=== PATIENT | female | born 1955 ===

== ENCOUNTER 2021-08-26 18:34 | Inpatient (IN) | payer MEDICARE, MEDICAID, SELFPAY ==
[2021-08-26] VITALS (8 sets, daily range): BP systolic 101–150; BP diastolic 3–92; PULSE 88–147; RESP 5–24; TEMP 36.6–39.5; O2SAT 93–98; BMI 42.5
--- NOTE | ~2021-08-26 | CT_ITS ---
EXAMINATION: CT HEAD WITHOUT CONTRAST CT CERVICAL SPINE WITHOUT CONTRAST CLINICAL INFORMATION: Left-sided weakness and neck pain. COMPARISON: None. TECHNIQUE: Contiguous axial imaging was performed from the skull base to vertex without intravenous administration of contrast. Contiguous axial imaging was performed from the upper chest through the skull base without intravenous administration of contrast. Coronal and sagittal reformats were obtained at the acquisition workstation. This CT examination was performed using dose optimization techniques as appropriate, variously including the following: *Automated exposure control *Adjustment of mA and/or kV according to patient size (this includes techniques or standardized protocols for targeted exams where dose is matched to indication/reason for exam; i.e. extremities or head) *Use of iterative reconstruction technique DLP: 858 and 801 mGy-cm FINDINGS: Head: Very limited examination due to motion. No evidence of large acute intracranial hemorrhage or edematous territorial infarction. Age indeterminate small hypodensity in the right frontal lobe adjacent to the anterior limb of internal capsule (8:20). Prominent extra-axial spaces, more notable in the frontal convexities. No midline shift. No hydrocephalus. No discrete acute osseous abnormalities. Opacified mastoids and middle ear cavities. No air-fluid levels in the paranasal sinuses. Cervical Spine: Very limited examination due to motion. No discrete acute compression deformities or malalignment. The atlantooccipital and atlantoaxial articulations are maintained. Moderate multilevel cervical spondylosis leading to variously degrees of neural foraminal encroachment and central spinal canal narrowing. No significant soft tissue abnormality. There are multifocal airspace opacities in the image upper lobes, more extensive on the right side. CT/CT cervical spine wo con IMPRESSION: Very limited examination. A repeat study is recommended if clinically pertinent. 1. No large intracranial hemorrhage or edematous territorial infarction. 2. Age indeterminate hypodensity in the right frontal lobe. 3. Nonspecific prominence of the extra-axial spaces, limitedly assessed due to motion. This could be related with volume loss, chronic subdural hematomas or hygromas. 4. No definite cervical fractures or malalignment. 5. Multifocal airspace opacities in the visualized portions of the lungs. Correlate clinically for signs of infection. 6. Opacified mastoids and middle ear cavities. Correlate clinically for otitis and mastoiditis.
--- NOTE | ~2021-08-26 | CT_ITS ---
EXAMINATION: CT ABDOMEN AND PELVIS WITHOUT CONTRAST CLINICAL INFORMATION: Left lower quadrant pain COMPARISON: None TECHNIQUE: Multidetector volumetric imaging was performed from the superior aspect of the liver through the pubic symphysis. Sagittal and coronal reformatted images were obtained on the technologist's workstation. This CT examination was performed using dose optimization techniques as appropriate, variously including the following: *Automated exposure control *Adjustment of mA and/or kV according to patient size (this includes techniques or standardized protocols for targeted exams where dose is matched to indication/reason for exam; i.e. extremities or head) *Use of iterative reconstruction technique DLP: 1524 mGy-cm FINDINGS: LUNG BASES: Groundglass attenuation and subpleural reticulation the lung bases likely some combination of mild fibrosis and air trapping/atelectasis. LIVER, GALLBLADDER, AND BILIARY TREE: Mildly enlarged measuring 17.7 cm in length. Normal attenuation. No liver lesion. No biliary ductal dilation. The gallbladder is unremarkable with no evidence of radiopaque gallstones, gallbladder wall thickening, or obvious pericholecystic inflammatory changes. PANCREAS: Unremarkable. SPLEEN: Unremarkable. ADRENAL GLANDS: Unremarkable. KIDNEYS AND URETERS: The kidneys are normal in size, shape, and attenuation. No hydronephrosis, hydroureter, or calculi seen. No perinephric stranding. BLADDER: Mildly diffusely thick-walled appearance is favored due to incomplete distention. GASTROINTESTINAL TRACT: Moderate amount of formed stool throughout the nondilated colon. No dilated bowel loops. No bowel wall thickening. Normal appendix. Percutaneous G-tube in place. No ascites or free air. ABDOMINAL WALL: No significant abdominal wall hernia. Small bubbles of subcutaneous gas in small subcutaneous nodules in the ventral abdominal wall likely injection sites. LYMPH NODES: No lymphadenopathy. VASCULAR: Mild vascular calcifications. Normal caliber abdominal aorta. PELVIC VISCERA: Status post hysterectomy. Fluid-filled distention of the vagina. OSSEOUS STRUCTURES: No acute fracture or suspicious osseous lesion. Advanced multilevel degenerative disc disease throughout the thoracolumbar spine. Mild grade 1 anterolisthesis at L5-S1 and multilevel facet arthrosis. Mild subcutaneous fat stranding in the anterior right lower chest wall. Correlate with recent injury or bruising on exam. CT/CT abdomen pelvis wo con IMPRESSION: 1. No acute intra-abdominal process identified. 2. Moderate amount of formed stool throughout the colon. Correlate clinically with signs or symptoms of constipation. 3. Fluid-filled distention of the vagina. 4. Multiple additional findings, as described.
--- NOTE | ~2021-08-26 | CT_ITS ---
EXAMINATION: CT CHEST WITHOUT CONTRAST CLINICAL INFORMATION: Shortness of breath. Tachycardia. COMPARISON: None TECHNIQUE: Multidetector volumetric CT imaging of the chest was done. Axial MIP volume rendering provided. Sagittal and coronal reformatted images were obtained. This CT examination was performed using dose optimization techniques as appropriate, variously including the following: *Automated exposure control *Adjustment of mA and/or kV according to patient size (this includes techniques or standardized protocols for targeted exams where dose is matched to indication/reason for exam; i.e. extremities or head) *Use of iterative reconstruction technique DLP: 483 mGy-cm FINDINGS: PEST CONTROL PILOT: Cardiac leads overlie the chest. LUNGS: The central airways are patent. Bandlike opacities are seen throughout the lungs with groundglass opacification. No pneumothorax. MEDIASTINUM: Normal heart size. No pericardial effusion. Mildly prominent mediastinal lymph nodes. For instance there is a right paratracheal node measuring 0.9 cm short axis. PLEURA: There is no pleural effusion. No pleural mass or thickening. AXILLA: No lymphadenopathy. UPPER ABDOMEN: Unremarkable. OSSEOUS STRUCTURES: No acute or suspicious osseous abnormality. Mild degenerative changes throughout the spine. CT/CT chest wo con IMPRESSION: Heterogeneous appearance of the lungs with groundglass opacification and bandlike opacities. The appearance is suspicious for chronic lung disease, although cannot exclude superimposed acute infectious or inflammatory process. Prominent mediastinal lymph nodes are likely reactive. Fleischner guidelines were followed.
--- NOTE | ~2021-08-26 | MR_ITS ---
MRI OF THE BRAIN WITHOUT IV CONTRAST INDICATION: Question weakness. Abnormal head CT. COMPARISON: CTA head 08/26/2021. TECHNIQUE: Multiplanar multisequence MR imaging of the brain was obtained without IV contrast. FINDINGS: There is no hydrocephalus, extra-axial surface collection, or herniation. There is global cerebral volume loss and there is mild chronic microangiopathy. Prominence of the extra-axial CSF spaces seen on the previous MRI due to volume loss without any true subdural collections identified. The major flow voids at the skull base are preserved. There is no acute infarct on diffusion-weighted imaging. There is no intracranial hemorrhage on the gradient recalled echo acquisition. There is a partially empty sella. The cerebellar tonsils are normally positioned. The cerebellum and brainstem are normal. The craniocervical junction is normal. Osseous marrow signal intensity is homogenous. The visualized soft tissues are unremarkable. Large bilateral mastoid and middle ear cavity effusions. MR/MR head/brain wo con IMPRESSION: - No acute intracranial findings. No acute infarcts. - There is global cerebral volume loss and there is mild chronic microangiopathy. - Prominence of the extra-axial CSF spaces seen on the previous MRI is due to volume loss without any true subdural collections identified. - Large bilateral mastoid and middle ear cavity effusions.
--- NOTE | 2021-08-26 18:41 | ECG_ITS ---
Test Reason : SEPSIS Blood Pressure : / mmHG Vent. Rate : 119 BPM Atrial Rate : 119 BPM P-R Int : 168 ms QRS Dur : 070 ms QT Int : 310 ms P-R-T Axes : 052 003 017 degrees QTc Int : 436 ms Artifact in tracing Sinus tachycardia Cannot rule out Inferior infarct , age undetermined Cannot rule out Anterior infarct , age undetermined Abnormal ECG No previous ECGs available Referred By: Wild Giordano Electronically Signed By:GRETA WAITE
[2021-08-26 19:07] LABS: MANUAL DIFF FLAG NO
[2021-08-26 19:09] LABS: Basophils Percent Auto 0.3 % (0-2); Eosinophils Absolute Auto 0.1 X10*3/uL (0.0-0.4); Eosinophils Percent Auto 0.7 % (0-4); Hematocrit 34.8 % (37.0-47.0); Hemoglobin 11.1 g/dl (12.0-16.0); Imm Gran Abs Auto 0.04 X10*3/uL (0.00-0.03); Imm Gran Pct Auto 0.6 % (0.0-0.4); Lymphocytes Absolute Auto 1.4 X10*3/uL (1.2-4.9); Lymphocytes Percent Auto 20.2 % (20-40); Mean Corpuscular HGB Conc 31.9 g/dl (31.0-35.0); Mean Corpuscular Hemoglobin 26.9 pg (27.0-33.0); Mean Corpuscular Volume 84.5 fL (80.0-98.0); Mean Platelet Volume 10.9 fL (9.4-12.3); Monocytes Absolute Auto 0.7 X10*3/uL (0.1-1.2); Monocytes Percent Auto 9.9 % (2-11); Neutrophils Absolute Auto 4.9 x10*3/uL (2.0-8.3); Neutrophils Percent Auto 68.3 % (45-73); Platelet Count 193 X10*3/uL (160-400); Red Blood Count 4.12 X10*6/uL (4.20-5.50); Red Cell Distribution Width 14.8 % (11.0-16.0); White Blood Count 7.1 X10*3/uL (4.8-10.8)
--- NOTE | 2021-08-26 19:18 | ED.GENADULT ---
HPI - General Adult General Chief complaint: General Medical Stated complaint: fever Time Seen by Provider: 08/26/21 18:41 Source: patient and EMS Mode of arrival: EMS Limitations: other (Poor historian) History of Present Illness HPI narrative: This is a 65-year-old female past medical history significant for atrial fibrillation, heart failure, obesity, hyperlipidemia, diastolic congestive heart failure, COPD, ataxia, tremors, weakness, dysphagia oropharyngeal phase presenting to the emergency department from custodial [facility] where they noted that patient appeared to be altered, tremulous, sweating. When I asked the patient what is wrong she tells me she just does not feel right. She is unable to elaborate on her complaint. I will call the [facility] to obtain more information. Patient unable to answer review of systems at this time. Onset (ago): day(s) (1) Related Data Home Medications Medication Instructions Recorded Confirmed Lactobacillus acidophilus 1,000 mmu cells PO BID 08/26/21 08/26/21 (Acidophilus) acetaminophen 325 mg tablet 650 mg PO Q6H PRN temp/pain 08/26/21 08/26/21 albuterol sulfate 0.63 mg/3 mL 0.63 mg inhalation Q6H PRN 08/26/21 08/26/21 solution for nebulization Shortness Of Breath aripiprazole 10 mg tablet 10 mg PO DAILY 08/26/21 08/26/21 atorvastatin 20 mg tablet 20 mg PO BEDTIME 08/26/21 08/26/21 bisacodyl 10 mg rectal suppository 10 mg HI DAILY PRN Constipation 08/26/21 08/26/21 budesonide-formoterol HFA 160 1 inh inhalation DAILY 08/26/21 08/26/21 mcg-4.5 mcg/actuation aerosol inhaler (Symbicort) bupropion HCl 75 mg tablet 75 mg PO BID 08/26/21 08/26/21 docusate sodium 100 mg capsule 100 mg PO BID 08/26/21 08/26/21 enoxaparin 40 mg/0.4 mL 40 mg subcut DAILY 08/26/21 08/26/21 subcutaneous syringe (Lovenox) famotidine 20 mg tablet 20 mg PO BID 08/26/21 08/26/21 furosemide 40 mg tablet 40 mg PO DAILY 08/26/21 08/26/21 gabapentin 300 mg capsule 300 mg PO TID 08/26/21 08/26/21 insulin glargine 100 unit/mL (3 20 unit subcut DAILY 08/26/21 08/26/21 mL) subcutaneous pen insulin lispro 100 unit/mL 1 sliding scale dose subcut 08/26/21 08/26/21 subcutaneous solution (Humalog USEASDIRECTD U-100 Insulin) lidocaine 4 % topical patch 3 patch topical DAILY 08/26/21 08/26/21 magnesium hydroxide 400 mg/5 mL 30 ml PO DAILY PRN Constipation 08/26/21 08/26/21 oral suspension (Milk of Magnesia) multivitamin with iron 1 tab PO DAILY 08/26/21 08/26/21 nystatin 100,000 unit/gram topical 1 appl topical BID 08/26/21 08/26/21 powder oxycodone 10 mg tablet 10 mg PO Q6H PRN Pain (Scale Score 08/26/21 08/26/21 4-6) polyethylene glycol 3350 17 gram 17 g PO DAILY 08/26/21 08/26/21 oral powder packet potassium chloride 20 mEq 20 meq PO DAILY 08/26/21 08/26/21 tablet,extended release propranolol 60 mg tablet 30 mg PO TID 08/26/21 08/26/21 sennosides 8.6 mg tablet (senna) 17.2 mg PO BEDTIME 08/26/21 08/26/21 Allergies Allergy/AdvReac Type Severity Reaction Status Date / Time Unable to Assess Allergy Unverified 08/26/21 18:41 Review of Systems Review of Systems: Yes Unobtainable due to mental status PMFSH Past Medical History Attestation statement: The following information was validated with the patient. Source: old records reviewed and nursing notes reviewed Social History Social History Advance Directives: Yes Advance Directives on File: Yes Advance Directives Date on File: 08/27/21 Physical Exam ED Vital Signs: Vital Signs - 24 hr 08/26/21 18:48 08/26/21 19:19 08/26/21 19:48 Temperature 103.1 F H 102.9 F H 98.6 F Pulse Rate 147 H 117 H 118 H Respiratory Rate 18 24 H 22 H Blood Pressure 116/81 148/3 H Pulse Oximetry 94 95 94 Oxygen Delivery Method Nasal Cannula Nasal Cannula Room Air Oxygen Flow Rate 2 2 08/26/21 20:02 08/26/21 20:25 08/26/21 21:35 Temperature 102.2 F H 99.9 F 100.5 F H Pulse Rate 116 H 113 H Respiratory Rate 22 H 20 Blood Pressure 141/92 H 124/75 Pulse Oximetry 93 94 Oxygen Delivery Method Nasal Cannula Nasal Cannula Oxygen Flow Rate 1 2 08/26/21 23:31 08/27/21 00:40 08/26/21 23:55 Temperature 97.9 F 99.3 F Pulse Rate 88 83 88 Respiratory Rate 15 14 5 L Blood Pressure 101/59 L 107/63 116/63 Pulse Oximetry 98 97 Oxygen Delivery Method Nasal Cannula Nasal Cannula Nasal Cannula Oxygen Flow Rate 1 96 2 08/27/21 01:22 Temperature Pulse Rate 79 Respiratory Rate 14 Blood Pressure 112/44 L Pulse Oximetry 96 Oxygen Delivery Method Nasal Cannula Oxygen Flow Rate 2 BMI result Body Mass Index 42.5 Patient is noted to be febrile, tachycardic. Appearance: Alert.? Oriented X3.? No acute distress.? Head: Normocephalic, atraumatic, no step-offs or deformities Eyes: Pupils equal, round and reactive to light.? ENT: Pharynx normal.? Neck: Normal inspection.? Neck supple.? CVS: Normal heart rate and rhythm.? Pulses normal.? Respiratory: No respiratory distress.? Breath sounds diminished b.l.? Abdomen: Soft and nontender.? Skin: Skin warm and diaphoretic.? Normal skin color.? Normal skin turgor.? Extremities: No lower extremity edema.? No calf ttp. Global weakness, with left upper extremity contracted Neuro: Oriented X 3.? No motor deficit.? No sensory deficit. CN 2-12 intact Course Reevaluation(s) Reevaluation #1: Spoke to staff from [facility] and they tell me that this patient is usually diffusely weak, and has a left arm contracted, she appears to be weaker on her left side at baseline. They tell me that today when they went in to go see her she was noted to be diaphoretic and she told them that she did not feel good there for they called an ambulance. She was noted to be febrile at the facility 103.6 however nobody gave anything at the facility for fever. Time: 21:30 Reevaluation #2: CBC appears to have a slight normocytic anemia, normal white blood cell count. No acute electrolyte abnormalities requiring intervention. Troponin negative EKG nonischemic. Initial lactic acid 2.1, improved after fluids 1.2. UA positive for infection. COVID negative. Time: 22:08 Reevaluation #3: At this time patient will be admitted to hospitalist team. Time: 01:57 Medical Decision Making [facility] Narrative Medical decision making narrative: 1919 65-year-old female from custodial facility presents with generalized malaise, unable to answer my questions she tells me she just does not feel good. Upon physical examination patient is noted to have a rapid regular rhythm on exam, lung sounds diminished b/l, patient's skin is warm, diaphoretic, patient is globally weak and she has a contracted left arm. Vital signs significant for fever and tachycardia. She is on 2 L via nasal cannula. Plan at this time is to obtain basic labs, blood cultures, lactic, antibiotics and fluids. At this time infection suspected Medical Records Medical records reviewed: Yes I reviewed the patient's medical records. Lab Data Lab results reviewed: Yes I reviewed the patient's lab results. Result diagrams: 08/26/21 19:02 08/26/21 19:02 Labs: Lab Results 08/26/21 08/26/21 08/26/21 Range/Units 19:02 19:02 19:02 WBC 7.1 (4.8-10.8) X10*3/uL RBC 4.12 L (4.20-5.50) X10*6/uL Hgb 11.1 L (12.0-16.0) g/dl Hct 34.8 L (37.0-47.0) % MCV 84.5 (80.0-98.0) fL MCH 26.9 L (27.0-33.0) pg MCHC 31.9 (31.0-35.0) g/dl RDW 14.8 (11.0-16.0) % Plt Count 193 (160-400) X10*3/uL MPV 10.9 (9.4-12.3) fL Immature Gran % (Auto) 0.6 H (0.0-0.4) % Neut % (Auto) 68.3 (45-73) % Lymph % (Auto) 20.2 (20-40) % Cook % (Auto) 9.9 (2-11) % Eos % (Auto) 0.7 (0-4) % Baso % (Auto) 0.3 (0-2) % Lymph # (Auto) 1.4 (1.2-4.9) X10*3/uL Cook # (Auto) 0.7 (0.1-1.2) X10*3/uL Eos # (Auto) 0.1 (0.0-0.4) X10*3/uL Baso # (Auto) 0.0 (0.0-0.2) X10*3/uL Abs Immat Gran (auto) 0.04 H (0.00-0.03) X10*3/uL Absolute Neuts (auto) 4.9 (2.0-8.3) x10*3/uL Absolute Nucleated RBC 0.000 (0.0-0.012) X10*3/uL Nucleated RBC % (auto) 0.0 (0.0-0.2) /100WBC Sodium 134 L (135-145) mmol/L Potassium 4.6 (3.3-5.1) mmol/L Chloride 96 (96-108) mmol/L Carbon Dioxide 29 (22-29) mmol/L Anion Gap 14 (12-20) BUN 9 (9-16) mg/dL Creatinine 0.90 (0.5-1.4) mg/dL Estim Creat Clear Calc 90.0 Estimated GFR > 60 Random Glucose 203 H (60-115) mg/dL Lactic Acid (0.5-2.0) mmol/L Lactic Acid F/U @ 2Hr (0.5-2.0) mmol/L Calcium 9.0 (8.4-10.2) mg/dL Magnesium 1.7 (1.6-2.6) mg/dL Total Bilirubin 0.9 (0.0-1.0) mg/dL AST 14 (5-31) U/L ALT 12 (0-31) U/L Alkaline Phosphatase 73 (39-117) U/L Troponin I High Sens (<3.5-17.0) ng/L Total Protein 7.8 (6.5-8.0) g/dL Albumin 4.0 (3.5-5.0) g/dL Lipase 12 (8-78) U/L Urine Color Urine Appearance Urine pH (5.0-8.0) Ur Specific [place] (1.005-1.025) Urine Protein (NEG-TRACE) MG/DL Urine Glucose (UA) (NEG) MG/DL Urine Ketones (NEG) MG/DL Urine Blood (NEG) Urine Nitrite (NEG) Ur Leukocyte Esterase (NEG) Urine RBC (0) /HPF Urine WBC (0-4) /HPF Ur Squamous Epith Cells /LPF Amorphous Sediment /LPF Urine Bacteria /LPF COVID-19 (ABBY) Negative (Negative) COVID-19 Clin Com See Note Influenza Type A (PCR) (Negative) Influenza Type B (PCR) (Negative) RSV RNA Qual (PCR) (Negative) SARS-CoV-2 RNA (RT-PCR) (Negative) 08/26/21 08/26/21 08/26/21 Range/Units 19:02 19:02 21:30 WBC (4.8-10.8) X10*3/uL RBC (4.20-5.50) X10*6/uL Hgb (12.0-16.0) g/dl Hct (37.0-47.0) % MCV (80.0-98.0) fL MCH (27.0-33.0) pg MCHC (31.0-35.0) g/dl RDW (11.0-16.0) % Plt Count (160-400) X10*3/uL MPV (9.4-12.3) fL Immature Gran % (Auto) (0.0-0.4) % Neut % (Auto) (45-73) % Lymph % (Auto) (20-40) % Cook % (Auto) (2-11) % Eos % (Auto) (0-4) % Baso % (Auto) (0-2) % Lymph # (Auto) (1.2-4.9) X10*3/uL Cook # (Auto) (0.1-1.2) X10*3/uL Eos # (Auto) (0.0-0.4) X10*3/uL Baso # (Auto) (0.0-0.2) X10*3/uL Abs Immat Gran (auto) (0.00-0.03) X10*3/uL Absolute Neuts (auto) (2.0-8.3) x10*3/uL Absolute Nucleated RBC (0.0-0.012) X10*3/uL Nucleated RBC % (auto) (0.0-0.2) /100WBC Sodium (135-145) mmol/L Potassium (3.3-5.1) mmol/L Chloride (96-108) mmol/L Carbon Dioxide (22-29) mmol/L Anion Gap (12-20) BUN (9-16) mg/dL Creatinine (0.5-1.4) mg/dL Estim Creat Clear Calc Estimated GFR Random Glucose (60-115) mg/dL Lactic Acid 2.1 H* (0.5-2.0) mmol/L Lactic Acid F/U @ 2Hr (0.5-2.0) mmol/L Calcium (8.4-10.2) mg/dL Magnesium (1.6-2.6) mg/dL Total Bilirubin (0.0-1.0) mg/dL AST (5-31) U/L ALT (0-31) U/L Alkaline Phosphatase (39-117) U/L Troponin I High Sens < 3.5 (<3.5-17.0) ng/L Total Protein (6.5-8.0) g/dL Albumin (3.5-5.0) g/dL Lipase (8-78) U/L Urine Color YELLOW Urine Appearance HAZY Urine pH 7.0 (5.0-8.0) Ur Specific [place] 1.010 (1.005-1.025) Urine Protein TRACE (NEG-TRACE) MG/DL Urine Glucose (UA) NEG (NEG) MG/DL Urine Ketones NEG (NEG) MG/DL Urine Blood 1+ H (NEG) Urine Nitrite POS H (NEG) Ur Leukocyte Esterase 3+ H (NEG) Urine RBC 1-4 (0) /HPF Urine WBC TNTC H (0-4) /HPF Ur Squamous Epith Cells 1+ /LPF Amorphous Sediment 1+ /LPF Urine Bacteria 1+ /LPF COVID-19 (ABBY) (Negative) COVID-19 Clin Com Influenza Type A (PCR) (Negative) Influenza Type B (PCR) (Negative) RSV RNA Qual (PCR) (Negative) SARS-CoV-2 RNA (RT-PCR) (Negative) 08/26/21 08/26/21 Range/Units 21:34 23:40 WBC (4.8-10.8) X10*3/uL RBC (4.20-5.50) X10*6/uL Hgb (12.0-16.0) g/dl Hct (37.0-47.0) % MCV (80.0-98.0) fL MCH (27.0-33.0) pg MCHC (31.0-35.0) g/dl RDW (11.0-16.0) % Plt Count (160-400) X10*3/uL MPV (9.4-12.3) fL Immature Gran % (Auto) (0.0-0.4) % Neut % (Auto) (45-73) % Lymph % (Auto) (20-40) % Cook % (Auto) (2-11) % Eos % (Auto) (0-4) % Baso % (Auto) (0-2) % Lymph # (Auto) (1.2-4.9) X10*3/uL [place] # (Auto) (0.1-1.2) X10*3/uL Eos # (Auto) (0.0-0.4) X10*3/uL Baso # (Auto) (0.0-0.2) X10*3/uL Abs Immat Gran (auto) (0.00-0.03) X10*3/uL Absolute Neuts (auto) (2.0-8.3) x10*3/uL Absolute Nucleated RBC (0.0-0.012) X10*3/uL Nucleated RBC % (auto) (0.0-0.2) /100WBC Sodium (135-145) mmol/L Potassium (3.3-5.1) mmol/L Chloride (96-108) mmol/L Carbon Dioxide (22-29) mmol/L Anion Gap (12-20) BUN (9-16) mg/dL Creatinine (0.5-1.4) mg/dL Estim Creat Clear Calc Estimated GFR Random Glucose (60-115) mg/dL Lactic Acid (0.5-2.0) mmol/L Lactic Acid F/U @ 2Hr 1.2 (0.5-2.0) mmol/L Calcium (8.4-10.2) mg/dL Magnesium (1.6-2.6) mg/dL Total Bilirubin (0.0-1.0) mg/dL AST (5-31) U/L ALT (0-31) U/L Alkaline Phosphatase (39-117) U/L Troponin I High Sens (<3.5-17.0) ng/L Total Protein (6.5-8.0) g/dL Albumin (3.5-5.0) g/dL Lipase (8-78) U/L Urine Color Urine Appearance Urine pH (5.0-8.0) Ur Specific [place] (1.005-1.025) Urine Protein (NEG-TRACE) MG/DL Urine Glucose (UA) (NEG) MG/DL Urine Ketones (NEG) MG/DL Urine Blood (NEG) Urine Nitrite (NEG) Ur Leukocyte Esterase (NEG) Urine RBC (0) /HPF Urine WBC (0-4) /HPF Ur Squamous Epith Cells /LPF Amorphous Sediment /LPF Urine Bacteria /LPF COVID-19 (ABBY) (Negative) COVID-19 Clin Com Influenza Type A (PCR) NEGATIVE (Negative) Influenza Type B (PCR) NEGATIVE (Negative) RSV RNA Qual (PCR) NEGATIVE (Negative) SARS-CoV-2 RNA (RT-PCR) NEGATIVE (Negative) ECG Data Attestation: I personally reviewed and interpreted this ECG as follows: Prior ECG tracings: not available for review Interpretation: Ventricular rate 119 HI normal, QRS normal, QT/QTC normal. EKG shows sinus tachycardia no ST elevations or inversions concerning for ischemia. No previous EKGs to compare with. Critical Care Time Critical Care Time Critical Care Time: No Discharge Plan Discharge Clinical Impression: Pneumonia, UTI (urinary tract infection), Fever Patient Disposition: Admitted As Inpatient
[2021-08-26 19:25] LABS: Alanine Aminotransferase 12 U/L (0-31); Alkaline Phosphatase 73 U/L (39-117); Anion Gap 14 (12-20); Aspartate Amino Transferase 14 U/L (5-31); Bilirubin Total 0.9 mg/dL (0.0-1.0); Blood Urea Nitrogen 9 mg/dL (9-16); COVID-19 Test Negative (Negative); Carbon Dioxide 29 mmol/L (22-29); Chloride 96 mmol/L (96-108); Estimated Glomerular Filt Rate > 60; Glucose Random 203 mg/dL (60-115); Lipase 12 U/L (8-78); Magnesium 1.7 mg/dL (1.6-2.6); Potassium 4.6 mmol/L (3.3-5.1); Sodium 134 mmol/L (135-145); Total Protein 7.8 g/dL (6.5-8.0)
[2021-08-26] MEDS: Acetaminophen 325 MG TABLET 650 MG PO (19:25)
[2021-08-26] MEDS: cefTRIAXone sodium 1 GM in 0.9 % Sodium Chloride 50 ML IV (19:25)
[2021-08-26] MEDS: 0.9 % Sodium Chloride 1,000 ML 999 ML IV ×2 (19:27→22:00)
[2021-08-26 19:32] LABS: Troponin-I High Sensitivity < 3.5 ng/L (<3.5-17.0)
[2021-08-26 19:34] LABS: Lactic Acid 2.1 mmol/L (0.5-2.0)
--- NOTE | 2021-08-26 20:31 | PHA.MEDREC ---
Pharmacy Consult ? Medication Reconciliation Pharmacy has completed the medication reconciliation. Pt from [facility]
[2021-08-26 21:05] LABS: Reflex Lactate? Lactic Acid Added
[2021-08-26 21:42] LABS: Appearance Urine HAZY; Color Urine YELLOW; Glucose Urine UA NEG (NEG); Leukocyte Esterase Urine 3+ (NEG); Nitrite Urine POS (NEG); UACC Culture Trigger YES; Urine Blood 1+ (NEG); Urine Ketones NEG (NEG); Urine Protein TRACE MG/DL (NEG-TRACE)
[2021-08-26 21:51] LABS: ~Lactic Acid-LAB USE ONLY 1.2 mmol/L (0.5-2.0)
[2021-08-26 21:53] LABS: Bacteria Urine 1+ /LPF; Squamous Epithelial Cell Urine 1+ /LPF
[2021-08-26 21:55] LABS: Amorphous Sediment Urine 1+ /LPF; WBC Urine TNTC /HPF (0-4)
[2021-08-26] MEDS: Ibuprofen 600 MG TABLET PO (22:21)
--- NOTE | 2021-08-26 23:46 | PM.IMHP ---
History of Present Illness Date of Service: 08/26/21 Chief Complaint: diaphoresis This 65-year-old female who [facility] and has past medical history of AFib, diastolic heart failure, COPD, obesity, HLD, diabetes, ataxia, tremors, as well as dysphagia sent to the hospital [facility] for altered mental status and diaphoresis. Patient currently awake and oriented to self. She reports that she has not been feeling well for past few days but otherwise denies any cough, no shortness of breath no chest pain, no abdominal pain, no nausea or vomiting, no diarrhea constipation, on reports no urinary symptoms. I am not sure how accurate this review of system really is. On arrival she was noted to be febrile with a fever of 103.1, heart rate of 140s sinus, satting 94% on 2 L of oxygen. It appears the patient does desat on room air and therefore currently on 2 L of oxygen satting 96% Labs are significant for WBC count of 7.1, hemoglobin of 11.1, hematocrit 34.8, sodium of 134, lactic acid of 2.1, improved after IV fluids UA positive for nitrites, leukocyte Estrace, WBC, chest CT shows heterogeneous appearance of the lung with ground-glass opacification and bandlike opacities. Although this is suspicious for chronic lung disease superimposed acute infection cannot be ruled out patient started on IV antibiotics and will be admitted Review of Systems Review of Systems: Yes all other systems are reviewed and are negative and Unobtainable due to mental condition [facility] Medical History (Updated 08/27/21 @ 06:35 by Wanda Carlin MD) Atrial fibrillation CHF (congestive heart failure) COPD (chronic obstructive pulmonary disease) Dysphagia Essential tremor Hyperlipidemia Pertinent family history: Pt does not know Surgical History (Updated 08/27/21 @ 06:28 by Wanda Carlin MD) No pertinent past surgical history Social History Advance Directives: Yes Advance Directives on File: Yes Advance Directives Date on File: 08/27/21 Meds Allergies Allergy/AdvReac Type Severity Reaction Status Date / Time Unable to Assess Allergy Unverified 08/26/21 18:41 Active Medications: Current Medications Pharmacy Consult (Consult Rx Perform Med Rec) 1 each MISCELLANE ONCE PRN PRN Reason: Consult order Home Medications Medication Instructions Recorded Confirmed Last Taken Type Lactobacillus acidophilus 1,000 mmu cells PO BID 08/26/21 08/26/21 Unknown History (Acidophilus) acetaminophen 325 mg tablet 650 mg PO Q6H PRN temp/pain 08/26/21 08/26/21 Unknown History albuterol sulfate 0.63 mg/3 mL 0.63 mg inhalation Q6H PRN 08/26/21 08/26/21 Unknown History solution for nebulization Shortness Of Breath aripiprazole 10 mg tablet 10 mg PO DAILY 08/26/21 08/26/21 Unknown History atorvastatin 20 mg tablet 20 mg PO BEDTIME 08/26/21 08/26/21 Unknown History bisacodyl 10 mg rectal suppository 10 mg SC DAILY PRN Constipation 08/26/21 08/26/21 Unknown History budesonide-formoterol HFA 160 1 inh inhalation DAILY 08/26/21 08/26/21 Unknown History mcg-4.5 mcg/actuation aerosol inhaler (Symbicort) bupropion HCl 75 mg tablet 75 mg PO BID 08/26/21 08/26/21 Unknown History docusate sodium 100 mg capsule 100 mg PO BID 08/26/21 08/26/21 Unknown History enoxaparin 40 mg/0.4 mL 40 mg subcut DAILY 08/26/21 08/26/21 Unknown History subcutaneous syringe (Lovenox) famotidine 20 mg tablet 20 mg PO BID 08/26/21 08/26/21 Unknown History furosemide 40 mg tablet 40 mg PO DAILY 08/26/21 08/26/21 Unknown History gabapentin 300 mg capsule 300 mg PO TID 08/26/21 08/26/21 Unknown History insulin glargine 100 unit/mL (3 20 unit subcut DAILY 08/26/21 08/26/21 Unknown History mL) subcutaneous pen insulin lispro 100 unit/mL 1 sliding scale dose subcut 08/26/21 08/26/21 Unknown History subcutaneous solution (Humalog USEASDIRECTD U-100 Insulin) lidocaine 4 % topical patch 3 patch topical DAILY 08/26/21 08/26/21 Unknown History magnesium hydroxide 400 mg/5 mL 30 ml PO DAILY PRN Constipation 08/26/21 08/26/21 Unknown History oral suspension (Milk of Magnesia) multivitamin with iron 1 tab PO DAILY 08/26/21 08/26/21 Unknown History nystatin 100,000 unit/gram topical 1 appl topical BID 08/26/21 08/26/21 Unknown History powder oxycodone 10 mg tablet 10 mg PO Q6H PRN Pain (Scale Score 08/26/21 08/26/21 Unknown History 4-6) polyethylene glycol 3350 17 gram 17 g PO DAILY 08/26/21 08/26/21 Unknown History oral powder packet potassium chloride 20 mEq 20 meq PO DAILY 08/26/21 08/26/21 Unknown History tablet,extended release propranolol 60 mg tablet 30 mg PO TID 08/26/21 08/26/21 Unknown History sennosides 8.6 mg tablet (senna) 17.2 mg PO BEDTIME 08/26/21 08/26/21 Unknown History Physical Exam Vital Signs and Narrative: Vital Signs: Last Vital Signs Temp 97.9 F 08/26/21 23:31 Pulse 88 08/26/21 23:31 Resp 15 08/26/21 23:31 BP 101/59 L 08/26/21 23:31 Pulse Ox 98 08/26/21 23:31 O2 Del Method 08/26/21 23:31 O2 Flow Rate 1 08/26/21 23:31 Oxygen Flow Rate 2 08/26/21 18:48 BMI result Body Mass Index 42.5 Const: Other: alert, awake, oriented to self and being in a hospital General: cooperative and no acute distress Eyes: General: appearance normal, both eyes and all related structures Pupils: Equal, round and reactive pupils present Resp: Effort & Inspection: normal respiratory effort Auscultation: clear to auscultation bilaterally Cardio: Rate: regular rate Rhythm: regular rhythm GI: Palpation (GI): Soft to palpation Auscultation: normal bowel sounds Skin: General skin exam: no rashes or lesions noted Neuro: Cranial nerves: Yes Equal, round and reactive pupils present Extrem: General: Yes normal to inspection and Yes no pedal edema Results Labs CBC and Chem 7: 08/26/21 19:02 08/26/21 19:02 Labs: Laboratory Results - last 24 hr 08/26/21 08/26/21 08/26/21 19:02 19:02 19:02 MCV 84.5 MCH 26.9 L MCHC 31.9 RDW 14.8 Plt Count 193 MPV 10.9 Immature Gran % (Auto) 0.6 H Neut % (Auto) 68.3 Lymph % (Auto) 20.2 [place] % (Auto) 9.9 Eos % (Auto) 0.7 Baso % (Auto) 0.3 Lymph # (Auto) 1.4 [place] # (Auto) 0.7 Eos # (Auto) 0.1 Baso # (Auto) 0.0 Abs Immat Gran (auto) 0.04 H Absolute Neuts (auto) 4.9 Absolute Nucleated RBC 0.000 Nucleated RBC % (auto) 0.0 Anion Gap 14 Estim Creat Clear Calc 90.0 Estimated GFR > 60 Random Glucose 203 H Lactic Acid Lactic Acid F/U @ 2Hr Calcium 9.0 Magnesium 1.7 Total Bilirubin 0.9 AST 14 ALT 12 Alkaline Phosphatase 73 Troponin I High Sens Total Protein 7.8 Albumin 4.0 Lipase 12 Urine Color Urine Appearance Urine pH Ur Specific [place] Urine Protein Urine Glucose (UA) Urine Ketones Urine Blood Urine Nitrite Ur Leukocyte Esterase Urine RBC Urine WBC Ur Squamous Epith Cells Amorphous Sediment Urine Bacteria COVID-19 (ABBY) Negative COVID-19 Clin Com See Note 08/26/21 08/26/21 08/26/21 19:02 19:02 21:30 MCV MCH MCHC RDW Plt Count MPV Immature Gran % (Auto) Neut % (Auto) Lymph % (Auto) [place] % (Auto) Eos % (Auto) Baso % (Auto) Lymph # (Auto) [place] # (Auto) Eos # (Auto) Baso # (Auto) Abs Immat Gran (auto) Absolute Neuts (auto) Absolute Nucleated RBC Nucleated RBC % (auto) Anion Gap Estim Creat Clear Calc Estimated GFR Random Glucose Lactic Acid 2.1 H* Lactic Acid F/U @ 2Hr Calcium Magnesium Total Bilirubin AST ALT Alkaline Phosphatase Troponin I High Sens < 3.5 Total Protein Albumin Lipase Urine Color YELLOW Urine Appearance HAZY Urine pH 7.0 Ur Specific [place] 1.010 Urine Protein TRACE Urine Glucose (UA) NEG Urine Ketones NEG Urine Blood 1+ H Urine Nitrite POS H Ur Leukocyte Esterase 3+ H Urine RBC 1-4 Urine WBC TNTC H Ur Squamous Epith Cells 1+ Amorphous Sediment 1+ Urine Bacteria 1+ COVID-19 (ABBY) COVID-19 Clin Com 08/26/21 21:34 MCV MCH MCHC RDW Plt Count MPV Immature Gran % (Auto) Neut % (Auto) Lymph % (Auto) [place] % (Auto) Eos % (Auto) Baso % (Auto) Lymph # (Auto) [place] # (Auto) Eos # (Auto) Baso # (Auto) Abs Immat Gran (auto) Absolute Neuts (auto) Absolute Nucleated RBC Nucleated RBC % (auto) Anion Gap Estim Creat Clear Calc Estimated GFR Random Glucose Lactic Acid Lactic Acid F/U @ 2Hr 1.2 Calcium Magnesium Total Bilirubin AST ALT Alkaline Phosphatase Troponin I High Sens Total Protein Albumin Lipase Urine Color Urine Appearance Urine pH Ur Specific [place] Urine Protein Urine Glucose (UA) Urine Ketones Urine Blood Urine Nitrite Ur Leukocyte Esterase Urine RBC Urine WBC Ur Squamous Epith Cells Amorphous Sediment Urine Bacteria COVID-19 (ABBY) COVID-19 Clin Com Imaging Radiologist's Impressions: Impressions Abdomen/Pelvis CT 08/26/21 19:41 IMPRESSION: 1. No acute intra-abdominal process identified. 2. Moderate amount of formed stool throughout the colon. Correlate clinically with signs or symptoms of constipation. 3. Fluid-filled distention of the vagina. 4. Multiple additional findings, as described. Cervical Spine CT 08/26/21 19:41 IMPRESSION: Very limited examination. A repeat study is recommended if clinically pertinent. 1. No large intracranial hemorrhage or edematous territorial infarction. 2. Age indeterminate hypodensity in the right frontal lobe. 3. Nonspecific prominence of the extra-axial spaces, limitedly assessed due to motion. This could be related with volume loss, chronic subdural hematomas or hygromas. 4. No definite cervical fractures or malalignment. 5. Multifocal airspace opacities in the visualized portions of the lungs. Correlate clinically for signs of infection. 6. Opacified mastoids and middle ear cavities. Correlate clinically for otitis and mastoiditis. Head CT 08/26/21 19:41 IMPRESSION: Very limited examination. A repeat study is recommended if clinically pertinent. 1. No large intracranial hemorrhage or edematous territorial infarction. 2. Age indeterminate hypodensity in the right frontal lobe. 3. Nonspecific prominence of the extra-axial spaces, limitedly assessed due to motion. This could be related with volume loss, chronic subdural hematomas or hygromas. 4. No definite cervical fractures or malalignment. 5. Multifocal airspace opacities in the visualized portions of the lungs. Correlate clinically for signs of infection. 6. Opacified mastoids and middle ear cavities. Correlate clinically for otitis and mastoiditis. Assessment and Plan (1) Sepsis: Status: Acute (2) UTI (urinary tract infection): Status: Acute (3) Abnormal head CT: Status: Acute (4) Constipation: Status: Acute Plan 65-year-old year old female [facility] with past medical history of AFib, frail,, pelvis who presents to hospital with altered mentation and diaphoresis found to have UTI and sepsis # sepsis - likely secondary to UTI - has positive UA - febrile, tachycardic, - chest x-ray finding appears to be chronic - will treat with IV antibiotics - follow cultures # acute UTI - positive UA, with evidence of sepsis - treat with IV antibiotics - follow culture # pneumonia? - chest CT revealed heterogeneous appearance of the lung with ground-glass opacification that appears chronic although acute infection possible - patient denies any cough or shortness of breath - patient will be treated with IV antibiotics - Blood cultures - monitor respiratory status # abnormal head CT - patient has significant abnormal findings on head CT -will consult neurology # constipation - as seen on abd CT - daily regimen # hyperlipidemia - continue statin # diabetes - continue home insulin - low-dose sliding scale insulin - diabetic diet Of note patient has history of dysphagia, tried to call the nursing facility that the patient comes from, but they are closed, will keep NPO until diet is confirmed DVT prophylaxis: Lovenox Given the sepsis and requirement for IV antibiotics patient will require minimum 2 night hospital stay for further management on monitor in Quality Stroke Does the patient have a stroke diagnosis?: No VTE Prior VTE?: No VTE Risk Level:: Medical - moderate - high VTE Device Contraindication: Treatment Not Indicated VTE Drug Contraindication: N/A - Med Ordered
[2021-08-27] VITALS (8 sets, daily range): BP systolic 104–140; BP diastolic 44–63; PULSE 72–91; RESP 14–20; TEMP 36.5–37.4; O2SAT 95–99
[2021-08-27 00:23] LABS: Influenza A PCR NEGATIVE (Negative); Influenza B PCR NEGATIVE (Negative); Resp Syncy Virus RNA Qual PCR NEGATIVE (Negative); SARS COV2 PCR INHOUSE NEGATIVE (Negative)
[2021-08-27] MEDS: Azithromycin 500 MG in 0.9 % Sodium Chloride 250 ML 125 MG IV (00:40)
[2021-08-27] MEDS: Heparin Sodium,Porcine 5,000 UNIT/ML VIAL 5000 UNIT SUBCUT ×2 (00:40→12:25)
[2021-08-27 03:35] LABS: CT PCR NOT DETECTED (Not Detect.); NG PCR NOT DETECTED (Not Detect.)
[2021-08-27 06:58] LABS: MANUAL DIFF FLAG NO
[2021-08-27 06:59] LABS: Basophils Percent Auto 0.2 % (0-2); Eosinophils Percent Auto 0.4 % (0-4); Hematocrit 30.2 % (37.0-47.0); Hemoglobin 9.5 g/dl (12.0-16.0); Imm Gran Abs Auto 0.04 X10*3/uL (0.00-0.03); Imm Gran Pct Auto 0.8 % (0.0-0.4); Lymphocytes Absolute Auto 1.7 X10*3/uL (1.2-4.9); Lymphocytes Percent Auto 32.7 % (20-40); Mean Corpuscular HGB Conc 31.5 g/dl (31.0-35.0); Mean Corpuscular Hemoglobin 26.9 pg (27.0-33.0); Mean Corpuscular Volume 85.6 fL (80.0-98.0); Mean Platelet Volume 10.9 fL (9.4-12.3); Monocytes Absolute Auto 0.7 X10*3/uL (0.1-1.2); Monocytes Percent Auto 13.4 % (2-11); Neutrophils Absolute Auto 2.7 x10*3/uL (2.0-8.3); Neutrophils Percent Auto 52.5 % (45-73); Platelet Count 129 X10*3/uL (160-400); Red Blood Count 3.53 X10*6/uL (4.20-5.50); White Blood Count 5.1 X10*3/uL (4.8-10.8)
[2021-08-27 07:13] LABS: Anion Gap 10 (12-20); Blood Urea Nitrogen 9 mg/dL (9-16); Calcium 8.8 mg/dL (8.4-10.2); Carbon Dioxide 28 mmol/L (22-29); Chloride 106 mmol/L (96-108); Creatinine Clr Calc Pharmacy 109.5; Estimated Glomerular Filt Rate > 60; Glucose Random 194 mg/dL (60-115); Potassium 4.2 mmol/L (3.3-5.1); Sodium 140 mmol/L (135-145)
--- NOTE | 2021-08-27 07:25 | PC.NURSE ---
pt found covered in urine, cleaned linen and pt. rectal temp taken 99.3. pt continues to report chills throughout adls. pt poc 164 per pct and pt sitting up eating at this time. plan of care for admission and pt denies having any questions at this time.
[2021-08-27 08:15] LABS: Glucose, Whole Blood 164 mg/dL (60-115)
[2021-08-27] MEDS: Insulin Lispro 100 UNIT/ML 3 ML VIAL SUBCUT ×4 (08:19→20:47)
[2021-08-27] MEDS: Acetaminophen 325 MG TABLET 650 MG PO ×2 (08:39→22:56)
[2021-08-27] MEDS: buPROPion HCL 75 MG TABLET PO ×2 (08:39→20:47)
[2021-08-27] MEDS: ARIPiprazole 10 MG TABLET PO (08:40)
[2021-08-27] MEDS: oxyCODONE HCl Immed Release 5 MG TABLET 10 MG PO ×3 (08:41→22:57)
[2021-08-27] MEDS: Furosemide 40 MG TABLET PO (08:42)
[2021-08-27] MEDS: Potassium Chloride ER 20 MEQ TAB.ER.PRT PO (08:42)
[2021-08-27] MEDS: Multivitamin TABLET 1 TAB PO (08:42)
[2021-08-27] MEDS: Propranolol HCL 10 MG TABLET 30 MG PO ×3 (08:43→20:47)
[2021-08-27] MEDS: Lidocaine 4 % Patch ADH..PATCH 3 PATCH TRANSDERMA (08:43)
[2021-08-27] MEDS: Insulin Glargine,Hum.rec.anlog 100 UNIT/ML 10 ML VIAL 20 UNIT SUBCUT (08:43)
[2021-08-27] MEDS: Gabapentin 300 MG CAPSULE PO ×3 (08:43→20:47)
[2021-08-27] MEDS: 0.9 % Sodium Chloride Flush 3 ML SYRINGE IVFLUSH ×2 (08:46→16:27)
[2021-08-27] MEDS: Famotidine 20 MG TABLET PO ×2 (08:48→20:47)
[2021-08-27] MEDS: Fluticasone/Vilanterol 200/25 BLST.W.DEV 1 PUFF INHALE (09:34)
--- NOTE | 2021-08-27 10:40 | HO.PM.IMPN ---
Subjective Subjective Date of Service: 08/27/21 Interval History: Seen and examined this morning Admitted overnight for fever secondary to probable UTI Patient is tremulous-reports tremors for over 1 year Has pain and decreased range of motion in left upper extremity which she reports is chronic Reports dysuria and weakness. Denies cough or shortness of breath Review of Systems Review of Systems: Yes all other systems are reviewed and are negative Constitutional Constitutional: Denies chills and Denies fever(s) Cardiovascular Cardiovascular: Denies chest pain, Denies palpitations and Denies dyspnea Respiratory Respiratory: Denies cough and Denies dyspnea Gastrointestinal Gastrointestinal: Denies abdominal pain, Denies nausea and Denies vomiting Genitourinary Genitourinary: Reports dysuria Endocrine Endocrine: Denies palpitations Physical Exam Vital Signs: Vital Signs: Last Vital Signs Temp 99.3 F 08/27/21 07:17 Pulse 91 08/27/21 09:35 Resp 18 08/27/21 09:35 BP 125/49 L 08/27/21 07:17 Pulse Ox 98 08/27/21 07:17 O2 Del Method 08/27/21 07:17 O2 Flow Rate 2 08/27/21 07:17 Oxygen Flow Rate 2 08/26/21 18:48 BMI result Body Mass Index 42.5 Const: General: cooperative, comfortable, alert and awake Nutritional Appearance: obese Orientation/consciousness: oriented to person and oriented to place Resp: Effort & Inspection: normal respiratory effort and able to speak in complete sentences Auscultation: clear to auscultation bilaterally Cardio: Rate: regular rate Heart sounds: S1 normal heart sound present and S2 normal heart sound present GI: Inspection: No distended and Yes obesity Palpation (GI): Soft to palpation and nontender Neuro: Other: grossly non-focal; b/l upper extremity tremors General: oriented to person and oriented to place Extrem: Other: Able to move all 4 extremities spontaneously. Left upper extremity range of motion limited by pain trace edema b/l legs Objective Data Active Medications Acetaminophen (Acetaminophen 325 Mg Tablet) 650 mg PO Q6H PRN PRN Reason: Pain, Mild (Pain Scale 1-3) Last Admin: 08/27/21 08:39 Dose: 650 mg Documented By: SHAI Albuterol Sulfate (Albuterol Sulfate (0.042%) 1.25 Mg/3 Ml Vial.Neb) 0.625 mg INHALE Q6H PRN PRN Reason: Shortness Of Breath Aripiprazole (Aripiprazole 10 Mg Tablet) 10 mg PO DAILY [facility] Last Admin: 08/27/21 08:40 Dose: 10 mg Documented By: SHAI Atorvastatin Calcium (Atorvastatin Calcium 20 Mg Tablet) 20 mg PO BEDTIME [facility] Bisacodyl (Bisacodyl 10 Mg Supp.Rect) 10 mg PA DAILY PRN PRN Reason: Constipation Bupropion HCl (Bupropion Hcl 75 Mg Tablet) 75 mg PO BID [facility] Last Admin: 08/27/21 08:39 Dose: 75 mg Documented By: SHAI Dextrose (Dextrose 50 % 25 Gm/50 Ml Syringe) 25 gm IVPUSH Q15M PRN; Protocol PRN Reason: per Hypoglycemia Standing Ord. Famotidine (Famotidine 20 Mg Tablet) 20 mg PO BID [facility] Last Admin: 08/27/21 08:48 Dose: 20 mg Documented By: SHAI Fluticasone/Vilanterol (Fluticasone/Vilanterol 200/25 Blst.W.Dev) 1 puff INHALE RDAILY [facility] Last Admin: 08/27/21 09:34 Dose: 1 puff Documented By: RUTH Furosemide (Furosemide 40 Mg Tablet) 40 mg PO DAILY [facility]; Protocol Last Admin: 08/27/21 08:42 Dose: 40 mg Documented By: SHAI Gabapentin (Gabapentin 300 Mg Capsule) 300 mg PO TID [facility] Last Admin: 08/27/21 08:43 Dose: 300 mg Documented By: SHAI Glucose (Glucose Gel 15 Gm Gel..Gram.) 15 gm PO Q15M PRN; Protocol PRN Reason: per Hypoglycemia Standing Ord. Heparin Sodium (Porcine) (Heparin Sodium,Porcine 5,000 Unit/Ml Vial) 5,000 unit SUBCUT Q12H [facility] Last Admin: 08/27/21 00:40 Dose: 5,000 unit Documented By: FRANCESCA Azithromycin 500 mg/ Sodium (Chloride) 250 mls @ 125 mls/hr IV Q24H [facility] Last Infusion: 08/27/21 06:21 Dose: 125 mls/hr Documented By: FRANCESCA Ceftriaxone Sodium 1 gm/ (Sodium Chloride) 50 mls @ 100 mls/hr IV Q24H [facility] Insulin Glargine (Insulin Glargine,Hum.Rec.Anlog 100 Unit/Ml 10 Ml Vial) 20 unit SUBCUT DAILY [facility] Last Admin: 08/27/21 08:43 Dose: 20 unit Documented By: SHAI Insulin Human Lispro (Insulin Lispro 100 Unit/Ml 3 Ml Vial) 0.1 - 10 unit SUBCUT QIDACHS [facility]; Protocol Last Admin: 08/27/21 08:19 Dose: 2 unit Documented By: SHAI Insulin Human Lispro (Insulin Lispro 100 Unit/Ml 3 Ml Vial) 0.1 - 10 unit SUBCUT CONT. PER PROTOCOL [facility]; Protocol Lidocaine (Lidocaine 4 % Patch Adh..Patch) 3 patch TRANSDERMA DAILY [facility]; Protocol Last Admin: 08/27/21 08:43 Dose: 3 patch Documented By: SHAI Magnesium Hydroxide (Milk Of Magnesia 30 Ml Oral.Susp) 30 ml PO DAILY PRN PRN Reason: Constipation Multivitamins/Vitamin C (Multivitamin Tablet) 1 tab PO DAILY [facility] Last Admin: 08/27/21 08:42 Dose: 1 tab Documented By: SHAI Nystatin (Nystatin Powder 15 Gm Bottle) 1 appl TOPICAL BID [facility]; Protocol Last Admin: 08/27/21 08:47 Dose: Not Given Documented By: KATHI Non-Admin Reason: Med Not Available Ondansetron HCl (Ondansetron Hcl 4 Mg/2 Ml Vial) 4 mg IVPUSH Q8H PRN PRN Reason: Nausea and Vomiting Oxycodone HCl (Oxycodone Hcl Immed Release 5 Mg Tablet) 10 mg PO Q6H PRN PRN Reason: Pain (Scale Score 4-6) Last Admin: 08/27/21 08:41 Dose: 10 mg Documented By: SHAI Pharmacy Consult (Consult Rx Perform Med Rec) 1 each MISCELLANE ONCE PRN PRN Reason: Consult order Polyethylene Glycol (Polyethylene Glycol 3350 17 Gm Powd.Pack) 17 gm PO DAILY [facility] Last Admin: 08/27/21 08:47 Dose: Not Given Documented By: KATHI Non-Admin Reason: Patient Refused Polyethylene Glycol (Polyethylene Glycol 3350 17 Gm Powd.Pack) 17 gm PO DAILY [facility] Last Admin: 08/27/21 08:33 Dose: Not Given Documented By: KATHI Non-Admin Reason: Patient Refused Potassium Chloride (Potassium Chloride Er 20 Meq Tab.Er.Prt) 20 meq PO DAILY [facility] Last Admin: 08/27/21 08:42 Dose: 20 meq Documented By: SHAI Propranolol HCl (Propranolol Hcl 10 Mg Tablet) 30 mg PO TID [facility]; Protocol Last Admin: 08/27/21 08:43 Dose: 30 mg Documented By: SHAI Senna (Sennosides 8.6 Mg Tablet) 17.2 mg PO BEDTIME [facility] Sodium Chloride (0.9 % Sodium Chloride Flush 3 Ml Syringe) 3 ml IVFLUSH QSHIFT [facility] Last Admin: 08/27/21 08:46 Dose: 3 ml Documented By: SHAI Labs CBC & Chem 7: 08/27/21 06:48 08/27/21 06:48 Labs: Laboratory Results - last 24 hr 08/26/21 08/26/21 08/26/21 19:02 19:02 19:02 MCV 84.5 MCH 26.9 L MCHC 31.9 RDW 14.8 Plt Count 193 MPV 10.9 Immature Gran % (Auto) 0.6 H Neut % (Auto) 68.3 Lymph % (Auto) 20.2 [place] % (Auto) 9.9 Eos % (Auto) 0.7 Baso % (Auto) 0.3 Lymph # (Auto) 1.4 [place] # (Auto) 0.7 Eos # (Auto) 0.1 Baso # (Auto) 0.0 Abs Immat Gran (auto) 0.04 H Absolute Neuts (auto) 4.9 Absolute Nucleated RBC 0.000 Nucleated RBC % (auto) 0.0 Anion Gap 14 Estim Creat Clear Calc 90.0 Estimated GFR > 60 POC Glucose Random Glucose 203 H Lactic Acid Lactic Acid F/U @ 2Hr Calcium 9.0 Magnesium 1.7 Total Bilirubin 0.9 AST 14 ALT 12 Alkaline Phosphatase 73 Troponin I High Sens Total Protein 7.8 Albumin 4.0 Lipase 12 Urine Color Urine Appearance Urine pH Ur Specific [place] Urine Protein Urine Glucose (UA) Urine Ketones Urine Blood Urine Nitrite Ur Leukocyte Esterase Urine RBC Urine WBC Ur Squamous Epith Cells Amorphous Sediment Urine Bacteria Chlam trachomat DNA PCR COVID-19 ([facility]) Negative COVID-19 Clin Com See Note Influenza Type A (PCR) Influenza Type B (PCR) N.gonorrhoeae DNA (PCR) RSV RNA Qual (PCR) SARS-CoV-2 RNA (RT-PCR) 08/26/21 08/26/21 08/26/21 19:02 19:02 21:30 MCV MCH MCHC RDW Plt Count MPV Immature Gran % (Auto) Neut % (Auto) Lymph % (Auto) [place] % (Auto) Eos % (Auto) Baso % (Auto) Lymph # (Auto) [place] # (Auto) Eos # (Auto) Baso # (Auto) Abs Immat Gran (auto) Absolute Neuts (auto) Absolute Nucleated RBC Nucleated RBC % (auto) Anion Gap Estim Creat Clear Calc Estimated GFR POC Glucose Random Glucose Lactic Acid 2.1 H* Lactic Acid F/U @ 2Hr Calcium Magnesium Total Bilirubin AST ALT Alkaline Phosphatase Troponin I High Sens < 3.5 Total Protein Albumin Lipase Urine Color YELLOW Urine Appearance HAZY Urine pH 7.0 Ur Specific [place] 1.010 Urine Protein TRACE Urine Glucose (UA) NEG Urine Ketones NEG Urine Blood 1+ H Urine Nitrite POS H Ur Leukocyte Esterase 3+ H Urine RBC 1-4 Urine WBC TNTC H Ur Squamous Epith Cells 1+ Amorphous Sediment 1+ Urine Bacteria 1+ Chlam trachomat DNA PCR COVID-19 ([facility]) COVID-19 Clin Com Influenza Type A (PCR) Influenza Type B (PCR) N.gonorrhoeae DNA (PCR) RSV RNA Qual (PCR) SARS-CoV-2 RNA (RT-PCR) 08/26/21 08/26/21 08/27/21 21:34 23:40 02:01 MCV MCH MCHC RDW Plt Count MPV Immature Gran % (Auto) Neut % (Auto) Lymph % (Auto) [place] % (Auto) Eos % (Auto) Baso % (Auto) Lymph # (Auto) [place] # (Auto) Eos # (Auto) Baso # (Auto) Abs Immat Gran (auto) Absolute Neuts (auto) Absolute Nucleated RBC Nucleated RBC % (auto) Anion Gap Estim Creat Clear Calc Estimated GFR POC Glucose Random Glucose Lactic Acid Lactic Acid F/U @ 2Hr 1.2 Calcium Magnesium Total Bilirubin AST ALT Alkaline Phosphatase Troponin I High Sens Total Protein Albumin Lipase Urine Color Urine Appearance Urine pH Ur Specific [place] Urine Protein Urine Glucose (UA) Urine Ketones Urine Blood Urine Nitrite Ur Leukocyte Esterase Urine RBC Urine WBC Ur Squamous Epith Cells Amorphous Sediment Urine Bacteria Chlam trachomat DNA PCR NOT DETECTED COVID-19 ([facility]) COVID-19 Clin Com Influenza Type A (PCR) NEGATIVE Influenza Type B (PCR) NEGATIVE N.gonorrhoeae DNA (PCR) NOT DETECTED RSV RNA Qual (PCR) NEGATIVE SARS-CoV-2 RNA (RT-PCR) NEGATIVE 08/27/21 08/27/21 08/27/21 06:48 06:48 07:15 MCV 85.6 MCH 26.9 L MCHC 31.5 RDW 15.0 Plt Count 129 L D MPV 10.9 Immature Gran % (Auto) 0.8 H Neut % (Auto) 52.5 Lymph % (Auto) 32.7 [place] % (Auto) 13.4 H Eos % (Auto) 0.4 Baso % (Auto) 0.2 Lymph # (Auto) 1.7 [place] # (Auto) 0.7 Eos # (Auto) 0.0 Baso # (Auto) 0.0 Abs Immat Gran (auto) 0.04 H Absolute Neuts (auto) 2.7 Absolute Nucleated RBC 0.000 Nucleated RBC % (auto) 0.0 Anion Gap 10 L Estim Creat Clear Calc 109.5 Estimated GFR > 60 POC Glucose 164 H Random Glucose 194 H Lactic Acid Lactic Acid F/U @ 2Hr Calcium 8.8 Magnesium Total Bilirubin AST ALT Alkaline Phosphatase Troponin I High Sens Total Protein Albumin Lipase Urine Color Urine Appearance Urine pH Ur Specific [place] Urine Protein Urine Glucose (UA) Urine Ketones Urine Blood Urine Nitrite Ur Leukocyte Esterase Urine RBC Urine WBC Ur Squamous Epith Cells Amorphous Sediment Urine Bacteria Chlam trachomat DNA PCR COVID-19 ([facility]) COVID-19 Clin Com Influenza Type A (PCR) Influenza Type B (PCR) N.gonorrhoeae DNA (PCR) RSV RNA Qual (PCR) SARS-CoV-2 RNA (RT-PCR) Microbiology Microbiology Results: Microbiology 08/26/21 21:30 Urine Culture - Preliminary Urine Catheterized - Burdick Catheter Culture too young to evaluate. 08/27/21 02:01 Trichomonas Preparation - Final Vaginal Assessment and Plan (1) Sepsis: Status: Acute (2) UTI (urinary tract infection): Status: Acute Plan 65-year-old year old female resident of [facility] with past medical history of AFib, frail,, pelvis who presents to hospital with altered mentation and diaphoresis found to have UTI and sepsis sepsis Met sepsis criteria with tachycardia, fever likely secondary to UTI -continue IV ceftriaxone day #2 - follow cultures UTI - positive UA, with evidence of sepsis - treat with IV antibiotics - follow culture pneumonia? - chest CT revealed heterogeneous appearance of the lung with ground-glass opacification that appears chronic although acute infection possible - patient denies any cough or shortness of breath - will continue IV ceftriaxone, azithromycin for now - check respiratory pathogen panel, procalcitonin - follow Blood cultures Chronic respiratory failure Patient uses 2 L at baseline Unclear etiology Continue baseline inhalers abnormal head CT - patient has significant abnormal findings on head CT -will consult neurology constipation - as seen on abd CT - daily regimen left arm pain Patient reports chronic Continue home dose of oxycodone, lidocaine patch hyperlipidemia - continue statin diabetes - continue home insulin - low-dose sliding scale insulin - diabetic diet after speech eval Dysphagia speech eval Tremor chronic Continue propanolol Mood Continue Abilify, Wellbutrin HLD Continue statin Morbid obesity BMI 42.6 DVT prophylaxis: Lovenox Attending-Dr. Joyce Patient will require ongoing inpatient hospitalization due to sepsis secondary to UTI, need for IV antibiotics, evaluation for abnormal chest CT and brain CT Likely return [facility] when medically ready for discharge Quality Stroke Does the patient have a stroke diagnosis?: No VTE Prior VTE?: No VTE Risk Level:: Medical - moderate - high VTE Device Contraindication: Treatment Not Indicated VTE Drug Contraindication: N/A - Med Ordered
--- NOTE | 2021-08-27 11:53 | MHC.SL.SWA ---
Speech Pathologist Impression: Oropharyngeal dysphagia Dysphasia Diet Status: Upgrade from NPO to chopped/thin Liquid Consistency and Strategies for Safe Swallow: Liquid Intake Recommendation: Thin Solid Food Consistency: Dietary Recommendations: Chopped/Advanced (NDD3) Additional Modifications to Solid Foods: Per staff at [facility], patient eats regular texture solids with chopped meat, thin liquids, pills are taken whole with a lot of applesauce. Patient seen for bedside swallow evaluation while in the ED this morning. No clinical signs of aspiration. Recommend continue with baseline. Recommendation entered as CHOPPED/ADVANCED (NDD3) to ensure meats are chopped, THIN liquids, pills WHOLE in PUREE. Total supervision during meals given history of dysphagia. Aspiration precautions apply. Sent [place] Message to MD, RN, RD w/ recommendations. Oral Medication Intake: Whole with Puree Please contact the pharmacy regarding appropriate crushable or liquid drug formulations that are available whenever modified delivery is recommended. Compensatory Strategies and Precautions to be Taken for Safe Swallow: Sitting Upright (90 deg) Small Bites and Sips Alternate Liquids/Solids Rate of Ingestion Change Avoid Specific Foods Supervision While Eating and Drinking for Safe Swallow: Total Supervision (1:1) Foods to Avoid: Tough, difficult to chew solids Swallowing Recommended Treatments: Recommendation for Speech: NA:Typical Evaluation Comment: Further ST intervention no longer indicated at this level of care. Please re-refer if any concerns arise or if there are any changes. Quoter Clinican/Clinical Fellow: No Supervisory Statement: I have reviewed and agree with the student/clinical fellow's documentation: N/A Speech Language Pathologist: Laureen Craven M.A., CCC-CLARK DRIVER
--- NOTE | 2021-08-27 12:17 | P.CNNE_ITS ---
History of Present Illness Data of Consult Service Date: 08/27/21 Primary Care Provider: Carlitos Greer MD [facility] Reason for consult: Abnormal head CT 65 years old woman who I was asked to see because of abnormal head CT finding. I saw her in emergency room where she had left-sided weakness or left hemiparesis. When I asked her why she was here, she was not sure. When I asked her if she had a stroke, she said no but reported that in February she was admitted [facility] and was comatose with COVID and developed this weakness after that. Apparently she was brought to hospital with change in m ental status. A CT scan of brain was done but technically it was a poor study. Review of Systems Review of Systems: As reported in HPI [facility] Past Medical History Medical History (Updated 08/27/21 @ 12:19 by All Summers MD) Atrial fibrillation CHF (congestive heart failure) COPD (chronic obstructive pulmonary disease) Dysphagia Essential tremor Hyperlipidemia Surgical History Surgical History (Updated 08/27/21 @ 06:28 by Wanda Carlin MD) No pertinent past surgical history Social History Social History Advance Directives: Yes Advance Directives on File: Yes Advance Directives Date on File: 08/27/21 Meds Allergies Allergy/AdvReac Type Severity Reaction Status Date / Time Unable to Assess Allergy Unverified 08/26/21 18:41 Active Medications: Current Medications Acetaminophen (Acetaminophen 325 Mg Tablet) 650 mg PO Q6H PRN PRN Reason: Pain, Mild (Pain Scale 1-3) Last Admin: 08/27/21 08:39 Dose: 650 mg Albuterol Sulfate (Albuterol Sulfate (0.042%) 1.25 Mg/3 Ml Vial.Neb) 0.625 mg INHALE Q6H PRN PRN Reason: Shortness Of Breath Aripiprazole (Aripiprazole 10 Mg Tablet) 10 mg PO DAILY [facility] Last Admin: 08/27/21 08:40 Dose: 10 mg Atorvastatin Calcium (Atorvastatin Calcium 20 Mg Tablet) 20 mg PO BEDTIME ZENAIDA Bisacodyl (Bisacodyl 10 Mg Supp.Rect) 10 mg [place] DAILY PRN PRN Reason: Constipation Bupropion HCl (Bupropion Hcl 75 Mg Tablet) 75 mg PO BID [facility] Last Admin: 08/27/21 08:39 Dose: 75 mg Dextrose (Dextrose 50 % 25 Gm/50 Ml Syringe) 25 gm IVPUSH Q15M PRN; Protocol PRN Reason: per Hypoglycemia Standing Ord. Famotidine (Famotidine 20 Mg Tablet) 20 mg PO BID [facility] Last Admin: 08/27/21 08:48 Dose: 20 mg Fluticasone/Vilanterol (Fluticasone/Vilanterol 200/25 Blst.W.Dev) 1 puff INHALE RDAILY [facility] Last Admin: 08/27/21 09:34 Dose: 1 puff Furosemide (Furosemide 40 Mg Tablet) 40 mg PO DAILY [facility]; Protocol Last Admin: 08/27/21 08:42 Dose: 40 mg Gabapentin (Gabapentin 300 Mg Capsule) 300 mg PO TID [facility] Last Admin: 08/27/21 08:43 Dose: 300 mg Glucose (Glucose Gel 15 Gm Gel..Gram.) 15 gm PO Q15M PRN; Protocol PRN Reason: per Hypoglycemia Standing Ord. Heparin Sodium (Porcine) (Heparin Sodium,Porcine 5,000 Unit/Ml Vial) 5,000 unit SUBCUT Q12H [facility] Last Admin: 08/27/21 00:40 Dose: 5,000 unit Azithromycin 500 mg/ Sodium (Chloride) 250 mls @ 125 mls/hr IV Q24H [facility] Last Infusion: 08/27/21 06:21 Dose: Infused Ceftriaxone Sodium 1 gm/ (Sodium Chloride) 50 mls @ 100 mls/hr IV Q24H [facility] Insulin Glargine (Insulin Glargine,Hum.Rec.Anlog 100 Unit/Ml 10 Ml Vial) 20 unit SUBCUT DAILY [facility] Last Admin: 08/27/21 08:43 Dose: 20 unit Insulin Human Lispro (Insulin Lispro 100 Unit/Ml 3 Ml Vial) 0 unit SUBCUT QIDACHS [facility]; Protocol Lidocaine (Lidocaine 4 % Patch Adh..Patch) 3 patch TRANSDERMA DAILY [facility]; Protocol Last Admin: 08/27/21 08:43 Dose: 3 patch Magnesium Hydroxide (Milk Of Magnesia 30 Ml Oral.Susp) 30 ml PO DAILY PRN PRN Reason: Constipation Multivitamins/Vitamin C (Multivitamin Tablet) 1 tab PO DAILY [facility] Last Admin: 08/27/21 08:42 Dose: 1 tab Nystatin (Nystatin Powder 15 Gm Bottle) 1 appl TOPICAL BID [facility]; Protocol Last Admin: 08/27/21 08:47 Dose: Not Given Ondansetron HCl (Ondansetron Hcl 4 Mg/2 Ml Vial) 4 mg IVPUSH Q8H PRN PRN Reason: Nausea and Vomiting Oxycodone HCl (Oxycodone Hcl Immed Release 5 Mg Tablet) 10 mg PO Q6H PRN PRN Reason: Pain (Scale Score 4-6) Last Admin: 08/27/21 08:41 Dose: 10 mg Pharmacy Consult (Consult Rx Perform Med Rec) 1 each MISCELLANE ONCE PRN PRN Reason: Consult order Polyethylene Glycol (Polyethylene Glycol 3350 17 Gm Powd.Pack) 17 gm PO DAILY [facility] Last Admin: 08/27/21 08:47 Dose: Not Given Potassium Chloride (Potassium Chloride Er 20 Meq Tab.Er.Prt) 20 meq PO DAILY S Last Admin: 08/27/21 08:42 Dose: 20 meq Propranolol HCl (Propranolol Hcl 10 Mg Tablet) 30 mg PO TID [facility]; Protocol Last Admin: 08/27/21 08:43 Dose: 30 mg Senna (Sennosides 8.6 Mg Tablet) 17.2 mg PO BEDTIME [facility] Sodium Chloride (0.9 % Sodium Chloride Flush 3 Ml Syringe) 3 ml IVFLUSH QSHIFT [facility] Last Admin: 08/27/21 08:46 Dose: 3 ml Home Medications Medication Instructions Recorded Confirmed Last Taken Type Lactobacillus acidophilus 1,000 mmu cells PO BID 08/26/21 08/26/21 Unknown History (Acidophilus) acetaminophen 325 mg tablet 650 mg PO Q6H PRN temp/pain 08/26/21 08/26/21 Unknown History albuterol sulfate 0.63 mg/3 mL 0.63 mg inhalation Q6H PRN 08/26/21 08/26/21 Unknown History solution for nebulization Shortness Of Breath aripiprazole 10 mg tablet 10 mg PO DAILY 08/26/21 08/26/21 Unknown History atorvastatin 20 mg tablet 20 mg PO BEDTIME 08/26/21 08/26/21 Unknown History bisacodyl 10 mg rectal suppository 10 mg [place] DAILY PRN Constipation 08/26/21 08/26/21 Unknown History budesonide-formoterol HFA 160 1 inh inhalation DAILY 08/26/21 08/26/21 Unknown History mcg-4.5 mcg/actuation aerosol inhaler (Symbicort) bupropion HCl 75 mg tablet 75 mg PO BID 08/26/21 08/26/21 Unknown History docusate sodium 100 mg capsule 100 mg PO BID 08/26/21 08/26/21 Unknown History enoxaparin 40 mg/0.4 mL 40 mg subcut DAILY 08/26/21 08/26/21 Unknown History subcutaneous syringe (Lovenox) famotidine 20 mg tablet 20 mg PO BID 08/26/21 08/26/21 Unknown History furosemide 40 mg tablet 40 mg PO DAILY 08/26/21 08/26/21 Unknown History gabapentin 300 mg capsule 300 mg PO TID 08/26/21 08/26/21 Unknown History insulin glargine 100 unit/mL (3 20 unit subcut DAILY 08/26/21 08/26/21 Unknown History mL) subcutaneous pen insulin lispro 100 unit/mL 1 sliding scale dose subcut 08/26/21 08/26/21 Unknown History subcutaneous solution (Humalog USEASDIRECTD U-100 Insulin) lidocaine 4 % topical patch 3 patch topical DAILY 08/26/21 08/26/21 Unknown History magnesium hydroxide 400 mg/5 mL 30 ml PO DAILY PRN Constipation 08/26/21 2 Unknown History oral suspension (Milk of Magnesia) multivitamin with iron 1 tab PO DAILY 08/26/21 08/26/21 Unknown History nystatin 100,000 unit/gram topical 1 appl topical BID 08/26/21 08/26/21 Unknown History powder oxycodone 10 mg tablet 10 mg PO Q6H PRN Pain (Scale Score 08/26/21 08/26/21 Unknown History 4-6) polyethylene glycol 3350 17 gram 17 g PO DAILY 08/26/21 08/26/21 Unknown History oral powder packet potassium chloride 20 mEq 20 meq PO DAILY 08/26/21 08/26/21 Unknown History tablet,extended release propranolol 60 mg tablet 30 mg PO TID 08/26/21 08/26/21 Unknown History sennosides 8.6 mg tablet (senna) 17.2 mg PO BEDTIME 08/26/21 08/26/21 Unknown History Physical Exam Vital Signs: Vital Signs: Last Vital Signs Temp 99.1 F 08/27/21 11:47 Pulse 88 08/27/21 11:47 Resp 17 08/27/21 11:47 BP 117/53 L 08/27/21 11:47 Pulse Ox 96 08/27/21 11:47 O2 Del Method 08/27/21 11:47 O2 Flow Rate 2 08/27/21 11:47 Oxygen Flow Rate 2 08/26/21 18:48 BMI result Body Mass Index 42.5 Neuro: Other: She is alert and awake with normal spontaneity of speech fluency comprehension and affect. Face is symmetrical. Visual arroyo are full. She is unable to move her left hand and there is significant weakness of left arm. He is able to wiggle her toes. He is significantly obese limiting examination. Results Labs CBC & Chem 7: 08/27/21 06:48 08/27/21 06:48 Labs: Short CBC 08/26/21 08/27/21 Range/Units 19:02 06:48 WBC 7.1 5.1 (4.8-10.8) X10*3/uL Hgb 11.1 L 9.5 L (12.0-16.0) g/dl Hct 34.8 L 30.2 L (37.0-47.0) % Plt Count 193 129 L D (160-400) X10*3/uL BMP 08/26/21 08/27/21 19:02 06:48 Sodium 134 L 140 Potassium 4.6 4.2 Chloride 96 106 Carbon Dioxide 29 28 BUN 9 9 Creatinine 0.90 0.74 Calcium 9.0 8.8 Liver Function 08/26/21 Range/Units 19:02 Total Bilirubin 0.9 (0.0-1.0) mg/dL AST 14 (5-31) U/L ALT 12 (0-31) U/L Alkaline Phosphatase 73 (39-117) U/L Albumin 4.0 (3.5-5.0) g/dL Urine 08/26/21 Range/Units 21:30 Urine Color YELLOW Urine Appearance HAZY Urine pH 7.0 (5.0-8.0) Ur Specific [place] 1.010 (1.005-1.025) Urine Protein TRACE (NEG-TRACE) MG/DL Urine Glucose (UA) NEG (NEG) MG/DL CT scan of brain revealed diffuse cerebral and cerebellar atrophy and otherwise significant motion artifact to make any definitive impression. Radiologist also reported her possible right frontal chronic infarction. Microbiology Microbiology Results: Microbiology 08/26/21 21:30 Urine Catheterized - Burdick Catheter Urine Culture - Preliminary Culture too young to evaluate. 08/27/21 02:01 Vaginal Trichomonas Preparation - Final Assessment and Plan (1) Encephalopathy: Status: Acute 65 years old woman who I was asked to see for an abnormal head CT, which was technically of poor quality limiting any judgment. It did reveal significant cerebral and cerebellar atrophy. Patient reported that she had severe COVID in February and she was admitted [facility] and was comatose for a while and almost . She said that left-sided weakness was from that illness. If that was all true, she might have an ischemic lesion noted by radiologist on CT scan causing left hemiparesis. Overall reason for admission this time or visit to emergency room was likely due to infection resulting in encephalopathy. I recommend obtaining a noncontrast head CT or noncontrast MRI of brain once infection was treated and she was stable enough to maintain her head station re for the test. Procedures Date of Service Date of Service: 08/27/21
[2021-08-27 12:40] LABS: Glucose, Whole Blood 180 mg/dL (60-115)
[2021-08-27 13:37] LABS: BV Int Neg Control Negative (Negative); BV Int Pos Control Positive (Positive)
[2021-08-27 14:06] LABS: Adenovirus PCR Not Detected (Not Detect.); Bordetella parapertussis PCR Not Detected (Not Detect.); Bordetella pertussis PCR Not Detected (Not Detect.); Chlamydia pneumoniae PCR Not Detected (Not Detect.); Coronavirus 229E PCR Not Detected (Not Detect.); Coronavirus HKU1 PCR Not Detected (Not Detect.); Coronavirus NL63 PCR Not Detected (Not Detect.); Coronavirus OC43 PCR Not Detected (Not Detect.); Human metapneumovirus PCR Not Detected (Not Detect.); Influenza A PCR Not Detected (Not Detect.); Influenza B PCR Not Detected (Not Detect.); Mycoplasma pneumoniae PCR Not Detected (Not Detect.); Parainfluenza 1 PCR Not Detected (Not Detect.); Parainfluenza 2 PCR Not Detected (Not Detect.); Parainfluenza 3 PCR Not Detected (Not Detect.); Parainfluenza 4 PCR Not Detected (Not Detect.); RSV PCR Not Detected (Not Detect.); Rhino/Enterovirus PCR Not Detected (Not Detect.); SARS-CoV-2 PCR Not Detected (Not Detect.)
[2021-08-27] MEDS: cefTRIAXone sodium 1 GM in 0.9 % Sodium Chloride 50 ML IV (17:40)
[2021-08-27] MEDS: Atorvastatin Calcium 20 MG TABLET PO (20:47)
[2021-08-27] MEDS: Sennosides 8.6 MG TABLET 17.2 MG PO (20:47)
[2021-08-27 21:03] LABS: Glucose, Whole Blood 211 mg/dL (60-115)
[2021-08-28] MEDS: Azithromycin 500 MG in 0.9 % Sodium Chloride 250 ML 125 MG IV ×2 (00:12→23:27)
[2021-08-28] MEDS: Heparin Sodium,Porcine 5,000 UNIT/ML VIAL 5000 UNIT SUBCUT ×3 (00:12→23:27)
[2021-08-28 03:49] VITALS: BP 96/51; PULSE 69; RESP 16; TEMP 36.8; O2SAT 96
--- NOTE | 2021-08-28 06:20 | PM.EVENT ---
Event Note Date of Service: 08/28/21 Event Note: Patient with cultures reveal Gram-positive cocci in clusters, patient on ceftriaxone azithromycin, will repeat blood cultures, add vancomycin
[2021-08-28 06:48] LABS: Hemoglobin 8.9 g/dl (12.0-16.0); Mean Corpuscular HGB Conc 30.7 g/dl (31.0-35.0); Mean Corpuscular Hemoglobin 26.1 pg (27.0-33.0); Mean Platelet Volume 11.1 fL (9.4-12.3); Platelet Count 157 X10*3/uL (160-400); Red Blood Count 3.41 X10*6/uL (4.20-5.50); Red Cell Distribution Width 15.2 % (11.0-16.0); White Blood Count 4.6 X10*3/uL (4.8-10.8)
[2021-08-28 07:36] LABS: Anion Gap 8 (12-20); Blood Urea Nitrogen 10 mg/dL (9-16); Calcium 8.9 mg/dL (8.4-10.2); Carbon Dioxide 28 mmol/L (22-29); Chloride 102 mmol/L (96-108); Creatinine Clr Calc Pharmacy 109.5; Estimated Glomerular Filt Rate > 60; Glucose Random 160 mg/dL (60-115); Potassium 4.1 mmol/L (3.3-5.1); Sodium 134 mmol/L (135-145)
[2021-08-28 07:47] VITALS: BP 109/56; PULSE 70; RESP 20; TEMP 37.2; O2SAT 97
[2021-08-28 07:56] LABS: Glucose, Whole Blood 159 mg/dL (60-115)
[2021-08-28] MEDS: Furosemide 40 MG TABLET PO (08:36)
[2021-08-28] MEDS: Nystatin Powder 15 GM BOTTLE 1 APPL TOPICAL ×2 (08:36→21:54)
[2021-08-28] MEDS: Gabapentin 300 MG CAPSULE PO ×3 (08:37→21:48)
[2021-08-28] MEDS: Propranolol HCL 10 MG TABLET 30 MG PO ×3 (08:37→21:47)
[2021-08-28] MEDS: Potassium Chloride ER 20 MEQ TAB.ER.PRT PO (08:37)
[2021-08-28] MEDS: Famotidine 20 MG TABLET PO ×2 (08:37→21:48)
[2021-08-28] MEDS: ARIPiprazole 10 MG TABLET PO (08:37)
[2021-08-28] MEDS: buPROPion HCL 75 MG TABLET PO ×2 (08:37→21:47)
[2021-08-28] MEDS: Multivitamin TABLET 1 TAB PO (08:37)
[2021-08-28] MEDS: Lidocaine 4 % Patch ADH..PATCH 3 PATCH TRANSDERMA (08:38)
[2021-08-28] MEDS: Insulin Glargine,Hum.rec.anlog 100 UNIT/ML 10 ML VIAL 20 UNIT SUBCUT (08:39)
[2021-08-28] MEDS: Insulin Lispro 100 UNIT/ML 3 ML VIAL SUBCUT ×4 (08:39→21:48)
[2021-08-28] MEDS: 0.9 % Sodium Chloride Flush 3 ML SYRINGE IVFLUSH ×3 (08:39→23:27)
[2021-08-28] MEDS: Acetaminophen 325 MG TABLET 650 MG PO ×3 (08:43→21:47)
[2021-08-28] MEDS: oxyCODONE HCl Immed Release 5 MG TABLET 10 MG PO ×3 (08:45→21:47)
[2021-08-28 11:37] VITALS: BP 105/50; PULSE 62; RESP 18; TEMP 36.8; O2SAT 96
[2021-08-28 11:44] LABS: Glucose, Whole Blood 170 mg/dL (60-115)
--- NOTE | 2021-08-28 13:27 | P.PNIM_ITS ---
Subjective Subjective Date of Service: 08/28/21 Interval History: seen and examined this morning follow up for PNA 02/28 Blood cultures returned + for GPC; was started on vanco this am Patient denies any shortness of breath, cough Review of Systems Review of Systems: Yes all other systems are reviewed and are negative Constitutional Constitutional: Denies chills and Denies fever(s) Cardiovascular Cardiovascular: Denies chest pain, Denies palpitations and Denies dyspnea Respiratory Respiratory: Denies cough and Denies dyspnea Gastrointestinal Gastrointestinal: Denies abdominal pain Endocrine Endocrine: Denies palpitations Physical Exam Vital Signs: Vital Signs: Last Vital Signs Temp 98.2 F 08/28/21 11:37 Pulse 62 08/28/21 11:37 Resp 18 08/28/21 11:37 BP 105/50 L 08/28/21 11:37 Pulse Ox 96 08/28/21 11:37 O2 Del Method 08/28/21 11:37 O2 Flow Rate 2 08/28/21 11:37 Oxygen Flow Rate 2 08/26/21 18:48 BMI result Body Mass Index 42.5 Const: General: cooperative, comfortable, alert and awake Nutritional Appearance: obese Orientation/consciousness: oriented to person and oriented to place Resp: Effort & Inspection: normal respiratory effort and able to speak in complete sentences Auscultation: clear to auscultation bilaterally Cardio: Rate: regular rate Heart sounds: S1 normal heart sound present and S2 normal heart sound present GI: Inspection: No distended and Yes obesity Palpation (GI): Soft to palpation and nontender Neuro: Other: grossly non-focal; b/l upper extremity tremors General: oriented to person and oriented to place Extrem: Other: Able to move all 4 extremities spontaneously. Left upper extremity range of motion limited by pain trace edema b/l legs Objective Data Active Medications Acetaminophen (Acetaminophen 325 Mg Tablet) 650 mg PO Q6H PRN PRN Reason: Pain, Mild (Pain Scale 1-3) Last Admin: 08/28/21 08:43 Dose: 650 mg Documented By: HOANG Albuterol Sulfate (Albuterol Sulfate (0.042%) 1.25 Mg/3 Ml Vial.Neb) 0.625 mg INHALE Q6H PRN PRN Reason: Shortness Of Breath Aripiprazole (Aripiprazole 10 Mg Tablet) 10 mg PO DAILY [facility] Last Admin: 08/28/21 08:37 Dose: 10 mg Documented By: HOANG Atorvastatin Calcium (Atorvastatin Calcium 20 Mg Tablet) 20 mg PO BEDTIME [facility] Last Admin: 08/27/21 20:47 Dose: 20 mg Documented By: JONES Bisacodyl (Bisacodyl 10 Mg Supp.Rect) 10 mg [place] DAILY PRN PRN Reason: Constipation Bupropion HCl (Bupropion Hcl 75 Mg Tablet) 75 mg PO BID [facility] Last Admin: 08/28/21 08:37 Dose: 75 mg Documented By: HOANG Dextrose (Dextrose 50 % 25 Gm/50 Ml Syringe) 25 gm IVPUSH Q15M PRN; Protocol PRN Reason: per Hypoglycemia Standing Ord. Famotidine (Famotidine 20 Mg Tablet) 20 mg PO BID [facility] Last Admin: 08/28/21 08:37 Dose: 20 mg Documented By: HOANG Fluticasone/Vilanterol (Fluticasone/Vilanterol 200/25 Blst.W.Dev) 1 puff INHALE RDAILY [facility] Last Admin: 08/28/21 10:15 Dose: Not Given Documented By: HOANG Non-Admin Reason: Med Not Available Furosemide (Furosemide 40 Mg Tablet) 40 mg PO DAILY [facility]; Protocol Last Admin: 08/28/21 08:36 Dose: 40 mg Documented By: HOANG Gabapentin (Gabapentin 300 Mg Capsule) 300 mg PO TID [facility] Last Admin: 08/28/21 08:37 Dose: 300 mg Documented By: HOANG Glucose (Glucose Gel 15 Gm Gel..Gram.) 15 gm PO Q15M PRN; Protocol PRN Reason: per Hypoglycemia Standing Ord. Heparin Sodium (Porcine) (Heparin Sodium,Porcine 5,000 Unit/Ml Vial) 5,000 unit SUBCUT Q12H [facility] Last Admin: 08/28/21 12:04 Dose: 5,000 unit Documented By: HOANG Azithromycin 500 mg/ Sodium (Chloride) 250 mls @ 125 mls/hr IV Q24H [facility] Last Infusion: 08/28/21 03:21 Dose: 0 mls/hr Documented By: CHANDRIKA Ceftriaxone Sodium 1 gm/ (Sodium Chloride) 50 mls @ 100 mls/hr IV Q24H [facility] Last Infusion: 08/27/21 18:24 Dose: 0 mls/hr Documented By: JANES Vancomycin HCl 1,000 mg/ (Sodium Chloride) 270 mls @ 166.667 mls/hr IV Q12H [facility] Insulin Glargine (Insulin Glargine,Hum.Rec.Anlog 100 Unit/Ml 10 Ml Vial) 20 unit SUBCUT DAILY [facility] Last Admin: 08/28/21 08:39 Dose: 20 unit Documented By: HOANG Insulin Human Lispro (Insulin Lispro 100 Unit/Ml 3 Ml Vial) 0 unit SUBCUT QI [facility]; Protocol Last Admin: 08/28/21 12:04 Dose: 2 unit Documented By: HOANG Lidocaine (Lidocaine 4 % Patch Adh..Patch) 3 patch TRANSDERMA DAILY [facility]; Protocol Last Admin: 08/28/21 08:38 Dose: 3 patch Documented By: HOANG Magnesium Hydroxide (Milk Of Magnesia 30 Ml Oral.Susp) 30 ml PO DAILY PRN PRN Reason: Constipation Multivitamins/Vitamin C (Multivitamin Tablet) 1 tab PO DAILY [facility] Last Admin: 08/28/21 08:37 Dose: 1 tab Documented By: HOANG Nystatin (Nystatin Powder 15 Gm Bottle) 1 appl TOPICAL BID [facility]; Protocol Last Admin: 08/28/21 08:36 Dose: 1 appl Documented By: HOANG Ondansetron HCl (Ondansetron Hcl 4 Mg/2 Ml Vial) 4 mg IVPUSH Q8H PRN PRN Reason: Nausea and Vomiting Oxycodone HCl (Oxycodone Hcl Immed Release 5 Mg Tablet) 10 mg PO Q6H PRN PRN Reason: Pain (Scale Score 4-6) Last Admin: 08/28/21 08:45 Dose: 10 mg Documented By: HOANG Pharmacy Consult (Consult Rx Perform Med Rec) 1 each MISCELLANE ONCE PRN PRN Reason: Consult order Pharmacy Consult (Consult Rx Vancomycin Dosing) 1 each MISCELLANE DAILY PRN PRN Reason: Consult order Polyethylene Glycol (Polyethylene Glycol 3350 17 Gm Powd.Pack) 17 gm PO DAILY [facility] Last Admin: 08/28/21 08:50 Dose: Not Given Documented By: HOANG Non-Admin Reason: Patient Refused Potassium Chloride (Potassium Chloride Er 20 Meq Tab.Er.Prt) 20 meq PO DAILY [facility] Last Admin: 08/28/21 08:37 Dose: 20 meq Documented By: HOANG Propranolol HCl (Propranolol Hcl 10 Mg Tablet) 30 mg PO TID [facility]; Protocol Last Admin: 08/28/21 08:37 Dose: 30 mg Documented By: HOANG Senna (Sennosides 8.6 Mg Tablet) 17.2 mg PO BEDTIME [facility] Last Admin: 08/27/21 20:47 Dose: 17.2 mg Documented By: JONES Sodium Chloride (0.9 % Sodium Chloride Flush 3 Ml Syringe) 3 ml IVFLUSH QSHIFT [facility] Last Admin: 08/28/21 08:39 Dose: 3 ml Documented By: HOANG Labs CBC & Chem 7: 08/28/21 06:19 08/28/21 06:19 Labs: Laboratory Results - last 24 hr 08/27/21 08/27/21 08/27/21 02:01 12:30 19:45 MCV MCH MCHC RDW Plt Count MPV Absolute Nucleated RBC Nucleated RBC % (auto) Anion Gap Estim Creat Clear Calc Estimated GFR POC Glucose 211 H Random Glucose Calcium Respiratory Panel Garcia SEE NOTE Adenovirus (Rapid PCR) Not Detected B.pert (TEM-PCR) Not Detected B.parapertussis DNA PCR Not Detected Leena species DNA Negative C. pneumoniae DNA (PCR) Not Detected Coronavirus OC43 (PCR) Not Detected Coronavirus HKU1 (PCR) Not Detected Coronavirus 229E (PCR) Not Detected Coronavirus NL63 (PCR) Not Detected Gardnerella DNA Probe Negative Human Metapneumovir PCR Not Detected Influenza A (RT-PCR) Not Detected Influenza B (RT-PCR) Not Detected M. pneumoniae (PCR) Not Detected Parainfluenza 1 (PCR) Not Detected Parainfluenza 2 (PCR) Not Detected Parainfluenza 3 (PCR) Not Detected Parainfluenza 4 (PCR) Not Detected RSV (PCR) Not Detected Entero/Rhino (PCR) Not Detected SARS-CoV-2 RNA (RT-PCR) Not Detected Trichomonas DNA Probe Negative 08/28/21 08/28/21 08/28/21 06:19 06:19 07:51 MCV 85.0 MCH 26.1 L MCHC 30.7 L RDW 15.2 Plt Count 157 L MPV 11.1 Absolute Nucleated RBC 0.000 Nucleated RBC % (auto) 0.0 Anion Gap 8 L Estim Creat Clear Calc 109.5 Estimated GFR > 60 POC Glucose 159 H Random Glucose 160 H Calcium 8.9 Respiratory Panel Garcia Adenovirus (Rapid PCR) B.pert (TEM-PCR) B.parapertussis DNA PCR Leena species DNA C. pneumoniae DNA (PCR) Coronavirus OC43 (PCR) Coronavirus HKU1 (PCR) Coronavirus 229E (PCR) Coronavirus NL63 (PCR) Gardnerella DNA Probe Human Metapneumovir PCR Influenza A (RT-PCR) Influenza B (RT-PCR) M. pneumoniae (PCR) Parainfluenza 1 (PCR) Parainfluenza 2 (PCR) Parainfluenza 3 (PCR) Parainfluenza 4 (PCR) RSV (PCR) Entero/Rhino (PCR) SARS-CoV-2 RNA (RT-PCR) Trichomonas DNA Probe 08/28/21 11:39 MCV MCH MCHC RDW Plt Count MPV Absolute Nucleated RBC Nucleated RBC % (auto) Anion Gap Estim Creat Clear Calc Estimated GFR POC Glucose 170 H Random Glucose Calcium Respiratory Panel Garcia Adenovirus (Rapid PCR) B.pert (TEM-PCR) B.parapertussis DNA PCR Leena species DNA C. pneumoniae DNA (PCR) Coronavirus OC43 (PCR) Coronavirus HKU1 (PCR) Coronavirus 229E (PCR) Coronavirus NL63 (PCR) Gardnerella DNA Probe Human Metapneumovir PCR Influenza A (RT-PCR) Influenza B (RT-PCR) M. pneumoniae (PCR) Parainfluenza 1 (PCR) Parainfluenza 2 (PCR) Parainfluenza 3 (PCR) Parainfluenza 4 (PCR) RSV (PCR) Entero/Rhino (PCR) SARS-CoV-2 RNA (RT-PCR) Trichomonas DNA Probe Microbiology Microbiology Results: Microbiology 08/26/21 21:30 Urine Culture - Final Urine Catheterized - Burdick Catheter 08/26/21 19:12 Blood Culture - Preliminary Blood - Venous Prelim: GPC Gram Stain only 08/26/21 19:02 Blood Culture - Preliminary Blood - Venous No growth after 24 hours. Assessment and Plan (1) Pneumonia: Status: Acute Plan 65-year-old year old female resident of [facility] with past medical history of AFib, frail,, pelvis who presents to hospital with altered mentation and diaphoresis found to have UTI and sepsis sepsis Met sepsis criteria with tachycardia, fever initially thought to be related to UTI, UCx growing >100 CFU mixed bacterial dionicio characteristic of urogenital contamination ?r/t pneumonia MRI showing b/l mastoid and middle ear cavity fusions ? source of infection - pt denies ear pain 1/2 Blood cultures growing GPC Bacteremia 1/2 blood cultures growing GPC, likely contamination Vanco added at to final culture results return Repeat blood cultures obtained Bacteriuria Urine culture contamination as above pneumonia? - chest CT revealed heterogeneous appearance of the lung with ground-glass opacification that appears chronic although acute infection possible - patient denies any cough or shortness of breath - will continue IV ceftriaxone, azithromycin for now - RPP negative - follow Blood cultures Chronic respiratory failure Patient uses 2 L at baseline ? 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 seems chronic. no focal deficits appreciated. Patient reports limited mobility left upper extremity is chronic seen by neuro- poor quality of brain CT MRI showing global cerebral volume loss and mild chronic microangiopathy- no acute changes constipation - as seen on abd CT - daily regimen left arm pain Patient reports chronic since admission at [facility] Continue home dose of oxycodone, lidocaine patch hyperlipidemia - continue statin diabetes - continue home insulin - low-dose sliding scale insulin - diabetic diet Dysphagia speech rec chopped diet Tremor chronic Continue propanolol Mood Continue Abilify, Wellbutrin HLD Continue statin Morbid obesity BMI 42.6 DVT prophylaxis: Lovenox Attending-Dr. Snider Patient will require ongoing inpatient hospitalization due to sepsis secondary to UTI, need for IV antibiotics, evaluation for abnormal chest CT and brain CT Likely return [facility] when medically ready for discharge Attempted to call Spouse Osorio at number listed in system-not in service Quality Stroke Does the patient have a stroke diagnosis?: No VTE Prior VTE?: No VTE Risk Level:: Medical - moderate - high VTE Device Contraindication: Treatment Not Indicated VTE Drug Contraindication: N/A - Med Ordered
[2021-08-28 15:19] VITALS: BP 136/91; PULSE 70; RESP 18; TEMP 36.1; O2SAT 98
[2021-08-28 16:26] LABS: Glucose, Whole Blood 195 mg/dL (60-115)
[2021-08-28] MEDS: cefTRIAXone sodium 1 GM in 0.9 % Sodium Chloride 50 ML IV (17:27)
[2021-08-28 18:42] VITALS: BP 93/60; PULSE 71; RESP 18; TEMP 36.4; O2SAT 99
[2021-08-28 20:01] LABS: Glucose, Whole Blood 166 mg/dL (60-115)
[2021-08-28] MEDS: vancomycin HCL 1,000 MG in 0.9 % Sodium Chloride 250 ML 166.67 MG IV (21:44)
[2021-08-28] MEDS: Sennosides 8.6 MG TABLET 17.2 MG PO (21:48)
[2021-08-28] MEDS: Atorvastatin Calcium 20 MG TABLET PO (21:48)
[2021-08-28 23:50] VITALS: BP 100/50; PULSE 71; RESP 17; TEMP 36.2; O2SAT 96
[2021-08-29 03:48] VITALS: BP 135/77; PULSE 71; RESP 17; TEMP 36.1; O2SAT 99
[2021-08-29 06:40] LABS: MANUAL DIFF FLAG NO
[2021-08-29 06:43] LABS: Basophils Percent Auto 0.3 % (0-2); Eosinophils Absolute Auto 0.2 X10*3/uL (0.0-0.4); Eosinophils Percent Auto 3.9 % (0-4); Hematocrit 29.1 % (37.0-47.0); Imm Gran Abs Auto 0.02 X10*3/uL (0.00-0.03); Imm Gran Pct Auto 0.5 % (0.0-0.4); Lymphocytes Absolute Auto 1.5 X10*3/uL (1.2-4.9); Lymphocytes Percent Auto 37.9 % (20-40); Mean Corpuscular HGB Conc 30.9 g/dl (31.0-35.0); Mean Corpuscular Hemoglobin 26.3 pg (27.0-33.0); Mean Corpuscular Volume 85.1 fL (80.0-98.0); Mean Platelet Volume 11.6 fL (9.4-12.3); Monocytes Absolute Auto 0.5 X10*3/uL (0.1-1.2); Monocytes Percent Auto 12.7 % (2-11); Neutrophils Absolute Auto 1.7 x10*3/uL (2.0-8.3); Neutrophils Percent Auto 44.7 % (45-73); Platelet Count 158 X10*3/uL (160-400); Red Blood Count 3.42 X10*6/uL (4.20-5.50); Red Cell Distribution Width 15.1 % (11.0-16.0); White Blood Count 3.9 X10*3/uL (4.8-10.8)
[2021-08-29 06:59] LABS: Anion Gap 9 (12-20); Blood Urea Nitrogen 10 mg/dL (9-16); Calcium 8.9 mg/dL (8.4-10.2); Carbon Dioxide 29 mmol/L (22-29); Chloride 103 mmol/L (96-108); Creatinine Clr Calc Pharmacy 114.1; Estimated Glomerular Filt Rate > 60; Glucose Random 167 mg/dL (60-115); Iron 45 mcg/dL (30-160); Percent Iron Saturation 18 % (15-50); Potassium 4.3 mmol/L (3.3-5.1); Sodium 137 mmol/L (135-145); Total Iron Binding Capacity 257 mcg/dL (228-428); Unsaturated Iron Binding 212 ug/dL
--- NOTE | 2021-08-29 07:20 | HE.PHANOTE ---
KRISTEN DIXON CONTINUE CURRENT DOSE, NEXT TROUGH @1800
[2021-08-29 07:26] VITALS: BP 115/57; PULSE 77; RESP 16; TEMP 36.6; O2SAT 98
[2021-08-29 07:40] LABS: Glucose, Whole Blood 148 mg/dL (60-115)
[2021-08-29] MEDS: Fluticasone/Vilanterol 200/25 BLST.W.DEV 1 PUFF INHALE (08:37)
[2021-08-29 08:38] VITALS: PULSE 78; RESP 16; O2SAT 98
[2021-08-29] MEDS: Insulin Glargine,Hum.rec.anlog 100 UNIT/ML 10 ML VIAL 20 UNIT SUBCUT (08:42)
[2021-08-29] MEDS: vancomycin HCL 1,000 MG in 0.9 % Sodium Chloride 250 ML 166.67 MG IV (08:42)
[2021-08-29] MEDS: Lidocaine 4 % Patch ADH..PATCH 3 PATCH TRANSDERMA (08:42)
[2021-08-29] MEDS: 0.9 % Sodium Chloride Flush 3 ML SYRINGE IVFLUSH ×2 (08:42→15:51)
[2021-08-29] MEDS: Propranolol HCL 10 MG TABLET 30 MG PO ×3 (08:43→20:56)
[2021-08-29] MEDS: Gabapentin 300 MG CAPSULE PO ×3 (08:43→20:56)
[2021-08-29] MEDS: Potassium Chloride ER 20 MEQ TAB.ER.PRT PO (08:43)
[2021-08-29] MEDS: Multivitamin TABLET 1 TAB PO (08:43)
[2021-08-29] MEDS: buPROPion HCL 75 MG TABLET PO ×2 (08:43→20:56)
[2021-08-29] MEDS: Furosemide 40 MG TABLET PO (08:43)
[2021-08-29] MEDS: ARIPiprazole 10 MG TABLET PO (08:43)
[2021-08-29] MEDS: oxyCODONE HCl Immed Release 5 MG TABLET 10 MG PO ×2 (08:44→15:51)
[2021-08-29] MEDS: Famotidine 20 MG TABLET PO ×2 (08:44→20:56)
[2021-08-29] MEDS: Acetaminophen 325 MG TABLET 650 MG PO ×2 (08:44→15:50)
[2021-08-29] MEDS: Nystatin Powder 15 GM BOTTLE 1 APPL TOPICAL (08:44)
[2021-08-29 11:27] VITALS: PULSE 67; RESP 17; TEMP 37.3; O2SAT 96
--- NOTE | 2021-08-29 11:31 | MHC.CM.PN ---
Addendum entered by Latanya Morel RN 08/29/21 14:33: [facility] TO TRANSPORT AT 5PM Original Note: ANTIC PT TO D/C BACK TO [facility] TODAY PENDING RAPID COVID AND ABILITY TO [facility]
[2021-08-29 11:42] LABS: Glucose, Whole Blood 179 mg/dL (60-115)
--- NOTE | 2021-08-29 11:52 | P.DS_ITS ---
DS: Providers Provider Date of Service: 08/29/21 Date of admission: 08/26/21 23:44 Date of discharge: 08/29/21 Primary care physician: Carlitos Greer MD Consults: 08/26/21 23:43 Consult to Neurology Routine Consulting Provider: [facility] Reason for consultation: age indeterminate cva Has provider been notified: No Attending physician on discharge: Michelle Roland Discharging clinician: Sidra Bazan DS: Diagnosis Discharge Diagnosis (1) Pneumonia: Status: Acute DS: Summary Hospital Course Hospital Course: From H&P on day of admission This 65-year-old female who comes from skilled nursing and has past medical history of AFib, diastolic heart failure, COPD, obesity, HLD, diabetes, ataxia, tremors, as well as dysphagia sent to the hospital from skilled nursing for altered mental status and diaphoresis.? Patient currently awake and oriented to self.? She reports that she has not been feeling well for past few days but otherwise denies any cough, no shortness of breath no chest pain, no abdominal pain, no nausea or vomiting, no diarrhea constipation, on reports no urinary symptoms.? I am not sure how accurate this review of system really is. On arrival she was noted to be febrile with a fever of 103.1, heart rate of 140s sinus, satting 94% on 2 L of oxygen.? It appears the patient does desat on room air and therefore currently on 2 L of oxygen satting 96% Labs are significant for WBC count of 7.1, hemoglobin of 11.1, hematocrit 34.8, sodium of 134, lactic acid of 2.1, improved after IV fluids UA positive for nitrites, leukocyte Estrace, WBC, ?chest CT shows heterogeneous appearance of the lung with ground-glass opacification and bandlike opacities.? Although this is suspicious for chronic lung disease? superimposed acute infection cannot be ruled out ?patient started on IV antibiotics and will be admitted Discharge diagnoses Toxic metabolic encephalopathy-resolved Chronic respiratory failure Sepsis secondary to probable versus bacterial superimposed serous otitis media Pyuria Hospital course Sepsis. Patient initially met sepsis criteria with tachycardia and fever. Initially thought to be secondary to UTI. Urine culture grew greater than 100,000 colony-forming units but was mixed bacterial dionicio characteristic of urogenital contamination. Patient denied any specific urinary symptoms. Chest CT also showed possible superimposed acute infection on chronic changes. She was treated with IV ceftriaxone and azithromycin for possible superimposed bacterial pneumonia. Chronic lung changes likely related to previous severe COVID-19. Brain CT was obtained due to concern over encephalopathy and was read as abnormal likely due to motion abnormality. She was seen in consultation by Neurology who recommended a brain MRI. Brain MRI without contrast was obtained and showed no acute brain abnormalities, no acute infarcts. It did show large bilateral mastoid and middle ear cavity effusions. (also showed global cerebral volume loss and mild chronic microangiopathy) This may be related to recent COVID-19 infection. Can not rule out superimposed bacterial component. Respiratory pathogen panel was obtained and was negative. 1/ blood cultures returned growing gram positive cocci. She received a dose of empiric Zosyn, final culture results grew coag negative Staph, likely contamination. Repeat blood cultures have remained negative to date. Patient has been afebrile since day of admission. She has remained on chronic 2 L of supplemental oxygen. She is now stable for discharge back to [facility]. Would recommend use of nasal saline spray can complete course of antibiotics. Patient does report some fullness in her ears bilaterally as well as some hearing loss which has been persistent for several months. Would recommend follow-up if no improvement after full course of antibiotics. Time Spent with Patient Time attestation: Total time spent providing and/or coordinating discharge services: Discharge coordination time: Greater than 30 minutes Quality: Safe Use of Opioids Does Pt have an Active Cancer Diagnosis on the Problem List?: No Quality: Stroke Does the patient have a stroke diagnosis?: No Physical Exam Vital Signs: Vital Signs: Last Vital Signs Temp 99.1 F 08/29/21 11:27 Pulse 67 08/29/21 11:27 Resp 17 08/29/21 11:27 BP 115/57 L 08/29/21 07:26 Pulse Ox 96 08/29/21 11:27 O2 Del Method 08/29/21 11:27 O2 Flow Rate 2 08/29/21 11:27 Oxygen Flow Rate 2 08/26/21 18:48 BMI result Body Mass Index 42.5 Const: General: cooperative, comfortable, alert and awake Nutritional Appearance: obese Orientation/consciousness: oriented to person and oriented to place Resp: Effort & Inspection: normal respiratory effort and able to speak in complete sentences Auscultation: clear to auscultation bilaterally Cardio: Rate: regular rate Heart sounds: S1 normal heart sound present and S2 normal heart sound present GI: Inspection: No distended and Yes obesity Palpation (GI): Soft to palpation and nontender Neuro: Other: grossly non-focal; b/l upper extremity tremors General: oriented to person and oriented to place Extrem: Other: Able to move all 4 extremities spontaneously. Left upper extremity range of motion limited by pain trace edema b/l legs DS: Data Data Completed and Pending Labs on day of discharge: Laboratory Results - last 24 hr 08/28/21 08/28/21 08/29/21 16:11 19:48 06:15 WBC 3.9 L RBC 3.42 L Hgb 9.0 L Hct 29.1 L MCV 85.1 MCH 26.3 L MCHC 30.9 L RDW 15.1 Plt Count 158 L MPV 11.6 Immature Gran % (Auto) 0.5 H Neut % (Auto) 44.7 L Lymph % (Auto) 37.9 [place] % (Auto) 12.7 H Eos % (Auto) 3.9 Baso % (Auto) 0.3 Lymph # (Auto) 1.5 [place] # (Auto) 0.5 Eos # (Auto) 0.2 Baso # (Auto) 0.0 Abs Immat Gran (auto) 0.02 Absolute Neuts (auto) 1.7 L Absolute Nucleated RBC 0.000 Nucleated RBC % (auto) 0.0 Sodium Potassium Chloride Carbon Dioxide Anion Gap BUN Creatinine Estim Creat Clear Calc Estimated GFR POC Glucose 195 H 166 H Random Glucose Calcium Iron TIBC % Saturation Unsat Iron Binding 08/29/21 08/29/21 08/29/21 06:15 07:23 11:35 WBC RBC Hgb Hct MCV MCH MCHC RDW Plt Count MPV Immature Gran % (Auto) Neut % (Auto) Lymph % (Auto) [place] % (Auto) Eos % (Auto) Baso % (Auto) Lymph # (Auto) [place] # (Auto) Eos # (Auto) Baso # (Auto) Abs Immat Gran (auto) Absolute Neuts (auto) Absolute Nucleated RBC Nucleated RBC % (auto) Sodium 137 Potassium 4.3 Chloride 103 Carbon Dioxide 29 Anion Gap 9 L BUN 10 Creatinine 0.71 Estim Creat Clear Calc 114.1 Estimated GFR > 60 POC Glucose 148 H 179 H Random Glucose 167 H Calcium 8.9 Iron 45 TIBC 257 % Saturation 18 Unsat Iron Binding 212 Preliminary micro results at discharge 08/28/21 07:38 Blood Culture - Preliminary Blood - Venous No growth after 24 hours. 08/28/21 07:38 Blood Culture - Preliminary Blood - Venous No growth after 24 hours. 08/26/21 19:02 Blood Culture - Preliminary Blood - Venous No growth after 48 hours. Discharge Plan Discharge Patient Disposition: Xfer [facility] Discharge Diagnosis: Sepsis possible pneumonia serous otitis media Referrals: [facility] [Outside] - 1 Day (RESUMPTION OF CARE) Carlitos Greer MD [Primary Care Provider] - 1 Week Discharge Medications: New amoxicillin-pot clavulanate 875-125 mg tablet 1 tab PO BID 4 Days Qty: 8 0RF [place] Nasal 0.65 % aerosol,spray 1 spray intranasal BID Qty: 44 0RF Continued furosemide 40 mg Tablet 40 mg PO DAILY albuterol sulfate 0.63 mg/3 mL Solution For Nebulization 0.63 mg INHALATION Q6H PRN (Reason: Shortness Of Breath) sennosides [senna] 8.6 mg Tablet 17.2 mg PO BEDTIME acetaminophen 325 mg Tablet 650 mg PO Q6H PRN (Reason: temp/pain) atorvastatin 20 mg Tablet 20 mg PO BEDTIME lidocaine 4 % Adhesive Patch,Medicated 3 patch TOPICAL DAILY Rx Instructions: apply 1 to left forearm and 2 to mid back polyethylene glycol 3350 17 gram Powder In Packet 17 g PO DAILY propranolol 60 mg Tablet 30 mg PO TID famotidine 20 mg Tablet 20 mg PO BID magnesium hydroxide [Milk of Magnesia] 400 mg/5 mL Suspension 30 ml PO DAILY PRN (Reason: Constipation) bisacodyl 10 mg Suppository 10 mg AR DAILY PRN (Reason: Constipation) bupropion HCl 75 mg Tablet 75 mg PO BID Rx Instructions: administer 6 hours apart docusate sodium 100 mg Capsule 100 mg PO BID gabapentin 300 mg Capsule 300 mg PO TID nystatin 100,000 unit/gram Powder 1 appl TOPICAL BID insulin lispro [Humalog U-100 Insulin] 100 unit/mL Solution 1 sliding scale dose SUBCUT USEASDIRECTD Protocol: Insulin Correction Scale Less than or equal to 110 ---- Give (units): 0 111 to 150 Give (units): 0 151 to 200 Give (units): 2 201 to 250 Give (units): 4 251 to 300 Give (units): 6 301 to 350 Give (units): 8 Greater than 350 Give (units): 10 Call MD if Blood Glucose > : 350 Acidophilus Capsule 1,000 mmu cells PO BID enoxaparin [Lovenox] 40 mg/0.4 mL Syringe 40 mg SUBCUT DAILY multivitamin with iron Tablet 1 tab PO DAILY aripiprazole 10 mg Tablet 10 mg PO DAILY budesonide-formoterol [Symbicort] 160-4.5 mcg/actuation Hfa Aerosol Inhaler 1 inh INHALATION DAILY insulin glargine 100 unit/mL (3 mL) Insulin Pen 20 unit SUBCUT DAILY oxycodone 10 mg Tablet 10 mg PO Q6H PRN (Reason: Pain (Scale Score 4-6)) potassium chloride 20 mEq Tablet Extended Release 20 meq PO DAILY Discharge Orders: Discharge Order (Routine); Ordered 08/29/21 Ordered By: Sidra Bazan Activity on Discharge: As tolerated Stand Alone Forms: Patient Portal Discharge page Care Plan Goals: see below Health Concerns: Sepsis possible pneumonia serous otits media Plan of Treatment: Complete course of antibiotics as prescribed can use nasal saline spray Called to for follow-up with PCP May need further management for serous otitis media given asociated hearing loss if no improvement with antibiotics and nasal saline Assessment: see discharge summary Discharge Date/Time: 08/29/21 21:05
[2021-08-29] MEDS: Heparin Sodium,Porcine 5,000 UNIT/ML VIAL 5000 UNIT SUBCUT (11:57)
[2021-08-29] MEDS: Insulin Lispro 100 UNIT/ML 3 ML VIAL SUBCUT ×3 (11:57→20:55)
[2021-08-29 12:08] LABS: COVID-19 Test Negative (Negative); IDNOW Serial# 16C4AD1C
--- NOTE | 2021-08-29 14:45 | MHC.CM.PN ---
IMM 08/29/2021, EMR REVIEWED, PT ADMITTED W/UTI/PNA/SEPSIS, CM MET W/PT WHO REPORTS SHE HAS BEEN AT [facility] FOR TWO MONTHS SINCE SHE WAS D/C'D FROM [facility], PT REPORTS SHE LIVES W/, HAS HOME O2, PT REPORTS PLAN TO RETURN TO [facility] TO CONTINUE REHAB, PT REPORTS COVID VACCINE X3, THEODORE CLINE IS PCP, ALO ON FILE, PT REPORTS HER NAMRATA FRENCH [phone] IS HER HCP AND COPY REQUESTED. D/C PLAN: RETURN TO [facility] VIA [facility] TRANSPORT
[2021-08-29 15:13] VITALS: BP 129/60; PULSE 68; RESP 18; TEMP 36.6; O2SAT 96
[2021-08-29 16:21] LABS: Glucose, Whole Blood 180 mg/dL (60-115)
[2021-08-29 20:13] LABS: Glucose, Whole Blood 216 mg/dL (60-115)
[2021-08-29] MEDS: Sennosides 8.6 MG TABLET 17.2 MG PO (20:55)
[2021-08-29] MEDS: Atorvastatin Calcium 20 MG TABLET PO (20:56)
[2021-08-31 06:33] LABS: Glucose, Whole Blood 195 mg/dL (60-115)
[2021-08-31 07:20] LABS: Folate 12.5 ng/mL (> or = 4.0); Vitamin B12 < 146 pg/mL (200-900)
== END 2021-08-29 21:05 | disposition skilled nursing facility (03) | DRG 871 ==
LOC: HO.ED 08-27 01:35 → HO.EDOVER 08-27 02:23 → HO.S3 08-27 15:46
PROVIDERS: Physician Assistant; Admitting Provider Internal Medicine; Emergency Provider Emergency Medicine; PCP Internal Medicine; Visit Provider Physician Assistant Medical
DX: A41.9 Sepsis, unspecified organism (principal); G92.8 Other toxic encephalopathy; J18.9 Pneumonia, unspecified organism; J96.20 Acute and chronic respiratory failure, unspecified whether with hypoxia or hypercapnia; Z68.41 Body mass index [BMI] 40.0-44.9, adult; I50.32 Chronic diastolic (congestive) heart failure; J44.0 Chronic obstructive pulmonary disease with (acute) lower respiratory infection; G81.94 Hemiplegia, unspecified affecting left nondominant side; E11.9 Type 2 diabetes mellitus without complications; K59.00 Constipation, unspecified; Z99.81 Dependence on supplemental oxygen; R13.10 Dysphagia, unspecified; H65.93 Unspecified nonsuppurative otitis media, bilateral; E78.5 Hyperlipidemia, unspecified; Z86.16 Personal history of COVID-19; I48.91 Unspecified atrial fibrillation; E66.01 Morbid (severe) obesity due to excess calories; G25.0 Essential tremor; Z20.822 Contact with and (suspected) exposure to COVID-19; Z79.4 Long term (current) use of insulin; Z79.899 Other long term (current) drug therapy
CPT/HCPCS: 0241U; 36415; 70450; 70551; 71250; 72125; 74176; 80048; 80053; 81001; 82607; 82746; 82947; 83540; 83605; 83690; 83735; 84145; 84484; 85025; 85027; 87040; 87086; 87147; 87205; 87480; 87491; 87510; 87591; 87633; 87635; 87660; 92610; 93005; 94640; 96361; 96374; 99285; J0456; J0696; J3370

== ENCOUNTER 2021-10-26 19:04 | Emergency (ER) | payer MEDICARE, MEDICAID, SELFPAY ==
--- NOTE | ~2021-10-26 | CT_ITS ---
EXAMINATION: CT HEAD WITHOUT CONTRAST (STROKE PROTOCOL) CLINICAL INFORMATION: Stroke protocol. Left-sided weakness for one hour. COMPARISON: None TECHNIQUE: Contiguous axial imaging was performed from the skull base to vertex without intravenous administration of contrast. This CT examination was performed using dose optimization techniques as appropriate, variously including the following: *Automated exposure control *Adjustment of mA and/or kV according to patient size (this includes techniques or standardized protocols for targeted exams where dose is matched to indication/reason for exam; i.e. extremities or head) *Use of iterative reconstruction technique DLP: 742 mGy-cm FINDINGS: Stable chronic prominence of the extra-axial space, unchanged since prior CAT scan. Stable generalized global cerebral volume loss and chronic microangiopathy. There is no evidence of acute intracranial hemorrhage or acute territorial infarction. No abnormal mass-effect or midline shift is seen. Lui to white matter differentiation is well preserved. There is no osseous abnormality. The mastoid air cells and visualized portions of the paranasal sinuses are well-aerated. CT/CT head for stroke IMPRESSION: No acute intracranial pathology. This critical result was discussed with Dr. Luque at 1935 hours on 10/26/2021. It was ascertained that the content and urgency of the report was understood at the time of direct communication.
--- NOTE | ~2021-10-26 | XR_ITS ---
EXAMINATION: XR CHEST CLINICAL INFORMATION: CVA COMPARISON: CT chest 08/27/2021 TECHNIQUE: Frontal view of the chest was obtained. FINDINGS: Again seen are diffuse chronic changes throughout the lungs are better demonstrated on recent CT scan which demonstrated groundglass opacities, linear bands and some peripheral fibrotic changes. Allowing for differences in technique, there has probably been no significant interval change. No new consolidations or lung masses are seen. No pleural effusions. Heart size normal. No CHF. XR/XR chest 1V IMPRESSION: No acute intrathoracic disease. Stable chronic changes.
--- NOTE | ~2021-10-26 | CT_ITS ---
EXAMINATION: CT ANGIOGRAM HEAD CT ANGIOGRAM NECK CLINICAL INFORMATION: Cerebrovascular accident. COMPARISON: CT head from 10/26/2021. Brain MRI from 08/28/2021. TECHNIQUE: Initial noncontrast [employer] scout imaging of the head and neck was performed. Comparison is made with noncontrast head CT from earlier today. Test bolus sequences followed by intravenous administration 85 mL of Omnipaque 350. Helical imaging was performed in the axial plane from the aortic arch to the skull vertex. Delayed postcontrast imaging of the head was also performed. The data was processed at the charge histotechnologist's workstation for generation of MIP sequences. Angled MIPs and volume rendered reformatted images were also generated at an offline 3D workstation. Stenoses are assessed in accordance with NASCET criteria unless otherwise indicated. This CT examination was performed using dose optimization techniques as appropriate, variously including the following: *Automated exposure control. *Adjustment of mA and/or kV according to patient size (this includes techniques or standardized protocols for targeted exams where dose is matched to indication/reason for exam; i.e. extremities or head). *Use of iterative reconstruction technique. DLP: 1550 mGy-cm FINDINGS: CT Head: There is no evidence of acute intracranial hemorrhage or edematous territorial infarction. A few foci of hypoattenuation in the periventricular and deep white matter are consistent with mild microangiopathy. Lui-white matter differentiation is preserved. Proportional prominence of the ventricles and sulcal spaces. Stable prominence of the left greater than right subarachnoid spaces. No evidence for obstructive hydrocephalus. No abnormal mass effect or midline shift. No extra-axial fluid collections. No pathologic intra-axial enhancement or regional oligemia. No acute soft tissue or osseous abnormalities. Mild mucosal thickening of the paranasal sinuses. Moderate bilateral mastoid and middle ear effusions. Prominent enamel erosion of the mandibular right lateral incisor. CT Neck: The thyroid gland and remaining cervical soft tissues are within normal limits. Straightening of the normal cervical lordosis. Advanced degenerative disc disease from C3-T4. Facet and uncovertebral joint arthropathy leads to osseous encroachment on the neural foramina from C3-C7. CT Upper Chest: Patchy airspace disease throughout the visualized upper lungs with Mosaic attenuation, irregular reticulation, and peribronchial wall thickening. The visualized upper mediastinum is within normal limits. Neck CTA: Aortic Arch: Normal contour and caliber. Classic 3 vessel branching pattern of the aortic arch. Great Vessel Origins: No significant stenosis of the branch origins. Right Common Carotid Artery: No focal stenosis or occlusion. Cervical Right Internal Carotid Artery: Normal opacification without focal stenosis or occlusion. Left Common Carotid Artery: No focal stenosis or occlusion. Cervical Left Internal Carotid Artery: Normal opacification without focal stenosis or occlusion. Cervical Right Vertebral Artery: No focal stenosis or occlusion. Cervical Left Vertebral Artery: Mildly dominant. No focal stenosis or occlusion. Brain CTA: Intracranial Internal Carotid Arteries: Mild calcific atherosclerotic disease of the intracranial internal carotid arteries without occlusion or flow-limiting stenosis. Right Anterior Cerebral Artery: Normal A1 segment. Normal opacification of the distal [place] segments. Left Anterior Cerebral Artery: Normal A1 segment. Normal opacification of the distal [place] segments. Anterior Communicating Artery: Normal. Right Middle Cerebral Artery: Normal M1 segment of the MCA without focal stenosis or occlusion. Normal arborization of the distal segments. Left Middle Cerebral Artery: Normal M1 segment of the MCA without focal stenosis or occlusion. Normal arborization of the distal segments. Right Vertebral Artery: Normal V4 segment. The posterior inferior cerebellar artery is not well opacified; however, there is no CT evidence of acute occlusion. Left Vertebral Artery: Normal V4 segment. Normal opacification of the proximal segments of the posterior inferior cerebellar artery. Basilar Artery: Normal without focal stenosis or occlusion. Normal appearance of the proximal superior cerebellar arteries. Right Posterior Cerebral Artery: Normal P1 segment. Normal opacification of the distal BUSINESS OPERATIONS CONSULTANT segments. Left Posterior Cerebral Artery: Normal P1 segment. Normal opacification of the distal BUSINESS OPERATIONS CONSULTANT segments. Normal opacification of the superior sagittal, straight, transverse, and sigmoid sinuses. CT/CT angio head neck stroke IMPRESSION: 1. No evidence of acute intracranial hemorrhage or edematous territorial infarction. Mild underlying microangiopathy and generalized cerebral volume loss. 2. CTA of the head and neck without proximal occlusion or flow-limiting stenosis. 3. Moderate patchy airspace disease throughout the visualized upper lungs. This critical result was discussed with Dr. Luque at 20:42 on 10/26/2021 and it was ascertained that the content and urgency of the report was understood at the time of direct communication.
--- NOTE | 2021-10-26 19:08 | ECG_ITS ---
Test Reason : ?STROKE Blood Pressure : / mmHG Vent. Rate : 072 BPM Atrial Rate : 072 BPM P-R Int : 204 ms QRS Dur : 084 ms QT Int : 438 ms P-R-T Axes : 045 008 018 degrees QTc Int : 479 ms Normal sinus rhythm Normal ECG When compared with ECG of 26-AUG-2021 18:58, Vent. rate has decreased BY 47 BPM Minimal criteria for Inferior infarct are no longer Present Referred By: Branden Castellon Electronically Signed By:THEODORE FOWLER
--- NOTE | 2021-10-26 19:11 | ED.NEUROSD ---
HPI - Neuro Symptoms/Deficit General Chief Complaint: Stroke Stated Complaint: Stroke? Time Seen by Provider: 10/26/21 19:08 Source: EMS Mode of arrival: EMS History of Present Illness HPI Narrative: Patient with history of diastolic heart failure, COPD, obesity, hyperlipidemia, diabetes essential tremors [facility] for some left-sided weakness also at 18:00 had similar episode in 09/17 when MRI was negative had UTI with sepsis. Patient not on any anticoagulants at this time apparently patient was talking to the daughter earlier at 18:00 nurse went to see her found her more lethargic and confused with increased weakness which is generalized. Also had difficulty in speaking, Per EMS patient has more weakness on the left side with facial droop with slurred speech patient has contracted left upper extremity no vomiting no fever Related Data Home Medications Medication Instructions Recorded Confirmed Lactobacillus acidophilus 1,000 mmu cells PO BID 08/26/21 08/26/21 (Acidophilus capsule) acetaminophen 325 mg tablet 650 mg PO Q6H PRN temp/pain 08/26/21 08/26/21 albuterol sulfate 0.63 mg/3 mL 0.63 mg inhalation Q6H PRN 08/26/21 08/26/21 solution for nebulization Shortness Of Breath aripiprazole 10 mg tablet 10 mg PO DAILY 08/26/21 08/26/21 atorvastatin 20 mg tablet 20 mg PO BEDTIME 08/26/21 08/26/21 bisacodyl 10 mg rectal suppository 10 mg MT DAILY PRN Constipation 08/26/21 08/26/21 budesonide-formoterol HFA 160 1 inh inhalation DAILY 08/26/21 08/26/21 mcg-4.5 mcg/actuation aerosol inhaler (Symbicort) bupropion HCl 75 mg tablet 75 mg PO BID 08/26/21 08/26/21 docusate sodium 100 mg capsule 100 mg PO BID 08/26/21 08/26/21 enoxaparin 40 mg/0.4 mL 40 mg subcut DAILY 08/26/21 08/26/21 subcutaneous syringe (Lovenox) famotidine 20 mg tablet 20 mg PO BID 08/26/21 08/26/21 furosemide 40 mg tablet 40 mg PO DAILY 08/26/21 08/26/21 gabapentin 300 mg capsule 300 mg PO TID 08/26/21 08/26/21 insulin glargine 100 unit/mL (3 20 unit subcut DAILY 08/26/21 08/26/21 mL) subcutaneous pen insulin lispro 100 unit/mL 1 sliding scale dose subcut 08/26/21 08/26/21 subcutaneous solution (Humalog USEASDIRECTD U-100 Insulin) lidocaine 4 % topical patch 3 patch topical DAILY 08/26/21 08/26/21 magnesium hydroxide 400 mg/5 mL 30 ml PO DAILY PRN Constipation 08/26/21 08/26/21 oral suspension (Milk of Magnesia) multivitamin with iron 1 tab PO DAILY 08/26/21 08/26/21 nystatin 100,000 unit/gram topical 1 appl topical BID 08/26/21 08/26/21 powder oxycodone 10 mg tablet 10 mg PO Q6H PRN Pain (Scale Score 08/26/21 08/26/21 4-6) polyethylene glycol 3350 17 gram 17 g PO DAILY 08/26/21 08/26/21 oral powder packet potassium chloride 20 mEq 20 meq PO DAILY 08/26/21 08/26/21 tablet,extended release propranolol 60 mg tablet 30 mg PO TID 08/26/21 08/26/21 sennosides 8.6 mg tablet (senna) 17.2 mg PO BEDTIME 08/26/21 08/26/21 Previous Rx's Medication Instructions Recorded amoxicillin 875 mg-potassium 1 tab PO BID 4 days #8 tabs 08/29/21 clavulanate 125 mg tablet sodium chloride 0.65 % nasal spray 1 spray intranasal BID #44 mL 08/29/21 aerosol ([place] Nasal) Allergies Allergy/AdvReac Type Severity Reaction Status Date / Time No Known Allergies Allergy Verified 08/28/21 11:33 Review of Systems Review of Systems: Yes all other systems are reviewed and are negative PMFSH Past Medical History Medical History Atrial fibrillation CHF (congestive heart failure) COPD (chronic obstructive pulmonary disease) Dysphagia Essential tremor Hyperlipidemia Surgical History No pertinent past surgical history Social History Social History Household Members: None [facility] Do you presently have visiting nurse or other home services: No (frp, smf) Alcohol intake: never Patient Tobacco Use Status: Never used Tobacco Advance Directives: Yes Advance Directives on File: Yes Advance Directives Date on File: 08/27/21 service: No Current occupational status: unemployed Physical Exam Vital Signs: Vital Signs: Last Vital Signs Temp 98.2 F 10/26/21 19:47 Pulse 73 10/26/21 19:47 Resp 18 10/26/21 19:47 BP 119/46 L 10/26/21 19:47 Pulse Ox 97 10/26/21 19:47 O2 Del Method 10/26/21 19:47 BMI result Body Mass Index 47.0 Appearance: Alert. Oriented X3. No acute distress. Eyes: PERRLA, No Nystagmus ENT: Pharynx normal. Oral Mucosa moist Neck: Normal inspection. Neck supple. CVS: Normal heart rate and rhythm. Pulses normal. Respiratory: No respiratory distress. Equal air entry bilateral, no wheezing/rales/rhonchi Abdomen: Soft and nontender. Bowel sounds are present, no mass palpable, no CVA tenderness Skin: Skin warm and dry. Normal skin color. Normal skin turgor. Extremities: No lower extremity edema. No calf tenderness Neuro: Oriented X 3. Lethargic left upper extremity contracted but good proximal strength left facial droop lower extremity 5/5 bilateral MDM - Neuro Symptoms/Deficit MDM Narrative Medical decision making narrative: 2299 Patient with acute weakness lethargic with slurred speech mother came patient arrived no focal deficit noticed and speech was back to normal CT head CT head and neck was negative lab workup also stable had initial lactic acid level of 2.3 without source of infection patient was given IV fluids in the ER blood cultures were drawn EKG with sinus rhythm patient denies any history of AFib etiology of slurred speech weakness not clear likely from the weakness. It is at the time [facility] to [facility] patient back to normal talking full sentences without any dysarthria orifice no focal deficit except residual left upper extremity weakness Medical Records Attestation: I reviewed the patient's medical records. Lab Data Attestation: I reviewed the patient's lab results. Result diagrams: 10/26/21 19:05 10/26/21 19:05 Labs: Lab Results 10/26/21 10/26/21 10/26/21 Range/Units 19:05 19:05 19:05 WBC 6.9 (4.8-10.8) X10*3/uL RBC 3.86 L (4.20-5.50) X10*6/uL Hgb 10.3 L (12.0-16.0) g/dl Hct 32.9 L (37.0-47.0) % MCV 85.2 (80.0-98.0) fL MCH 26.7 L (27.0-33.0) pg MCHC 31.3 (31.0-35.0) g/dl RDW 14.8 (11.0-16.0) % Plt Count 198 D (160-400) X10*3/uL MPV 11.4 (9.4-12.3) fL Immature Gran % (Auto) 0.6 H (0.0-0.4) % Neut % (Auto) 53.7 (45-73) % Lymph % (Auto) 35.7 (20-40) % [place] % (Auto) 6.7 (2-11) % Eos % (Auto) 2.9 (0-4) % Baso % (Auto) 0.4 (0-2) % Lymph # (Auto) 2.5 (1.2-4.9) X10*3/uL [place] # (Auto) 0.5 (0.1-1.2) X10*3/uL Eos # (Auto) 0.2 (0.0-0.4) X10*3/uL Baso # (Auto) 0.0 (0.0-0.2) X10*3/uL Abs Immat Gran (auto) 0.04 H (0.00-0.03) X10*3/uL Absolute Neuts (auto) 3.7 (2.0-8.3) x10*3/uL Absolute Nucleated RBC 0.000 (0.0-0.012) X10*3/uL Nucleated RBC % (auto) 0.0 (0.0-0.2) /100WBC PT 11.8 (10.0-13.1) SEC Whole Blood PT (11.1-13.5) sec INR 1.0 (0.9-1.1) Whole Blood INR (0.9-1.1) VBG pH (7.32-7.43) VBG pCO2 mmHg VBG pO2 mmHg VBG HCO3 (22-26) mmol/L VBG O2 Saturation % VBG Base Excess mmol/L Sodium 137 (135-145) mmol/L Potassium 4.3 (3.3-5.1) mmol/L Chloride 100 (96-108) mmol/L Carbon Dioxide 27 (22-29) mmol/L Anion Gap 14 (12-20) BUN 14 (9-16) mg/dL Creatinine 0.93 (0.5-1.4) mg/dL Estim Creat Clear Calc TNP Estimated GFR > 60 POC Glucose (60-115) mg/dL Random Glucose 268 H (60-115) mg/dL Lactic Acid (0.5-2.0) mmol/L Calcium 9.3 (8.4-10.2) mg/dL Troponin I High Sens (<3.5-17.0) ng/L Hold Red Top Urine Color Urine Appearance Urine pH (5.0-9.0) Ur Specific [place] (1.005-1.025) Urine Protein (Neg-Trace) mg/dL Urine Glucose (UA) (Negative) mg/dL Urine Ketones (Negative) mg/dL Urine Blood (Negative) Urine Nitrite (Negative) Ur Leukocyte Esterase (Negative) COVID-19 (ABBY) (Negative) COVID-19 Clin Com 10/26/21 10/26/21 10/26/21 Range/Units 19:05 19:05 19:08 WBC (4.8-10.8) X10*3/uL RBC (4.20-5.50) X10*6/uL Hgb (12.0-16.0) g/dl Hct (37.0-47.0) % MCV (80.0-98.0) fL MCH (27.0-33.0) pg MCHC (31.0-35.0) g/dl RDW (11.0-16.0) % Plt Count (160-400) X10*3/uL MPV (9.4-12.3) fL Immature Gran % (Auto) (0.0-0.4) % Neut % (Auto) (45-73) % Lymph % (Auto) (20-40) % [place] % (Auto) (2-11) % Eos % (Auto) (0-4) % Baso % (Auto) (0-2) % Lymph # (Auto) (1.2-4.9) X10*3/uL [place] # (Auto) (0.1-1.2) X10*3/uL Eos # (Auto) (0.0-0.4) X10*3/uL Baso # (Auto) (0.0-0.2) X10*3/uL Abs Immat Gran (auto) (0.00-0.03) X10*3/uL Absolute Neuts (auto) (2.0-8.3) x10*3/uL Absolute Nucleated RBC (0.0-0.012) X10*3/uL Nucleated RBC % (auto) (0.0-0.2) /100WBC PT (10.0-13.1) SEC Whole Blood PT (11.1-13.5) sec INR (0.9-1.1) Whole Blood INR (0.9-1.1) VBG pH (7.32-7.43) VBG pCO2 mmHg VBG pO2 mmHg VBG HCO3 (22-26) mmol/L VBG O2 Saturation % VBG Base Excess mmol/L Sodium (135-145) mmol/L Potassium (3.3-5.1) mmol/L Chloride (96-108) mmol/L Carbon Dioxide (22-29) mmol/L Anion Gap (12-20) BUN (9-16) mg/dL Creatinine (0.5-1.4) mg/dL Estim Creat Clear Calc Estimated GFR POC Glucose 251 H (60-115) mg/dL Random Glucose (60-115) mg/dL Lactic Acid 2.3 H* (0.5-2.0) mmol/L Calcium (8.4-10.2) mg/dL Troponin I High Sens < 3.5 (<3.5-17.0) ng/L Hold Red Top Urine Color Urine Appearance Urine pH (5.0-9.0) Ur Specific [place] (1.005-1.025) Urine Protein (Neg-Trace) mg/dL Urine Glucose (UA) (Negative) mg/dL Urine Ketones (Negative) mg/dL Urine Blood (Negative) Urine Nitrite (Negative) Ur Leukocyte Esterase (Negative) COVID-19 (ABBY) (Negative) COVID-19 Clin Com 10/26/21 10/26/21 10/26/21 Range/Units 19:10 20:24 20:38 WBC (4.8-10.8) X10*3/uL RBC (4.20-5.50) X10*6/uL Hgb (12.0-16.0) g/dl Hct (37.0-47.0) % MCV (80.0-98.0) fL MCH (27.0-33.0) pg MCHC (31.0-35.0) g/dl RDW (11.0-16.0) % Plt Count (160-400) X10*3/uL MPV (9.4-12.3) fL Immature Gran % (Auto) (0.0-0.4) % Neut % (Auto) (45-73) % Lymph % (Auto) (20-40) % [place] % (Auto) (2-11) % Eos % (Auto) (0-4) % Baso % (Auto) (0-2) % Lymph # (Auto) (1.2-4.9) X10*3/uL [place] # (Auto) (0.1-1.2) X10*3/uL Eos # (Auto) (0.0-0.4) X10*3/uL Baso # (Auto) (0.0-0.2) X10*3/uL Abs Immat Gran (auto) (0.00-0.03) X10*3/uL Absolute Neuts (auto) (2.0-8.3) x10*3/uL Absolute Nucleated RBC (0.0-0.012) X10*3/uL Nucleated RBC % (auto) (0.0-0.2) /100WBC PT (10.0-13.1) SEC Whole Blood PT 10.9 L (11.1-13.5) sec INR (0.9-1.1) Whole Blood INR 0.9 (0.9-1.1) VBG pH (7.32-7.43) VBG pCO2 mmHg VBG pO2 mmHg VBG HCO3 (22-26) mmol/L VBG O2 Saturation % VBG Base Excess mmol/L Sodium (135-145) mmol/L Potassium (3.3-5.1) mmol/L Chloride (96-108) mmol/L Carbon Dioxide (22-29) mmol/L Anion Gap (12-20) BUN (9-16) mg/dL Creatinine (0.5-1.4) mg/dL Estim Creat Clear Calc Estimated GFR POC Glucose (60-115) mg/dL Random Glucose (60-115) mg/dL Lactic Acid (0.5-2.0) mmol/L Calcium (8.4-10.2) mg/dL Troponin I High Sens (<3.5-17.0) ng/L Hold Red Top See Note Urine Color Yellow Urine Appearance Turbid Urine pH 5.5 (5.0-9.0) Ur Specific [place] 1.015 (1.005-1.025) Urine Protein Negative (Neg-Trace) mg/dL Urine Glucose (UA) Negative (Negative) mg/dL Urine Ketones Negative (Negative) mg/dL Urine Blood Negative (Negative) Urine Nitrite Negative (Negative) Ur Leukocyte Esterase Negative (Negative) COVID-19 (ABBY) (Negative) COVID-19 Clin Com 10/26/21 10/26/21 Range/Units 20:44 20:51 WBC (4.8-10.8) X10*3/uL RBC (4.20-5.50) X10*6/uL Hgb (12.0-16.0) g/dl Hct (37.0-47.0) % MCV (80.0-98.0) fL MCH (27.0-33.0) pg MCHC (31.0-35.0) g/dl RDW (11.0-16.0) % Plt Count (160-400) X10*3/uL MPV (9.4-12.3) fL Immature Gran % (Auto) (0.0-0.4) % Neut % (Auto) (45-73) % Lymph % (Auto) (20-40) % [place] % (Auto) (2-11) % Eos % (Auto) (0-4) % Baso % (Auto) (0-2) % Lymph # (Auto) (1.2-4.9) X10*3/uL [place] # (Auto) (0.1-1.2) X10*3/uL Eos # (Auto) (0.0-0.4) X10*3/uL Baso # (Auto) (0.0-0.2) X10*3/uL Abs Immat Gran (auto) (0.00-0.03) X10*3/uL Absolute Neuts (auto) (2.0-8.3) x10*3/uL Absolute Nucleated RBC (0.0-0.012) X10*3/uL Nucleated RBC % (auto) (0.0-0.2) /100WBC PT (10.0-13.1) SEC Whole Blood PT (11.1-13.5) sec INR (0.9-1.1) Whole Blood INR (0.9-1.1) VBG pH 7.42 (7.32-7.43) VBG pCO2 44 mmHg VBG pO2 84 mmHg VBG HCO3 29 H (22-26) mmol/L VBG O2 Saturation 97.0 % VBG Base Excess 4.2 mmol/L Sodium (135-145) mmol/L Potassium (3.3-5.1) mmol/L Chloride (96-108) mmol/L Carbon Dioxide (22-29) mmol/L Anion Gap (12-20) BUN (9-16) mg/dL Creatinine (0.5-1.4) mg/dL Estim Creat Clear Calc Estimated GFR POC Glucose (60-115) mg/dL Random Glucose (60-115) mg/dL Lactic Acid (0.5-2.0) mmol/L Calcium (8.4-10.2) mg/dL Troponin I High Sens (<3.5-17.0) ng/L Hold Red Top Urine Color Urine Appearance Urine pH (5.0-9.0) Ur Specific [place] (1.005-1.025) Urine Protein (Neg-Trace) mg/dL Urine Glucose (UA) (Negative) mg/dL Urine Ketones (Negative) mg/dL Urine Blood (Negative) Urine Nitrite (Negative) Ur Leukocyte Esterase (Negative) COVID-19 (ABBY) Negative (Negative) COVID-19 Clin Com See Note ECG Data Attestation: I personally reviewed and interpreted this ECG as follows: Interpretation: Normal sinus rhythm heart rate 72 beats per minute normal axis normal intervals no acute ST-T changes no acute ischemia NIH Stroke Scale Internal: Initial- Upon Arrival Level of Consciousness: Alert Level of Consciousness Questions: Answers both questions correctly Level of Consciousness Commands: Performs both tasks correctly Best Gaze: Normal Visual: No visual loss Facial Palsy: Minor paralyis Motor Arm (Right): No drift Motor Arm (Left): No drift Motor Leg (Right): No drift Motor Leg (Left): No drift Limb Ataxia: Absent Sensory: Normal Best Language: No aphasia Dysarthia: Normal Extinction and Inattention: No abnormality Score: 1 Discharge Plan Discharge Clinical Impression: Weakness Patient Disposition: Xfer SNF Instructions: Weakness (ED) Additional Instructions: Drink plenty of fluids No finding of stroke was seen CT head and CTA head and neck was negative and labs were stable COVID negative Follow-up with PCP Prescriptions: No [facility] furosemide 40 mg Tablet 40 mg PO DAILY albuterol sulfate 0.63 mg/3 mL Solution For Nebulization 0.63 mg INHALATION Q6H PRN (Reason: Shortness Of Breath) sennosides [senna] 8.6 mg Tablet 17.2 mg PO BEDTIME acetaminophen 325 mg Tablet 650 mg PO Q6H PRN (Reason: temp/pain) atorvastatin 20 mg Tablet 20 mg PO BEDTIME lidocaine 4 % Adhesive Patch,Medicated 3 patch TOPICAL DAILY Rx Instructions: apply 1 to left forearm and 2 to mid back polyethylene glycol 3350 17 gram Powder In Packet 17 g PO DAILY propranolol 60 mg Tablet 30 mg PO TID famotidine 20 mg Tablet 20 mg PO BID magnesium hydroxide [Milk of Magnesia] 400 mg/5 mL Suspension 30 ml PO DAILY PRN (Reason: Constipation) bisacodyl 10 mg Suppository 10 mg MT DAILY PRN (Reason: Constipation) bupropion HCl 75 mg Tablet 75 mg PO BID Rx Instructions: administer 6 hours apart docusate sodium 100 mg Capsule 100 mg PO BID gabapentin 300 mg Capsule 300 mg PO TID nystatin 100,000 unit/gram Powder 1 appl TOPICAL BID insulin lispro [Humalog U-100 Insulin] 100 unit/mL Solution 1 sliding scale dose SUBCUT USEASDIRECTD Protocol: Insulin Correction Scale Less than or equal to 110 ---- Give (units): 0 111 to 150 Give (units): 0 151 to 200 Give (units): 2 201 to 250 Give (units): 4 251 to 300 Give (units): 6 301 to 350 Give (units): 8 Greater than 350 Give (units): 10 Call MD if Blood Glucose > : 350 Acidophilus Capsule 1,000 mmu cells PO BID enoxaparin [Lovenox] 40 mg/0.4 mL Syringe 40 mg SUBCUT DAILY multivitamin with iron Tablet 1 tab PO DAILY aripiprazole 10 mg Tablet 10 mg PO DAILY budesonide-formoterol [Symbicort] 160-4.5 mcg/actuation Hfa Aerosol Inhaler 1 inh INHALATION DAILY insulin glargine 100 unit/mL (3 mL) Insulin Pen 20 unit SUBCUT DAILY oxycodone 10 mg Tablet 10 mg PO Q6H PRN (Reason: Pain (Scale Score 4-6)) potassium chloride 20 mEq Tablet Extended Release 20 meq PO DAILY amoxicillin-pot clavulanate 875-125 mg tablet 1 tab PO BID 4 Days Qty: 8 0RF [place] Nasal 0.65 % aerosol,spray 1 spray intranasal BID Qty: 44 0RF
[2021-10-26 19:14] VITALS: BP 112/63; PULSE 79; O2SAT 95
[2021-10-26 19:15] LABS: Prothrombin Time Whole Bld POC 10.9 sec (11.1-13.5); ~PT, ~INR - Anti Coag Clinic 0.9 (0.9-1.1)
[2021-10-26 19:17] LABS: Glucose, Whole Blood 251 mg/dL (60-115)
[2021-10-26 19:19] LABS: MANUAL DIFF FLAG NO
[2021-10-26 19:23] LABS: Basophils Percent Auto 0.4 % (0-2); Eosinophils Absolute Auto 0.2 X10*3/uL (0.0-0.4); Eosinophils Percent Auto 2.9 % (0-4); Hematocrit 32.9 % (37.0-47.0); Hemoglobin 10.3 g/dl (12.0-16.0); Imm Gran Abs Auto 0.04 X10*3/uL (0.00-0.03); Imm Gran Pct Auto 0.6 % (0.0-0.4); Lymphocytes Absolute Auto 2.5 X10*3/uL (1.2-4.9); Lymphocytes Percent Auto 35.7 % (20-40); Mean Corpuscular HGB Conc 31.3 g/dl (31.0-35.0); Mean Corpuscular Hemoglobin 26.7 pg (27.0-33.0); Mean Corpuscular Volume 85.2 fL (80.0-98.0); Mean Platelet Volume 11.4 fL (9.4-12.3); Monocytes Absolute Auto 0.5 X10*3/uL (0.1-1.2); Monocytes Percent Auto 6.7 % (2-11); Neutrophils Absolute Auto 3.7 x10*3/uL (2.0-8.3); Neutrophils Percent Auto 53.7 % (45-73); Platelet Count 198 X10*3/uL (160-400); Red Blood Count 3.86 X10*6/uL (4.20-5.50); Red Cell Distribution Width 14.8 % (11.0-16.0); White Blood Count 6.9 X10*3/uL (4.8-10.8)
[2021-10-26 19:27] LABS: Prothrombin Time 11.8 SEC (10.0-13.1)
[2021-10-26 19:28] LABS: Stroke Lab Use COMPLETE
[2021-10-26 19:38] LABS: Anion Gap 14 (12-20); Blood Urea Nitrogen 14 mg/dL (9-16); Calcium 9.3 mg/dL (8.4-10.2); Carbon Dioxide 27 mmol/L (22-29); Chloride 100 mmol/L (96-108); Estimated Glomerular Filt Rate > 60; Glucose Random 268 mg/dL (60-115); Potassium 4.3 mmol/L (3.3-5.1); Sodium 137 mmol/L (135-145)
[2021-10-26 19:45] LABS: Troponin-I High Sensitivity < 3.5 ng/L (<3.5-17.0)
[2021-10-26 19:46] VITALS: BMI 47.0
[2021-10-26 19:47] VITALS: BP 119/46; PULSE 73; RESP 18; TEMP 36.8; O2SAT 97; BMI 47.0
[2021-10-26 19:51] LABS: Lactic Acid 2.3 mmol/L (0.5-2.0)
[2021-10-26] MEDS: iohexoL 350 MG/ML 100 ML INFUS..BTL 85 ML IV (19:54)
[2021-10-26] MEDS: 0.9 % Sodium Chloride 1,000 ML 999 ML IV (20:30)
[2021-10-26 20:31] LABS: Appearance Urine Turbid; Color Urine Yellow; Glucose Urine UA Negative (Negative); Leukocyte Esterase Urine Negative (Negative); Nitrite Urine Negative (Negative); PH 5.5 (5.0-9.0); Specific Gravity - Urine 1.015 (1.005-1.025); Urine Blood Negative (Negative); Urine Ketones Negative (Negative); Urine Protein Negative (Neg-Trace)
[2021-10-26] MEDS: cefTRIAXone sodium 1 GM in 0.9 % Sodium Chloride 50 ML IV (20:54)
[2021-10-26 21:14] LABS: COVID-19 Test Negative (Negative); IDNOW Serial# 16C4AD1C
[2021-10-26 21:23] LABS: Reflex Lactate? Lactic Acid Added
[2021-10-26 21:39] LABS: VBG Base Excess 4.2 mmol/L; VBG HCO3 29 mmol/L (22-26); VBG pCO2 44 mmHg; VBG pH 7.42 (7.32-7.43); VBG pO2 84 mmHg
[2021-10-26 21:43] LABS: Venous Blood Gas Refer to POC result
--- NOTE | 2021-10-26 23:04 | PC.NURSE ---
Per discharge call was placed to action to send the pt back to [facility]. per [facility] they are going to send a unit now. Call was made at [phone]
[2021-10-26 23:24] VITALS: BP 158/86; PULSE 67; RESP 18; O2SAT 99
== END 2021-10-26 23:40 | disposition skilled nursing facility (03) ==
PROVIDERS: Emergency Provider Internal Medicine
DX: R53.1 Weakness (principal); I11.0 Hypertensive heart disease with heart failure; I50.32 Chronic diastolic (congestive) heart failure; E78.5 Hyperlipidemia, unspecified; I48.91 Unspecified atrial fibrillation; Z20.822 Contact with and (suspected) exposure to COVID-19; Z79.02 Long term (current) use of antithrombotics/antiplatelets; Z79.899 Other long term (current) drug therapy; Z79.01 Long term (current) use of anticoagulants
CPT/HCPCS: 36415; 70450; 70496; 70498; 71045; 80048; 81003; 82803; 82947; 83605; 84484; 85025; 85610; 87040; 87635; 93005; 96360; 96361; 99285; J0696; Q9967

== ENCOUNTER 2022-08-09 19:23 | Inpatient (IN) | payer MEDICARE, SELFPAY ==
--- NOTE | ~2022-08-09 | XR_ITS ---
EXAMINATION: XR CHEST CLINICAL INFORMATION: Shortness of breath COMPARISON: Chest radiograph 10/26/[address] chest 08/27/2021 TECHNIQUE: Frontal view of the chest was obtained. FINDINGS: Lungs are hypoinflated. Patchy bilateral infiltrates are present left greater than right. Some of these findings are chronic as can be seen on the prior chest CT. However, In the right upper lobe there is a more confluent area of infiltrate present, which is. There is new bandlike infiltrate in the left upper lobe. Tiny pleural effusions may be present. XR/XR chest 1V IMPRESSION: Bilateral pulmonary infiltrates, left greater than right, with some worsening in the right upper lobe. Superimposed pneumonia on top of chronic changes may be present. CHF with the tip of edema cannot be entirely excluded.
--- NOTE | ~2022-08-09 | CT_ITS ---
EXAMINATION: CT ABDOMEN AND PELVIS WITH CONTRAST CLINICAL INFORMATION: Abdominal pain COMPARISON: Previous CT July 2021. TECHNIQUE: Multidetector volumetric images were obtained from the superior aspect of the liver through the pubic symphysis following administration 85 mL of Omnipaque 350 intravenous contrast. Sagittal and coronal reformatted images were obtained on the technologist's workstation. Oral contrast: Yes This CT examination was performed using dose optimization techniques as appropriate, variously including the following: *Automated exposure control *Adjustment of mA and/or kV according to patient size (this includes techniques or standardized protocols for targeted exams where dose is matched to indication/reason for exam; i.e. extremities or head) *Use of iterative reconstruction technique DLP: 1254 mGy-cm FINDINGS: LUNG BASES: Coarse lung markings at the lung bases with increased groundglass attenuation and interstitial markings. This is not appear appreciably changed from July 2021 exam. There is also mediastinal and bilateral hilar lymphadenopathy. LIVER, GALLBLADDER, AND BILIARY TREE: The liver is normal in size, shape, and attenuation. No focal hepatic lesion or biliary ductal dilatation is present. The gallbladder is unremarkable with no evidence of radiopaque gallstones, gallbladder wall thickening, or obvious pericholecystic inflammatory changes. PANCREAS: Unremarkable. SPLEEN: Unremarkable. ADRENAL GLANDS: Unremarkable. KIDNEYS AND URETERS: The kidneys are normal in size, shape, and attenuation. No hydronephrosis, hydroureter, or calculi seen. No perinephric stranding. BLADDER: Not optimally distended. GASTROINTESTINAL TRACT: There is a small amount of free air seen in the left side of the abdomen. Source of free air is not certain. There are slightly distended fluid-filled thick-walled loops of proximal jejunum. There is extraluminal air seen in between loops of small bowel in this region. There is diverticulosis of the colon. No definite evidence of diverticulitis is seen. There is extraluminal air adjacent to the distal transverse colon as well. The stomach is normal. The appendix is normal. There is a small amount of fluid in the pelvis. ABDOMINAL WALL: Diastasis of the rectus muscles. No hernia. LYMPH NODES: No enlarged lymph nodes. VASCULAR: Unremarkable. PELVIC VISCERA: The uterus is not seen and has presumably been removed. No pelvic mass. Small amount of fluid in the pelvis. OSSEOUS STRUCTURES: Degenerative changes of the spine. CT/CT abdomen pelvis w IV con IMPRESSION: Small amount of free air in the left side of the abdomen. Source of free air is not certain. There are slightly distended fluid-filled thick-walled loops of proximal jejunum. There is extraluminal air in between loops of small bowel. There is also extraluminal air seen adjacent to the distal transverse colon. There is diverticulosis of the colon. No definite evidence of diverticulitis is seen. Small amount of fluid in the pelvis. Fleischner guidelines were followed. Findings were communicated to Queenie Crane by telephone on 08/09/2022 at 2158 hours
--- NOTE | ~2022-08-09 | CT_ITS ---
EXAMINATION: CT ABDOMEN AND PELVIS WITHOUT CONTRAST CLINICAL INFORMATION: Follow-up free air COMPARISON: Previous CT of the abdomen and pelvis from yesterday TECHNIQUE: Multidetector volumetric imaging was performed from the superior aspect of the liver through the pubic symphysis. Sagittal and coronal reformatted images were obtained on the technologist's workstation. This CT examination was performed using dose optimization techniques as appropriate, variously including the following: *Automated exposure control *Adjustment of mA and/or kV according to patient size (this includes techniques or standardized protocols for targeted exams where dose is matched to indication/reason for exam; i.e. extremities or head) *Use of iterative reconstruction technique DLP: 1374 mGy-cm FINDINGS: LUNG BASES: Coarse lung markings with increased groundglass attenuation and increased septal markings and minor previous exams. LIVER, GALLBLADDER, AND BILIARY TREE: The liver is normal in size, shape, and attenuation. No focal hepatic lesion or biliary ductal dilatation is present. Gallbladder is slightly distended. The gallbladder is otherwise unremarkable with no evidence of radiopaque gallstones, gallbladder wall thickening, or obvious pericholecystic inflammatory changes. PANCREAS: Unremarkable. SPLEEN: Unremarkable. ADRENAL GLANDS: Unremarkable. KIDNEYS AND URETERS: The kidneys are normal in size, shape, and attenuation. No hydronephrosis, hydroureter, or calculi seen. No perinephric stranding. There is excreted contrast in the collecting systems from yesterday's CT scan. BLADDER: Excreted contrast in the bladder. The bladder is normal. GASTROINTESTINAL TRACT: Extraluminal and free air seen yesterday is no longer appreciated. There is diverticulosis of the colon. No evidence of diverticulitis is seen. Distended thick walled fluid-filled loops of proximal small bowel/jejunum in the left upper quadrant appear improved. There is a small amount of fluid in the pelvis. This is decreased from yesterday's exam. ABDOMINAL WALL: Small umbilical hernia containing fat. LYMPH NODES: Normal. VASCULAR: Unremarkable. PELVIC VISCERA: Not seen. No pelvic mass. OSSEOUS STRUCTURES: Degenerative changes of the spine. CT/CT abdomen pelvis wo IV con IMPRESSION: Extraluminal and free air seen yesterday no longer seen. Improved appearance of the proximal small bowel/jejunum. Diverticulosis of the colon. No evidence of diverticulitis. Small amount of fluid in the pelvis decreased from yesterday's exam. Fleischner guidelines were followed.
[2022-08-09 19:31] VITALS: BP 140/60; BP 143/81; PULSE 70; PULSE 95; RESP 32; TEMP 38.1; O2SAT 92; BMI 64.3
--- NOTE | 2022-08-09 19:46 | ECG_ITS ---
Test Reason : ABDOMINAL PAIN Blood Pressure : / mmHG Vent. Rate : 104 BPM Atrial Rate : 104 BPM P-R Int : 170 ms QRS Dur : 082 ms QT Int : 362 ms P-R-T Axes : 066 035 055 degrees QTc Int : 476 ms Poor data quality Sinus tachycardia Possible Left atrial enlargement Borderline ECG When compared with ECG of 26-OCT-2021 19:40, Poor data quality in current ECG precludes serial comparison Referred By: Susana Roque Electronically Signed By:LISSY NOEL MD
[2022-08-09 20:02] LABS: Basophils Percent Auto 0.2 % (0-2); Eosinophils Absolute Auto 0.1 X10*3/uL (0.0-0.4); Eosinophils Percent Auto 0.7 % (0-4); Hematocrit 36.3 % (37.0-47.0); Hemoglobin 10.2 g/dl (12.0-16.0); Imm Gran Abs Auto 0.04 X10*3/uL (0.00-0.03); Imm Gran Pct Auto 0.4 % (0.0-0.4); Lymphocytes Absolute Auto 0.7 X10*3/uL (1.2-4.9); Lymphocytes Percent Auto 7.7 % (20-40); MANUAL DIFF FLAG NO; Mean Corpuscular HGB Conc 28.1 g/dl (31.0-35.0); Mean Corpuscular Hemoglobin 25.3 pg (27.0-33.0); Mean Corpuscular Volume 90.1 fL (80.0-98.0); Mean Platelet Volume 11.3 fL (9.4-12.3); Monocytes Absolute Auto 0.4 X10*3/uL (0.1-1.2); Monocytes Percent Auto 4.5 % (2-11); NRBC Pct Auto 0.2 /100WBC (0.0-0.2); Neutrophils Absolute Auto 7.9 x10*3/uL (2.0-8.3); Neutrophils Percent Auto 86.5 % (45-73); Platelet Count 245 X10*3/uL (160-400); Red Blood Count 4.03 X10*6/uL (4.20-5.50); Red Cell Distribution Width 18.6 % (11.0-16.0); White Blood Count 9.1 X10*3/uL (4.8-10.8)
[2022-08-09 20:16] LABS: Lactic Acid 1.2 mmol/L (0.5-2.0)
[2022-08-09 20:21] LABS: Alanine Aminotransferase 9 U/L (0-31); Albumin Level 3.9 g/dL (3.5-5.0); Alkaline Phosphatase 57 U/L (39-117); Anion Gap 13 (12-20); Aspartate Amino Transferase 11 U/L (5-31); Bilirubin Direct 0.2 mg/dL (0.0-0.5); Bilirubin Total 0.7 mg/dL (0.0-1.0); Blood Urea Nitrogen 16 mg/dL (9-16); Calcium 9.4 mg/dL (8.4-10.2); Carbon Dioxide 31 mmol/L (22-29); Chloride 101 mmol/L (96-108); Creatinine Clr Calc Pharmacy 103.9; Estimated Glomerular Filt Rate > 60; Glucose Random 116 mg/dL (60-115); Lipase 13 U/L (8-78); Magnesium 1.9 mg/dL (1.6-2.6); Potassium 4.8 mmol/L (3.3-5.1); Prothrombin Time 11.9 SEC (10.0-13.1); Sodium 140 mmol/L (135-145)
[2022-08-09 20:22] LABS: COVID-19 Test Negative (Negative); IDNOW Serial# BCCEAD1C
[2022-08-09 20:23] LABS: IDNOW Serial# 9DB6401D; Influenza A Negative (Negative); Influenza B2 Negative (Negative)
[2022-08-09 20:31] LABS: B Type Natriuretic Peptide 61 pg/mL (<100)
[2022-08-09] MEDS: Acetaminophen 325 MG TABLET 650 MG PO (20:32)
[2022-08-09 20:35] VITALS: O2SAT 97
[2022-08-09 20:37] LABS: Troponin-I High Sensitivity < 2.7 ng/L (<3.5-17.0)
[2022-08-09 21:00] LABS: Appearance Urine Clear; Color Urine Yellow; Glucose Urine UA Negative (Negative); Leukocyte Esterase Urine Moderate (2+) (Negative); Nitrite Urine Negative (Negative); Specific Gravity - Urine 1.015 (1.005-1.025); UMIC TRIGGER UACC YES; Urine Blood Negative (Negative); Urine Ketones Negative (Negative); Urine Protein Negative (Neg-Trace)
[2022-08-09] MEDS: iohexoL 350 MG/ML 100 ML INFUS..BTL IV (21:03)
[2022-08-09 21:18] LABS: Bacteria Urine 3+ (None Seen); Hyaline Casts Urine 0-2 /LPF (0-2); RBC Urine 0-2 /HPF (0-2); Squamous Epithelial Cell Urine 0-2 /HPF (0-2); UACC Culture Trigger YES; WBC Urine 21-50 /HPF (0-5)
--- NOTE | 2022-08-09 21:56 | ED_ITS ---
HPI - General Adult General Chief complaint: Abdominal Pain Stated complaint: ABD PAIN, DIFFICULTY BREATHING Time Seen by Provider: 08/09/22 20:15 Source: patient Mode of arrival: EMS Limitations: no limitations History of Present Illness HPI narrative: Patient comes to the emergency room from the [facility]. Patient comes in complaining of abdominal pain radiating towards the back and difficulty breathing. Patient denies chest pain, complaining of chills. Denies nausea vomiting or diarrhea, denies any injuries. Related Data Home Medications Medication Instructions Recorded Confirmed Lactobacillus acidophilus 1,000 mmu cells PO BID 08/26/21 08/26/21 (Acidophilus capsule) acetaminophen 325 mg tablet 650 mg PO Q6H PRN temp/pain 08/26/21 08/26/21 albuterol sulfate 0.63 mg/3 mL 0.63 mg inhalation Q6H PRN 08/26/21 08/26/21 solution for nebulization Shortness Of Breath aripiprazole 10 mg tablet 10 mg PO DAILY 08/26/21 08/26/21 atorvastatin 20 mg tablet 20 mg PO BEDTIME 08/26/21 08/26/21 bisacodyl 10 mg rectal suppository 10 mg TX DAILY PRN Constipation 08/26/21 08/26/21 budesonide-formoterol HFA 160 1 inh inhalation DAILY 08/26/21 08/26/21 mcg-4.5 mcg/actuation aerosol inhaler (Symbicort) bupropion HCl 75 mg tablet 75 mg PO BID 08/26/21 08/26/21 docusate sodium 100 mg capsule 100 mg PO BID 08/26/21 08/26/21 enoxaparin 40 mg/0.4 mL 40 mg subcut DAILY 08/26/21 08/26/21 subcutaneous syringe (Lovenox) famotidine 20 mg tablet 20 mg PO BID 08/26/21 08/26/21 furosemide 40 mg tablet 40 mg PO DAILY 08/26/21 08/26/21 gabapentin 300 mg capsule 300 mg PO TID 08/26/21 08/26/21 insulin glargine 100 unit/mL (3 20 unit subcut DAILY 08/26/21 08/26/21 mL) subcutaneous pen insulin lispro 100 unit/mL 1 sliding scale dose subcut 08/26/21 08/26/21 subcutaneous solution (Humalog USEASDIRECTD U-100 Insulin) lidocaine 4 % topical patch 3 patch topical DAILY 08/26/21 08/26/21 magnesium hydroxide 400 mg/5 mL 30 ml PO DAILY PRN Constipation 08/26/21 08/26/21 oral suspension (Milk of Magnesia) multivitamin with iron 1 tab PO DAILY 08/26/21 08/26/21 nystatin 100,000 unit/gram topical 1 appl topical BID 08/26/21 08/26/21 powder oxycodone 10 mg tablet 10 mg PO Q6H PRN Pain (Scale Score 08/26/21 08/26/21 4-6) polyethylene glycol 3350 17 gram 17 g PO DAILY 08/26/21 08/26/21 oral powder packet potassium chloride 20 mEq 20 meq PO DAILY 08/26/21 08/26/21 tablet,extended release propranolol 60 mg tablet 30 mg PO TID 08/26/21 08/26/21 sennosides 8.6 mg tablet (senna) 17.2 mg PO BEDTIME 08/26/21 08/26/21 Previous Rx's Medication Instructions Recorded amoxicillin 875 mg-potassium 1 tab PO BID 4 days #8 tabs 08/29/21 clavulanate 125 mg tablet sodium chloride 0.65 % nasal spray 1 spray intranasal BID #44 mL 08/29/21 aerosol (Mercer Nasal) Allergies Allergy/AdvReac Type Severity Reaction Status Date / Time No Known Allergies Allergy Verified 08/09/22 19:29 Review of Systems Review of Systems: Constitutional : No Weight loss, No Fever, No Chills, No Night Sweats, No Fatigu e, No Malaise ENT/Mouth : No Hearing loss, No Ear Pain, No Nasal Congestion, No Sinus Pain, No Hoarseness, No sore throat, No Rhinorrhea, No Swallowing Difficulty Eyes: No Eye Pain, No Swelling, No Redness, No Foreign Body, No Discharge, No Vision Changes Cardiovascular : No Chest Pain, No SOB, No Dyspnea on Exertion, No Orthopnea, No Edema, No Palpitations Respiratory : Complaining of cough, shortness of breath Gastrointestinal : No Nausea, No Vomiting, No Diarrhea, No Constipation, being of severe diffuse abdominal pain radiating towards the back Genitourinary : no irregular bleeding, No Dysuria, No Urinary Frequency, No Hematuria, No Urinary Incontinence, No Urgency, No Flank Pain, No Urinary Flow Changes, No Hesitancy Musculoskeletal : No joint pain, No Myalgias, No Joint Swelling Skin : No Skin Lesions, No rash Neuro : No Weakness, No Numbness, No Paresthesias, No Loss of Consciousness, No Dizziness, No Headache Psych : No Anxiety/Panic, No Depression, No SI/HI/AH/VH, No Social Issues, Heme/Lymph: No Bruising, No Bleeding,No Lymphadenopathy Endocrine : No Polyuria, No Polydipsia, No Temperature Intolerance [facility] Past Medical History Medical History Atrial fibrillation CHF (congestive heart failure) COPD (chronic obstructive pulmonary disease) Dysphagia Essential tremor Hyperlipidemia Surgical History No pertinent past surgical history Social History Social History Household Members: None Housing: [facility] Do you presently have visiting nurse or other home services: No (frp, smf) Alcohol intake: never Patient Tobacco Use Status: Never used Tobacco Advance Directives: Yes Advance Directives on File: Yes Advance Directives Date on File: 08/27/21 service: No Current occupational status: unemployed Physical Exam ED Vital Signs: Vital Signs - 24 hr 08/09/22 19:31 08/09/22 20:35 Temperature 100.5 F H Pulse Rate 70 Respiratory Rate 32 H Blood Pressure 143/81 H Pulse Oximetry 92 97 Oxygen Delivery Method Oxymask Oxymask Oxygen Flow Rate 4 BMI result Body Mass Index 64.3 Const Other: Appearance: Alert. Oriented X3. No acute distress. Eyes: Pupils equal, round and reactive to light. ENT: Pharynx normal. Neck: Normal inspection. Neck supple. No lymph nodes noted. No crepitus CVS: Normal heart rate and rhythm. Pulses normal. Normal S1 and S2 Respiratory: No respiratory distress. Breath sounds normal. No Wheezing. No rales Abdomen: Soft slightly distended, complaining of diffuse abdominal pain in all quadrants Skin: Skin warm and dry. Normal skin color. Normal skin turgor. Extremities: No lower extremity edema. No Lacerations. No Rash Neuro: Oriented X 3. No motor deficit. No sensory deficit. Moving all extremities. No slurred speech. CN 2 through 12 grossly intact Psych: calm, cooperative, normal affect Medications Administered Discontinued Medications Generic Name Dose Route Start Last Admin Trade Name Rich PRN Reason Stop Dose Admin Acetaminophen 650 mg 08/09/22 20:26 08/09/22 20:32 Acetaminophen 325 Mg Tablet PO 08/09/22 20:27 650 mg ONCE ONE Administration Iohexol 100 ml 08/09/22 21:03 08/09/22 21:03 Iohexol 350 Mg/Ml 100 Ml Infus..Btl IV 08/09/22 21:04 100 ml ONCE ONE Administration Medical Decision Making Medical Decision Making [facility] Narrative: -initially, ceftriaxone was ordered. However, as more results started coming in regarding the labs and the CT scans, I switched antibiotics to Zosyn -patient's blood pressure stable, on the higher side, normal white blood cell count, normal lactic acid. Sepsis not suspected. Patient is receiving fluids and antibiotics, at this time, we will not bolus 30 mL/kilogram, patient also has history of CHF -my interpretation of the x-ray possible pneumonia bilaterally -I discussed the CT scan findings with Dr. Bales from Radiology, reviewed the CT scan with Dr. Luque, there is a small amount of free air in the abdomen. -patient being admitted by Dr. Luque, requesting a medical consult from the medical team, Dr. Carlin has been informed Admission/Observation Consideration of admission/observation: Escalation of care including adm ission/observation considered Consult Healthcare Provider Management of the patient was discussed with: Hospitalist and [employer] Lab Data MDM Lab Attestation statement: I reviewed the patient's lab results. 08/09/22 19:54 08/09/22 19:53 Labs: Lab Results 08/09/22 08/09/22 08/09/22 Range/Units 19:53 19:53 19:53 WBC (4.8-10.8) X10*3/uL RBC (4.20-5.50) X10*6/uL Hgb (12.0-16.0) g/dl Hct (37.0-47.0) % MCV (80.0-98.0) fL MCH (27.0-33.0) pg MCHC (31.0-35.0) g/dl RDW (11.0-16.0) % Plt Count (160-400) X10*3/uL MPV (9.4-12.3) fL Immature Gran % (Auto) (0.0-0.4) % Neut % (Auto) (45-73) % Lymph % (Auto) (20-40) % [place] % (Auto) (2-11) % Eos % (Auto) (0-4) % Baso % (Auto) (0-2) % Lymph # (Auto) (1.2-4.9) X10*3/uL [place] # (Auto) (0.1-1.2) X10*3/uL Eos # (Auto) (0.0-0.4) X10*3/uL Baso # (Auto) (0.0-0.2) X10*3/uL Abs Immat Gran (auto) (0.00-0.03) X10*3/uL Absolute Neuts (auto) (2.0-8.3) x10*3/uL Absolute Nucleated RBC (0.0-0.012) X10*3/uL Nucleated RBC % (auto) (0.0-0.2) /100WBC PT 11.9 (10.0-13.1) SEC INR 1.0 (0.9-1.1) Sodium 140 (135-145) mmol/L Potassium 4.8 (3.3-5.1) mmol/L Chloride 101 (96-108) mmol/L Carbon Dioxide 31 H (22-29) mmol/L Anion Gap 13 (12-20) BUN 16 (9-16) mg/dL Creatinine 0.84 (0.5-1.4) mg/dL Estim Creat Clear Calc 103.9 Estimated GFR > 60 Random Glucose 116 H (60-115) mg/dL Lactic Acid (0.5-2.0) mmol/L Calcium 9.4 (8.4-10.2) mg/dL Magnesium 1.9 (1.6-2.6) mg/dL Total Bilirubin 0.7 (0.0-1.0) mg/dL Direct Bilirubin 0.2 (0.0-0.5) mg/dL AST 11 (5-31) U/L ALT 9 (0-31) U/L Alkaline Phosphatase 57 (39-117) U/L Troponin I High Sens < 2.7 (<3.5-17.0) ng/L B-Natriuretic Peptide (<100) pg/mL Total Protein 8.0 (6.5-8.0) g/dL Albumin 3.9 (3.5-5.0) g/dL Lipase 13 (8-78) U/L Urine Color Urine Appearance Urine pH (5.0-9.0) Ur Specific [place] (1.005-1.025) Urine Protein (Neg-Trace) mg/dL Urine Glucose (UA) (Negative) mg/dL Urine Ketones (Negative) mg/dL Urine Blood (Negative) Urine Nitrite (Negative) Ur Leukocyte Esterase (Negative) Urine RBC (0-2) /HPF Urine WBC (0-5) /HPF Ur Squamous Epith Cells (0-2) /HPF Urine Bacteria (None Seen) Hyaline Casts (0-2) /LPF COVID-19 (ABBY) (Negative) COVID-19 Clin Com Influenza Type A (LEN) (Negative) Influenza Type B (LEN) (Negative) Influenza A & B Note 08/09/22 08/09/22 08/09/22 Range/Units 19:53 19:53 19:53 WBC (4.8-10.8) X10*3/uL RBC (4.20-5.50) X10*6/uL Hgb (12.0-16.0) g/dl Hct (37.0-47.0) % MCV (80.0-98.0) fL MCH (27.0-33.0) pg MCHC (31.0-35.0) g/dl RDW (11.0-16.0) % Plt Count (160-400) X10*3/uL MPV (9.4-12.3) fL Immature Gran % (Auto) (0.0-0.4) % Neut % (Auto) (45-73) % Lymph % (Auto) (20-40) % [place] % (Auto) (2-11) % Eos % (Auto) (0-4) % Baso % (Auto) (0-2) % Lymph # (Auto) (1.2-4.9) X10*3/uL [place] # (Auto) (0.1-1.2) X10*3/uL Eos # (Auto) (0.0-0.4) X10*3/uL Baso # (Auto) (0.0-0.2) X10*3/uL Abs Immat Gran (auto) (0.00-0.03) X10*3/uL Absolute Neuts (auto) (2.0-8.3) x10*3/uL Absolute Nucleated RBC (0.0-0.012) X10*3/uL Nucleated RBC % (auto) (0.0-0.2) /100WBC PT (10.0-13.1) SEC INR (0.9-1.1) Sodium (135-145) mmol/L Potassium (3.3-5.1) mmol/L Chloride (96-108) mmol/L Carbon Dioxide (22-29) mmol/L Anion Gap (12-20) BUN (9-16) mg/dL Creatinine (0.5-1.4) mg/dL Estim Creat Clear Calc Estimated GFR Random Glucose (60-115) mg/dL Lactic Acid 1.2 (0.5-2.0) mmol/L Calcium (8.4-10.2) mg/dL Magnesium (1.6-2.6) mg/dL Total Bilirubin (0.0-1.0) mg/dL Direct Bilirubin (0.0-0.5) mg/dL AST (5-31) U/L ALT (0-31) U/L Alkaline Phosphatase (39-117) U/L Troponin I High Sens (<3.5-17.0) ng/L B-Natriuretic Peptide 61 (<100) pg/mL Total Protein (6.5-8.0) g/dL Albumin (3.5-5.0) g/dL Lipase (8-78) U/L Urine Color Urine Appearance Urine pH (5.0-9.0) Ur Specific [place] (1.005-1.025) Urine Protein (Neg-Trace) mg/dL Urine Glucose (UA) (Negative) mg/dL Urine Ketones (Negative) mg/dL Urine Blood (Negative) Urine Nitrite (Negative) Ur Leukocyte Esterase (Negative) Urine RBC (0-2) /HPF Urine WBC (0-5) /HPF Ur Squamous Epith Cells (0-2) /HPF Urine Bacteria (None Seen) Hyaline Casts (0-2) /LPF COVID-19 (ABBY) (Negative) COVID-19 Clin Com Influenza Type A (LEN) Negative (Negative) Influenza Type B (LEN) Negative (Negative) Influenza A & B Note See Note 08/09/22 08/09/22 08/09/22 Range/Units 19:53 19:54 20:47 WBC 9.1 (4.8-10.8) X10*3/uL RBC 4.03 L (4.20-5.50) X10*6/uL Hgb 10.2 L (12.0-16.0) g/dl Hct 36.3 L (37.0-47.0) % MCV 90.1 (80.0-98.0) fL MCH 25.3 L (27.0-33.0) pg MCHC 28.1 L (31.0-35.0) g/dl RDW 18.6 H (11.0-16.0) % Plt Count 245 (160-400) X10*3/uL MPV 11.3 (9.4-12.3) fL Immature Gran % (Auto) 0.4 (0.0-0.4) % Neut % (Auto) 86.5 H (45-73) % Lymph % (Auto) 7.7 L (20-40) % [place] % (Auto) 4.5 (2-11) % Eos % (Auto) 0.7 (0-4) % Baso % (Auto) 0.2 (0-2) % Lymph # (Auto) 0.7 L (1.2-4.9) X10*3/uL [place] # (Auto) 0.4 (0.1-1.2) X10*3/uL Eos # (Auto) 0.1 (0.0-0.4) X10*3/uL Baso # (Auto) 0.0 (0.0-0.2) X10*3/uL Abs Immat Gran (auto) 0.04 H (0.00-0.03) X10*3/uL Absolute Neuts (auto) 7.9 (2.0-8.3) x10*3/uL Absolute Nucleated RBC 0.020 H (0.0-0.012) X10*3/uL Nucleated RBC % (auto) 0.2 (0.0-0.2) /100WBC PT (10.0-13.1) SEC INR (0.9-1.1) Sodium (135-145) mmol/L Potassium (3.3-5.1) mmol/L Chloride (96-108) mmol/L Carbon Dioxide (22-29) mmol/L Anion Gap (12-20) BUN (9-16) mg/dL Creatinine (0.5-1.4) mg/dL Estim Creat Clear Calc Estimated GFR Random Glucose (60-115) mg/dL Lactic Acid (0.5-2.0) mmol/L Calcium (8.4-10.2) mg/dL Magnesium (1.6-2.6) mg/dL Total Bilirubin (0.0-1.0) mg/dL Direct Bilirubin (0.0-0.5) mg/dL AST (5-31) U/L ALT (0-31) U/L Alkaline Phosphatase (39-117) U/L Troponin I High Sens (<3.5-17.0) ng/L B-Natriuretic Peptide (<100) pg/mL Total Protein (6.5-8.0) g/dL Albumin (3.5-5.0) g/dL Lipase (8-78) U/L Urine Color Yellow Urine Appearance Clear Urine pH 8.0 (5.0-9.0) Ur Specific [place] 1.015 (1.005-1.025) Urine Protein Negative (Neg-Trace) mg/dL Urine Glucose (UA) Negative (Negative) mg/dL Urine Ketones Negative (Negative) mg/dL Urine Blood Negative (Negative) Urine Nitrite Negative (Negative) Ur Leukocyte Esterase Moderate (2+) H (Negative) Urine RBC 0-2 (0-2) /HPF Urine WBC 21-50 H (0-5) /HPF Ur Squamous Epith Cells 0-2 (0-2) /HPF Urine Bacteria 3+ (None Seen) Hyaline Casts 0-2 (0-2) /LPF COVID-19 (ABBY) Negative (Negative) COVID-19 Clin Com See Note Influenza Type A (LEN) (Negative) Influenza Type B (LEN) (Negative) Influenza A & B Note Radiology Impression Discussion of test interpretation with radiology: I have reviewed the radiologist's reading. Radiologist Impression: MPRESSION: Bilateral pulmonary infiltrates, left greater than right, with some worsening in the right upper lobe. Superimposed pneumonia on top of chronic changes may be present. CHF with the tip of edema cannot be entirely excluded. FINDINGS: LUNG BASES: Coarse lung markings at the lung bases with increased groundglass attenuation and interstitial markings. This is not appear appreciably changed from July 2021 exam. There is also mediastinal and bilateral hilar lymphadenopathy. LIVER, GALLBLADDER, AND BILIARY TREE: The liver is normal in size, shape, and attenuation. No focal hepatic lesion or biliary ductal dilatation is present. The gallbladder is unremarkable with no evidence of radiopaque gallstones, gallbladder wall thickening, or obvious pericholecystic inflammatory changes.? PANCREAS: Unremarkable.? SPLEEN: Unremarkable.? ADRENAL GLANDS: Unremarkable.? KIDNEYS AND URETERS: The kidneys are normal in size, shape, and attenuation. No hydronephrosis, hydroureter, or calculi seen. No perinephric stranding. ? BLADDER: Not optimally distended. GASTROINTESTINAL TRACT: There is a small amount of free air seen in the left side of the abdomen. Source of free air is not certain. There are slightly distended fluid-filled thick-walled loops of proximal jejunum. There is extraluminal air seen in between loops of small bowel in this region. There is diverticulosis of the colon. No definite evidence of diverticulitis is seen. There is extraluminal air adjacent to the distal transverse colon as well. The stomach is normal. The appendix is normal. There is a small amount of fluid in the pelvis. ABDOMINAL WALL: Diastasis of the rectus muscles. No hernia.? LYMPH NODES: No enlarged lymph nodes. VASCULAR: Unremarkable. PELVIC VISCERA: The uterus is not seen and has presumably been removed. No pelvic mass. Small amount of fluid in the pelvis. OSSEOUS STRUCTURES: Degenerative changes of the spine. CT/CT abdomen pelvis w IV con IMPRESSION: Small amount of free air in the left side of the abdomen. Source of free air is not certain. There are slightly distended fluid-filled thick-walled loops of proximal jejunum. There is extraluminal air in between loops of small bowel. There is also extraluminal air seen adjacent to the distal transverse colon. There is diverticulosis of the colon. No definite evidence of diverticulitis is seen. Small amount of fluid in the pelvis. ? Fleischner guidelines were followed. Critical Care Time Critical Care Time Critical Care Time: Yes Total Critical Care Time: 60 Attestation: I have personally provided critical care time. Time includes review of lab data, radiology results, discussion with consultants, and monitoring for potential decompensation. Intervention performed as documented. Discharge Plan Discharge Clinical Impression: Intra-abdominal free air of unknown etiology, Pneumonia, UTI (urinary tract infection) Patient Disposition: Admitted As Inpatient Prescriptions: No Action furosemide 40 mg Tablet 40 mg PO DAILY albuterol sulfate 0.63 mg/3 mL Solution For Nebulization 0.63 mg INHALATION Q6H PRN (Reason: Shortness Of Breath) sennosides [senna] 8.6 mg Tablet 17.2 mg PO BEDTIME acetaminophen 325 mg Tablet 650 mg PO Q6H PRN (Reason: temp/pain) atorvastatin 20 mg Tablet 20 mg PO BEDTIME lidocaine 4 % Adhesive Patch,Medicated 3 patch TOPICAL DAILY Rx Instructions: apply 1 to left forearm and 2 to mid back polyethylene glycol 3350 17 gram Powder In Packet 17 g PO DAILY propranolol 60 mg Tablet 30 mg PO TID famotidine 20 mg Tablet 20 mg PO BID magnesium hydroxide [Milk of Magnesia] 400 mg/5 mL Suspension 30 ml PO DAILY PRN (Reason: Constipation) bisacodyl 10 mg Suppository 10 mg TX DAILY PRN (Reason: Constipation) bupropion HCl 75 mg Tablet 75 mg PO BID Rx Instructions: administer 6 hours apart docusate sodium 100 mg Capsule 100 mg PO BID gabapentin 300 mg Capsule 300 mg PO TID nystatin 100,000 unit/gram Powder 1 appl TOPICAL BID insulin lispro [Humalog U-100 Insulin] 100 unit/mL Solution 1 sliding scale dose SUBCUT USEASDIRECTD Protocol: Insulin Correction Scale Less than or equal to 110 ---- Give (units): 0 111 to 150 Give (units): 0 151 to 200 Give (units): 2 201 to 250 Give (units): 4 251 to 300 Give (units): 6 301 to 350 Give (units): 8 Greater than 350 Give (units): 10 Call MD if Blood Glucose > : 350 Acidophilus Capsule 1,000 mmu cells PO BID enoxaparin [Lovenox] 40 mg/0.4 mL Syringe 40 mg SUBCUT DAILY multivitamin with iron Tablet 1 tab PO DAILY aripiprazole 10 mg Tablet 10 mg PO DAILY budesonide-formoterol [Symbicort] 160-4.5 mcg/actuation Hfa Aerosol Inhaler 1 inh INHALATION DAILY insulin glargine 100 unit/mL (3 mL) Insulin Pen 20 unit SUBCUT DAILY oxycodone 10 mg Tablet 10 mg PO Q6H PRN (Reason: Pain (Scale Score 4-6)) potassium chloride 20 mEq Tablet Extended Release 20 meq PO DAILY amoxicillin-pot clavulanate 875-125 mg tablet 1 tab PO BID 4 Days Qty: 8 0RF [place] Nasal 0.65 % aerosol,spray 1 spray intranasal BID Qty: 44 0RF
--- NOTE | 2022-08-09 22:08 | P.HPGS_ITS ---
History of Present Illness History of Present Illness Date of Service: 08/12/22 Chief complaint: Abdominal pain, UTI, pneumonia Narrative: Irlanda Cisneros is a 66 year old female with multiple medical problems, brought to the ED tonight because of shortness of breath and abdominal pain. She says says this started in the morning. She describes her pain as mostly around her umbilicus. She also describes having shortness of breath but does say that this happens frequently. [facility] is from the senior living. She has COPD, CHF and atrial fibrillation. She says she ahd a stroke last year and was comatose for a long period of time. She has coarse tremors. and has left sided weakness. She is nonambulatory and says she is bedbound. She has had UTI's in the past as well. Review of Systems Constitutional: Constitutional: Denies chills and Denies fever(s) Cardiovascular: Cardiovascular: Reports dyspnea, Reports dyspnea on exertion and Reports orthopnea Respiratory: Respiratory: Reports dyspnea and Reports dyspnea on exertion Gastrointestinal: Gastrointestinal: Reports abdominal pain, Reports constipation and Denies vomiting Genitourinary: Genitourinary: Reports dysuria Neurologic: Reports memory loss and Reports tremor(s) Psychiatric: Psychiatric: Reports memory loss [facility], [facility] Past Medical History Medical History (Updated 08/12/22 @ 08:59 by Alan Luque MD) Abdominal pain Atrial fibrillation CHF (congestive heart failure) COPD (chronic obstructive pulmonary disease) Dysphagia Essential tremor Hyperlipidemia Memory deficit Pneumoperitoneum UTI (urinary tract infection) Surgical History Surgical History No pertinent past surgical history Social History Social History Household Members: Other Housing: Assisted Do you presently have visiting nurse or other home services: No (frp, smf) Alcohol intake: never Patient Tobacco Use Status: Never used Tobacco Use of substances other than those prescribed or required for medical reasons: No Currently Displaying Signs/Symptoms of Drug Intoxication Withdrawal: No Have you been hit, kicked, punched, or otherwise hurt by someone within the past year? If so, by whom?: No Do you feel safe in your current relationship?: Yes Is there a partner from a previous relationship who is making you feel unsafe now?: No Are you made to feel afraid or neglected: No Advance Directives: Yes Advance Directives on File: Yes Advance Directives Date on File: 08/27/21 Do you have thoughts of harming others: None Do you have a plan to hurt others: No Plan Recently lost weight without trying: Unsure Eating poorly because of decreased appetite: No Nutrition Risks: No Nutritional Risk Patient : No : No Poor oral hygiene: No service: No Current occupational status: unemployed Meds Allergies Allergy/AdvReac Type Severity Reaction Status Date / Time No Known Allergies Allergy Verified 08/09/22 19:29 Active Medications: Current Medications Ceftriaxone Sodium 1 gm/ (Sodium Chloride) 50 mls @ 100 mls/hr IV ONCE ONE Stop: 08/09/22 22:21 Home Medications Medication Instructions Recorded Confirmed Last Taken Type acetaminophen 325 mg tablet 650 mg PO Q6H PRN temp/pain 08/26/21 08/09/22 Unknown History aripiprazole 10 mg tablet 10 mg PO DAILY 08/26/21 08/09/22 08/09/22 History bisacodyl 10 mg rectal suppository 10 mg MS DAILY PRN Constipation 08/26/21 08/09/22 Unknown History budesonide-formoterol HFA 160 1 inh inhalation DAILY 08/26/21 08/09/22 08/09/22 History mcg-4.5 mcg/actuation aerosol inhaler (Symbicort) docusate sodium 100 mg capsule 100 mg PO BID 08/26/21 08/09/22 08/09/22 History enoxaparin 40 mg/0.4 mL 40 mg subcut DAILY 08/26/21 08/09/22 Unknown History subcutaneous syringe (Lovenox) furosemide 40 mg tablet 40 mg PO DAILY 08/26/21 08/09/22 08/09/22 History insulin lispro 100 unit/mL See Protocol subcut QIDACHS 08/26/21 08/09/22 08/09/22 History subcutaneous solution (Humalog U-100 Insulin) magnesium hydroxide 400 mg/5 mL 30 ml PO DAILY PRN Constipation 08/26/21 08/09/22 Unknown History oral suspension (Milk of Magnesia) polyethylene glycol 3350 17 gram 17 g PO DAILY 08/26/21 08/09/22 08/09/22 History oral powder packet sennosides 8.6 mg tablet (senna) 17.2 mg PO BEDTIME 08/26/21 08/09/22 08/08/22 History gabapentin 100 mg capsule 100 mg PO TID 08/09/22 08/09/22 08/09/22 History glimepiride 4 mg tablet 4 mg PO DAILY 08/09/22 08/09/22 08/09/22 History insulin glargine-yfgn 100 unit/mL 20 unit subcut DAILY 08/09/22 08/09/22 08/09/22 History (3 mL) subcutaneous pen (Semglee (insulin glargine-yfgn) Pen) pioglitazone 45 mg tablet (Actos) 45 mg PO DAILY 08/09/22 08/09/22 08/09/22 History propranolol 20 mg tablet 60 mg PO DAILY 08/09/22 08/09/22 08/09/22 History rosuvastatin 10 mg tablet (Crestor) 10 mg PO BEDTIME 08/09/22 08/09/22 08/08/22 History trazodone 50 mg tablet 25 mg PO BEDTIME 08/09/22 08/09/22 08/08/22 History bupropion HCl 150 mg 24 hr tablet, 150 mg PO BID 08/10/22 08/10/22 08/09/22 History extended release Physical Exam Vital Signs: Vital Signs: Last Vital Signs Temp 100.5 F H 08/09/22 19:31 Pulse 70 08/09/22 19:31 Resp 32 H 08/09/22 19:31 BP 143/81 H 08/09/22 19:31 Pulse Ox 97 08/09/22 20:35 O2 Del Method Oxymask 08/09/22 20:35 O2 Flow Rate 4 08/09/22 20:35 Oxygen Flow Rate 8 08/09/22 19:31 BMI result Body Mass Index 64.3 Const: Other: morbidly obese Resp: Other: some shortness of breath Cardio: Rate: tachycardic GI: Other: very obese, soft, some tenderness on abdomen, mostly lower Results Results Labs: Short CBC 08/09/22 Range/Units 19:54 WBC 9.1 (4.8-10.8) X10*3/uL Hgb 10.2 L (12.0-16.0) g/dl Hct 36.3 L (37.0-47.0) % Plt Count 245 (160-400) X10*3/uL BMP 08/09/22 19:53 Sodium 140 Potassium 4.8 Chloride 101 Carbon Dioxide 31 H BUN 16 Creatinine 0.84 Calcium 9.4 Liver Function 08/09/22 Range/Units 19:53 Total Bilirubin 0.7 (0.0-1.0) mg/dL Direct Bilirubin 0.2 (0.0-0.5) mg/dL AST 11 (5-31) U/L ALT 9 (0-31) U/L Alkaline Phosphatase 57 (39-117) U/L Albumin 3.9 (3.5-5.0) g/dL Urine 08/09/22 Range/Units 20:47 Urine Color Yellow Urine Appearance Clear Urine pH 8.0 (5.0-9.0) Ur Specific [place] 1.015 (1.005-1.025) Urine Protein Negative (Neg-Trace) mg/dL Urine Glucose (UA) Negative (Negative) mg/dL Laboratory Results WBC 9.1 X10*3/uL (4.8-10.8) 08/09/22 19:54 RBC 4.03 X10*6/uL (4.20-5.50) L 08/09/22 19:54 Hgb 10.2 g/dl (12.0-16.0) L 08/09/22 19:54 Hct 36.3 % (37.0-47.0) L 08/09/22 19:54 MCV 90.1 fL (80.0-98.0) 08/09/22 19:54 MCH 25.3 pg (27.0-33.0) L 08/09/22 19:54 MCHC 28.1 g/dl (31.0-35.0) L 08/09/22 19:54 RDW 18.6 % (11.0-16.0) H 08/09/22 19:54 Plt Count 245 X10*3/uL (160-400) 08/09/22 19:54 MPV 11.3 fL (9.4-12.3) 08/09/22 19:54 Immature Gran % (Auto) 0.4 % (0.0-0.4) 08/09/22 19:54 Neut % (Auto) 86.5 % (45-73) H 08/09/22 19:54 Lymph % (Auto) 7.7 % (20-40) L 08/09/22 19:54 [place] % (Auto) 4.5 % (2-11) 08/09/22 19:54 Eos % (Auto) 0.7 % (0-4) 08/09/22 19:54 Baso % (Auto) 0.2 % (0-2) 08/09/22 19:54 Lymph # (Auto) 0.7 X10*3/uL (1.2-4.9) L 08/09/22 19:54 [place] # (Auto) 0.4 X10*3/uL (0.1-1.2) 08/09/22 19:54 Eos # (Auto) 0.1 X10*3/uL (0.0-0.4) 08/09/22 19:54 Baso # (Auto) 0.0 X10*3/uL (0.0-0.2) 08/09/22 19:54 Abs Immat Gran (auto) 0.04 X10*3/uL (0.00-0.03) H 08/09/22 19:54 Absolute Neuts (auto) 7.9 x10*3/uL (2.0-8.3) 08/09/22 19:54 Absolute Nucleated RBC 0.020 X10*3/uL (0.0-0.012) H 08/09/22 19:54 Nucleated RBC % (auto) 0.2 /100WBC (0.0-0.2) 08/09/22 19:54 PT 11.9 SEC (10.0-13.1) 08/09/22 19:53 INR 1.0 (0.9-1.1) 08/09/22 19:53 Sodium 140 mmol/L (135-145) 08/09/22 19:53 Potassium 4.8 mmol/L (3.3-5.1) 08/09/22 19:53 Chloride 101 mmol/L (96-108) 08/09/22 19:53 Carbon Dioxide 31 mmol/L (22-29) H 08/09/22 19:53 Anion Gap 13 (12-20) 08/09/22 19:53 BUN 16 mg/dL (9-16) 08/09/22 19:53 Creatinine 0.84 mg/dL (0.5-1.4) 08/09/22 19:53 Estim Creat Clear Calc 103.9 08/09/22 19:53 Estimated GFR > 60 08/09/22 19:53 Random Glucose 116 mg/dL (60-115) H 08/09/22 19:53 Lactic Acid 1.2 mmol/L (0.5-2.0) 08/09/22 19:53 Calcium 9.4 mg/dL (8.4-10.2) 08/09/22 19:53 Magnesium 1.9 mg/dL (1.6-2.6) 08/09/22 19:53 Total Bilirubin 0.7 mg/dL (0.0-1.0) 08/09/22 19:53 Direct Bilirubin 0.2 mg/dL (0.0-0.5) 08/09/22 19:53 AST 11 U/L (5-31) 08/09/22 19:53 ALT 9 U/L (0-31) 08/09/22 19:53 Alkaline Phosphatase 57 U/L (39-117) 08/09/22 19:53 Troponin I High Sens < 2.7 ng/L (<3.5-17.0) 08/09/22 19:53 B-Natriuretic Peptide 61 pg/mL (<100) 08/09/22 19:53 Total Protein 8.0 g/dL (6.5-8.0) 08/09/22 19:53 Albumin 3.9 g/dL (3.5-5.0) 08/09/22 19:53 Lipase 13 U/L (8-78) 08/09/22 19:53 Urine Color Yellow 08/09/22 20:47 Urine Appearance Clear 08/09/22 20:47 Urine pH 8.0 (5.0-9.0) 08/09/22 20:47 Ur Specific [place] 1.015 (1.005-1.025) 08/09/22 20:47 Urine Protein Negative mg/dL (Neg-Trace) 08/09/22 20:47 Urine Glucose (UA) Negative mg/dL (Negative) 08/09/22 20:47 Urine Ketones Negative mg/dL (Negative) 08/09/22 20:47 Urine Blood Negative (Negative) 06/13/23 20:47 Urine Nitrite Negative (Negative) 08/09/22 20:47 Ur Leukocyte Esterase Moderate (2+) (Negative) H 08/09/22 20:47 Urine RBC 0-2 /HPF (0-2) 08/09/22 20:47 Urine WBC 21-50 /HPF (0-5) H 08/09/22 20:47 Ur Squamous Epith Cells 0-2 /HPF (0-2) 08/09/22 20:47 Urine Bacteria 3+ (None Seen) 08/09/22 20:47 Hyaline Casts 0-2 /LPF (0-2) 08/09/22 20:47 COVID-19 (ABBY) Negative (Negative) 08/09/22 19:53 COVID-19 Clin Com See Note 08/09/22 19:53 Influenza Type A (LEN) Negative (Negative) 08/09/22 19:53 Influenza Type B (LEN) Negative (Negative) 08/09/22 19:53 Influenza A & B Note See Note 08/09/22 19:53 Impressions Chest X-Ray 08/09/22 20:13 IMPRESSION: Bilateral pulmonary infiltrates, left greater than right, with some worsening in the right upper lobe. Superimposed pneumonia on top of chronic changes may be present. CHF with the tip of edema cannot be entirely excluded. Abdomen/Pelvis CT 08/09/22 21:12 IMPRESSION: Small amount of free air in the left side of the abdomen. Source of free air is not certain. There are slightly distended fluid-filled thick-walled loops of proximal jejunum. There is extraluminal air in between loops of small bowel. There is also extraluminal air seen adjacent to the distal transverse colon. There is diverticulosis of the colon. No definite evidence of diverticulitis is seen. Small amount of fluid in the pelvis. Fleischner guidelines were followed. Findings were communicated to Queenie Crane by telephone on 08/09/2022 at 2158 hours Assessment and Plan (1) Abdominal pain: Status: Acute She describes multiple complaints, including abdominal pain, shortness of breath, dysuria. Review of her CT scan shows small locules of air adjacent to the jejunum as well as the trasnverse colon, but there is no other inflammatory process seen. I am uncertain as to the etiology of these locules of air. She is extremely frail with multiple medical problems, and poor baseline level of health and function. I will monitor closely and repeat her CT scan this morning. If there is progression of this free air, she will have to be taken to surgery for laparotomy, and I explained to her that she presents with very high risks for this. I have called her spouse multiple times but he has not picked up. I will start her on Zosyn which should cover for her pneumonia and UTI. Her lactate is normal. I have discussed this case with the Hospitalist. (2) UTI (urinary tract infection): Status: Acute (3) Pneumoperitoneum: Status: Acute has multiple locules of air does not appear to have peritoneal signs plan is to repeat the CT scan in the morning short segment of jejunum appears thickened Time Spent With Patient Time: Total time managing care of this patient today ____ minutes. Quality Stroke Does the patient have a stroke diagnosis?: No VTE Prior VTE?: No VTE Risk Level:: Surgical - high VTE Device Contraindication: N/A - Device Ordered VTE Drug Contraindication: N/A - Med Ordered Procedures Date of Service Date of Service: 08/12/22
[2022-08-09 22:17] VITALS: BP 173/60; PULSE 112; RESP 28; TEMP 38.8; O2SAT 94
--- NOTE | 2022-08-09 22:37 | HO.PM.IMCN ---
History of Present Illness Data of Consult Service Date: 08/09/22 Primary Care Provider: Unknown Physician HPI Reason for consult: pneumonia UTI 66-year-old female with past medical history of COPD, AFib, CHF, dysphagia, essential tremors, HLD, presents the hospital with complaints of abdominal pain. Patient was seen by surgery, found to have small amount of free air in the abdomen. Patient is being admitted for evaluation by surgery but we are consulted as patient was also found to have pneumonia as well as acute UTI. Patient denies any cough, reports chronic shortness of breath that has not worsened, has chronic lower extremity edema. Denies any chest pain, reports urinary frequency, no dysuria. felt feverish, but does not know how high her fever was, has chills, denies any diarrhea constipation. On arrival to the ED patient found to have a temperature of 102 degrees heart rate of 112, respiratory rate of 28, blood pressure 173/60 . patient was also noted to be hypoxic and is currently on 4 L of nasal cannula satting 97% Labs are significant for WBC count 9.1, hemoglobin of 10.2, hematocrit 36.3, UA that is positive for moderate leukocyte Estrace, WBC, and bacteria Chest x-ray shows bilateral pulmonary infiltrate, left greater than right, with some worsening in the right upper lobe patient started on IV antibiotics will be admitted for further management by surgery with consult to medicine for management of pneumonia and UTI Review of Systems Review of Systems: Yes all other systems are reviewed and are negative [facility] Medical History Abdominal pain Atrial fibrillation CHF (congestive heart failure) COPD (chronic obstructive pulmonary disease) Dysphagia Essential tremor Hyperlipidemia Memory deficit UTI (urinary tract infection) Surgical History No pertinent past surgical history Social History Household Members: Other Housing: Detention Do you presently have visiting nurse or other home services: No (memo emanuel) Alcohol intake: never Patient Tobacco Use Status: Never used Tobacco Use of substances other than those prescribed or required for medical reasons: No Currently Displaying Signs/Symptoms of Drug Intoxication Withdrawal: No Have you been hit, kicked, punched, or otherwise hurt by someone within the past year? If so, by whom?: No Do you feel safe in your current relationship?: Yes Is there a partner from a previous relationship who is making you feel unsafe now?: No Are you made to feel afraid or neglected: No Advance Directives: Yes Advance Directives on File: Yes Advance Directives Date on File: 08/27/21 Do you have thoughts of harming others: None Do you have a plan to hurt others: No Plan Recently lost weight without trying: Unsure Eating poorly because of decreased appetite: No Nutrition Risks: No Nutritional Risk Patient : No : No Poor oral hygiene: No service: No Current occupational status: unemployed Meds Allergies Allergy/AdvReac Type Severity Reaction Status Date / Time No Known Allergies Allergy Verified 08/09/22 19:29 Active Medications: Current Medications Heparin Sodium (Porcine) (Heparin Sodium,Porcine 5,000 Unit/Ml Vial) 5,000 unit SUBCUT Q8H ZENAIDA Sodium Chloride (Ns) 1,000 mls @ 999 mls/hr IVCONT .Q1H1M ONE Stop: 08/09/22 23:25 Lactated Ringer's (Lr) 1,000 mls @ 80 mls/hr IVCONT .[id number] [facility] Morphine Sulfate (Morphine Sulfate 4 Mg/Ml Cartridge) 4 mg IVPUSH Q3H PRN; Protocol PRN Reason: Pain, Severe (Pain Scale 7-10) Ondansetron HCl (Ondansetron Hcl 4 Mg/2 Ml Vial) 4 mg IV Q6H PRN PRN Reason: nausea Sodium Chloride (0.9 % Sodium Chloride Flush 3 Ml Syringe) 3 ml IVFLUSH QSHIFT [facility] Home Medications Medication Instructions Recorded Confirmed Last Taken Type acetaminophen 325 mg tablet 650 mg PO Q6H PRN temp/pain 08/26/21 08/09/22 Unknown History aripiprazole 10 mg tablet 10 mg PO DAILY 08/26/21 08/09/22 08/09/22 History bisacodyl 10 mg rectal suppository 10 mg SD DAILY PRN Constipation 08/26/21 08/09/22 Unknown History budesonide-formoterol HFA 160 1 inh inhalation DAILY 08/26/21 08/09/22 08/09/22 History mcg-4.5 mcg/actuation aerosol inhaler (Symbicort) docusate sodium 100 mg capsule 100 mg PO BID 08/26/21 08/09/22 08/09/22 History enoxaparin 40 mg/0.4 mL 40 mg subcut DAILY 08/26/21 08/09/22 Unknown History subcutaneous syringe (Lovenox) furosemide 40 mg tablet 40 mg PO DAILY 08/26/21 08/09/22 08/09/22 History insulin lispro 100 unit/mL See Protocol subcut QIDACHS 08/26/21 08/09/22 08/09/22 History subcutaneous solution (Humalog U-100 Insulin) magnesium hydroxide 400 mg/5 mL 30 ml PO DAILY PRN Constipation 08/26/21 08/09/22 Unknown History oral suspension (Milk of Magnesia) polyethylene glycol 3350 17 gram 17 g PO DAILY 08/26/21 08/09/22 08/09/22 History oral powder packet sennosides 8.6 mg tablet (senna) 17.2 mg PO BEDTIME 08/26/21 08/09/22 08/08/22 History bupropion HCl 150 mg tablet,12 hr 150 mg PO BID 08/09/22 08/09/22 08/09/22 History sustained-release (Wellbutrin SR) gabapentin 100 mg capsule 100 mg PO TID 08/09/22 08/09/22 08/09/22 History glimepiride 4 mg tablet 4 mg PO DAILY 08/09/22 08/09/22 08/09/22 History insulin glargine-yfgn 100 unit/mL 20 unit subcut DAILY 08/09/22 08/09/22 08/09/22 History (3 mL) subcutaneous pen (Semglee (insulin glargine-yfgn) Pen) pioglitazone 45 mg tablet (Actos) 45 mg PO DAILY 08/09/22 08/09/22 08/09/22 History propranolol 20 mg tablet 60 mg PO DAILY 08/09/22 08/09/22 08/09/22 History rosuvastatin 10 mg tablet (Crestor) 10 mg PO BEDTIME 08/09/22 08/09/22 08/08/22 History trazodone 50 mg tablet 25 mg PO BEDTIME 08/09/22 08/09/22 08/08/22 History Physical Exam Vital Signs and Narrative: Vital Signs: Last Vital Signs Temp 102 F H 08/09/22 22:17 Pulse 112 H 08/09/22 22:17 Resp 28 H 08/09/22 22:17 BP 173/60 H 08/09/22 22:17 Pulse Ox 94 08/09/22 22:17 O2 Del Method Nasal Cannula 08/09/22 22:17 O2 Flow Rate 4 08/09/22 22:17 Oxygen Flow Rate 8 08/09/22 19:31 BMI result Body Mass Index 64.3 Const: Other: patient is alert and oriented x3 General: cooperative and no acute distress Orientation/consciousness: patient oriented x3 Eyes: General: appearance normal, both eyes and all related structures Resp: Effort & Inspection: normal respiratory effort Auscultation: clear to auscultation bilaterally Cardio: Rate: regular rate Rhythm: regular rhythm GI: Other: abdomen is tender diffusely Palpation (GI): Soft to palpation Auscultation: normal bowel sounds Skin: General skin exam: no rashes or lesions noted Neuro: General: patient oriented x3 Cognition (Neuro): normal cognition Extrem: Other: 2+ pitting edema General: Yes normal to inspection Results Labs 08/09/22 19:54 08/09/22 19:53 Labs: Laboratory Results - last 24 hr 08/09/22 08/09/22 08/09/22 19:53 19:53 19:53 MCV MCH MCHC RDW Plt Count MPV Immature Gran % (Auto) Neut % (Auto) Lymph % (Auto) [place] % (Auto) Eos % (Auto) Baso % (Auto) Lymph # (Auto) [place] # (Auto) Eos # (Auto) Baso # (Auto) Abs Immat Gran (auto) Absolute Neuts (auto) Absolute Nucleated RBC Nucleated RBC % (auto) PT 11.9 INR 1.0 Anion Gap 13 Estim Creat Clear Calc 103.9 Estimated GFR > 60 Random Glucose 116 H Lactic Acid Calcium 9.4 Magnesium 1.9 Total Bilirubin 0.7 Direct Bilirubin 0.2 AST 11 ALT 9 Alkaline Phosphatase 57 Troponin I High Sens < 2.7 B-Natriuretic Peptide Total Protein 8.0 Albumin 3.9 Lipase 13 Urine Color Urine Appearance Urine pH Ur Specific [place] Urine Protein Urine Glucose (UA) Urine Ketones Urine Blood Urine Nitrite Ur Leukocyte Esterase Urine RBC Urine WBC Ur Squamous Epith Cells Urine Bacteria Hyaline Casts COVID-19 (ABBY) COVID-19 Clin Com Influenza Type A (LEN) Influenza Type B (LEN) Influenza A & B Note 08/09/22 08/09/22 08/09/22 19:53 19:53 19:53 MCV MCH MCHC RDW Plt Count MPV Immature Gran % (Auto) Neut % (Auto) Lymph % (Auto) [place] % (Auto) Eos % (Auto) Baso % (Auto) Lymph # (Auto) [place] # (Auto) Eos # (Auto) Baso # (Auto) Abs Immat Gran (auto) Absolute Neuts (auto) Absolute Nucleated RBC Nucleated RBC % (auto) PT INR Anion Gap Estim Creat Clear Calc Estimated GFR Random Glucose Lactic Acid 1.2 Calcium Magnesium Total Bilirubin Direct Bilirubin AST ALT Alkaline Phosphatase Troponin I High Sens B-Natriuretic Peptide 61 Total Protein Albumin Lipase Urine Color Urine Appearance Urine pH Ur Specific [place] Urine Protein Urine Glucose (UA) Urine Ketones Urine Blood Urine Nitrite Ur Leukocyte Esterase Urine RBC Urine WBC Ur Squamous Epith Cells Urine Bacteria Hyaline Casts COVID-19 (ABBY) COVID-19 Clin Com Influenza Type A (LEN) Negative Influenza Type B (LEN) Negative Influenza A & B Note See Note 08/09/22 08/09/22 08/09/22 19:53 19:54 20:47 MCV 90.1 MCH 25.3 L MCHC 28.1 L RDW 18.6 H Plt Count 245 MPV 11.3 Immature Gran % (Auto) 0.4 Neut % (Auto) 86.5 H Lymph % (Auto) 7.7 L [place] % (Auto) 4.5 Eos % (Auto) 0.7 Baso % (Auto) 0.2 Lymph # (Auto) 0.7 L [place] # (Auto) 0.4 Eos # (Auto) 0.1 Baso # (Auto) 0.0 Abs Immat Gran (auto) 0.04 H Absolute Neuts (auto) 7.9 Absolute Nucleated RBC 0.020 H Nucleated RBC % (auto) 0.2 PT INR Anion Gap Estim Creat Clear Calc Estimated GFR Random Glucose Lactic Acid Calcium Magnesium Total Bilirubin Direct Bilirubin AST ALT Alkaline Phosphatase Troponin I High Sens B-Natriuretic Peptide Total Protein Albumin Lipase Urine Color Yellow Urine Appearance Clear Urine pH 8.0 Ur Specific [place] 1.015 Urine Protein Negative Urine Glucose (UA) Negative Urine Ketones Negative Urine Blood Negative Urine Nitrite Negative Ur Leukocyte Esterase Moderate (2+) H Urine RBC 0-2 Urine WBC 21-50 H Ur Squamous Epith Cells 0-2 Urine Bacteria 3+ Hyaline Casts 0-2 COVID-19 (ABBY) Negative COVID-19 Clin Com See Note Influenza Type A (LEN) Influenza Type B (LEN) Influenza A & B Note Imaging Radiologist's Impressions: Impressions Chest X-Ray 08/09/22 20:13 IMPRESSION: Bilateral pulmonary infiltrates, left greater than right, with some worsening in the right upper lobe. Superimposed pneumonia on top of chronic changes may be present. CHF with the tip of edema cannot be entirely excluded. Abdomen/Pelvis CT 08/09/22 21:12 IMPRESSION: Small amount of free air in the left side of the abdomen. Source of free air is not certain. There are slightly distended fluid-filled thick-walled loops of proximal jejunum. There is extraluminal air in between loops of small bowel. There is also extraluminal air seen adjacent to the distal transverse colon. There is diverticulosis of the colon. No definite evidence of diverticulitis is seen. Small amount of fluid in the pelvis. Fleischner guidelines were followed. Findings were communicated to Queenie Crane by telephone on 08/09/2022 at 2158 hours Assessment and Plan (1) Sepsis: Status: Acute (2) UTI (urinary tract infection): Status: Acute (3) Abdominal pain: Status: Acute (4) Pneumonia: Status: Acute Plan 66-year-old female past medical history of CHF, diabetes, hypertension, comes into the hospital with abdominal pain found to have free air in the abdomenr, but also other acute abnormalities including pneumonia and UTI # free air in abdomen - source at this time unknown - spoke to surgery, patient being admitted for further evaluation, with a repeat CT in a.m. - further management per surgery # acute sepsis - likely multifactorial secondary to UTI as well as pneumonia - patient has fever, tachycardia, tachypnea - will treat with IV antibiotics, follow cultures # acute UTI - dip UA, symptomatic - will treat with IV antibiotics - follow cultures # pneumonia - likely aspiration, as has history of dysphagia - patient being kept NPO given the free air in the abdomen - will need evaluation by speech prior to discharge intake # diabetes - hold oral antihyperglycemics - add low-dose sliding scale insulin - recommend diabetic diet once able to take p.o. DVT prophylaxis: Heparin subQ thank you for allowing us to take care of the patient, will continue to follow along Time Spent With Patient Time: Total time managing care of this patient today ____ minutes.
[2022-08-09] MEDS: 0.9 % Sodium Chloride 1,000 ML 999 ML IVCONT (22:38)
[2022-08-09] MEDS: Piperacillin Sodium/Tazobactam 3.375 GM in 0.9 % Sodium Chloride 50 ML IV (22:38)
[2022-08-09] MEDS: Lactated Ringers 1,000 ML 80 ML IVCONT (23:26)
[2022-08-09] MEDS: Heparin Sodium,Porcine 5,000 UNIT/ML VIAL 5000 UNIT SUBCUT (23:27)
[2022-08-09 23:29] VITALS: BP 133/50; PULSE 116; RESP 24; O2SAT 94
[2022-08-09] MEDS: Ketorolac Tromethamine 15 MG/ML VIAL IVPUSH (23:53)
[2022-08-09 23:54] VITALS: BP 113/78; PULSE 115; RESP 22; O2SAT 94
[2022-08-09] MEDS: Morphine Sulfate 4 MG/ML CARTRIDGE IVPUSH (23:54)
[2022-08-09] MEDS: 0.9 % Sodium Chloride Flush 3 ML SYRINGE IVFLUSH (23:57)
[2022-08-10] VITALS (9 sets, daily range): BP systolic 127–152; BP diastolic 61–84; PULSE 98–116; RESP 17–24; TEMP 36.7–38.2; O2SAT 88–98; BMI 62.7
--- NOTE | 2022-08-10 00:08 | PC.NURSE ---
Linens changed and purewick applied.
[2022-08-10] MEDS: Acetaminophen 325 MG TABLET 650 MG PO (00:09)
--- NOTE | 2022-08-10 01:16 | PC.NURSE ---
Report to Joslyn RN on IMC.
[2022-08-10] MEDS: Piperacillin Sodium/Tazobactam 3.375 GM in 0.9 % Sodium Chloride 50 ML IV ×4 (04:42→21:14)
[2022-08-10] MEDS: Heparin Sodium,Porcine 5,000 UNIT/ML VIAL 5000 UNIT SUBCUT ×3 (05:21→21:13)
[2022-08-10] MEDS: Morphine Sulfate 4 MG/ML CARTRIDGE IVPUSH ×3 (05:24→21:12)
[2022-08-10 06:47] LABS: Hematocrit 30.4 % (37.0-47.0); Hemoglobin 8.6 g/dl (12.0-16.0); Mean Corpuscular HGB Conc 28.3 g/dl (31.0-35.0); Mean Corpuscular Hemoglobin 25.4 pg (27.0-33.0); Mean Corpuscular Volume 89.7 fL (80.0-98.0); Mean Platelet Volume 11.6 fL (9.4-12.3); Platelet Count 203 X10*3/uL (160-400); Red Blood Count 3.39 X10*6/uL (4.20-5.50); Red Cell Distribution Width 18.6 % (11.0-16.0); White Blood Count 15.6 X10*3/uL (4.8-10.8)
--- NOTE | 2022-08-10 07:00 | CA_ITS ---
Transthoracic Echocardiogram Patient (Last, First, Middle): Irlanda Cisneros, Gender: Female Date of : 1955 Age: 66 Procedure Date: 08/10/2022 Procedure Type: Transthoracic Echocardiogram Location: [facility] [place] Height: 160.02 cm Weight: 160.12 kg BSA: 2.46 m2 Heart Rate: bpm BP: 138 / 84 mmHg Watch Train Inspector: JOHN Estrada MD: Wanda Carlin MD Real Estate Office Manager: Nirmal Harris MD Symptoms: SOB Study Quality: Technically Difficult/Contrast ECG Rhythm: Sinus Conclusions: - 1. Technically limited study despite use of contrast agent 2. Normal LV systolic function with LVEF of 55-60% with impaired relaxation filling pattern 3. Poor visualization of cardiac valves with normal cardiac valvular Dopplers Findings Procedure Information Contrast agent, definity, is being given per protocol without apparent complications. Left Ventricle Normal left ventricular size, thickness, and systolic function. The visually estimated ejection fraction is between 55-60%. Spectral Doppler is indicative of an impaired relaxation filling pattern. E/E prime ratio is between 8 and 15 consistent with indeterminate filling pressures. Right Ventricle There is normal right ventricular systolic function. Atria The left atrium is normal in size. Interatrial shunt cannot be excluded. The right atrium was not well visualized. Aortic Valve The aortic valve was not well visualized. There is no aortic valve stenosis. There is no aortic valve regurgitation. Mitral Valve The mitral valve was not well visualized. There is no mitral valve regurgitation. There is no mitral valve stenosis. Pulmonic Valve The pulmonic valve was not well visualized. Tricuspid Valve The tricuspid valve was not well visualized. Tricuspid regurgitation envelope is inadequate for calculation of right ventricular systolic pressure. Mildly elevated right atrial pressure. Great Vessels The aorta was not well visualized. The pulmonary artery was not well visualized. Venous The inferior vena cava is mildly dilated and collapses greater than 50% with inspiration. Pericardium/Pleural The pericardium was not well visualized. Prior Study Comparison No prior study available for comparison. Measurements 2D Linear Measurements IVSd: 0.98 0.6-0.9/0.6-1.0 cm LVIDd: 5.04 3.9-5.3/4.2-5.9 cm LVIDd Index: 2.05 2.4-3.2/2.2-3.1 cm/m2 LVIDs: 4.04 2.0-3.6 cm LVPWd: 0.98 0.7-1.1 cm LV Mass: 224.80 67-162/88-224 g LV Mass Index: 91.38 43-95/49-115 g/m2 LVOT Diam: 2.50 3.0+(-)1.3 cm 2D Systolic Function EF 4C: 65.70 >55% EF 2C: 50.50 >55% EF BiP: 58.10 >55% Mitral Valve MV Pk E: 1.58 MV PK A: 1.58 MV Decel Time: 251.00 E/A: 1.00 E'Lateral: 8.81 E'Medial: 7.18 E/E' Med: 22.00 E/E' Lat: 17.90 PHT: 73.00 MVA PHT: 3.01 Decel [place]: 6.28 Aortic Valve AoV Pk Nathan: 2.40 AoV Mn Nathan: 1.70 AoV VTI: 0.44 AoV Pk Grad: 23.00 Aov Mn Grad: 13.00 PATRICK Cont.VTI: 3.86 LVOT LVOT Pk Nathan: 1.84 LVOT Mn Nathan: 1.20 LVOT VTI: 0.35 LVOT Pk Grad: 14.00 LVOT Mn Grad: 7.00 LVOT Diam: 2.50 LVOT Area: 4.91 Diastolic Function MV Pk E: 1.58 MV Pk A: 1.58 E/A: 1.00 E'Medial: 7.18 E/E' Med: 22.00 E' Laterial: 8.81 E/E' Lat: 17.90 Right Ventricle TAPSE (mm): 24.90 TVS' Nathan: 16.10 Tricuspid Valve RA Press: 8.00 Great Vessels Aorta Sinus of Valsalva: 3.70 2.0-3.5 cm Ao Asc: 3.40 2.1-3.4 cm Pulmonary Valve PV Pk Nathan: 1.38 Peak PV Grad: 8.00 Updated in Other Vendor System with Status of Final Nirmal Harris MD electronically signed on 08/10/2022 2:43:55 PM with status of Final
--- NOTE | 2022-08-10 07:27 | PHA.MEDREC ---
Pharmacy Consult ? Medication Reconciliation Pharmacy has completed the medication reconciliation. List from [facility]
[2022-08-10 07:29] LABS: Anion Gap 9 (12-20); Blood Urea Nitrogen 17 mg/dL (9-16); Calcium 8.8 mg/dL (8.4-10.2); Carbon Dioxide 34 mmol/L (22-29); Chloride 103 mmol/L (96-108); Creatinine Clr Calc Pharmacy 87.6; Estimated Glomerular Filt Rate 57; Glucose Random 107 mg/dL (60-115); Potassium 4.3 mmol/L (3.3-5.1); Sodium 142 mmol/L (135-145)
--- NOTE | 2022-08-10 07:33 | P.PNGS_ITS ---
Subjective Subjective Date of Service: 08/12/22 Interval history: says overall she thinks she feels better had pain meds this morning no N/V no fever was asleep appears comfortable Physical Exam Vital Signs: Vital Signs: Last Vital Signs Temp 98.1 F 08/10/22 07:27 Pulse 98 08/10/22 07:27 Resp 20 08/10/22 07:27 BP 138/84 08/10/22 07:27 Pulse Ox 96 08/10/22 07:27 O2 Del Method Nasal Cannula 08/10/22 07:27 O2 Flow Rate 4 08/10/22 07:27 Oxygen Flow Rate 8 08/09/22 19:31 BMI result Body Mass Index 62.7 Const: Other: has some SOB, she says this is baseline, otherwise appears comfortable Resp: Other: mild SOB Cardio: Rate: regular rate GI: Other: soft, obese, no guarding but difficult to assess well due to obesity Objective Data Active Medications Acetaminophen (Acetaminophen 325 Mg Tablet) 650 mg PO Q6H PRN PRN Reason: Pain, Mild (Pain Scale 1-3), Last Admin: 08/10/22 00:09 Dose: 650 mg Documented By: STEPHANIE Albuterol/Ipratropium (Albuterol/Iprat 2.5/0.5mg 3 Ml Ampul.Neb) 3 ml INHALE RQ4H WHILE AWAKE [facility] Glucose (Glucose Gel 15 Gm Gel..Gram.) 15 gm PO Q15M PRN; Protocol PRN Reason: per Hypoglycemia Standing Ord. Heparin Sodium (Porcine) (Heparin Sodium,Porcine 5,000 Unit/Ml Vial) 5,000 unit SUBCUT Q8H [facility] Last Admin: 08/10/22 05:21 Dose: 5,000 unit Documented By: HINA Lactated Ringer's (Lr) 1,000 mls @ 80 mls/hr IVCONT .[id number] [facility] Last Admin: 08/09/22 23:26 Dose: 80 mls/hr Documented By: STEPHANIE Piperacillin Sod/Tazobactam (Sod 3.375 gm/ Sodium Chloride) 50 mls @ 100 mls/hr IV Q6H [facility] Last Infusion: 08/10/22 05:20 Dose: 0 mls/hr Documented By: HINA Dextrose (D10) 250 mls @ 750 mls/hr IV Q15M PRN; Protocol PRN Reason: per Hypoglycemia Standing Ord. Insulin Human Lispro (Insulin Lispro 100 Unit/Ml 3 Ml Vial) 0 unit SUBCUT QIDACHS [facility]; Protocol Morphine Sulfate (Morphine Sulfate 4 Mg/Ml Cartridge) 4 mg IVPUSH Q3H PRN; Protocol PRN Reason: Pain, Severe (Pain Scale 7-10) Last Admin: 08/10/22 05:24 Dose: 4 mg Documented By: HINA Ondansetron HCl (Ondansetron Hcl 4 Mg/2 Ml Vial) 4 mg IV Q6H PRN PRN Reason: nausea Sodium Chloride (0.9 % Sodium Chloride Flush 3 Ml Syringe) [facility] Last Admin: 08/09/22 23:57 Dose: 3 ml Documented By: STEPHANIE Labs 08/10/22 05:57 08/10/22 05:57 Labs: Laboratory Results - last 24 hr 08/09/22 08/09/22 08/09/22 19:53 19:53 19:53 MCV MCH MCHC RDW Plt Count MPV Immature Gran % (Auto) Neut % (Auto) Lymph % (Auto) Clarke % (Auto) Eos % (Auto) Baso % (Auto) Lymph # (Auto) Clarke # (Auto) Eos # (Auto) Baso # (Auto) Abs Immat Gran (auto) Absolute Neuts (auto) Absolute Nucleated RBC Nucleated RBC % (auto) PT 11.9 INR 1.0 Anion Gap 13 Estim Creat Clear Calc 103.9 Estimated GFR > 60 Random Glucose 116 H Lactic Acid Calcium 9.4 Magnesium 1.9 Total Bilirubin 0.7 Direct Bilirubin 0.2 AST 11 ALT 9 Alkaline Phosphatase 57 Troponin I High Sens < 2.7 B-Natriuretic Peptide Total Protein 8.0 Albumin 3.9 Lipase 13 Urine Color Urine Appearance Urine pH Ur Specific [place] Urine Protein Urine Glucose (UA) Urine Ketones Urine Blood Urine Nitrite Ur Leukocyte Esterase Urine RBC Urine WBC Ur Squamous Epith Cells Urine Bacteria Hyaline Casts COVID-19 (ABBY) COVID-19 Clin Com Influenza Type A (LEN) Influenza Type B (LEN) Influenza A & B Note 08/09/22 08/09/22 08/09/22 19:53 19:53 19:53 MCV MCH MCHC RDW Plt Count MPV Immature Gran % (Auto) Neut % (Auto) Lymph % (Auto) Clarke % (Auto) Eos % (Auto) Baso % (Auto) Lymph # (Auto) Clarke # (Auto) Eos # (Auto) Baso # (Auto) Abs Immat Gran (auto) Absolute Neuts (auto) Absolute Nucleated RBC Nucleated RBC % (auto) PT INR Anion Gap Estim Creat Clear Calc Estimated GFR Random Glucose Lactic Acid 1.2 Calcium Magnesium Total Bilirubin Direct Bilirubin AST ALT Alkaline Phosphatase Troponin I High Sens B-Natriuretic Peptide 61 Total Protein Albumin Lipase Urine Color Urine Appearance Urine pH Ur Specific [place] Urine Protein Urine Glucose (UA) Urine Ketones Urine Blood Urine Nitrite Ur Leukocyte Esterase Urine RBC Urine WBC Ur Squamous Epith Cells Urine Bacteria Hyaline Casts COVID-19 (ABBY) COVID-19 Clin Com Influenza Type A (LEN) Negative Influenza Type B (LEN) Negative Influenza A & B Note See Note 08/09/22 08/09/22 08/09/22 19:53 19:54 20:47 MCV 90.1 MCH 25.3 L MCHC 28.1 L RDW 18.6 H Plt Count 245 MPV 11.3 Immature Gran % (Auto) 0.4 Neut % (Auto) 86.5 H Lymph % (Auto) 7.7 L Clarke % (Auto) 4.5 Eos % (Auto) 0.7 Baso % (Auto) 0.2 Lymph # (Auto) 0.7 L Clarke # (Auto) 0.4 Eos # (Auto) 0.1 Baso # (Auto) 0.0 Abs Immat Gran (auto) 0.04 H Absolute Neuts (auto) 7.9 Absolute Nucleated RBC 0.020 H Nucleated RBC % (auto) 0.2 PT INR Anion Gap Estim Creat Clear Calc Estimated GFR Random Glucose Lactic Acid Calcium Magnesium Total Bilirubin Direct Bilirubin AST ALT Alkaline Phosphatase Troponin I High Sens B-Natriuretic Peptide Total Protein Albumin Lipase Urine Color Yellow Urine Appearance Clear Urine pH 8.0 Ur Specific [place] 1.015 Urine Protein Negative Urine Glucose (UA) Negative Urine Ketones Negative Urine Blood Negative Urine Nitrite Negative Ur Leukocyte Esterase Moderate (2+) H Urine RBC 0-2 Urine WBC 21-50 H Ur Squamous Epith Cells 0-2 Urine Bacteria 3+ Hyaline Casts 0-2 COVID-19 (ABBY) Negative COVID-19 Clin Com See Note Influenza Type A (LEN) Influenza Type B (LEN) Influenza A & B Note 08/10/22 08/10/22 05:57 05:57 MCV 89.7 MCH 25.4 L MCHC 28.3 L RDW 18.6 H Plt Count 203 MPV 11.6 Immature Gran % (Auto) Neut % (Auto) Lymph % (Auto) Clarke % (Auto) Eos % (Auto) Baso % (Auto) Lymph # (Auto) Clarke # (Auto) Eos # (Auto) Baso # (Auto) Abs Immat Gran (auto) Absolute Neuts (auto) Absolute Nucleated RBC 0.000 Nucleated RBC % (auto) 0.0 PT INR Anion Gap 9 L Estim Creat Clear Calc 87.6 Estimated GFR 57 Random Glucose 107 Lactic Acid Calcium 8.8 D Magnesium Total Bilirubin Direct Bilirubin AST ALT Alkaline Phosphatase Troponin I High Sens B-Natriuretic Peptide Total Protein Albumin Lipase Urine Color Urine Appearance Urine pH Ur Specific [place] Urine Protein Urine Glucose (UA) Urine Ketones Urine Blood Urine Nitrite Ur Leukocyte Esterase Urine RBC Urine WBC Ur Squamous Epith Cells Urine Bacteria Hyaline Casts COVID-19 (ABBY) COVID-19 Clin Com Influenza Type A (LEN) Influenza Type B (LEN) Influenza A & B Note Procedures Date of Service Date of Service: 08/12/22 Progress Note: A&P Assessment and plan (1) Abdominal pain: Status: Acute Assessment and Plan: pain seems better no fever, looks comfortable, although WBC up also has UTI, pneumonia ordered for repeat CT has multiple significant medical problems on Zosyn (2) Pneumonia: Status: Acute (3) UTI (urinary tract infection): Status: Acute Time Spent With Patient Time: Total time managing care of this patient today ____ minutes. Quality Stroke Does the patient have a stroke diagnosis?: No VTE Prior VTE?: No VTE Risk Level:: Medical - moderate - high VTE Device Contraindication: N/A - Device Ordered VTE Drug Contraindication: N/A - Med Ordered
--- NOTE | 2022-08-10 08:36 | MHC.CM.PN ---
CM met with Patient at bedside and addressed IMM with her verbally (Patient stated that she was unable to sign); original was given to Patient and a copy has been placed on the chart. 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 CM has initiated and will follow for dc planning. Patient uses a w/c for mobility and does use O2 @ the SNF. Patient is covid vax'd x2.
--- NOTE | 2022-08-10 10:19 | PM.EVENT ---
Event Note Date of Service: 08/10/22 Event Note: Repeat CT scan reviewed with Dr. Bales No free air seen this done Changes in a jejunal segment also appear much improved No surgery planned Continue management for UTI, pneumonia Will continue to monitor patient closely Stable vital signs Time Spent With Patient Time: Total time managing care of this patient today ____ minutes.
[2022-08-10 11:20] LABS: Glucose, Whole Blood 101 mg/dL (60-115)
[2022-08-10] MEDS: Albuterol/Iprat 2.5/0.5MG 3 ML AMPUL.NEB INHALE ×3 (11:34→19:09)
--- NOTE | 2022-08-10 13:49 | P.PNIM_ITS ---
Subjective Subjective Date of Service: 08/10/22 Interval History: pneumonia ,uti,abd pain Review of Systems Last fever episode at midnight. Still has abdominal pain, left lower side abd. Physical Exam Vital Signs: Vital Signs: Last Vital Signs Temp 98.1 F 08/10/22 07:27 Pulse 102 H 08/10/22 11:36 Resp 20 08/10/22 11:36 BP 138/84 08/10/22 07:27 Pulse Ox 96 08/10/22 07:27 O2 Del Method Nasal Cannula 08/10/22 07:27 O2 Flow Rate 4 08/10/22 07:27 Oxygen Flow Rate 8 08/09/22 19:31 BMI result Body Mass Index 62.7 Appearance: Alert.? Oriented X3.? not in distress. cvs: rrr, [id number] , no murmur res: clear to auscultation ,no rhonchii or wheezing abd: no rebound or guarding ,abd pain -left lower side but improving , bs present. ext pulses present , no cyanosis. neuro: axo3 , nonfocal. Objective Data Active Medications Acetaminophen (Acetaminophen 325 Mg Tablet) 650 mg PO Q6H PRN PRN Reason: Pain, Mild (Pain Scale 1-3), Last Admin: 08/10/22 00:09 Dose: 650 mg Documented By: STEPHANIE Albuterol/Ipratropium (Albuterol/Iprat 2.5/0.5mg 3 Ml Ampul.Neb) 3 ml INHALE RQ4H WHILE AWAKE [facility] Last Admin: 08/10/22 11:34 Dose: 3 ml Documented By: RUTH Glucose (Glucose Gel 15 Gm Gel..Gram.) 15 gm PO Q15M PRN; Protocol PRN Reason: per Hypoglycemia Standing Ord. Heparin Sodium (Porcine) (Heparin Sodium,Porcine 5,000 Unit/Ml Vial) 5,000 unit SUBCUT Q8H [facility] Last Admin: 08/10/22 05:21 Dose: 5,000 unit Documented By: HINA Lactated Ringer's (Lr) 1,000 mls @ 80 mls/hr IVCONT .[id number] [facility] Last Admin: 08/10/22 11:35 Dose: Not Given Documented By: ROMANA Non-Admin Reason: IV Running Piperacillin Sod/Tazobactam (Sod 3.375 gm/ Sodium Chloride) 50 mls @ 100 mls/hr IV Q6H [facility] Last Infusion: 08/10/22 10:02 Dose: 0 mls/hr Documented By: ROMANA Dextrose (D10) 250 mls @ 750 mls/hr IV Q15M PRN; Protocol PRN Reason: per Hypoglycemia Standing Ord. Insulin Human Lispro (Insulin Lispro 100 Unit/Ml 3 Ml Vial) 0 unit SUBCUT QIDACHS [facility]; Protocol Last Admin: 08/10/22 11:34 Dose: Not Given Documented By: ROMANA Non-Admin Reason: No Insulin Coverage Morphine Sulfate (Morphine Sulfate 4 Mg/Ml Cartridge) 4 mg IVPUSH Q3H PRN; Protocol PRN Reason: Pain, Severe (Pain Scale 7-10) Last Admin: 08/10/22 05:24 Dose: 4 mg Documented By: HINA Ondansetron HCl (Ondansetron Hcl 4 Mg/2 Ml Vial) 4 mg IV Q6H PRN PRN Reason: nausea Sodium Chloride (0.9 % Sodium Chloride Flush 3 Ml Syringe) 3 ml IVFLUSH [facility] Last Admin: 08/10/22 09:12 Dose: Not Given Documented By: ROMANA Non-Admin Reason: pt off unit at CT Labs 08/10/22 05:57 08/10/22 05:57 Labs: Laboratory Results - last 24 hr 08/09/22 08/09/22 08/09/22 19:53 19:53 19:53 MCV MCH MCHC RDW Plt Count MPV Immature Gran % (Auto) Neut % (Auto) Lymph % (Auto) [place] % (Auto) Eos % (Auto) Baso % (Auto) Lymph # (Auto) [place] # (Auto) Eos # (Auto) Baso # (Auto) Abs Immat Gran (auto) Absolute Neuts (auto) Absolute Nucleated RBC Nucleated RBC % (auto) PT 11.9 INR 1.0 Anion Gap 13 Estim Creat Clear Calc 103.9 Estimated GFR > 60 POC Glucose Random Glucose 116 H Lactic Acid Calcium 9.4 Magnesium 1.9 Total Bilirubin 0.7 Direct Bilirubin 0.2 AST 11 ALT 9 Alkaline Phosphatase 57 Troponin I High Sens < 2.7 B-Natriuretic Peptide Total Protein 8.0 Albumin 3.9 Lipase 13 Urine Color Urine Appearance Urine pH Ur Specific [place] Urine Protein Urine Glucose (UA) Urine Ketones Urine Blood Urine Nitrite Ur Leukocyte Esterase Urine RBC Urine WBC Ur Squamous Epith Cells Urine Bacteria Hyaline Casts COVID-19 (ABBY) COVID-19 Clin Com Influenza Type A (LEN) Influenza Type B (LEN) Influenza A & B Note 08/09/22 08/09/22 08/09/22 19:53 19:53 19:53 MCV MCH MCHC RDW Plt Count MPV Immature Gran % (Auto) Neut % (Auto) Lymph % (Auto) [place] % (Auto) Eos % (Auto) Baso % (Auto) Lymph # (Auto) [place] # (Auto) Eos # (Auto) Baso # (Auto) Abs Immat Gran (auto) Absolute Neuts (auto) Absolute Nucleated RBC Nucleated RBC % (auto) PT INR Anion Gap Estim Creat Clear Calc Estimated GFR POC Glucose Random Glucose Lactic Acid 1.2 Calcium Magnesium Total Bilirubin Direct Bilirubin AST ALT Alkaline Phosphatase Troponin I High Sens B-Natriuretic Peptide 61 Total Protein Albumin Lipase Urine Color Urine Appearance Urine pH Ur Specific [place] Urine Protein Urine Glucose (UA) Urine Ketones Urine Blood Urine Nitrite Ur Leukocyte Esterase Urine RBC Urine WBC Ur Squamous Epith Cells Urine Bacteria Hyaline Casts COVID-19 (ABBY) COVID-19 Clin Com Influenza Type A (LEN) Negative Influenza Type B (LEN) Negative Influenza A & B Note See Note 08/09/22 08/09/22 08/09/22 19:53 19:54 20:47 MCV 90.1 MCH 25.3 L MCHC 28.1 L RDW 18.6 H Plt Count 245 MPV 11.3 Immature Gran % (Auto) 0.4 Neut % (Auto) 86.5 H Lymph % (Auto) 7.7 L [place] % (Auto) 4.5 Eos % (Auto) 0.7 Baso % (Auto) 0.2 Lymph # (Auto) 0.7 L [place] # (Auto) 0.4 Eos # (Auto) 0.1 Baso # (Auto) 0.0 Abs Immat Gran (auto) 0.04 H Absolute Neuts (auto) 7.9 Absolute Nucleated RBC 0.020 H Nucleated RBC % (auto) 0.2 PT INR Anion Gap Estim Creat Clear Calc Estimated GFR POC Glucose Random Glucose Lactic Acid Calcium Magnesium Total Bilirubin Direct Bilirubin AST ALT Alkaline Phosphatase Troponin I High Sens B-Natriuretic Peptide Total Protein Albumin Lipase Urine Color Yellow Urine Appearance Clear Urine pH 8.0 Ur Specific [place] 1.015 Urine Protein Negative Urine Glucose (UA) Negative Urine Ketones Negative Urine Blood Negative Urine Nitrite Negative Ur Leukocyte Esterase Moderate (2+) H Urine RBC 0-2 Urine WBC 21-50 H Ur Squamous Epith Cells 0-2 Urine Bacteria 3+ Hyaline Casts 0-2 COVID-19 (ABBY) Negative COVID-19 Clin Com See Note Influenza Type A (LEN) Influenza Type B (LEN) Influenza A & B Note 08/10/22 08/10/22 08/10/22 05:57 05:57 11:03 MCV 89.7 MCH 25.4 L MCHC 28.3 L RDW 18.6 H Plt Count 203 MPV 11.6 Immature Gran % (Auto) Neut % (Auto) Lymph % (Auto) [place] % (Auto) Eos % (Auto) Baso % (Auto) Lymph # (Auto) [place] # (Auto) Eos # (Auto) Baso # (Auto) Abs Immat Gran (auto) Absolute Neuts (auto) Absolute Nucleated RBC 0.000 Nucleated RBC % (auto) 0.0 PT INR Anion Gap 9 L Estim Creat Clear Calc 87.6 Estimated GFR 57 POC Glucose 101 Random Glucose 107 Lactic Acid Calcium 8.8 D Magnesium Total Bilirubin Direct Bilirubin AST ALT Alkaline Phosphatase Troponin I High Sens B-Natriuretic Peptide Total Protein Albumin Lipase Urine Color Urine Appearance Urine pH Ur Specific [place] Urine Protein Urine Glucose (UA) Urine Ketones Urine Blood Urine Nitrite Ur Leukocyte Esterase Urine RBC Urine WBC Ur Squamous Epith Cells Urine Bacteria Hyaline Casts COVID-19 (ABBY) COVID-19 Clin Com Influenza Type A (LEN) Influenza Type B (LEN) Influenza A & B Note Microbiology Microbiology Results: Microbiology 08/09/22 20:47 Urine Culture - Preliminary Urine Catheterized - Burdick Catheter Gram negative triston Assessment and Plan (1) UTI (urinary tract infection): Status: Acute (2) Abdominal pain: Status: Acute Plan 66-year-old female past medical history of CHF, diabetes, hypertension, comes into the hospital with abdominal pain found to have free air in the abdomenr, but also other acute abnormalities including pneumonia and UTI 1.? free air in abdomen mild left side abd pain No nausea vomiting, for fever episode was at midnight Seen by surgery-repeat CT abdomen Surgical follow-up acute sepsis-?thought to be likely multifactorial secondary to UTI as well as pneumonia -? patient has fever, tachycardia, tachypnea -? will treat with IV antibiotics, follow cultures ? acute UTI -? dip UA, symptomatic -? will treat with IV antibiotics -? follow cultures ? pneumonia-?? likely aspiration, as? has history of dysphagia - ? patient being kept NPO given the free air in the abdomen -? will need evaluation by speech prior to discharge intake ? diabetes-? hold oral antihyperglycemics -? add low-dose sliding scale insulin -? recommend diabetic diet? once able to take p.o. ?DVT prophylaxis:? Heparin subQ inpatient need :sepsis ,uti,pneumonia -need IV antibiotics and blood culture also pending, in addition may need further surgical workup and intervention for free air in the abdomen. Time Spent With Patient Time: Total time managing care of this patient today ____ minutes. Quality Stroke Does the patient have a stroke diagnosis?: No VTE Prior VTE?: No VTE Risk Level:: Medical - moderate - high VTE Device Contraindication: N/A - Device Ordered VTE Drug Contraindication: N/A - Med Ordered
[2022-08-10] MEDS: 0.9 % Sodium Chloride Flush 3 ML SYRINGE IVFLUSH (15:50)
[2022-08-10 16:16] LABS: Glucose, Whole Blood 89 mg/dL (60-115)
--- NOTE | 2022-08-10 16:50 | P.CNID_ITS ---
History of Present Illness Data of Consult Service Date: 08/10/22 Requesting physician: Alan Luque Primary Care Provider: Unknown Physician HPI Reason for consult: abdominal pain She presents with one day 7/10 abdominal pain extending to back. She has no fever or chills now. She has WBC elevation to 15.6 She has concern over jejunal segment swelling but unremarkable now with prior c oncern over abdomen free air. Review of Systems Review of Systems: Yes all other systems are reviewed and are negative PMFSH Past Medical History Medical History Abdominal pain Atrial fibrillation CHF (congestive heart failure) COPD (chronic obstructive pulmonary disease) Dysphagia Essential tremor Hyperlipidemia Memory deficit UTI (urinary tract infection) Family History Family history: reviewed and not pertinent Surgical History Surgical History No pertinent past surgical history Social History Social History Household Members: Other Housing: [place]way Do you presently have visiting nurse or other home services: No (frp, smf) Alcohol intake: never Patient Tobacco Use Status: Never used Tobacco Use of substances other than those prescribed or required for medical reasons: No Currently Displaying Signs/Symptoms of Drug Intoxication Withdrawal: No Have you been hit, kicked, punched, or otherwise hurt by someone within the past year? If so, by whom?: No Do you feel safe in your current relationship?: Yes Is there a partner from a previous relationship who is making you feel unsafe now?: No Are you made to feel afraid or neglected: No Advance Directives: Yes Advance Directives on File: Yes Advance Directives Date on File: 08/27/21 Do you have thoughts of harming others: None Do you have a plan to hurt others: No Plan Recently lost weight without trying: Unsure Eating poorly because of decreased appetite: No Nutrition Risks: No Nutritional Risk Patient : No : No Poor oral hygiene: No service: No Current occupational status: unemployed Meds Allergies Allergy/AdvReac Type Severity Reaction Status Date / Time No Known Allergies Allergy Verified 08/09/22 19:29 Active Medications: Current Medications Acetaminophen (Acetaminophen 325 Mg Tablet) 650 mg PO Q6H PRN PRN Reason: Pain, Mild (Pain Scale 1-3), Last Admin: 08/10/22 00:09 Dose: 650 mg Albuterol/Ipratropium (Albuterol/Iprat 2.5/0.5mg 3 Ml Ampul.Neb) 3 ml INHALE RQ4H WHILE AWAKE [facility] Last Admin: 08/10/22 15:09 Dose: 3 ml Glucose (Glucose Gel 15 Gm Gel..Gram.) 15 gm PO Q15M PRN; Protocol PRN Reason: per Hypoglycemia Standing Ord. Heparin Sodium (Porcine) (Heparin Sodium,Porcine 5,000 Unit/Ml Vial) 5,000 unit SUBCUT Q8H [facility] Last Admin: 08/10/22 15:47 Dose: 5,000 unit Lactated Ringer's (Lr) 1,000 mls @ 80 mls/hr IVCONT .[id number] [facility] Last Admin: 08/10/22 11:35 Dose: Not Given Piperacillin Sod/Tazobactam (Sod 3.375 gm/ Sodium Chloride) 50 mls @ 100 mls/hr IV Q6H [facility] Last Admin: 08/10/22 15:49 Dose: 100 mls/hr Dextrose (D10) 250 mls @ 750 mls/hr IV Q15M PRN; Protocol PRN Reason: per Hypoglycemia Standing Ord. Insulin Human Lispro (Insulin Lispro 100 Unit/Ml 3 Ml Vial) 0 unit SUBCUT QIDACHS [facility]; Protocol Last Admin: 08/10/22 11:34 Dose: Not Given Morphine Sulfate (Morphine Sulfate 4 Mg/Ml Cartridge) 4 mg IVPUSH Q3H PRN; Protocol PRN Reason: Pain, Severe (Pain Scale 7-10) Last Admin: 08/10/22 15:48 Dose: 4 mg Ondansetron HCl (Ondansetron Hcl 4 Mg/2 Ml Vial) 4 mg IV Q6H PRN PRN Reason: nausea Sodium Chloride (0.9 % Sodium Chloride Flush 3 Ml Syringe) 3 ml IVFLUSH QSHIFT [facility] Last Admin: 08/10/22 15:50 Dose: 3 ml Home Medications Medication Instructions Recorded Confirmed Last Taken Type acetaminophen 325 mg tablet 650 mg PO Q6H PRN temp/pain 08/26/21 08/09/22 Unknown History aripiprazole 10 mg tablet 10 mg PO DAILY 08/26/21 08/09/22 08/09/22 History bisacodyl 10 mg rectal suppository 10 mg NC DAILY PRN Constipation 08/26/21 08/09/22 Unknown History budesonide-formoterol HFA 160 1 inh inhalation DAILY 08/26/21 08/09/22 08/09/22 History mcg-4.5 mcg/actuation aerosol inhaler (Symbicort) docusate sodium 100 mg capsule 100 mg PO BID 08/26/21 08/09/22 08/09/22 History enoxaparin 40 mg/0.4 mL 40 mg subcut DAILY 08/26/21 08/09/22 Unknown History subcutaneous syringe (Lovenox) furosemide 40 mg tablet 40 mg PO DAILY 08/26/21 08/09/22 08/09/22 History insulin lispro 100 unit/mL See Protocol subcut QIDACHS 08/26/21 08/09/22 08/09/22 History subcutaneous solution (Humalog U-100 Insulin) magnesium hydroxide 400 mg/5 mL 30 ml PO DAILY PRN Constipation 08/26/21 08/09/22 Unknown History oral suspension (Milk of Magnesia) polyethylene glycol 3350 17 gram 17 g PO DAILY 08/26/21 08/09/22 08/09/22 History oral powder packet sennosides 8.6 mg tablet (senna) 17.2 mg PO BEDTIME 08/26/21 08/09/22 08/08/22 History gabapentin 100 mg capsule 100 mg PO TID 08/09/22 08/09/22 08/09/22 History glimepiride 4 mg tablet 4 mg PO DAILY 08/09/22 08/09/22 08/09/22 History insulin glargine-yfgn 100 unit/mL 20 unit subcut DAILY 08/09/22 08/09/22 08/09/22 History (3 mL) subcutaneous pen (Semglee (insulin glargine-yfgn) Pen) pioglitazone 45 mg tablet (Actos) 45 mg PO DAILY 08/09/22 08/09/22 08/09/22 History propranolol 20 mg tablet 60 mg PO DAILY 08/09/22 08/09/22 08/09/22 History rosuvastatin 10 mg tablet (Crestor) 10 mg PO BEDTIME 08/09/22 08/09/22 08/08/22 History trazodone 50 mg tablet 25 mg PO BEDTIME 08/09/22 08/09/22 08/08/22 History bupropion HCl 150 mg 24 hr tablet, 150 mg PO BID 08/10/22 08/10/22 08/09/22 History extended release Physical Exam Vital Signs: Vital Signs: Last Vital Signs Temp 98.8 F 08/10/22 15:31 Pulse 108 H 08/10/22 15:31 Resp 22 H 08/10/22 15:31 BP 152/76 H 08/10/22 15:31 Pulse Ox 98 08/10/22 15:31 O2 Del Method Nasal Cannula 08/10/22 15:31 O2 Flow Rate 4 08/10/22 15:31 Oxygen Flow Rate 8 08/09/22 19:31 BMI result Body Mass Index 62.7 Const: Other: very high BMI General: cooperative HEENT: Head: Yes normal to inspection Face and sinus: Yes normal facial exam Mouth: Normal oral and palatal mucosa present Teeth and gingiva: dentition normal Eyes: General: appearance normal, both eyes and all related structures Pupils: Equal, round and reactive pupils present Resp: Effort & Inspection: normal respiratory effort Cardio: Rate: regular rate Rhythm: regular rhythm GI: Palpation (GI): Soft to palpation and nontender : General: Yes CVA tenderness Back/Spine/Pelvis: Other: right flank discomfort Back: CVA tenderness Skin: General skin exam: no rashes or lesions noted Neuro: General: moves all extremities Cranial nerves: Yes Equal, round and reactive pupils present Extrem: General: Yes normal to inspection Psych: Appearance: grossly normal Results Labs 08/10/22 05:57 08/10/22 05:57 Labs: Short CBC 08/09/22 08/10/22 Range/Units 19:54 05:57 WBC 9.1 15.6 H (4.8-10.8) X10*3/uL Hgb 10.2 L 8.6 L (12.0-16.0) g/dl Hct 36.3 L 30.4 L (37.0-47.0) % Plt Count 245 203 (160-400) X10*3/uL BMP 08/09/22 08/10/22 19:53 05:57 Sodium 140 142 Potassium 4.8 4.3 Chloride 101 103 Carbon Dioxide 31 H 34 H BUN 16 17 H Creatinine 0.84 0.98 Calcium 9.4 8.8 D Liver Function 08/09/22 Range/Units 19:53 Total Bilirubin 0.7 (0.0-1.0) mg/dL Direct Bilirubin 0.2 (0.0-0.5) mg/dL AST 11 (5-31) U/L ALT 9 (0-31) U/L Alkaline Phosphatase 57 (39-117) U/L Albumin 3.9 (3.5-5.0) g/dL Urine 08/09/22 Range/Units 20:47 Urine Color Yellow Urine Appearance Clear Urine pH 8.0 (5.0-9.0) Ur Specific [place] 1.015 (1.005-1.025) Urine Protein Negative (Neg-Trace) mg/dL Urine Glucose (UA) Negative (Negative) mg/dL Microbiology Microbiology Results: Microbiology 08/09/22 20:47 Urine Catheterized - Burdick Catheter Urine Culture - Preliminary Gram negative triston Assessment and Plan (1) UTI (urinary tract infection): Status: Acute Abdominal CT shows no signs of appencitis or other abdominal pathology. UTI is likely source of infection with E col She is at 2-4 l baseline oxygen and has no remarkable cough or signs of pneumonia. (2) Abdominal pain: Status: Acute (3) COPD (chronic obstructive pulmonary disease): Status: Acute Plan Continue piperacillin/tazobactam until final urine and blood cultures back. No bowel pathology found by Surgery at this time. Then adjust likely po agent for 10 days. Time Spent With Patient Time: Total time managing care of this patient today ____ minutes.
--- NOTE | 2022-08-10 16:57 | PM.EVENT ---
Event Note Date of Service: 08/10/22 Event Note: Still has pain but much improved hungry and wants to eat abdomen remained soft and benign follow-up CT showed resolution of pneumoperitoneum possibly start on clear liquids tomorrow on IV antibiotics - also has UTI and pneumonia hospitalist following Time Spent With Patient Time: Total time managing care of this patient today ____ minutes.
[2022-08-10 19:32] LABS: Glucose, Whole Blood 83 mg/dL (60-115)
[2022-08-10] MEDS: Glucose Gel 15 GM GEL..GRAM. PO (21:13)
[2022-08-10] MEDS: Acetaminophen Supp 650 MG SUPP.RECT PR (21:13)
[2022-08-10] MEDS: Dextrose 5 % and Lactated Ring 1,000 ML 80 ML IVCONT (21:28)
[2022-08-10 21:38] LABS: Glucose, Whole Blood 95 mg/dL (60-115)
--- NOTE | 2022-08-10 22:00 | PC.NURSE ---
Pts c/o pain. BG 83, Pt is NPO, Pt has Temp 99.7. MD Carlin notified and ordered to give prn glucose gel, and morphine. ordered tylenol suppos. med given and Pt is currently afebrile.
[2022-08-11] VITALS: BP 126/65; PULSE 98; RESP 22; TEMP 36.7; O2SAT 95
[2022-08-11] MEDS: Piperacillin Sodium/Tazobactam 3.375 GM in 0.9 % Sodium Chloride 50 ML IV ×4 (02:58→21:21)
[2022-08-11] MEDS: Morphine Sulfate 4 MG/ML CARTRIDGE IVPUSH ×4 (02:59→21:29)
[2022-08-11] MEDS: Heparin Sodium,Porcine 5,000 UNIT/ML VIAL 5000 UNIT SUBCUT ×3 (04:17→21:20)
--- NOTE | 2022-08-11 06:39 | PM.EVENT ---
Event Note Date of Service: 08/11/22 Event Note: patient febrile this morning, will continue antibiotics, will obtain lactic acid and blood cultures Time Spent With Patient Time: Total time managing care of this patient today ____ minutes.
--- NOTE | 2022-08-11 06:41 | PC.NURSE ---
Pt c/o abd pain, increased HR sustaining 120-130s. Temp 100.7 temporal, BP 138/96, 94% 4L. Will give prn morphine now. Pt only has the po tylenol ordered and she is NPO. MD Carlin notified and ordered labs and prn tylenol suppository.
[2022-08-11] MEDS: Acetaminophen Supp 650 MG SUPP.RECT PR (06:48)
[2022-08-11 07:12] VITALS: BP 164/112; PULSE 132; RESP 19; TEMP 38.8; O2SAT 90
[2022-08-11 07:22] LABS: Glucose, Whole Blood 138 mg/dL (60-115)
[2022-08-11 07:32] LABS: Lactic Acid 0.7 mmol/L (0.5-2.0)
--- NOTE | 2022-08-11 08:39 | PM.PNGS ---
Subjective Subjective Date of Service: 08/11/22 Interval history: Says she is okay this morning Abdominal pain much improved Hungry and wants to eat No nausea or vomiting Has been febrile and tachycardic Off beta-blockers since admission Physical Exam Vital Signs: Vital Signs: Last Vital Signs Temp 101.8 F H 08/11/22 07:12 Pulse 132 H 08/11/22 07:12 Resp 19 08/11/22 07:12 BP 164/112 H 08/11/22 07:12 Pulse Ox 90 L 08/11/22 07:12 O2 Del Method Nasal Cannula 08/11/22 07:12 O2 Flow Rate 4 08/11/22 07:12 Oxygen Flow Rate 8 08/09/22 19:31 BMI result Body Mass Index 62.7 Const: Other: Some shortness of breath, which she says is baseline Resp: Other: Shortness of breath, baseline Cardio: Rate: tachycardic GI: Other: Obese and soft, no guarding rebound Objective Data Active Medications Acetaminophen (Acetaminophen 325 Mg Tablet) 650 mg PO Q6H PRN PRN Reason: Pain, Mild (Pain Scale 1-3), Last Admin: 08/10/22 00:09 Dose: 650 mg Documented By: STEPHANIE Acetaminophen (Acetaminophen Supp 650 Mg Supp.Rect) 650 mg [place] Q6H PRN PRN Reason: fever Last Admin: 08/11/22 06:48 Dose: 650 mg Documented By: VERNA Albuterol/Ipratropium (Albuterol/Iprat 2.5/0.5mg 3 Ml Ampul.Neb) 3 ml INHALE RQ4H WHILE AWAKE [facility] Last Admin: 08/11/22 07:51 Dose: Not Given Documented By: EVELIN Non-Admin Reason: Elevated Heart Rate Aripiprazole (Aripiprazole 10 Mg Tablet) 10 mg PO DAILY [facility] Bupropion HCl (Bupropion Hcl Xl 150 Mg Tab.Er.24h) 150 mg PO BID ZENAIDA Docusate Sodium (Docusate Sodium 100 Mg Capsule) 100 mg PO BID [facility] Fluticasone/Vilanterol (Fluticasone/Vilanterol 200/25 Blst.W.Dev) 1 puff INHALE RDAILY [facility] Gabapentin (Gabapentin 100 Mg Capsule) 100 mg PO TID ZENAIDA Glucose (Glucose Gel 15 Gm Gel..Gram.) 15 gm PO Q15M PRN; Protocol PRN Reason: per Hypoglycemia Standing Ord. Last Admin: 08/10/22 21:13 Dose: 15 gm Documented By: VERNA Glucose (Glucose Gel 15 Gm Gel..Gram.) 15 gm PO Q15M PRN; Protocol PRN Reason: per Hypoglycemia Standing Ord. Heparin Sodium (Porcine) (Heparin Sodium,Porcine 5,000 Unit/Ml Vial) 5,000 unit SUBCUT Q8H [facility] Last Admin: 08/11/22 04:17 Dose: 5,000 unit Documented By: VERNA Piperacillin Sod/Tazobactam (Sod 3.375 gm/ Sodium Chloride) 50 mls @ 100 mls/hr IV Q6H [facility] Last Infusion: 08/11/22 04:09 Dose: 0 mls/hr Documented By: VERNA Dextrose (D10) 250 mls @ 750 mls/hr IV Q15M PRN; Protocol PRN Reason: per Hypoglycemia Standing Ord. Dextrose/Lactated Ringer's (D5lr) 1,000 mls @ 80 mls/hr IVCONT .[id number] [facility] Last Admin: 08/10/22 21:28 Dose: 80 mls/hr Documented By: VERNA Dextrose (D10) 250 mls @ 750 mls/hr IV Q15M PRN; Protocol PRN Reason: per Hypoglycemia Standing Ord. Insulin Human Lispro (Insulin Lispro 100 Unit/Ml 3 Ml Vial) 0 unit SUBCUT QIDACHS [facility]; Protocol Last Admin: 08/10/22 21:23 Dose: Not Given Documented By: VERNA Non-Admin Reason: No Insulin Coverage Morphine Sulfate (Morphine Sulfate 4 Mg/Ml Cartridge) 4 mg IVPUSH Q3H PRN; Protocol PRN Reason: Pain, Severe (Pain Scale 7-10) Last Admin: 08/11/22 06:37 Dose: 4 mg Documented By: VERNA Ondansetron HCl (Ondansetron Hcl 4 Mg/2 Ml Vial) 4 mg IV Q6H PRN PRN Reason: nausea Propranolol HCl (Propranolol Hcl 20 Mg Tablet) 60 mg PO DAILY [facility]; Protocol Sodium Chloride (0.9 % Sodium Chloride Flush 3 Ml Syringe) 3 ml IVFLUSH QSHIFT [facility] Last Admin: 08/11/22 01:13 Dose: Not Given Documented By: VERNA Non-Admin Reason: IV Running Trazodone HCl (Trazodone Hcl 25 Mg Halftab) 25 mg PO BEDTIME [facility] Labs 08/10/22 05:57 08/10/22 05:57 Labs: Laboratory Results - last 24 hr 08/10/22 08/10/22 08/10/22 11:03 16:10 19:19 POC Glucose 101 89 83 Lactic Acid 08/10/22 08/11/22 08/11/22 21:34 06:59 07:06 POC Glucose 95 138 H Lactic Acid 0.7 Microbiology Microbiology Results: Microbiology 08/09/22 20:47 Urine Culture - Final Urine Catheterized - Burdick Catheter Escherichia coli 08/09/22 19:53 Blood Culture - Preliminary Blood - Venous No growth after 24 hours. 08/09/22 19:53 Blood Culture - Preliminary Blood - Venous No growth after 24 hours. Procedures Date of Service Date of Service: 08/11/22 Progress Note: A&P Assessment and plan (1) Abdominal pain: Status: Acute Assessment and Plan: Locules of air on initial CT scan resolved on follow-up CT yesterday - review with Dr. Bales May have had some inflammatory changes in a segment of the jejunum which appears much improved as well Abdominal pain much improved Remains tachycardic and febrile Clear liquid diet Restart beta-blockers IV antibiotics Discussed with hospitalist service - Dr. Joyce says that he will take over as primary service I will continue to follow closely Time Spent With Patient Time: Total time managing care of this patient today ____ minutes. Quality Stroke Does the patient have a stroke diagnosis?: No VTE Prior VTE?: No VTE Risk Level:: Medical - moderate - high VTE Device Contraindication: N/A - Device Ordered VTE Drug Contraindication: N/A - Med Ordered
[2022-08-11] MEDS: ARIPiprazole 10 MG TABLET PO (09:14)
[2022-08-11] MEDS: buPROPion HCl XL 150 MG TAB.ER.24H PO (09:14)
[2022-08-11] MEDS: Docusate Sodium 100 MG CAPSULE PO ×2 (09:14→21:20)
[2022-08-11] MEDS: Propranolol HCL 20 MG TABLET 60 MG PO (09:14)
[2022-08-11] MEDS: 0.9 % Sodium Chloride Flush 3 ML SYRINGE IVFLUSH ×2 (09:15→18:23)
[2022-08-11] MEDS: Gabapentin 100 MG CAPSULE PO (09:15)
--- NOTE | 2022-08-11 09:43 | MHC.CM.PN ---
Per MD, Patient is Septic and not yet medically cleared for dc to return to LTC @ [facility]. CM will continue to follow.
[2022-08-11 09:55] LABS: Venous Blood Gas Refer to POC result
[2022-08-11 10:02] LABS: VBG HCO3 38 mmol/L (22-26); VBG pCO2 60 mmHg; VBG pH 7.41 (7.32-7.43); VBG pO2 98 mmHg
[2022-08-11 10:49] LABS: Hematocrit 28.4 % (37.0-47.0); Hemoglobin 8.1 g/dl (12.0-16.0); Mean Corpuscular HGB Conc 28.5 g/dl (31.0-35.0); Mean Corpuscular Hemoglobin 25.6 pg (27.0-33.0); Mean Corpuscular Volume 89.9 fL (80.0-98.0); Mean Platelet Volume 11.7 fL (9.4-12.3); NRBC Pct Auto 0.2 /100WBC (0.0-0.2); Platelet Count 172 X10*3/uL (160-400); Red Blood Count 3.16 X10*6/uL (4.20-5.50); Red Cell Distribution Width 18.4 % (11.0-16.0); White Blood Count 11.4 X10*3/uL (4.8-10.8)
[2022-08-11 11:05] LABS: Anion Gap 9 (12-20); Blood Urea Nitrogen 14 mg/dL (9-16); Calcium 9.2 mg/dL (8.4-10.2); Carbon Dioxide 33 mmol/L (22-29); Chloride 101 mmol/L (96-108); Creatinine Clr Calc Pharmacy 100.9; Estimated Glomerular Filt Rate > 60; Glucose Random 176 mg/dL (60-115); Potassium 4.2 mmol/L (3.3-5.1); Sodium 139 mmol/L (135-145)
[2022-08-11 11:12] LABS: B Type Natriuretic Peptide 122 pg/mL (<100)
[2022-08-11] MEDS: Albuterol/Iprat 2.5/0.5MG 3 ML AMPUL.NEB INHALE ×3 (11:25→20:37)
[2022-08-11 11:34] VITALS: BP 126/61; PULSE 86; RESP 14; RESP 18; TEMP 37.7; O2SAT 97
[2022-08-11 11:44] LABS: Glucose, Whole Blood 186 mg/dL (60-115)
--- NOTE | 2022-08-11 13:13 | HO.PM.IMPN ---
Subjective Subjective Date of Service: 08/11/22 Interval History: sepsis,pneumonia ,uti,abd pain Review of Systems Denies abdominal pain for today Overnight had fever Today morning denies any cough or phlegm, has leg swellings Physical Exam Vital Signs: Vital Signs: Last Vital Signs Temp 99.8 F 08/11/22 11:34 Pulse 86 08/11/22 11:34 Resp 14 08/11/22 11:34 BP 126/61 08/11/22 11:34 Pulse Ox 97 08/11/22 11:34 O2 Del Method Nasal Cannula 08/11/22 11:34 O2 Flow Rate 4 08/11/22 11:34 Oxygen Flow Rate 8 08/09/22 19:31 BMI result Body Mass Index 62.7 Appearance: Alert.? Oriented-seems near aher baseline.? has fevers ? cvs: rrr, [id number] . res: air entery dminshed , has few faint wheezing b/l , few mild craclles at bases on nc oxygen abd: no rebound or guarding ,nt, bs present. ext pulses present , no cyanosis , leg swellin neuro: axo3 , nonfocal. Objective Data Active Medications Acetaminophen (Acetaminophen Supp 650 Mg Supp.Rect) 650 mg [place] Q6H PRN PRN Reason: fever Last Admin: 08/11/22 06:48 Dose: 650 mg Documented By: VERNA Acetazolamide (Acetazolamide 250 Mg Tablet) 500 mg PO BID [facility] Acetazolamide (Acetazolamide Sodium 500 Mg Vial) 500 mg IVPUSH BID [facility] Stop: 08/13/22 21:01 Albuterol/Ipratropium (Albuterol/Iprat 2.5/0.5mg 3 Ml Ampul.Neb) 3 ml INHALE RQ4H WHILE AWAKE [facility] Last Admin: 08/11/22 11:25 Dose: 3 ml Documented By: EVELIN Albuterol/Ipratropium (Albuterol/Iprat 2.5/0.5mg 3 Ml Ampul.Neb) 3 ml INHALE Q3H PRN PRN Reason: sob Aripiprazole (Aripiprazole 10 Mg Tablet) 10 mg PO DAILY [facility] Last Admin: 08/11/22 09:14 Dose: 10 mg Documented By: TIMMY Bupropion HCl (Bupropion Hcl Xl 150 Mg Tab.Er.24h) 150 mg PO BID [facility] Last Admin: 08/11/22 09:14 Dose: 150 mg Documented By: TIMMY Docusate Sodium (Docusate Sodium 100 Mg Capsule) 100 mg PO BID [facility] Last Admin: 08/11/22 09:14 Dose: 100 mg Documented By: TIMMY Fluticasone/Vilanterol (Fluticasone/Vilanterol 200/25 Blst.W.Dev) 1 puff INHALE RDAILY [facility] Gabapentin (Gabapentin 100 Mg Capsule) 100 mg PO TID [facility] Last Admin: 08/11/22 09:15 Dose: 100 mg Documented By: TIMMY Glucose (Glucose Gel 15 Gm Gel..Gram.) 15 gm PO Q15M PRN; Protocol PRN Reason: per Hypoglycemia Standing Ord. Last Admin: 08/10/22 21:13 Dose: 15 gm Documented By: VERNA Glucose (Glucose Gel 15 Gm Gel..Gram.) 15 gm PO Q15M PRN; Protocol PRN Reason: per Hypoglycemia Standing Ord. Heparin Sodium (Porcine) (Heparin Sodium,Porcine 5,000 Unit/Ml Vial) 5,000 unit SUBCUT Q8H [facility] Last Admin: 08/11/22 04:17 Dose: 5,000 unit Documented By: VERNA Piperacillin Sod/Tazobactam (Sod 3.375 gm/ Sodium Chloride) 50 mls @ 100 mls/hr IV Q6H [facility] Last Admin: 08/11/22 09:15 Dose: 100 mls/hr Documented By: TIMMY Dextrose (D10) 250 mls @ 750 mls/hr IV Q15M PRN; Protocol PRN Reason: per Hypoglycemia Standing Ord. Dextrose (D10) 250 mls @ 750 mls/hr IV Q15M PRN; Protocol PRN Reason: per Hypoglycemia Standing Ord. Insulin Human Lispro (Insulin Lispro 100 Unit/Ml 3 Ml Vial) 0 unit SUBCUT QIDACHS [facility]; Protocol Last Admin: 08/11/22 09:13 Dose: Not Given Documented By: TIMMY Non-Admin Reason: No Insulin Coverage Morphine Sulfate (Morphine Sulfate 4 Mg/Ml Cartridge) 4 mg IVPUSH Q3H PRN; Protocol PRN Reason: Pain, Severe (Pain Scale 7-10) Last Admin: 08/11/22 06:37 Dose: 4 mg Documented By: VERNA Omeprazole (Omeprazole 20 Mg Capsule.Dr) 20 mg PO DAILY@0630 [facility] Ondansetron HCl (Ondansetron Hcl 4 Mg/2 Ml Vial) 4 mg IV Q6H PRN PRN Reason: nausea Propranolol HCl (Propranolol Hcl 20 Mg Tablet) 60 mg PO DAILY [facility]; Protocol Last Admin: 08/11/22 09:14 Dose: 60 mg Documented By: TIMMY Sodium Chloride (0.9 % Sodium Chloride Flush 3 Ml Syringe) [address] [facility] Last Admin: 08/11/22 09:15 Dose: 3 ml Documented By: TIMMY Trazodone HCl (Trazodone Hcl 25 Mg Halftab) 25 mg PO BEDTIME [facility] Labs 08/11/22 10:09 08/11/22 10:09 Labs: Laboratory Results - last 24 hr 08/10/22 08/10/22 08/10/22 16:10 19:19 21:34 MCV MCH MCHC RDW Plt Count MPV Absolute Nucleated RBC Nucleated RBC % (auto) VBG pH VBG pCO2 VBG pO2 VBG HCO3 VBG O2 Saturation VBG Base Excess Anion Gap Estim Creat Clear Calc Estimated GFR POC Glucose 89 83 95 Random Glucose Lactic Acid Calcium B-Natriuretic Peptide 08/11/22 08/11/22 08/11/22 06:59 07:06 09:52 MCV MCH MCHC RDW Plt Count MPV Absolute Nucleated RBC Nucleated RBC % (auto) VBG pH 7.41 VBG pCO2 60 VBG pO2 98 VBG HCO3 38 H VBG O2 Saturation 100.0 VBG Base Excess 12.0 Anion Gap Estim Creat Clear Calc Estimated GFR POC Glucose 138 H Random Glucose Lactic Acid 0.7 Calcium B-Natriuretic Peptide 08/11/22 08/11/22 08/11/22 10:09 10:09 10:09 MCV 89.9 MCH 25.6 L MCHC 28.5 L RDW 18.4 H Plt Count 172 MPV 11.7 Absolute Nucleated RBC 0.020 H Nucleated RBC % (auto) 0.2 VBG pH VBG pCO2 VBG pO2 VBG HCO3 VBG O2 Saturation VBG Base Excess Anion Gap 9 L Estim Creat Clear Calc 100.9 Estimated GFR > 60 POC Glucose Random Glucose 176 H Lactic Acid Calcium 9.2 B-Natriuretic Peptide 122 H 08/11/22 11:41 MCV MCH MCHC RDW Plt Count MPV Absolute Nucleated RBC Nucleated RBC % (auto) VBG pH VBG pCO2 VBG pO2 VBG HCO3 VBG O2 Saturation VBG Base Excess Anion Gap Estim Creat Clear Calc Estimated GFR POC Glucose 186 H Random Glucose Lactic Acid Calcium B-Natriuretic Peptide Microbiology Microbiology Results: Microbiology 08/09/22 20:47 Urine Culture - Final Urine Catheterized - Burdick Catheter Escherichia coli 08/09/22 19:53 Blood Culture - Preliminary Blood - Venous No growth after 24 hours. 08/09/22 19:53 Blood Culture - Preliminary Blood - Venous No growth after 24 hours. Assessment and Plan (1) UTI (urinary tract infection): Status: Acute (2) Abdominal pain: Status: Acute (3) COPD (chronic obstructive pulmonary disease): Status: Acute Plan 66-year-old female past medical history of CHF, diabetes, hypertension, comes into the hospital with abdominal pain found to have free air in the abdomenr, but also other acute abnormalities including pneumonia and UTI ?acute sepsis(poa)-?thought to be likely multifactorial secondary to UTI as well as pneumonia patient has fever, tachycardia, tachypnea will treat with IV antibiotics, follow cultures Fevers this morning seems to be improved- lactic acid normal, repeat blood cultures sent this morning pending continue zosyn , Tylenol, supportive care free air in abdomen mild left side abd pain No nausea vomiting, for fever episode was at midnight Seen by surgery-repeat CT abdomeem:showed resolution of pneumoperitoneum patient denies any abd pain today Surgical [id number] clear liquids moniter closely ? acute UTI -? dip UA, symptomatic -? will treat with IV antibiotics -? follow cultures ?acute hypoxemic/hypercarbic repiratory failure -multfactorial pneumonia-?? likely aspiration, as? has history of dysphagia, copd excerebation,?mild chf etiology unclear elevated bnp,leg swelling,wheezin vbg noted added nebs/steriods ,given lasix/dimox , continue antibiotics and oxygen support. Hold psych medication causing some sleepiness History of dysphagia: in 09/17 speech recomended Chopped/Advanced?.evaluation by speech added ? diabetes-? hold oral antihyperglycemics -? add low-dose sliding scale insulin -? recommend diabetic diet? once able to take p.o. ?DVT prophylaxis:? Heparin subQ inpatient need :sepsis ,uti,pneumonia -need IV antibiotics and blood culture also pending, in addition may need further surgical workup and intervention for free air in the abdomen. Time Spent With Patient Time: Total time managing care of this patient today ____ minutes. Quality Stroke Does the patient have a stroke diagnosis?: No VTE Prior VTE?: No VTE Risk Level:: Medical - moderate - high VTE Device Contraindication: N/A - Device Ordered VTE Drug Contraindication: N/A - Med Ordered
[2022-08-11] MEDS: Furosemide 40 MG/4 ML VIAL IVPUSH (13:21)
[2022-08-11] MEDS: predniSONE 20 MG TABLET 40 MG PO (13:21)
[2022-08-11] MEDS: Omeprazole 20 MG CAPSULE.DR PO (13:21)
[2022-08-11] MEDS: Insulin Lispro 100 UNIT/ML 3 ML VIAL SUBCUT ×2 (13:21→18:23)
[2022-08-11 14:41] LABS: Iron 19 mcg/dL (30-160); Percent Iron Saturation 6 % (15-50); Total Iron Binding Capacity 302 mcg/dL (228-428); Unsaturated Iron Binding 283 ug/dL
[2022-08-11 15:01] LABS: Ferritin 66 ng/mL (10-250)
[2022-08-11 15:09] VITALS: PULSE 84; RESP 18; O2SAT 98
[2022-08-11 15:56] LABS: Glucose, Whole Blood 160 mg/dL (60-115)
--- NOTE | 2022-08-11 16:04 | P.CNHOSGPS_ITS ---
History of Present Illness Data of Consult Service Date: 08/11/22 Requesting physician: Vincenzo Joyce Primary Care Provider: Unknown Physician HPI Reason for consult: Management of psychiatric medications The patient is a 66-year-old female with a prior history of CHF, morbid obesity, COPD, tried fibrillation CHF and other medical comorbidities admitted for abdominal pain in the context of sepsis with several infections, UTI pneumonia and free air in the abdomen. The present consult was placed since the patient had been taking Abilify and Wellbutrin for depression. On interview, the patient was very tired, slightly sedated, complaining of abdominal pain and feeling very weak due to the infection. She was pleasant, cooperative but slightly confused at times. She adamantly denies suicidal or homicidal thoughts no evidence of psychosis at this moment. We discussed with the patient treatment options and she agreed to hold her psychiatric medications for the next couple of days and her sepsis improves and her mental status improves. [facility] Medical History Abdominal pain Atrial fibrillation CHF (congestive heart failure) COPD (chronic obstructive pulmonary disease) Dysphagia Essential tremor Hyperlipidemia Memory deficit UTI (urinary tract infection) Surgical History No pertinent past surgical history Social History Household Members: Other Housing: [facility] Do you presently have visiting nurse or other home services: No (frp, smf) Alcohol intake: never Patient Tobacco Use Status: Never used Tobacco Use of substances other than those prescribed or required for medical reasons: No Currently Displaying Signs/Symptoms of Drug Intoxication Withdrawal: No Have you been hit, kicked, punched, or otherwise hurt by someone within the past year? If so, by whom?: No Do you feel safe in your current relationship?: Yes Is there a partner from a previous relationship who is making you feel unsafe now?: No Are you made to feel afraid or neglected: No Advance Directives: Yes Advance Directives on File: Yes Advance Directives Date on File: 08/27/21 Do you have thoughts of harming others: None Do you have a plan to hurt others: No Plan Recently lost weight without trying: Unsure Eating poorly because of decreased appetite: No Nutrition Risks: No Nutritional Risk Patient : No : No Poor oral hygiene: No service: No Current occupational status: unemployed Meds Allergies Allergy/AdvReac Type Severity Reaction Status Date / Time No Known Allergies Allergy Verified 08/09/22 19:29 Active Medications: Current Medications Acetaminophen (Acetaminophen Supp 650 Mg Supp.Rect) 650 mg [place] Q6H PRN PRN Reason: fever Last Admin: 08/11/22 06:48 Dose: 650 mg Acetazolamide (Acetazolamide 250 Mg Tablet) 500 mg PO BID [facility] Acetazolamide (Acetazolamide Sodium 500 Mg Vial) 500 mg IVPUSH BID [facility] Stop: 08/13/22 21:01 Albuterol/Ipratropium (Albuterol/Iprat 2.5/0.5mg 3 Ml Ampul.Neb) 3 ml INHALE RQ4H WHILE AWAKE [facility] Last Admin: 08/11/22 15:08 Dose: 3 ml Albuterol/Ipratropium (Albuterol/Iprat 2.5/0.5mg 3 Ml Ampul.Neb) 3 ml INHALE Q3H PRN PRN Reason: sob Aripiprazole (Aripiprazole 10 Mg Tablet) 10 mg PO DAILY [facility] Last Admin: 08/11/22 09:14 Dose: 10 mg Bupropion HCl (Bupropion Hcl Xl 150 Mg Tab.Er.24h) 150 mg PO BID [facility] Last Admin: 08/11/22 09:14 Dose: 150 mg Docusate Sodium (Docusate Sodium 100 Mg Capsule) 100 mg PO BID [facility] Last Admin: 08/11/22 09:14 Dose: 100 mg Fluticasone/Vilanterol (Fluticasone/Vilanterol 200/25 Blst.W.Dev) 1 puff INHALE RDAILY [facility] Gabapentin (Gabapentin 100 Mg Capsule) 100 mg PO TID [facility] Last Admin: 08/11/22 09:15 Dose: 100 mg Glucose (Glucose Gel 15 Gm Gel..Gram.) 15 gm PO Q15M PRN; Protocol PRN Reason: per Hypoglycemia Standing Ord. Last Admin: 08/10/22 21:13 Dose: 15 gm Glucose (Glucose Gel 15 Gm Gel..Gram.) 15 gm PO Q15M PRN; Protocol PRN Reason: per Hypoglycemia Standing Ord. Heparin Sodium (Porcine) (Heparin Sodium,Porcine 5,000 Unit/Ml Vial) 5,000 unit SUBCUT Q8H [facility] Last Admin: 08/11/22 15:42 Dose: 5,000 unit Piperacillin Sod/Tazobactam (Sod 3.375 gm/ Sodium Chloride) 50 mls @ 100 mls/hr IV Q6H [facility] Last Admin: 08/11/22 15:51 Dose: 100 mls/hr Dextrose (D10) 250 mls @ 750 mls/hr IV Q15M PRN; Protocol PRN Reason: per Hypoglycemia Standing Ord. Dextrose (D10) 250 mls @ 750 mls/hr IV Q15M PRN; Protocol PRN Reason: per Hypoglycemia Standing Ord. Insulin Human Lispro (Insulin Lispro 100 Unit/Ml 3 Ml Vial) 0 unit SUBCUT QIDACHS [facility]; Protocol Last Admin: 08/11/22 13:21 Dose: 2 unit Morphine Sulfate (Morphine Sulfate 4 Mg/Ml Cartridge) 4 mg IVPUSH Q3H PRN; Protocol PRN Reason: Pain, Severe (Pain Scale 7-10) Last Admin: 08/11/22 15:51 Dose: 4 mg Omeprazole (Omeprazole 20 Mg Capsule.Dr) 20 mg PO DAILY@0630 [facility] Last Admin: 08/11/22 13:21 Dose: 20 mg Ondansetron HCl (Ondansetron Hcl 4 Mg/2 Ml Vial) 4 mg IV Q6H PRN PRN Reason: nausea Propranolol HCl (Propranolol Hcl 20 Mg Tablet) 60 mg PO DAILY [facility]; Protocol Last Admin: 08/11/22 09:14 Dose: 60 mg Sodium Chloride (0.9 % Sodium Chloride Flush 3 Ml Syringe) [facility] Last Admin: 08/11/22 09:15 Dose: 3 ml Trazodone HCl (Trazodone Hcl 25 Mg Halftab) 25 mg PO BEDTIME [facility] Home Medications Medication Instructions Recorded Confirmed Last Taken Type acetaminophen 325 mg tablet 650 mg PO Q6H PRN temp/pain 08/26/21 08/09/22 Unknown History aripiprazole 10 mg tablet 10 mg PO DAILY 08/26/21 08/09/22 08/09/22 History bisacodyl 10 mg rectal suppository 10 mg PA DAILY PRN Constipation 08/26/21 08/09/22 Unknown History budesonide-formoterol HFA 160 1 inh inhalation DAILY 08/26/21 08/09/2208/09/23 History mcg-4.5 mcg/actuation aerosol inhaler (Symbicort) docusate sodium 100 mg capsule 100 mg PO BID 08/26/21 08/09/22 08/09/22 History enoxaparin 40 mg/0.4 mL 40 mg subcut DAILY 08/26/21 08/09/22 Unknown History subcutaneous syringe (Lovenox) furosemide 40 mg tablet 40 mg PO DAILY 08/26/21 08/09/22 08/09/22 History insulin lispro 100 unit/mL See Protocol subcut QIDACHS 08/26/21 08/09/22 08/09/22 History subcutaneous solution (Humalog U-100 Insulin) magnesium hydroxide 400 mg/5 mL 30 ml PO DAILY PRN Constipation 08/26/21 08/09/22 Unknown History oral suspension (Milk of Magnesia) polyethylene glycol 3350 17 gram 17 g PO DAILY 08/26/21 08/09/22 08/09/22 History oral powder packet sennosides 8.6 mg tablet (senna) 17.2 mg PO BEDTIME 08/26/21 08/09/22 08/08/22 History gabapentin 100 mg capsule 100 mg PO TID 08/09/22 08/09/22 08/09/22 History glimepiride 4 mg tablet 4 mg PO DAILY 08/09/22 08/09/22 08/09/22 History insulin glargine-yfgn 100 unit/mL 20 unit subcut DAILY 08/09/22 08/09/22 08/09/22 History (3 mL) subcutaneous pen (Semglee (insulin glargine-yfgn) Pen) pioglitazone 45 mg tablet (Actos) 45 mg PO DAILY 08/09/22 08/09/22 08/09/22 History propranolol 20 mg tablet 60 mg PO DAILY 08/09/22 08/09/22 08/09/22 History rosuvastatin 10 mg tablet (Crestor) 10 mg PO BEDTIME 08/09/22 08/09/22 08/08/22 History trazodone 50 mg tablet 25 mg PO BEDTIME 08/09/22 08/09/22 08/08/22 History bupropion HCl 150 mg 24 hr tablet, 150 mg PO BID 08/10/22 08/10/22 08/09/22 History extended release Results Labs 08/11/22 10:09 08/11/22 10:09 Labs: Laboratory Results - last 24 hr 08/10/22 08/10/22 08/10/22 16:10 19:19 21:34 MCV MCH MCHC RDW Plt Count MPV Absolute Nucleated RBC Nucleated RBC % (auto) VBG pH VBG pCO2 VBG pO2 VBG HCO3 VBG O2 Saturation VBG Base Excess Anion Gap Estim Creat Clear Calc Estimated GFR POC Glucose 89 83 95 Random Glucose Lactic Acid Calcium Iron TIBC % Saturation Unsat Iron Binding Ferritin B-Natriuretic Peptide 08/11/22 08/11/22 08/11/22 06:59 07:06 09:52 MCV MCH MCHC RDW Plt Count MPV Absolute Nucleated RBC Nucleated RBC % (auto) VBG pH 7.41 VBG pCO2 60 VBG pO2 98 VBG HCO3 38 H VBG O2 Saturation 100.0 VBG Base Excess 12.0 Anion Gap Estim Creat Clear Calc Estimated GFR POC Glucose 138 H Random Glucose Lactic Acid 0.7 Calcium Iron TIBC % Saturation Unsat Iron Binding Ferritin B-Natriuretic Peptide 08/11/22 08/11/22 08/11/22 10:09 10:09 10:09 MCV 89.9 MCH 25.6 L MCHC 28.5 L RDW 18.4 H Plt Count 172 MPV 11.7 Absolute Nucleated RBC 0.020 H Nucleated RBC % (auto) 0.2 VBG pH VBG pCO2 VBG pO2 VBG HCO3 VBG O2 Saturation VBG Base Excess Anion Gap 9 L Estim Creat Clear Calc 100.9 Estimated GFR > 60 POC Glucose Random Glucose 176 H Lactic Acid Calcium 9.2 Iron 19 L TIBC 302 % Saturation 6 L Unsat Iron Binding 283 Ferritin 66 B-Natriuretic Peptide 122 H 08/11/22 08/11/22 11:41 15:52 MCV MCH MCHC RDW Plt Count MPV Absolute Nucleated RBC Nucleated RBC % (auto) VBG pH VBG pCO2 VBG pO2 VBG HCO3 VBG O2 Saturation VBG Base Excess Anion Gap Estim Creat Clear Calc Estimated GFR POC Glucose 186 H 160 H Random Glucose Lactic Acid Calcium Iron TIBC % Saturation Unsat Iron Binding Ferritin B-Natriuretic Peptide Assessment and Plan (1) Depressive disorder: Status: Acute Plan The patient is a middle-aged female with several medical comorbidities such as COPD, AFib, CHF, morbid obesity, depressive symptoms admitted for a recent onset of abdominal pain later diagnosed with sepsis with several infections such as UTI, pneumonia and free air in the abdomen. Currently treated with antibiotics. The present consult was placed sings the patient is taking Abilify and Wellbutrin. Plan 1. At this moment, since the patient is septic and her mental status could be impaired with Abilify it will be treated can be hold for the next 2 or 3 days. 2. Abilify has a very long half life it can be hold for the next 2 or 3 days and restarted on his regular dose 10 mg p.o. daily. Abilify is used not as antipsychotics, but as adjunctive therapy for depression. 3. Hold Wellbutrin for the next 2 or 3 days while the patient is septic, Wellbutrin is an antidepressant dopaminergic that can worsen confusion and psychosis and since the patient has altered mental status due to sepsis it can worsen her condition. It can be restarted his regular dose without tapering or titration. 4. Reassessment as demand thank you very much for the consult Time Spent With Patient Time: Total time managing care of this patient today __30__ minutes. Physical Exam Vital Signs: Last Vital Signs Temp 99.8 F 08/11/22 11:34 Pulse 84 08/11/22 15:09 Resp 18 08/11/22 15:09 BP 126/61 08/11/22 11:34 Pulse Ox 97 08/11/22 11:34 O2 Del Method Nasal Cannula 08/11/22 11:34 O2 Flow Rate 4 08/11/22 11:34 Oxygen Flow Rate 8 08/09/22 19:31 BMI result Body Mass Index 62.7 Neuro Cranial nerves: Yes CN's II-XII intact bilaterally Psych Appearance: disheveled (On hospital gowns, cooperative and pleasant) Speech and movement: Slowed speech present (Psych) and Slowed movement present (Neuro) Affect: Depressed mood present Attitude: cooperative Thought process: Circumstantial thought process present Thought content: Normal thought content present Insight: Fair insight present (Psych) Judgement: Fair judgement present (Psych)
[2022-08-11] MEDS: acetaZOLAMIDE sodium 500 MG VIAL IVPUSH ×2 (18:32→21:20)
--- NOTE | 2022-08-11 18:33 | MHC.SL.SWA ---
Speech Pathologist Impression: Risk of Aspiration Due to: Medically Fragile History of Pneumonia Dysphasia Diet Status: Liquid Consistency and Strategies for Safe Swallow: Liquid Intake Recommendation: Thin Liquid Intake Strategies: Small Sips Solid Food Consistency: Dietary Recommendations: Grnd/Mech Altered (NDD2) Additional Modifications to Solid Foods: Patient evidenced very labored breathing/SOB during assessment, and some difficulty feeding self. Recommend full supervision during meals with assistance as needed, encourage slower rate of consumption with rest/breaks. Oral Medication Intake: Whole with Puree Please contact the pharmacy regarding appropriate crushable or liquid drug formulations that are available whenever modified delivery is recommended. Compensatory Strategies and Precautions to be Taken for Safe Swallow: Sitting Upright (90 deg) Liquids from Cup Small Bites and Sips Alternate Liquids/Solids Rate of Ingestion Change Supervision While Eating and Drinking for Safe Swallow: Total Supervision (1:1) Foods to Avoid: Tough, difficult to chew solids. Swallowing Recommended Treatments: Compens. Strategy Educat. Recommendation for Speech: Inpatient Speech Therapy Comment: Patient presents with oral motor WFL, and mild oral phase dysphagia due to limited dentition. Patient will likely be able to tolerate more advanced solids with dental appliance in place, and should be re-assessed for advancement of diet when/if located in hospital. Patient also with labored breathing throughout the assessment which puts patient at risk during meals. Patient is currently on clear liquid diet ordered by MD. When patient is medically ready for diet advancement recommend Ground/Mechanical (NDD2) with THIN liquids, pills whole in puree. Patient at this time will require full supervision during meal with some assistance as needed. Encourage patient to eat slowly, take breaks during meal, and monitor closely for clinical signs of aspiration. Discontinue do not attempt if patient is lethargic or hypoxic or evidencing coughing or increased airway noise when eating. MD, RD, RN notified of recommendation by secure text as well as concern re: respiratory status at time of assessment. POST ANESTHESIA NURSE will continue to follow for toleration, possible diet upgrade if warranted. Frequency/Duration: Date Range for Service Req: Timeline to reassess: Cork Tipper Clinican/Clinical Fellow: No Supervisory Statement: I have reviewed and agree with the student/clinical fellow's documentation: N/A Speech Language Pathologist: Latanya Solorzano M.A., CCC-POST ANESTHESIA NURSE
[2022-08-11 20:38] VITALS: PULSE 72; RESP 18; O2SAT 90
[2022-08-11] MEDS: traZODone HCL 25 MG HALFTAB PO (21:20)
[2022-08-11 21:23] LABS: Glucose, Whole Blood 193 mg/dL (60-115)
[2022-08-11 23:42] VITALS: BP 126/58; PULSE 64; RESP 17; TEMP 36.4; O2SAT 94
[2022-08-12] VITALS (11 sets, daily range): BP systolic 114–152; BP diastolic 58–87; PULSE 56–94; RESP 18–22; TEMP 36.1–36.9; O2SAT 93–96
[2022-08-12] MEDS: Piperacillin Sodium/Tazobactam 3.375 GM in 0.9 % Sodium Chloride 50 ML IV ×3 (06:16→21:47)
[2022-08-12] MEDS: Heparin Sodium,Porcine 5,000 UNIT/ML VIAL 5000 UNIT SUBCUT (06:20)
[2022-08-12] MEDS: Morphine Sulfate 4 MG/ML CARTRIDGE IVPUSH ×2 (06:21→21:42)
[2022-08-12] MEDS: Omeprazole 20 MG CAPSULE.DR PO (06:22)
[2022-08-12 07:20] LABS: Glucose, Whole Blood 137 mg/dL (60-115)
[2022-08-12] MEDS: Fluticasone/Vilanterol 200/25 BLST.W.DEV 1 PUFF INHALE (07:54)
[2022-08-12] MEDS: Albuterol/Iprat 2.5/0.5MG 3 ML AMPUL.NEB INHALE ×3 (07:54→15:02)
[2022-08-12] MEDS: acetaZOLAMIDE 250 MG TABLET 500 MG PO (08:58)
[2022-08-12] MEDS: Docusate Sodium 100 MG CAPSULE PO ×2 (08:58→21:42)
--- NOTE | 2022-08-12 08:58 | P.PNGS_ITS ---
Subjective Subjective Date of Service: 08/12/22 Interval history: no new events periodically gets tachycardic per the nurse labs some pain right side including the right chest wall Physical Exam Vital Signs: Vital Signs: Last Vital Signs Temp 97.0 F 08/12/22 07:33 Pulse 56 08/12/22 07:55 Resp 18 08/12/22 07:55 BP 114/63 08/12/22 07:33 Pulse Ox 94 08/12/22 07:33 O2 Del Method Nasal Cannula 08/12/22 07:33 O2 Flow Rate 2.5 08/12/22 07:33 Oxygen Flow Rate 8 08/09/22 19:31 BMI result Body Mass Index 62.7 Const: Other: short of breath, as per baseline Resp: Other: short of breath as per baseline Cardio: Rhythm: abnormal rhythm GI: Other: obese, soft, no guarding or rebound, mild diffuse tenderness Objective Data Active Medications Acetaminophen (Acetaminophen Supp 650 Mg Supp.Rect) 650 mg [place] Q6H PRN PRN Reason: fever Last Admin: 08/11/22 06:48 Dose: 650 mg Documented By: VERNA Acetazolamide (Acetazolamide 250 Mg Tablet) 500 mg PO BID [facility] Last Admin: 08/11/22 22:11 Dose: Not Given Documented By: NAVEED Non-Admin Reason: Duplicate Order Acetazolamide (Acetazolamide Sodium 500 Mg Vial) 500 mg IVPUSH BID [facility] Stop: 08/13/22 21:01 Last Admin: 08/11/22 21:20 Dose: 500 mg Documented By: NAVEED Albuterol/Ipratropium (Albuterol/Iprat 2.5/0.5mg 3 Ml Ampul.Neb) 3 ml INHALE RQ4H WHILE AWAKE [facility] Last Admin: 08/12/22 07:54 Dose: 3 ml Documented By: EVELIN Albuterol/Ipratropium (Albuterol/Iprat 2.5/0.5mg 3 Ml Ampul.Neb) 3 ml INHALE Q3H PRN PRN Reason: sob Aripiprazole (Aripiprazole 10 Mg Tablet) 10 mg PO DAILY [facility] Last Admin: 08/11/22 09:14 Dose: 10 mg Documented By: TIMMY Bupropion HCl (Bupropion Hcl Xl 150 Mg Tab.Er.24h) 150 mg PO BID [facility] Last Admin: 08/11/22 09:14 Dose: 150 mg Documented By: TIMMY Docusate Sodium (Docusate Sodium 100 Mg Capsule) 100 mg PO BID [facility] Last Admin: 08/11/22 21:20 Dose: 100 mg Documented By: NAVEED Fluticasone/Vilanterol (Fluticasone/Vilanterol 200/25 Blst.W.Dev) 1 puff INHALE RDAILY [facility] Last Admin: 08/12/22 07:54 Dose: 1 puff Documented By: EVELIN Gabapentin (Gabapentin 100 Mg Capsule) 100 mg PO TID [facility] Last Admin: 08/11/22 09:15 Dose: 100 mg Documented By: TIMMY Glucose (Glucose Gel 15 Gm Gel..Gram.) 15 gm PO Q15M PRN; Protocol PRN Reason: per Hypoglycemia Standing Ord. Last Admin: 08/10/22 21:13 Dose: 15 gm Documented By: VERNA Glucose (Glucose Gel 15 Gm Gel..Gram.) 15 gm PO Q15M PRN; Protocol PRN Reason: per Hypoglycemia Standing Ord. Heparin Sodium (Porcine) (Heparin Sodium,Porcine 5,000 Unit/Ml Vial) 5,000 unit SUBCUT Q8H [facility] Last Admin: 08/12/22 06:20 Dose: 5,000 unit Documented By: ALISIA Piperacillin Sod/Tazobactam (Sod 3.375 gm/ Sodium Chloride) 50 mls @ 100 mls/hr IV Q6H [facility] Last Admin: 08/12/22 06:16 Dose: 100 mls/hr Documented By: ALISIA Dextrose (D10) 250 mls @ 750 mls/hr IV Q15M PRN; Protocol PRN Reason: per Hypoglycemia Standing Ord. Dextrose (D10) 250 mls @ 750 mls/hr IV Q15M PRN; Protocol PRN Reason: per Hypoglycemia Standing Ord. Insulin Human Lispro (Insulin Lispro 100 Unit/Ml 3 Ml Vial) 0 unit SUBCUT QIDACHS [facility]; Protocol Last Admin: 08/12/22 07:24 Dose: Not Given Documented By: ERNESTO Non-Admin Reason: No Insulin Coverage Morphine Sulfate (Morphine Sulfate 4 Mg/Ml Cartridge) 4 mg IVPUSH Q3H PRN; Protocol PRN Reason: Pain, Severe (Pain Scale 7-10) Last Admin: 08/12/22 06:21 Dose: 4 mg Documented By: ALISIA Omeprazole (Omeprazole 20 Mg Capsule.Dr) 20 mg PO DAILY@0630 [facility] Last Admin: 08/12/22 06:22 Dose: 20 mg Documented By: ALISIA Ondansetron HCl (Ondansetron Hcl 4 Mg/2 Ml Vial) 4 mg IV Q6H PRN PRN Reason: nausea Propranolol HCl (Propranolol Hcl 20 Mg Tablet) 60 mg PO DAILY [facility]; Protocol Last Admin: 08/11/22 09:14 Dose: 60 mg Documented By: TIMMY Sodium Chloride (0.9 % Sodium Chloride Flush 3 Ml Syringe) 3 ml IVFLUSH QSHIFT [facility] Last Admin: 08/12/22 06:22 Dose: Not Given Documented By: ALISIA Non-Admin Reason: Previously Administered Trazodone HCl (Trazodone Hcl 25 Mg Halftab) 25 mg PO BEDTIME [facility] Last Admin: 08/11/22 21:20 Dose: 25 mg Documented By: NAVEED Labs 08/11/22 10:09 08/11/22 10:09 Labs: Laboratory Results - last 24 hr 08/11/22 08/11/22 08/11/22 09:52 10:09 10:09 MCV 89.9 MCH 25.6 L MCHC 28.5 L RDW 18.4 H Plt Count 172 MPV 11.7 Absolute Nucleated RBC 0.020 H Nucleated RBC % (auto) 0.2 VBG pH 7.41 VBG pCO2 60 VBG pO2 98 VBG HCO3 38 H VBG O2 Saturation 100.0 VBG Base Excess 12.0 Anion Gap 9 L Estim Creat Clear Calc 100.9 Estimated GFR > 60 POC Glucose Random Glucose 176 H Calcium 9.2 Iron 19 L TIBC 302 % Saturation 6 L Unsat Iron Binding 283 Ferritin 66 B-Natriuretic Peptide 08/11/22 08/11/22 08/11/22 10:09 11:41 15:52 MCV MCH MCHC RDW Plt Count MPV Absolute Nucleated RBC Nucleated RBC % (auto) VBG pH VBG pCO2 VBG pO2 VBG HCO3 VBG O2 Saturation VBG Base Excess Anion Gap Estim Creat Clear Calc Estimated GFR POC Glucose 186 H 160 H Random Glucose Calcium Iron TIBC % Saturation Unsat Iron Binding Ferritin B-Natriuretic Peptide 122 H 08/11/22 08/12/22 21:16 07:14 MCV MCH MCHC RDW Plt Count MPV Absolute Nucleated RBC Nucleated RBC % (auto) VBG pH VBG pCO2 VBG pO2 VBG HCO3 VBG O2 Saturation VBG Base Excess Anion Gap Estim Creat Clear Calc Estimated GFR POC Glucose 193 H 137 H Random Glucose Calcium Iron TIBC % Saturation Unsat Iron Binding Ferritin B-Natriuretic Peptide Microbiology Microbiology Results: Microbiology 08/09/22 19:53 Blood Culture - Preliminary Blood - Venous No growth after 48 hours. 08/09/22 19:53 Blood Culture - Preliminary Blood - Venous No growth after 48 hours. 08/09/22 20:47 Urine Culture - Final Urine Catheterized - Burdick Catheter Escherichia coli Procedures Date of Service Date of Service: 08/12/22 Progress Note: A&P Assessment and plan (1) Abdominal pain: Status: Acute Assessment and Plan: still has abdominal pain although much improved pneumo peritoneum has resolved on follow-up CT keep on clear liquids for now has multiple medical problems including CHF, severe COPD hospitalist involved - Dr. Joyce has taken her under his service currently with UTI and pneumonia WBC down, follow hemoglobin Time Spent With Patient Time: Total time managing care of this patient today ____ minutes. Quality Stroke Does the patient have a stroke diagnosis?: No VTE Prior VTE?: No VTE Risk Level:: Medical - moderate - high VTE Device Contraindication: N/A - Device Ordered VTE Drug Contraindication: N/A - Med Ordered
[2022-08-12] MEDS: 0.9 % Sodium Chloride Flush 3 ML SYRINGE IVFLUSH ×2 (08:59→16:10)
[2022-08-12] MEDS: acetaZOLAMIDE sodium 500 MG VIAL IVPUSH ×2 (09:01→21:42)
[2022-08-12 10:12] LABS: Hematocrit 26.6 % (37.0-47.0); Hemoglobin 7.4 g/dl (12.0-16.0)
[2022-08-12 10:36] LABS: Anion Gap 9 (12-20); Blood Urea Nitrogen 20 mg/dL (9-16); Calcium 9.9 mg/dL (8.4-10.2); Carbon Dioxide 32 mmol/L (22-29); Chloride 101 mmol/L (96-108); Creatinine Clr Calc Pharmacy 88.4; Estimated Glomerular Filt Rate 58; Glucose Random 119 mg/dL (60-115); Potassium 3.7 mmol/L (3.3-5.1); Sodium 138 mmol/L (135-145)
[2022-08-12 11:30] LABS: Glucose, Whole Blood 141 mg/dL (60-115)
--- NOTE | 2022-08-12 11:55 | MHC.SL.SWA ---
Speech Pathologist Impression:Oral phase dysphagia Risk of Aspiration Due to: Medically Fragile History of Pneumonia Dysphasia Diet Status: No changes at this time (Pt still on Clear Liquid Diet) Liquid Consistency and Strategies for Safe Swallow: Liquid Intake Recommendation: Thin Liquid Intake Strategies: Small Sips Solid Food Consistency: Dietary Recommendations: Grnd/Mech Altered (NDD2) Additional Modifications to Solid Foods: Pt continues on Clear Liquid Diet at this time- tolerating thin liquid via straw with no overt s/s of aspiration. Pt was evaluated by [employer] 08/11/22- Recommended GROUND/MECH ALTERED (NDD2) diet with THIN liquids once cleared by MD from Clear Liquid Diet. Oral Medication Intake: Whole with Puree Please contact the pharmacy regarding appropriate crushable or liquid drug formulations that are available whenever modified delivery is recommended. Compensatory Strategies and Precautions to be Taken for Safe Swallow: Sitting Upright (90 deg) Small Bites and Sips Rate of Ingestion Change Avoid Specific Foods Supervision While Eating and Drinking for Safe Swallow: Total Supervision (1:1) Foods to Avoid: Tough, difficult to chew solids. Swallowing Recommended Treatments: Compens. Strategy Educat. Recommendation for Speech: Inpatient Speech Therapy Comment: Patient presents with oral motor WFL, and mild oral phase dysphagia due to limited dentition. Patient will likely be able to tolerate more advanced solids with dental appliance in place, and should be re-assessed for advancement of diet when/if located in hospital. Patient is currently on clear liquid diet ordered by MD. When patient is medically ready for diet advancement recommend Ground/Mechanical (NDD2) with THIN liquids, pills whole in puree. Patient at this time will require full supervision during meal with some assistance as needed. Encourage patient to eat slowly, take breaks during meal, and monitor closely for clinical signs of aspiration. Discontinue do not attempt if patient is lethargic or hypoxic or evidencing coughing or increased airway noise when eating. [employer] will continue to follow for toleration, possible diet upgrade if warranted. Chest Pain Coordinator Clinican/Clinical Fellow: No Supervisory Statement: I have reviewed and agree with the student/clinical fellow's documentation: N/A Speech Language Pathologist: Laureen Craven M.A., [facility]-[employer]
--- NOTE | 2022-08-12 12:45 | HO.PM.IMPN ---
Subjective Subjective Date of Service: 08/12/22 Interval History: sepsis,pneumonia ,uti,abd pain Review of Systems mild side abd pain no fever Today morning denies any cough or phlegm, has leg swellings Physical Exam Vital Signs: Vital Signs: Last Vital Signs Temp 97.7 F 08/12/22 12:35 Pulse 68 08/12/22 12:35 Resp 22 H 08/12/22 12:35 BP 140/58 H 08/12/22 12:35 Pulse Ox 93 08/12/22 12:35 O2 Del Method Nasal Cannula 08/12/22 12:35 O2 Flow Rate 1 08/12/22 12:35 Oxygen Flow Rate 8 08/09/22 19:31 BMI result Body Mass Index 62.7 Appearance: Alert.? Oriented-seems near aher baseline.? has fevers ? cvs: rrr, [id number] . res: air enter y improving,few rhonchii on nc oxygen abd: no rebound or guarding ,nt, bs present. ext pulses present , no cyanosis , leg swellin improving neuro: axo3 , nonfocal. Objective Data Active Medications Acetaminophen (Acetaminophen Supp 650 Mg Supp.Rect) 650 mg [place] Q6H PRN PRN Reason: fever Last Admin: 08/11/22 06:48 Dose: 650 mg Documented By: VERNA Acetazolamide (Acetazolamide 250 Mg Tablet) 500 mg PO BID [facility]S [facility]CLUDE 234 BEDS AT THE [facility] Last Admin: 08/12/22 08:58 Dose: 500 mg Documented By: ERNESTO Acetazolamide (Acetazolamide Sodium 500 Mg Vial) 500 mg IVPUSH BID COUNTS INCLUDE 234 BEDS AT THE [facility] Stop: 08/13/22 21:01 Last Admin: 08/12/22 09:01 Dose: 500 mg Documented By: ERNESTO Albuterol/Ipratropium (Albuterol/Iprat 2.5/0.5mg 3 Ml Ampul.Neb) 3 ml INHALE RQ4H WHILE AWAKE COUNTS INCLUDE 234 BEDS AT THE [facility] Last Admin: 08/12/22 10:52 Dose: 3 ml Documented By: EVELIN Albuterol/Ipratropium (Albuterol/Iprat 2.5/0.5mg 3 Ml Ampul.Neb) 3 ml INHALE Q3H PRN PRN Reason: sob Aripiprazole (Aripiprazole 10 Mg Tablet) 10 mg PO DAILY COUNTS INCLUDE 234 BEDS AT THE [facility] Last Admin: 08/11/22 09:14 Dose: 10 mg Documented By: TIMMY Bupropion HCl (Bupropion Hcl Xl 150 Mg Tab.Er.24h) 150 mg PO DAILY [facility]S INCLUDE 234 BEDS AT THE [facility] Docusate Sodium (Docusate Sodium 100 Mg Capsule) 100 mg PO BID COUNTS INCLUDE 234 BEDS AT THE [facility] Last Admin: 08/12/22 08:58 Dose: 100 mg Documented By: ERNESTO Fluticasone/Vilanterol (Fluticasone/Vilanterol 200/25 Blst.W.Dev) 1 puff INHALE RDAILY COUNTS INCLUDE 234 BEDS AT THE [facility] Last Admin: 08/12/22 07:54 Dose: 1 puff Documented By: EVELIN Gabapentin (Gabapentin 100 Mg Capsule) 100 mg PO TID COUNTS INCLUDE 234 BEDS AT THE [facility] Last Admin: 08/11/22 09:15 Dose: 100 mg Documented By: TIMMY Glucose (Glucose Gel 15 Gm Gel..Gram.) 15 gm PO Q15M PRN; Protocol PRN Reason: per Hypoglycemia Standing Ord. Last Admin: 08/10/22 21:13 Dose: 15 gm Documented By: VERNA Glucose (Glucose Gel 15 Gm Gel..Gram.) 15 gm PO Q15M PRN; Protocol PRN Reason: per Hypoglycemia Standing Ord. Heparin Sodium (Porcine) (Heparin Sodium,Porcine 5,000 Unit/Ml Vial) 5,000 unit SUBCUT Q8H COUNTS INCLUDE 234 BEDS AT THE [facility] Last Admin: 08/12/22 06:20 Dose: 5,000 unit Documented By: ALISIA Piperacillin Sod/Tazobactam (Sod 3.375 gm/ Sodium Chloride) 50 mls @ 100 mls/hr IV Q6H COUNTS INCLUDE 234 BEDS AT THE [facility] Last Infusion: 08/12/22 11:52 Dose: 0 mls/hr Documented By: ERNESTO Dextrose (D10) 250 mls @ 750 mls/hr IV Q15M PRN; Protocol PRN Reason: per Hypoglycemia Standing Ord. Dextrose (D10) 250 mls @ 750 mls/hr IV Q15M PRN; Protocol PRN Reason: per Hypoglycemia Standing Ord. Insulin Human Lispro (Insulin Lispro 100 Unit/Ml 3 Ml Vial) 0 unit SUBCUT QIDACHS COUNTS INCLUDE 234 BEDS AT THE [facility]; Protocol Last Admin: 08/12/22 11:38 Dose: Not Given Documented By: ERNESTO Non-Admin Reason: No Insulin Coverage Morphine Sulfate (Morphine Sulfate 4 Mg/Ml Cartridge) 4 mg IVPUSH Q3H PRN; Protocol PRN Reason: Pain, Severe (Pain Scale 7-10) Last Admin: 08/12/22 06:21 Dose: 4 mg Documented By: ALISIA Omeprazole (Omeprazole 20 Mg Capsule.Dr) 20 mg PO DAILY@0630 COUNTS INCLUDE 234 BEDS AT THE [facility] Last Admin: 08/12/22 06:22 Dose: 20 mg Documented By: ALISIA Ondansetron HCl (Ondansetron Hcl 4 Mg/2 Ml Vial) 4 mg IV Q6H PRN PRN Reason: nausea Propranolol HCl (Propranolol Hcl 20 Mg Tablet) 60 mg PO DAILY COUNTS INCLUDE 234 BEDS AT THE [facility]; Protocol Last Admin: 08/12/22 09:09 Dose: Not Given Documented By: ERNESTO Non-Admin Reason: Physician Held Med Sodium Chloride (0.9 % Sodium Chloride Flush 3 Ml Syringe) 3 ml IVFLUSH QSHIFT COUNTS INCLUDE 234 BEDS AT THE [facility] Last Admin: 08/12/22 08:59 Dose: 3 ml Documented By: ERNESTO Trazodone HCl (Trazodone Hcl 25 Mg Halftab) 25 mg PO BEDTIME COUNTS INCLUDE 234 BEDS AT THE [facility] Last Admin: 08/11/22 21:20 Dose: 25 mg Documented By: NAVEED Labs 08/12/22 09:24 08/12/22 09:24 Labs: Laboratory Results - last 24 hr 08/11/22 08/11/22 08/11/22 10:09 15:52 21:16 Anion Gap 9 L Estim Creat Clear Calc 100.9 Estimated GFR > 60 POC Glucose 160 H 193 H Random Glucose 176 H Calcium 9.2 Iron 19 L TIBC 302 % Saturation 6 L Unsat Iron Binding 283 Ferritin 66 08/12/22 08/12/22 08/12/22 07:14 09:24 11:26 Anion Gap 9 L Estim Creat Clear Calc 88.4 Estimated GFR 58 POC Glucose 137 H 141 H Random Glucose 119 H Calcium 9.9 D Iron TIBC % Saturation Unsat Iron Binding Ferritin Microbiology Microbiology Results: Microbiology 08/11/22 07:06 Blood Culture - Preliminary Blood - Venous No growth after 24 hours. 08/11/22 07:06 Blood Culture - Preliminary Blood - Venous No growth after 24 hours. 08/09/22 19:53 Blood Culture - Preliminary Blood - Venous No growth after 48 hours. 08/09/22 19:53 Blood Culture - Preliminary Blood - Venous No growth after 48 hours. Assessment and Plan (1) UTI (urinary tract infection): Status: Acute (2) Abdominal pain: Status: Acute (3) Anemia: Status: Acute Plan 66-year-old female past medical history of CHF, diabetes, hypertension, comes into the hospital with abdominal pain found to have free air in the abdomenr, but also other acute abnormalities including pneumonia and UTI ?acute sepsis(poa)-?thought to be likely multifactorial secondary to UTI as well as pneumonia tachycardia,fevers improved, intermittent tachypnea. no new fevers ,repeat blood cultures neg@24hrs will treat with IV antibiotics, follow cultures continue zosyn , Tylenol, supportive care ?free air in abdomen mild left side abd pain No nausea vomiting, for fever episode was at midnight Seen by surgery-repeat CT abdomeem:showed resolution of pneumoperitoneum patient denies any abd pain today Surgical [id number] clear liquids moniter closely ? acute UTI -? dip UA, symptomatic -? will treat with IV antibiotics -? follow cultures ?acute hypoxemic/hypercarbic repiratory failure -multfactorial? pneumonia-?? likely aspiration, as? has history of dysphagia, copd excerebation,?mild chf etiology unclear elevated bnp,leg swelling,wheezin vbg noted added nebs/steriods ,dimox , continue antibiotics and oxygen support. Hold psych medication causing some sleepiness History of dysphagia: ? in 09/17 speech recomended Chopped/Advanced?.evaluation by speech added acute on chronic normocytic anemia: Iron and iron saturation low, ferritin and TIBC normal ? Question mixed type anemia fobt added H&H is 7.06/22 will tranfuse 1 prbc , Tylenol for time 1 before and Lasix 20 mg afterwards. Gi eval ? diabetes-? hold oral antihyperglycemics -? add low-dose sliding scale insulin -? recommend diabetic diet? once able to take p.o. ?DVT prophylaxis:? Heparin subQ inpatient need :sepsis ,uti,pneumonia -need IV antibiotics and blood culture also pending,anemia workup,Gi eval. Time Spent With Patient Time: Total time managing care of this patient today ____ minutes. Quality Stroke Does the patient have a stroke diagnosis?: No VTE Prior VTE?: No VTE Risk Level:: Surgical - high VTE Device Contraindication: N/A - Device Ordered VTE Drug Contraindication: N/A - Med Ordered
[2022-08-12 13:44] LABS: Adenovirus PCR Not Detected (Not Detect.); Bordetella parapertussis PCR Not Detected (Not Detect.); Bordetella pertussis PCR Not Detected (Not Detect.); Chlamydia pneumoniae PCR Not Detected (Not Detect.); Coronavirus 229E PCR Not Detected (Not Detect.); Coronavirus HKU1 PCR Not Detected (Not Detect.); Coronavirus NL63 PCR Not Detected (Not Detect.); Coronavirus OC43 PCR Not Detected (Not Detect.); Human metapneumovirus PCR Not Detected (Not Detect.); Influenza A PCR Not Detected (Not Detect.); Influenza B PCR Not Detected (Not Detect.); Mycoplasma pneumoniae PCR Not Detected (Not Detect.); Parainfluenza 1 PCR Not Detected (Not Detect.); Parainfluenza 2 PCR Not Detected (Not Detect.); Parainfluenza 3 PCR Not Detected (Not Detect.); Parainfluenza 4 PCR Not Detected (Not Detect.); RSV PCR Not Detected (Not Detect.); Rhino/Enterovirus PCR Not Detected (Not Detect.); SARS-CoV-2 PCR Not Detected (Not Detect.)
--- NOTE | 2022-08-12 15:41 | MHC.CM.PN ---
PT NOT YET MEDIALLY CLEARED FOR DC DCP: RETURN TO [facility]TC AT [facility] VIA BLS
[2022-08-12 15:43] LABS: Glucose, Whole Blood 204 mg/dL (60-115)
--- NOTE | 2022-08-12 16:21 | P.CNGI_ITS ---
History of Present Illness Data of Consult Service Date: 08/12/22 Requesting physician: Vincenzo Joyce Primary Care Provider: Unknown Physician HPI Reason for consult: abdominal pain and anemia 66 YF with COPD, AFib, CHF, dysphagia, essential tremors, [place] [facility] [place] from the [facility] with abdominal pain radiating towards the back and difficulty breathing.? Patient denied chest pain, complaining of chills.?She reported feeling feverish, but does not know how high her fever was, has chills, denies any diarrhea constipation. Patient denied any cough, reports chronic shortness of breath that has not worsened, has chronic lower extremity edema.? ? Patient found to have pneumonia as well as acute UTI.? On arrival to the ED patient found to have a temperature of 102 degrees heart rate of 112, respiratory rate of 28, blood pressure 173/60 .? Patient was also noted to be hypoxic and placed on 4 L of nasal cannula saturating 97% Labs are significant for WBC count 9.1, hemoglobin of 10.2, hematocrit 36.3, UA that is positive for moderate leukocyte Estrace, WBC, and bacteria Chest x-ray shows bilateral pulmonary infiltrate, left greater than right, with some? worsening in the right upper lobe Patient was seen by surgery and advised conservative management.? Hx obtained from the patient, her daughter and GD. Pt reports sudden onset of lower abd pain 3-4 days prior to admission. Pain was in the lower abdomen, constant in 10 x 10 in intensity. Patient reports feeling like she was being kicked in her belly Pt denies past hx of PUD, NSAID use or recent abdominal trauma She reports abdominal pain has improved and is mild today. Pt denies heartburn, dysphagia, black stools or obvious blood in the stools. She admits to wt gain of 50 lbs since she moved to [facility] due to meals which are fattening. Patient denies known family history of colon cancer or polyps. She denies having an upper endoscopy or colonoscopy in the past. Abdominal CT scan showed: Small amount of free air in the left side of the abdomen. Source of free air is not certain. There are slightly distended fluid-filled thick-walled loops of proximal jejunum. There is extraluminal air in between loops of small bowel. There is also extraluminal air seen adjacent to the distal transverse colon. There is diverticulosis of the colon. No definite evidence of diverticulitis is seen. Small amount of fluid in the pelvis. FU CT scan showed resolution of free air. Review of Systems 2 Review of Systems: Yes all other systems are reviewed and are negative [facility] Past Medical History Medical History Anemia Pneumoperitoneum Depressive disorder UTI (urinary tract infection) Abdominal pain Memory deficit Dysphagia COPD (chronic obstructive pulmonary disease) Hyperlipidemia Essential tremor CHF (congestive heart failure) Atrial fibrillation Family History Family history: reviewed and not pertinent Surgical History Surgical History No pertinent past surgical history Social History Social History Household Members: Spouse Housing: House Do you presently have visiting nurse or other home services: Yes Alcohol intake: never Patient Tobacco Use Status: Never used Tobacco Advance Directives Date on File: 08/27/21 service: No Current occupational status: unemployed Meds Allergies Allergy/AdvReac Type Severity Reaction Status Date / Time No Known Allergies Allergy Verified 03/31/23 11:13 Active Medications: Current Medications Acetaminophen (Acetaminophen Supp 650 Mg Supp.Rect) 650 mg HI Q6H PRN PRN Reason: fever Last Admin: 08/11/22 06:48 Dose: 650 mg Acetazolamide (Acetazolamide 250 Mg Tablet) 500 mg PO BID [facility] Last Admin: 08/12/22 08:58 Dose: 500 mg Acetazolamide (Acetazolamide Sodium 500 Mg Vial) 500 mg IVPUSH BID [facility] Stop: 08/13/22 21:01 Last Admin: 08/12/22 09:01 Dose: 500 mg Albuterol/Ipratropium (Albuterol/Iprat 2.5/0.5mg 3 Ml Ampul.Neb) 3 ml INHALE RQ4H WHILE AWAKE [facility] Last Admin: 08/12/22 15:02 Dose: 3 ml Albuterol/Ipratropium (Albuterol/Iprat 2.5/0.5mg 3 Ml Ampul.Neb) 3 ml INHALE Q3H PRN PRN Reason: sob Aripiprazole (Aripiprazole 10 Mg Tablet) 10 mg PO DAILY [facility] Last Admin: 08/11/22 09:14 Dose: 10 mg Bupropion HCl (Bupropion Hcl Xl 150 Mg Tab.Er.24h) 150 mg PO DAILY [facility] Docusate Sodium (Docusate Sodium 100 Mg Capsule) 100 mg PO BID [facility] Last Admin: 08/12/22 08:58 Dose: 100 mg Fluticasone/Vilanterol (Fluticasone/Vilanterol 200/25 Blst.W.Dev) 1 puff INHALE RDAILY [facility] Last Admin: 08/12/22 07:54 Dose: 1 puff Gabapentin (Gabapentin 100 Mg Capsule) 100 mg PO TID [facility] Last Admin: 08/11/22 09:15 Dose: 100 mg Glucose (Glucose Gel 15 Gm Gel..Gram.) 15 gm PO Q15M PRN; Protocol PRN Reason: per Hypoglycemia Standing Ord. Last Admin: 08/10/22 21:13 Dose: 15 gm Glucose (Glucose Gel 15 Gm Gel..Gram.) 15 gm PO Q15M PRN; Protocol PRN Reason: per Hypoglycemia Standing Ord. Heparin Sodium (Porcine) (Heparin Sodium,Porcine 5,000 Unit/Ml Vial) 5,000 unit SUBCUT Q8H [facility] Last Admin: 08/12/22 16:06 Dose: Not Given Piperacillin Sod/Tazobactam (Sod 3.375 gm/ Sodium Chloride) 50 mls @ 100 mls/hr IV Q6H [facility] Last Infusion: 08/12/22 11:52 Dose: Infused Dextrose (D10) 250 mls @ 750 mls/hr IV Q15M PRN; Protocol PRN Reason: per Hypoglycemia Standing Ord. Dextrose (D10) 250 mls @ 750 mls/hr IV Q15M PRN; Protocol PRN Reason: per Hypoglycemia Standing Ord. Insulin Human Lispro (Insulin Lispro 100 Unit/Ml 3 Ml Vial) 0 unit SUBCUT QIDACHS [facility]; Protocol Last Admin: 08/12/22 11:38 Dose: Not Given Morphine Sulfate (Morphine Sulfate 4 Mg/Ml Cartridge) 4 mg IVPUSH Q3H PRN; Protocol PRN Reason: Pain, Severe (Pain Scale 7-10) Last Admin: 08/12/22 06:21 Dose: 4 mg Omeprazole (Omeprazole 20 Mg Capsule.Dr) 20 mg PO DAILY@0630 [facility] Last Admin: 08/12/22 06:22 Dose: 20 mg Ondansetron HCl (Ondansetron Hcl 4 Mg/2 Ml Vial) 4 mg IV Q6H PRN PRN Reason: nausea Propranolol HCl (Propranolol Hcl 20 Mg Tablet) 60 mg PO DAILY [facility]; Protocol Last Admin: 08/12/22 09:09 Dose: Not Given Sodium Chloride (0.9 % Sodium Chloride Flush 3 Ml Syringe) 3 ml IVFLUSH QSHIFT [facility] Last Admin: 08/12/22 08:59 Dose: 3 ml Trazodone HCl (Trazodone Hcl 25 Mg Halftab) 25 mg PO BEDTIME [facility] Last Admin: 08/11/22 21:20 Dose: 25 mg Home Medications Medication Instructions Recorded Confirmed Last Taken Type acetaminophen 325 mg tablet 650 mg PO Q6H PRN temp/pain 08/26/21 10/17/22 Unknown History aripiprazole 10 mg tablet 10 mg PO DAILY 08/26/21 10/17/22 08/09/22 History bisacodyl 10 mg rectal suppository 10 mg HI DAILY PRN Constipation 08/26/21 10/17/22 Unknown History budesonide-formoterol HFA 160 1 inh inhalation DAILY 08/26/21 10/17/22 08/09/22 History mcg-4.5 mcg/actuation aerosol inhaler (Symbicort) docusate sodium 100 mg capsule 100 mg PO BID 08/26/21 10/17/22 08/09/22 History enoxaparin 40 mg/0.4 mL 40 mg subcut DAILY 08/26/21 10/17/22 Unknown History subcutaneous syringe (Lovenox) furosemide 40 mg tablet 40 mg PO DAILY 08/26/21 10/17/22 08/09/22 History insulin lispro 100 unit/mL See Protocol subcut QIDACHS 08/26/21 10/17/22 08/09/22 History subcutaneous solution (Humalog U-100 Insulin) magnesium hydroxide 400 mg/5 mL 30 ml PO DAILY PRN Constipation 08/26/21 10/17/22 Unknown History oral suspension (Milk of Magnesia) polyethylene glycol 3350 17 gram 17 g PO DAILY 08/26/21 10/17/22 08/09/22 History oral powder packet sennosides 8.6 mg tablet (senna) 17.2 mg PO BEDTIME 08/26/21 10/17/22 08/08/22 History gabapentin 100 mg capsule 100 mg PO TID@0600,1400,1800 08/09/22 10/17/22 08/09/22 History glimepiride 4 mg tablet 4 mg PO DAILY 08/09/22 10/17/22 08/09/22 History insulin glargine-yfgn 100 unit/mL 20 unit subcut DAILY 08/09/22 10/17/22 08/09/22 History (3 mL) subcutaneous pen (Semglee (insulin glargine-yfgn) Pen) pioglitazone 45 mg tablet (Actos) 45 mg PO DAILY 08/09/22 10/17/22 08/09/22 History rosuvastatin 10 mg tablet (Crestor) 10 mg PO BEDTIME 08/09/22 10/17/22 08/08/22 History trazodone 50 mg tablet 25 mg PO BEDTIME 08/09/22 10/17/22 08/08/22 History bupropion HCl 150 mg 24 hr tablet, 150 mg PO BID 08/10/22 10/17/22 08/09/22 History extended release albuterol sulfate 90 mcg/actuation 2 puff inhalation Q4H PRN 10/17/22 10/17/22 Unknown History aerosol inhaler Shortness Of Breath lidocaine 4 % topical patch 1 patch topical DAILY 10/17/22 10/17/22 Unknown History (Aspercreme (lidocaine)) ascorbate calcium (vitamin C) 500 250 mg PO DAILY 03/31/23 Unknown History mg tablet ferrous sulfate 325 mg (65 mg 325 mg PO DAILY 03/31/23 Unknown History iron) tablet (Feosol) metformin 500 mg tablet,extended 500 mg PO DAILY 03/31/23 Unknown History release 24 hr nystatin 100,000 unit/gram topical 1 appl topical DAILY 03/31/23 Unknown History powder propranolol 60 mg tablet 60 mg PO DAILY 03/31/23 Unknown History Physical Exam 2 Vital Signs: Vital Signs: Last Vital Signs Temp 97.8 F 08/12/22 15:20 Pulse 94 08/12/22 15:20 Resp 20 08/12/22 15:20 BP 136/87 08/12/22 15:20 Pulse Ox 96 08/12/22 15:20 O2 Del Method Nasal Cannula 08/12/22 15:20 O2 Flow Rate 5 08/12/22 15:20 Oxygen Flow Rate 8 08/09/22 19:31 BMI result Body Mass Index 62.7 Const: General: no acute distress Nutritional Appearance: obese (morbidly obese) Orientation/consciousness: patient oriented x3 Limitations: other limitations (status post CVA) HEENT: Head: Yes normal to inspection Ears: hearing grossly normal bilaterally Eyes: Sclerae: sclerae normal Pupils: Equal, round and reactive pupils present Neck: Neck: Yes normal visual inspection Chest: Chest palpation & inspection: normal inspection of the chest Resp: Effort & Inspection: normal respiratory effort Auscultation: clear to auscultation bilaterally Cardio: Palpation: normal PMI Rate: regular rate Rhythm: regular rhythm Heart sounds: S1 normal heart sound present, S2 normal heart sound present and no murmurs GI: Palpation (GI): Soft to palpation, nontender and No hepatosplenomegaly present Auscultation: normal bowel sounds Rectal Exam - Female: deferred Skin: General skin exam: no rashes or lesions noted Neuro: General: patient oriented x3, gait normal and moves all extremities Cranial nerves: Yes Equal, round and reactive pupils present Psych: Appearance: grossly normal Mental Status: mental status grossly normal Results Labs 08/16/22 06:03 08/16/22 06:03 Labs: Short CBC 08/12/22 Range/Units 09:24 Hgb 7.4 L (12.0-16.0) g/dl Hct 26.6 L (37.0-47.0) % BMP 08/12/22 09:24 Sodium 138 Potassium 3.7 Chloride 101 Carbon Dioxide 32 H BUN 20 H Creatinine 0.97 Calcium 9.9 D Microbiology Microbiology Results: Microbiology 08/11/22 07:06 Blood - Venous Blood Culture - Preliminary No growth after 24 hours. 08/11/22 07:06 Blood - Venous Blood Culture - Preliminary No growth after 24 hours. 08/09/22 19:53 Blood - Venous Blood Culture - Preliminary No growth after 48 hours. 08/09/22 19:53 Blood - Venous Blood Culture - Preliminary No growth after 48 hours. 08/09/22 20:47 Urine Catheterized - [place] Catheter Urine Culture - Final Escherichia coli Assessment and Plan (1) Anemia: Status: Inactive (2) Abdominal pain: Status: Resolved Plan 66 YF with COPD, AFib, CHF, dysphagia, essential tremors, HLD admitted to [facility], surgical service on 08/09/22 from the [facility] with abdominal pain radiating towards the back and difficulty breathing.? Patient found to have pneumonia as well as acute UTI.? Abdominal CT scan showed slightly distended fluid-filled thick-walled loops of proximal jejunum, extraluminal air in between loops of small bowel and adjacent to the distal transverse colon. FU CT scan showed resolution of free air. Etiology of free air is unclear - possible PUD disease. Pt denies a hx of trauma or FB ingestion. Iron studies are suggestive of multifactorial anemia (likely a combination of iron def anemia and chronic disease) RECOMMENDATIONS: 1. Check stool hemoccult and monitor CBC after blood transfusion. 2. Evaluation with EGD and colonoscopy can be performed once pt has recovered from pneumonia Endoscopic evaluation was deferred since pt was considered high-risk for anesthesia due to cardiac and pulmonary issues. Hospital course: Patient initially presented with abdominal pain and shortness of breath and work up with abdominal CT on 08/09 revealed a Small amount of free air in the left side of the abdomen and so she was admitted to the surgical service, other subsequently developed fever, leukocytosis and met sepsis criteria with UTI diagnosis, her initial CXR also showed bilateral pnemonia. Dequan pneumoperitoneum--she was followed by surgery, repeat CT the next day showed no pneumonia and so there was no indication for surgical invtervention, she has had intermittent pain but presently without pain, her diet has been advanced and is tolerating Time Spent With Patient Time: Total time managing care of this patient today ____ minutes. Procedures Date of Service Date of Service: 05/11/23
[2022-08-12] MEDS: Acetaminophen 325 MG TABLET 650 MG PO (16:59)
[2022-08-12] MEDS: Insulin Lispro 100 UNIT/ML 3 ML VIAL SUBCUT (17:31)
[2022-08-12 19:52] LABS: Glucose, Whole Blood 130 mg/dL (60-115)
[2022-08-12] MEDS: traZODone HCL 25 MG HALFTAB PO (21:42)
[2022-08-13] VITALS (8 sets, daily range): BP systolic 115–139; BP diastolic 54–65; PULSE 60–90; RESP 18–20; TEMP 36.2–37; O2SAT 91–100
[2022-08-13] MEDS: Piperacillin Sodium/Tazobactam 3.375 GM in 0.9 % Sodium Chloride 50 ML IV ×2 (04:08→09:48)
[2022-08-13] MEDS: 0.9 % Sodium Chloride Flush 3 ML SYRINGE IVFLUSH ×3 (04:12→20:43)
[2022-08-13] MEDS: Omeprazole 20 MG CAPSULE.DR PO (07:18)
--- NOTE | 2022-08-13 07:33 | PC.NURSE ---
Pt had an order for 1 unit of RBC, 200 ml out 350 ml infused within the required time frame d/t IV access lost, MD aware , no new order received.
[2022-08-13 07:46] LABS: Glucose, Whole Blood 110 mg/dL (60-115)
[2022-08-13] MEDS: Albuterol/Iprat 2.5/0.5MG 3 ML AMPUL.NEB INHALE ×3 (07:49→15:01)
[2022-08-13] MEDS: Fluticasone/Vilanterol 200/25 BLST.W.DEV 1 PUFF INHALE (07:49)
[2022-08-13 08:16] LABS: Hematocrit 26.7 % (37.0-47.0); Hemoglobin 7.7 g/dl (12.0-16.0)
[2022-08-13] MEDS: Docusate Sodium 100 MG CAPSULE PO ×2 (09:48→20:40)
[2022-08-13] MEDS: buPROPion HCl XL 150 MG TAB.ER.24H PO (09:48)
[2022-08-13] MEDS: Propranolol HCL 20 MG TABLET 60 MG PO (09:48)
[2022-08-13 11:40] LABS: Glucose, Whole Blood 127 mg/dL (60-115)
--- NOTE | 2022-08-13 13:56 | P.PNIM_ITS ---
Subjective Subjective Date of Service: 08/13/22 Interval History: sepsis,pneumonia ,uti,abd pain Review of Systems abd pain improved,r denies any cough or phlegm or fevers , has leg swellings Physical Exam Vital Signs: Vital Signs: Last Vital Signs Temp 98.0 F 08/13/22 07:17 Pulse 87 08/13/22 11:12 Resp 18 08/13/22 11:12 BP 132/65 08/13/22 07:17 Pulse Ox 95 08/13/22 07:17 O2 Del Method Nasal Cannula 08/13/22 07:17 O2 Flow Rate 4 08/13/22 07:17 Oxygen Flow Rate 8 08/09/22 19:31 BMI result Body Mass Index 62.7 Appearance: Alert.? Oriented-seems near aher baseline.? has fevers ? cvs: rrr, [id number] . res: air enter y improving,few rhonchii on nc oxygen abd: no rebound or guarding ,nt, bs present. ext pulses present , no cyanosis , leg swellin improving neuro: axo3 , nonfocal. Objective Data Active Medications Acetaminophen (Acetaminophen Supp 650 Mg Supp.Rect) 650 mg OR Q6H PRN PRN Reason: fever Last Admin: 08/11/22 06:48 Dose: 650 mg Documented By: VERNA Albuterol/Ipratropium (Albuterol/Iprat 2.5/0.5mg 3 Ml Ampul.Neb) 3 ml INHALE RQ4H WHILE AWAKE [facility] Last Admin: 08/13/22 11:10 Dose: 3 ml Documented By: EVELIN Albuterol/Ipratropium (Albuterol/Iprat 2.5/0.5mg 3 Ml Ampul.Neb) 3 ml INHALE Q3H PRN PRN Reason: sob Aripiprazole (Aripiprazole 10 Mg Tablet) 10 mg PO DAILY [facility] Last Admin: 08/11/22 09:14 Dose: 10 mg Documented By: TIMMY Bupropion HCl (Bupropion Hcl Xl 150 Mg Tab.Er.24h) 150 mg PO DAILY [facility] Last Admin: 08/13/22 09:48 Dose: 150 mg Documented By: KHADIJAH Docusate Sodium (Docusate Sodium 100 Mg Capsule) 100 mg PO BID [facility] Last Admin: 08/13/22 09:48 Dose: 100 mg Documented By: KHADIJAH Fluticasone/Vilanterol (Fluticasone/Vilanterol 200/25 Blst.W.Dev) 1 puff INHALE RDAILY [facility] Last Admin: 08/13/22 07:49 Dose: 1 puff Documented By: EVELIN Gabapentin (Gabapentin 100 Mg Capsule) 100 mg PO TID [facility] Last Admin: 08/11/22 09:15 Dose: 100 mg Documented By: TIMMY Glucose (Glucose Gel 15 Gm Gel..Gram.) 15 gm PO Q15M PRN; Protocol PRN Reason: per Hypoglycemia Standing Ord. Last Admin: 08/10/22 21:13 Dose: 15 gm Documented By: STEVEN-JACINTO Glucose (Glucose Gel 15 Gm Gel..Gram.) 15 gm PO Q15M PRN; Protocol PRN Reason: per Hypoglycemia Standing Ord. Heparin Sodium (Porcine) (Heparin Sodium,Porcine 5,000 Unit/Ml Vial) 5,000 unit SUBCUT Q8H [facility] Last Admin: 08/12/22 16:06 Dose: Not Given Documented By: ERNESTO Non-Admin Reason: Physician Held Med Piperacillin Sod/Tazobactam (Sod 3.375 gm/ Sodium Chloride) 50 mls @ 100 mls/hr IV Q6H [facility] Last Infusion: 08/13/22 10:42 Dose: 0 mls/hr Documented By: KHADIJAH Dextrose (D10) 250 mls @ 750 mls/hr IV Q15M PRN; Protocol PRN Reason: per Hypoglycemia Standing Ord. Dextrose (D10) 250 mls @ 750 mls/hr IV Q15M PRN; Protocol PRN Reason: per Hypoglycemia Standing Ord. Insulin Human Lispro (Insulin Lispro 100 Unit/Ml 3 Ml Vial) 0 unit SUBCUT QIDACHS [facility]; Protocol Last Admin: 08/13/22 12:59 Dose: Not Given Documented By: KHADIJAH Non-Admin Reason: No Insulin Coverage Morphine Sulfate (Morphine Sulfate 4 Mg/Ml Cartridge) 4 mg IVPUSH Q3H PRN; Protocol PRN Reason: Pain, Severe (Pain Scale 7-10) Last Admin: 08/12/22 21:42 Dose: 4 mg Documented By: GEORGES Omeprazole (Omeprazole 20 Mg Capsule.) 20 mg PO DAILY@0630 [facility] Last Admin: 08/13/22 07:18 Dose: 20 mg Documented By: GEORGES Ondansetron HCl (Ondansetron Hcl 4 Mg/2 Ml Vial) 4 mg IV Q6H PRN PRN Reason: nausea Propranolol HCl (Propranolol Hcl 20 Mg Tablet) 60 mg PO DAILY [facility]; Protocol Last Admin: 08/13/22 09:48 Dose: 60 mg Documented By: KHADIJAH Sodium Chloride (0.9 % Sodium Chloride Flush 3 Ml Syringe) 3 ml IVFLUSH QSHIFT [facility] Last Admin: 08/13/22 10:18 Dose: 3 ml Documented By: KHADIJAH Trazodone HCl (Trazodone Hcl 25 Mg Halftab) 25 mg PO BEDTIME [facility] Last Admin: 08/12/22 21:42 Dose: 25 mg Documented By: GEORGES Labs 08/13/22 08:04 08/12/22 09:24 Labs: Laboratory Results - last 24 hr 08/12/22 08/12/22 08/12/22 13:46 15:39 19:48 POC Glucose 204 H 130 H Blood Type A Positive Antibody Screen NEGATIVE Crossmatch See Detail 08/13/22 08/13/22 07:24 11:32 POC Glucose 110 127 H Blood Type Antibody Screen Crossmatch Microbiology Microbiology Results: Microbiology 08/11/22 07:06 Blood Culture - Preliminary Blood - Venous No growth after 48 hours. 08/11/22 07:06 Blood Culture - Preliminary Blood - Venous No growth after 48 hours. Assessment and Plan (1) Pneumoperitoneum: Status: Acute (2) UTI (urinary tract infection): Status: Acute (3) Anemia: Status: Acute Plan 66-year-old female past medical history of CHF, diabetes, hypertension, comes into the hospital with abdominal pain found to have free air in the abdomenr, but also other acute abnormalities including pneumonia and UTI ?acute sepsis(poa)-?thought to be likely multifactorial secondary to UTI as well as pneumonia tachycardia,fevers improved, intermittent tachypnea-seems improved . no new fevers ,repeat blood cultures neg@48hrs,urine cultures -ecoli antibiotics changed to ceftriaxone day 1 , Tylenol, supportive care ?free air in abdomen mild left side abd pain No nausea vomiting, for fever episode was at midnight Seen by surgery-repeat CT abdomeem:showed resolution of pneumoperitoneum patient denies any abd pain today Surgical [id number] clear liquids moniter closely ? acute UTI ? dip UA, symptomatic cotninue IV antibiotics,follow cultures ?acute hypoxemic/hypercarbic repiratory failure -multfactorial?(copd, ? mild diastolic chf excerebation,pneumonia less likely) moniter bnp,leg swelling improving, continue nebs/steriods ,at baseline on 2liter oxygen support. leg swellin /sob seems improved-will hold dimox . Hold psych medication causing some sleepiness History of dysphagia: ? in 09/17 speech recomended Chopped/Advanced?.evaluation by speech added acute on chronic normocytic anemia: Iron and iron saturation low, ferritin and TIBC normal ?? Question mixed type anemia fobt added ? H&H is 7.7/26.7 will tranfuse 1 prbc , Tylenol for time 1 before and Lasix 20 mg afterwards. Gi eval-egd/colonoscopy once improved. ? diabetes-? hold oral antihyperglycemics -? add low-dose sliding scale insulin -? recommend diabetic diet? once able to take p.o. ?DVT prophylaxis:? Heparin subQ inpatient need :sepsis and uti,chf -need iv antibiotics ,iv diuretics and renalfunction/electroltyes monitering ,also need surgery follow up advance diet Time Spent With Patient Time: Total time managing care of this patient today ____ minutes. Quality Stroke Does the patient have a stroke diagnosis?: No VTE Prior VTE?: No VTE Risk Level:: Surgical - high VTE Device Contraindication: N/A - Device Ordered VTE Drug Contraindication: N/A - Med Ordered
[2022-08-13] MEDS: Morphine Sulfate 4 MG/ML CARTRIDGE IVPUSH ×2 (15:56→22:02)
[2022-08-13] MEDS: cefTRIAXone sodium 1 GM in 0.9 % Sodium Chloride 50 ML IV (15:57)
[2022-08-13 16:02] LABS: Glucose, Whole Blood 142 mg/dL (60-115)
--- NOTE | 2022-08-13 18:50 | P.PNGS_ITS ---
Subjective Subjective Date of Service: 08/13/22 Interval history: pt sleeping not complaining of pain with waking up, says she is hungry Physical Exam Vital Signs: Vital Signs: Last Vital Signs Temp 98.0 F 08/13/22 15:04 Pulse 60 08/13/22 15:04 Resp 20 08/13/22 15:04 BP 115/54 L 08/13/22 15:04 Pulse Ox 100 08/13/22 15:04 O2 Del Method Room Air 08/13/22 15:04 O2 Flow Rate 1 08/13/22 14:09 Oxygen Flow Rate 8 08/09/22 19:31 BMI result Body Mass Index 62.7 GI: Other: abdomen is soft obese nontender Objective Data Active Medications Acetaminophen (Acetaminophen Supp 650 Mg Supp.Rect) 650 mg VA Q6H PRN PRN Reason: fever Last Admin: 08/11/22 06:48 Dose: 650 mg Documented By: VERNA Albuterol/Ipratropium (Albuterol/Iprat 2.5/0.5mg 3 Ml Ampul.Neb) 3 ml INHALE RQ4H WHILE AWAKE [facility] Last Admin: 08/13/22 15:01 Dose: 3 ml Documented By: EVELIN Albuterol/Ipratropium (Albuterol/Iprat 2.5/0.5mg 3 Ml Ampul.Neb) 3 ml INHALE Q3H PRN PRN Reason: sob Aripiprazole (Aripiprazole 10 Mg Tablet) 10 mg PO DAILY [facility] Last Admin: 08/11/22 09:14 Dose: 10 mg Documented By: TIMMY Bupropion HCl (Bupropion Hcl Xl 150 Mg Tab.Er.24h) 150 mg PO DAILY [facility] Last Admin: 08/13/22 09:48 Dose: 150 mg Documented By: KHADIJAH Docusate Sodium (Docusate Sodium 100 Mg Capsule) 100 mg PO BID [facility] Last Admin: 08/13/22 09:48 Dose: 100 mg Documented By: KHADIJAH Fluticasone/Vilanterol (Fluticasone/Vilanterol 200/25 Blst.W.Dev) 1 puff INHALE RDAILY [facility] Last Admin: 08/13/22 07:49 Dose: 1 puff Documented By: EVELIN Gabapentin (Gabapentin 100 Mg Capsule) 100 mg PO TID [facility] Last Admin: 08/11/22 09:15 Dose: 100 mg Documented By: TIMMY Glucose (Glucose Gel 15 Gm Gel..Gram.) 15 gm PO Q15M PRN; Protocol PRN Reason: per Hypoglycemia Standing Ord. Last Admin: 08/10/22 21:13 Dose: 15 gm Documented By: VERNA Glucose (Glucose Gel 15 Gm Gel..Gram.) 15 gm PO Q15M PRN; Protocol PRN Reason: per Hypoglycemia Standing Ord. Heparin Sodium (Porcine) (Heparin Sodium,Porcine 5,000 Unit/Ml Vial) 5,000 unit SUBCUT Q8H [facility] Last Admin: 08/12/22 16:06 Dose: Not Given Documented By: ERNESTO Non-Admin Reason: Physician Held Med Dextrose (D10) 250 mls @ 750 mls/hr IV Q15M PRN; Protocol PRN Reason: per Hypoglycemia Standing Ord. Dextrose (D10) 250 mls @ 750 mls/hr IV Q15M PRN; Protocol PRN Reason: per Hypoglycemia Standing Ord. Ceftriaxone Sodium 1 gm/ (Sodium Chloride) 50 mls @ 100 mls/hr IV Q24H [facility] Last Infusion: 08/13/22 17:02 Dose: 0 mls/hr Documented By: KHADIJAH Insulin Human Lispro (Insulin Lispro 100 Unit/Ml 3 Ml Vial) 0 unit SUBCUT QIDACHS [facility]; Protocol Last Admin: 08/13/22 18:45 Dose: Not Given Documented By: KHADIJAH Non-Admin Reason: No Insulin Coverage Morphine Sulfate (Morphine Sulfate 4 Mg/Ml Cartridge) 4 mg IVPUSH Q3H PRN; Protocol PRN Reason: Pain, Severe (Pain Scale 7-10) Last Admin: 08/13/22 15:56 Dose: 4 mg Documented By: KHADIJAH Omeprazole (Omeprazole 20 Mg Andrei.) 20 mg PO DAILY@0630 [facility] Last Admin: 08/13/22 07:18 Dose: 20 mg Documented By: GEORGES Ondansetron HCl (Ondansetron Hcl 4 Mg/2 Ml Vial) 4 mg IV Q6H PRN PRN Reason: nausea Propranolol HCl (Propranolol Hcl 20 Mg Tablet) 60 mg PO DAILY [facility]; Protocol Last Admin: 08/13/22 09:48 Dose: 60 mg Documented By: KHADIJAH Sodium Chloride (0.9 % Sodium Chloride Flush 3 Ml Syringe) 3 ml IVFLUSH QSHIFT [facility] Last Admin: 08/13/22 17:01 Dose: Not Given Documented By: KHADIJAH Non-Admin Reason: IV Running Trazodone HCl (Trazodone Hcl 25 Mg Halftab) 25 mg PO BEDTIME [facility] Last Admin: 08/12/22 21:42 Dose: 25 mg Documented By: GEORGES Labs 08/13/22 08:04 08/12/22 09:24 Labs: Laboratory Results - last 24 hr 08/12/22 08/13/22 08/13/22 19:48 07:24 11:32 POC Glucose 130 H 110 127 H 08/13/22 15:55 POC Glucose 142 H Microbiology Microbiology Results: Microbiology 08/11/22 07:06 Blood Culture - Preliminary Blood - Venous No growth after 48 hours. 08/11/22 07:06 Blood Culture - Preliminary Blood - Venous No growth after 48 hours. Procedures Date of Service Date of Service: 08/13/22 Progress Note: A&P Assessment and plan (1) Pneumoperitoneum: Status: Acute Assessment and Plan: abdominal exam benign this evening pt tolerated liquids well. advance tomorroe uncertan etiology of pneumoperitoneum but no reason to do anything surgical Time Spent With Patient Time: Total time managing care of this patient today ____ minutes. Quality Stroke Does the patient have a stroke diagnosis?: No VTE Prior VTE?: No VTE Risk Level:: Surgical - high VTE Device Contraindication: N/A - Device Ordered VTE Drug Contraindication: N/A - Med Ordered
[2022-08-13 19:45] LABS: Glucose, Whole Blood 139 mg/dL (60-115)
[2022-08-13] MEDS: traZODone HCL 25 MG HALFTAB PO (20:40)
[2022-08-14] VITALS (7 sets, daily range): BP systolic 137–144; BP diastolic 65–79; PULSE 65–78; RESP 18–20; TEMP 36.3–37.1; O2SAT 93–97
[2022-08-14] MEDS: Omeprazole 20 MG CAPSULE.DR PO (05:48)
[2022-08-14] MEDS: Albuterol/Iprat 2.5/0.5MG 3 ML AMPUL.NEB INHALE ×3 (07:31→19:30)
[2022-08-14] MEDS: Fluticasone/Vilanterol 200/25 BLST.W.DEV 1 PUFF INHALE (07:32)
[2022-08-14 07:38] LABS: Glucose, Whole Blood 160 mg/dL (60-115)
[2022-08-14] MEDS: 0.9 % Sodium Chloride Flush 3 ML SYRINGE IVFLUSH ×2 (08:02→16:23)
[2022-08-14] MEDS: Docusate Sodium 100 MG CAPSULE PO (08:02)
[2022-08-14] MEDS: Propranolol HCL 20 MG TABLET 60 MG PO (08:02)
[2022-08-14] MEDS: Insulin Lispro 100 UNIT/ML 3 ML VIAL SUBCUT ×2 (08:02→12:30)
[2022-08-14 08:46] LABS: Hematocrit 30.1 % (37.0-47.0); Hemoglobin 8.5 g/dl (12.0-16.0)
[2022-08-14 11:56] LABS: Glucose, Whole Blood 155 mg/dL (60-115)
[2022-08-14] MEDS: acetaZOLAMIDE 250 MG TABLET PO (12:29)
--- NOTE | 2022-08-14 12:34 | P.PNIM_ITS ---
Subjective Subjective Date of Service: 08/14/22 Interval History: sepsis,pneumonia ,uti,abd pain Review of Systems abd pain improved,denies any cough or phlegm or fevers , leg swellings improving Physical Exam Vital Signs: Vital Signs: Last Vital Signs Temp 97.4 F 08/14/22 07:02 Pulse 78 08/14/22 11:15 Resp 18 08/14/22 11:15 BP 142/65 H 08/14/22 07:02 Pulse Ox 93 08/14/22 07:02 O2 Del Method Nasal Cannula 08/14/22 07:02 O2 Flow Rate 1.5 08/14/22 07:02 Oxygen Flow Rate 8 08/09/22 19:31 BMI result Body Mass Index 62.7 Appearance: Alert.? Oriented-seems near aher baseline.? has fevers ? cvs: rrr, [id number] . res: air enter y improving,few rhonchii on nc oxygen abd: no rebound or guarding ,nt, bs present. ext pulses present , no cyanosis , leg swellin improving neuro: axo3 , nonfocal. Objective Data Active Medications Acetaminophen (Acetaminophen Supp 650 Mg Supp.Rect) 650 mg CO Q6H PRN PRN Reason: fever Last Admin: 08/11/22 06:48 Dose: 650 mg Documented By: VERNA Acetazolamide (Acetazolamide 250 Mg Tablet) 250 mg PO BID [facility] Last Admin: 08/14/22 12:29 Dose: 250 mg Documented By: KHADIJAH Albuterol/Ipratropium (Albuterol/Iprat 2.5/0.5mg 3 Ml Ampul.Neb) 3 ml INHALE RQ4H WHILE AWAKE [facility] Last Admin: 08/14/22 11:13 Dose: 3 ml Documented By: EVELIN Albuterol/Ipratropium (Albuterol/Iprat 2.5/0.5mg 3 Ml Ampul.Neb) 3 ml INHALE Q3H PRN PRN Reason: sob Aripiprazole (Aripiprazole 10 Mg Tablet) 10 mg PO DAILY [facility] Last Admin: 08/11/22 09:14 Dose: 10 mg Documented By: TIMMY Bupropion HCl (Bupropion Hcl Xl 150 Mg Tab.Er.24h) 150 mg PO DAILY [facility] Last Admin: 08/13/22 09:48 Dose: 150 mg Documented By: KHADIJAH Docusate Sodium (Docusate Sodium 100 Mg Capsule) 100 mg PO BID [facility] Last Admin: 08/14/22 08:02 Dose: 100 mg Documented By: KHADIJAH Fluticasone/Vilanterol (Fluticasone/Vilanterol 200/25 Blst.W.Dev) 1 puff INHALE RDAILY [facility] Last Admin: 08/14/22 07:32 Dose: 1 puff Documented By: EVELIN Gabapentin (Gabapentin 100 Mg Capsule) 100 mg PO TID [facility] Last Admin: 08/11/22 09:15 Dose: 100 mg Documented By: TIMMY Glucose (Glucose Gel 15 Gm Gel..Gram.) 15 gm PO Q15M PRN; Protocol PRN Reason: per Hypoglycemia Standing Ord. Last Admin: 08/10/22 21:13 Dose: 15 gm Documented By: STEVEN-PIERM Glucose (Glucose Gel 15 Gm Gel..Gram.) 15 gm PO Q15M PRN; Protocol PRN Reason: per Hypoglycemia Standing Ord. Heparin Sodium (Porcine) (Heparin Sodium,Porcine 5,000 Unit/Ml Vial) 5,000 unit SUBCUT Q8H [facility] Last Admin: 08/12/22 16:06 Dose: Not Given Documented By: ERNESTO Non-Admin Reason: Physician Held Med Dextrose (D10) 250 mls @ 750 mls/hr IV Q15M PRN; Protocol PRN Reason: per Hypoglycemia Standing Ord. Dextrose (D10) 250 mls @ 750 mls/hr IV Q15M PRN; Protocol PRN Reason: per Hypoglycemia Standing Ord. Ceftriaxone Sodium 1 gm/ (Sodium Chloride) 50 mls @ 100 mls/hr IV Q24H [facility] Last Infusion: 08/13/22 17:02 Dose: 0 mls/hr Documented By: KHADIJAH Insulin Human Lispro (Insulin Lispro 100 Unit/Ml 3 Ml Vial) 0 unit SUBCUT QIDACHS [facility]; Protocol Last Admin: 08/14/22 12:30 Dose: 2 unit Documented By: KHADIJAH Morphine Sulfate (Morphine Sulfate 4 Mg/Ml Cartridge) 4 mg IVPUSH Q3H PRN; Prot ocol PRN Reason: Pain, Severe (Pain Scale 7-10) Last Admin: 08/13/22 22:02 Dose: 4 mg Documented By: REECE Omeprazole (Omeprazole 20 Mg Capsule.) 20 mg PO DAILY@0630 [facility] Last Admin: 08/14/22 05:48 Dose: 20 mg Documented By: REECE Ondansetron HCl (Ondansetron Hcl 4 Mg/2 Ml Vial) 4 mg IV Q6H PRN PRN Reason: nausea Propranolol HCl (Propranolol Hcl 20 Mg Tablet) 60 mg PO DAILY [facility]; Protocol Last Admin: 08/14/22 08:02 Dose: 60 mg Documented By: KHADIJAH Sodium Chloride (0.9 % Sodium Chloride Flush 3 Ml Syringe) 3 ml IVFLUSH QSHIFT [facility] Last Admin: 08/14/22 08:02 Dose: 3 ml Documented By: KHADIJAH Trazodone HCl (Trazodone Hcl 25 Mg Halftab) 25 mg PO BEDTIME [facility] Last Admin: 08/13/22 20:40 Dose: 25 mg Documented By: REECE Labs 08/14/22 08:24 08/12/22 09:24 Labs: Laboratory Results - last 24 hr 08/13/22 08/13/22 08/14/22 15:55 19:37 07:04 POC Glucose 142 H 139 H 160 H 08/14/22 11:22 POC Glucose 155 H Microbiology Microbiology Results: Microbiology 08/11/22 07:06 Blood Culture - Preliminary Blood - Venous No growth after 48 hours. 08/11/22 07:06 Blood Culture - Preliminary Blood - Venous No growth after 48 hours. Assessment and Plan (1) Pneumoperitoneum: Status: Acute (2) UTI (urinary tract infection): Status: Acute (3) Anemia: Status: Acute Plan 66-year-old female past medical history of CHF, diabetes, hypertension, comes into the hospital with abdominal pain found to have free air in the abdomenr, b ut also other acute abnormalities including pneumonia and UTI ?acute sepsis(poa)-?thought to be likely multifactorial secondary to UTI . tachycardia,fevers ,tachypnea-seems improved . no new fevers ,repeat blood cultures neg@48hrs,urine cultures -ecoli antibiotics changed to ceftriaxone day 2, Tylenol, supportive care ?free air in abdomen mild left side abd pain No nausea vomiting, for fever episode was at midnight Seen by surgery-repeat CT abdomeem:showed resolution of pneumoperitoneum patient denies any abd pain today Surgical [id number] clear liquids-will check with suregery if can advance diet ? acute UTI ? dip UA, symptomatic cotninue IV antibiotics,follow cultures ?acute hypoxemic/hypercarbic repiratory failure -multfactorial?(copd, ? mild diastolic chf excerebation,pneumonia less likely) moniter bnp,leg swelling improving, continue nebs/steriods ,at baseline on 2liter oxygen support. leg swellin /sob seems improved-switched to po dimox . Hold psych medication causing some sleepiness History of dysphagia: ? in 09/17 speech recomended Chopped/Advanced?.evaluation by speech added acute on chronic normocytic anemia: Iron and iron saturation low, ferritin and TIBC normal ?? Question mixed type anemia tranfused 1 prbc on08/12 H&H is 8.07/26 fobt need tosend. Gi eval-egd/colonoscopy once improved. ? diabetes-? hold oral antihyperglycemics -? add low-dose sliding scale insulin -? recommend diabetic diet? once able to take p.o. ?DVT prophylaxis:? resume Heparin subQ h/h improving inpatient need :sepsis and uti,chf -need iv antibiotics ,iv diuretics and renal function/electroltyes monitering ,also need surgery follow up advance diet Time Spent With Patient Time: Total time managing care of this patient today ____ minutes. Quality Stroke Does the patient have a stroke diagnosis?: No VTE Prior VTE?: No VTE Risk Level:: Surgical - high VTE Device Contraindication: N/A - Device Ordered VTE Drug Contraindication: N/A - Med Ordered
[2022-08-14] MEDS: Heparin Sodium,Porcine 5,000 UNIT/ML VIAL 5000 UNIT SUBCUT (14:28)
[2022-08-14] MEDS: cefTRIAXone sodium 1 GM in 0.9 % Sodium Chloride 50 ML IV (14:29)
[2022-08-14 16:19] LABS: Glucose, Whole Blood 140 mg/dL (60-115)
[2022-08-14 21:15] LABS: Glucose, Whole Blood 164 mg/dL (60-115)
[2022-08-15] VITALS (9 sets, daily range): BP systolic 120–143; BP diastolic 55–65; PULSE 67–82; RESP 16–20; TEMP 36.1–37; O2SAT 92–98
[2022-08-15] MEDS: Heparin Sodium,Porcine 5,000 UNIT/ML VIAL 5000 UNIT SUBCUT ×4 (00:28→22:33)
[2022-08-15] MEDS: acetaZOLAMIDE 250 MG TABLET PO ×3 (00:30→22:24)
[2022-08-15] MEDS: traZODone HCL 25 MG HALFTAB PO ×2 (00:30→22:24)
[2022-08-15] MEDS: Docusate Sodium 100 MG CAPSULE PO ×2 (00:31→10:46)
[2022-08-15] MEDS: 0.9 % Sodium Chloride Flush 3 ML SYRINGE IVFLUSH ×3 (00:32→22:25)
[2022-08-15 00:45] LABS: Glucose, Whole Blood 147 mg/dL (60-115)
[2022-08-15] MEDS: Morphine Sulfate 4 MG/ML CARTRIDGE IVPUSH (04:51)
[2022-08-15] MEDS: Omeprazole 20 MG CAPSULE.DR PO (06:58)
[2022-08-15] MEDS: Albuterol/Iprat 2.5/0.5MG 3 ML AMPUL.NEB INHALE ×4 (07:40→19:00)
[2022-08-15 07:42] LABS: Glucose, Whole Blood 126 mg/dL (60-115)
--- NOTE | 2022-08-15 10:41 | MHC.SLORD ---
Speech Language Pathology Order Status: Pt was sleeping soundly this morning, no PO trials given. SATELLITE INSTRUCTION FACILITATOR to f/u when pt is advanced from full liquid diet.
[2022-08-15] MEDS: Propranolol HCL 20 MG TABLET 60 MG PO (10:46)
[2022-08-15 11:35] LABS: Glucose, Whole Blood 169 mg/dL (60-115)
--- NOTE | 2022-08-15 11:38 | PM.PNGS ---
Subjective Subjective Date of Service: 08/15/22 Interval history: Has for pain meds this morning Says she had back pain and some abdominal pain Tolerating diet Passing flatus No nausea or vomiting Hungry Physical Exam Vital Signs: Vital Signs: Last Vital Signs Temp 98.6 F 08/15/22 08:00 Pulse 82 08/15/22 11:19 Resp 18 08/15/22 11:19 BP 142/65 H 08/15/22 08:00 Pulse Ox 94 08/15/22 08:00 O2 Del Method Nasal Cannula 08/15/22 08:00 O2 Flow Rate 2 08/15/22 08:00 Oxygen Flow Rate 8 08/09/22 19:31 BMI result Body Mass Index 62.7 Const: Other: Short of breath as baseline General: comfortable Limitations: No physical limitations Resp: Other: Short of breath, as baseline Cardio: Rhythm: abnormal rhythm GI: Other: Morbidly obese Palpation (GI): Soft to palpation, no guarding and not rigid Objective Data Active Medications Acetaminophen (Acetaminophen 325 Mg Tablet) 650 mg PO Q6H PRN PRN Reason: Pain, Mild (Pain Scale 1-3) Acetazolamide (Acetazolamide 250 Mg Tablet) 250 mg PO BID [facility] Last Admin: 08/15/22 10:46 Dose: 250 mg Documented By: MICHELA Albuterol/Ipratropium (Albuterol/Iprat 2.5/0.5mg 3 Ml Ampul.Neb) 3 ml INHALE RQ4H WHILE AWAKE [facility] Last Admin: 08/15/22 11:19 Dose: 3 ml Documented By: EVELIN Albuterol/Ipratropium (Albuterol/Iprat 2.5/0.5mg 3 Ml Ampul.Neb) 3 ml INHALE Q3H PRN PRN Reason: sob Aripiprazole (Aripiprazole 10 Mg Tablet) 10 mg PO DAILY [facility] Last Admin: 08/11/22 09:14 Dose: 10 mg Documented By: TIMMY Bupropion HCl (Bupropion Hcl Xl 150 Mg Tab.Er.24h) 150 mg PO DAILY [facility] Last Admin: 08/13/22 09:48 Dose: 150 mg Documented By: KHADIJAH Docusate Sodium (Docusate Sodium 100 Mg Capsule) 100 mg PO BID [facility] Last Admin: 08/15/22 10:46 Dose: 100 mg Documented By: MICHELA Fluticasone/Vilanterol (Fluticasone/Vilanterol 200/25 Blst.W.Dev) 1 puff INHALE RDAILY [facility] Last Admin: 08/15/22 07:54 Dose: Not Given Documented By: EVELIN Non-Admin Reason: Med Not Available Gabapentin (Gabapentin 100 Mg Capsule) 100 mg PO TID [facility] Last Admin: 08/11/22 09:15 Dose: 100 mg Documented By: TIMMY Glucose (Glucose Gel 15 Gm Gel..Gram.) 15 gm PO Q15M PRN; Protocol PRN Reason: per Hypoglycemia Standing Ord. Last Admin: 08/10/22 21:13 Dose: 15 gm Documented By: STEVEN-HUEM Glucose (Glucose Gel 15 Gm Gel..Gram.) 15 gm PO Q15M PRN; Protocol PRN Reason: per Hypoglycemia Standing Ord. Heparin Sodium (Porcine) (Heparin Sodium,Porcine 5,000 Unit/Ml Vial) 5,000 unit SUBCUT Q8H [facility] Last Admin: 08/15/22 06:58 Dose: 5,000 unit Documented By: ALISIA Dextrose (D10) 250 mls @ 750 mls/hr IV Q15M PRN; Protocol PRN Reason: per Hypoglycemia Standing Ord. Dextrose (D10) 250 mls @ 750 mls/hr IV Q15M PRN; Protocol PRN Reason: per Hypoglycemia Standing Ord. Ceftriaxone Sodium 1 gm/ (Sodium Chloride) 50 mls @ 100 mls/hr IV Q24H [facility] Last Infusion: 08/14/22 16:20 Dose: 0 mls/hr Documented By: KHADIJAH Insulin Human Lispro (Insulin Lispro 100 Unit/Ml 3 Ml Vial) 0 unit SUBCUT QIDACHS [facility]; Protocol Last Admin: 08/15/22 08:21 Dose: Not Given Documented By: MICHELA Non-Admin Reason: No Insulin Coverage Omeprazole (Omeprazole 20 Mg Capsule.) 20 mg PO DAILY@0630 [facility] Last Admin: 08/15/22 06:58 Dose: 20 mg Documented By: ALISIA Ondansetron HCl (Ondansetron Hcl 4 Mg/2 Ml Vial) 4 mg IV Q6H PRN PRN Reason: nausea Propranolol HCl (Propranolol Hcl 20 Mg Tablet) 60 mg PO DAILY [facility]; Protocol Last Admin: 08/15/22 10:46 Dose: 60 mg Documented By: MICHELA Sodium Chloride (0.9 % Sodium Chloride Flush 3 Ml Syringe) 3 ml IVFLUSH QSHIFT [facility] Last Admin: 08/15/22 10:46 Dose: 3 ml Documented By: MICHELA Trazodone HCl (Trazodone Hcl 25 Mg Halftab) 25 mg PO BEDTIME [facility] Last Admin: 08/15/22 00:30 Dose: 25 mg Documented By: ARMSTRH Labs 08/14/22 08:24 08/12/22 09:24 Labs: Laboratory Results - last 24 hr 08/14/22 08/14/22 08/14/22 11:22 16:05 21:06 POC Glucose 155 H 140 H 164 H 08/15/22 08/15/22 08/15/22 00:29 07:34 11:03 POC Glucose 147 H 126 H 169 H Microbiology Microbiology Results: Microbiology 08/09/22 19:53 Blood Culture - Final Blood - Venous No growth after 5 days. 08/09/22 19:53 Blood Culture - Final Blood - Venous No growth after 5 days. Procedures Date of Service Date of Service: 08/15/22 Progress Note: A&P Assessment and plan (1) Abdominal pain: Status: Acute Assessment and Plan: Much improved overall Will advance diet slowly Stable vital signs Nontoxic looking Has multiple medical problems, acute and chronic Time Spent With Patient Time: Total time managing care of this patient today ____ minutes. Quality Stroke Does the patient have a stroke diagnosis?: No VTE Prior VTE?: No VTE Risk Level:: Surgical - high VTE Device Contraindication: N/A - Device Ordered VTE Drug Contraindication: N/A - Med Ordered
--- NOTE | 2022-08-15 12:37 | HO.PM.IMPN ---
Subjective Subjective Date of Service: 08/15/22 Interval History: sepsis,pneumonia ,uti,abd pain Review of Systems abd pain mild intermittent,denies any cough or phlegm or fevers ,? leg swellings improving Physical Exam Vital Signs: Vital Signs: Last Vital Signs Temp 98.6 F 08/15/22 08:00 Pulse 82 08/15/22 11:19 Resp 18 08/15/22 11:19 BP 142/65 H 08/15/22 08:00 Pulse Ox 94 08/15/22 08:00 O2 Del Method Nasal Cannula 08/15/22 08:00 O2 Flow Rate 2 08/15/22 08:00 Oxygen Flow Rate 8 08/09/22 19:31 BMI result Body Mass Index 62.7 Appearance: Alert.? Oriented-seems near aher baseline.? has fevers ? cvs: rrr, [id number] . res: air enter y improving,few rhonchii on nc oxygen abd: no rebound or guarding ,nt, bs present. ext pulses present , no cyanosis , leg swellin improving neuro: axo3 , nonfocal. Objective Data Active Medications Acetaminophen (Acetaminophen 325 Mg Tablet) 650 mg PO Q6H PRN PRN Reason: Pain, Mild (Pain Scale 1-3) Acetazolamide (Acetazolamide 250 Mg Tablet) 250 mg PO BID [facility] Last Admin: 08/15/22 10:46 Dose: 250 mg Documented By: MICHELA Albuterol/Ipratropium (Albuterol/Iprat 2.5/0.5mg 3 Ml Ampul.Neb) 3 ml INHALE RQ4H WHILE AWAKE [facility] Last Admin: 08/15/22 11:19 Dose: 3 ml Documented By: EVELIN Albuterol/Ipratropium (Albuterol/Iprat 2.5/0.5mg 3 Ml Ampul.Neb) 3 ml INHALE Q3H PRN PRN Reason: sob Aripiprazole (Aripiprazole 10 Mg Tablet) 10 mg PO DAILY [facility] Last Admin: 08/11/22 09:14 Dose: 10 mg Documented By: TIMMY Bupropion HCl (Bupropion Hcl Xl 150 Mg Tab.Er.24h) 150 mg PO DAILY [facility] Last Admin: 08/13/22 09:48 Dose: 150 mg Documented By: KHADIJAH Docusate Sodium (Docusate Sodium 100 Mg Capsule) 100 mg PO BID [facility] Last Admin: 08/15/22 10:46 Dose: 100 mg Documented By: MICHELA Fluticasone/Vilanterol (Fluticasone/Vilanterol 200/25 Blst.W.Dev) 1 puff INHALE RDAILY [facility] Last Admin: 08/15/22 07:54 Dose: Not Given Documented By: EVELIN Non-Admin Reason: Med Not Available Gabapentin (Gabapentin 100 Mg Capsule) 100 mg PO TID [facility] Last Admin: 08/11/22 09:15 Dose: 100 mg Documented By: TIMMY Glucose (Glucose Gel 15 Gm Gel..Gram.) 15 gm PO Q15M PRN; Protocol PRN Reason: per Hypoglycemia Standing Ord. Last Admin: 08/10/22 21:13 Dose: 15 gm Documented By: STEVEN-PIERM Glucose (Glucose Gel 15 Gm Gel..Gram.) 15 gm PO Q15M PRN; Protocol PRN Reason: per Hypoglycemia Standing Ord. Heparin Sodium (Porcine) (Heparin Sodium,Porcine 5,000 Unit/Ml Vial) 5,000 unit SUBCUT Q8H [facility] Last Admin: 08/15/22 06:58 Dose: 5,000 unit Documented By: ALISIA Dextrose (D10) 250 mls @ 750 mls/hr IV Q15M PRN; Protocol PRN Reason: per Hypoglycemia Standing Ord. Dextrose (D10) 250 mls @ 750 mls/hr IV Q15M PRN; Protocol PRN Reason: per Hypoglycemia Standing Ord. Ceftriaxone Sodium 1 gm/ (Sodium Chloride) 50 mls @ 100 mls/hr IV Q24H [facility] Last Infusion: 08/14/22 16:20 Dose: 0 mls/hr Documented By: KHADIJAH Insulin Human Lispro (Insulin Lispro 100 Unit/Ml 3 Ml Vial) 0 unit SUBCUT QIDACHS [facility]; Protocol Last Admin: 08/15/22 12:20 Dose: Not Given Documented By: MICHELA Non-Admin Reason: No Insulin Coverage Omeprazole (Omeprazole 20 Mg Capsule.) 20 mg PO DAILY@0630 [facility] Last Admin: 08/15/22 06:58 Dose: 20 mg Documented By: ALISIA Ondansetron HCl (Ondansetron Hcl 4 Mg/2 Ml Vial) 4 mg IV Q6H PRN PRN Reason: nausea Propranolol HCl (Propranolol Hcl 20 Mg Tablet) 60 mg PO DAILY [facility]; Protocol Last Admin: 08/15/22 10:46 Dose: 60 mg Documented By: MICHELA Sodium Chloride (0.9 % Sodium Chloride Flush 3 Ml Syringe) 3 ml IVFLUSH QSHIFT [facility] Last Admin: 08/15/22 10:46 Dose: 3 ml Documented By: MICHELA Trazodone HCl (Trazodone Hcl 25 Mg Halftab) 25 mg PO BEDTIME [facility] Last Admin: 08/15/22 00:30 Dose: 25 mg Documented By: ARMSTRH Labs 08/14/22 08:24 08/12/22 09:24 Labs: Laboratory Results - last 24 hr 08/14/22 08/14/22 08/15/22 16:05 21:06 00:29 POC Glucose 140 H 164 H 147 H 08/15/22 08/15/22 07:34 11:03 POC Glucose 126 H 169 H Microbiology Microbiology Results: Microbiology 08/09/22 19:53 Blood Culture - Final Blood - Venous No growth after 5 days. 08/09/22 19:53 Blood Culture - Final Blood - Venous No growth after 5 days. Assessment and Plan (1) Pneumoperitoneum: Status: Acute (2) UTI (urinary tract infection): Status: Acute (3) Anemia: Status: Acute Plan 66-year-old female past medical history of CHF, diabetes, hypertension, comes into the hospital with abdominal pain found to have free air in the abdomenr, but also other acute abnormalities including pneumonia and UTI ?acute sepsis(poa)-?thought to be likely multifactorial secondary to UTI . tachycardia,fevers ,tachypnea-seems improved . no new fevers ,repeat blood cultures neg@48hrs,urine cultures -ecoli antibiotics changed to ceftriaxone day 2, Tylenol, supportive care ?free air in abdomen mild abd pain intermittent No nausea vomiting, for fever episode was at midnight Seen by surgery-repeat CT abdomeem:showed resolution of pneumoperitoneum patient denies any abd pain today Surgical [id number] clear liquids-will check with surgery if can advance diet ? acute UTI ? dip UA, symptomatic urine culture Ecoli-senstive to ceftriaxone day2. ?acute hypoxemic/hypercarbic repiratory failure -multfactorial?(copd, ? mild diastolic chf excerebation,pneumonia less likely) moniter bnp,leg swelling improving, continue nebs/steriods ,at baseline on 2liter oxygen support. leg swellin /sob seems improved-switched to po dimox . Hold psych medication causing some sleepiness History of dysphagia: ? in 09/17 speech recomended Chopped/Advanced?.evaluation by speech added acute on chronic normocytic anemia: Iron and iron saturation low, ferritin and TIBC normal ?? Question mixed type anemia tranfused 1 prbc on08/12 H&H is 8.07/26 fobt need tosend. Gi eval-egd/colonoscopy once improved. ? diabetes-? hold oral antihyperglycemics -? add low-dose sliding scale insulin -? recommend diabetic diet? once able to take p.o. ?DVT prophylaxis:? resume Heparin subQ h/h improving inpatient need :sepsis and uti-need iv antibiotics ,iv diuretics and renal function/electroltyes monitering ,also need surgery follow up advance diet Time Spent With Patient Time: Total time managing care of this patient today ____ minutes. Quality Stroke Does the patient have a stroke diagnosis?: No VTE Prior VTE?: No VTE Risk Level:: Surgical - high VTE Device Contraindication: N/A - Device Ordered VTE Drug Contraindication: N/A - Med Ordered
--- NOTE | 2022-08-15 13:55 | HO.HSGERICON ---
History of Present Illness Data of Consult Service Date: 08/15/22 Requesting physician: Vincenzo Joyce Primary Care Provider: Carlitos Greer MD [facility] Reason for consult: Reassessment of mental status The patient is a 66-year-old female with a prior history of major depressive disorder with no prior psychiatric admissions, diabetes, morbid obesity, admitted for sepsis with IV antibiotics. The present consult was asked to reassess his mental status since she is much better. On interview, the patient basically remember me, it reported that when I saw her last week she was delirious with IV antibiotics. The patient stated that she is doing much better she is very hungry but she is on a clear liquid diet. She is more awake and alert cooperative and pleasant. We discussed her situation and she agreed to restart her Abilify and Wellbutrin. [facility] Medical History (Updated 08/12/22 @ 13:48 by Vincenzo Joyce MD) Abdominal pain Atrial fibrillation CHF (congestive heart failure) COPD (chronic obstructive pulmonary disease) Dysphagia Essential tremor Hyperlipidemia Memory deficit Pneumoperitoneum UTI (urinary tract infection) Surgical History No pertinent past surgical history Social History Household Members: Other Housing: Assisted Do you presently have visiting nurse or other home services: No (frp, smf) Alcohol intake: never Patient Tobacco Use Status: Never used Tobacco Use of substances other than those prescribed or required for medical reasons: No Currently Displaying Signs/Symptoms of Drug Intoxication Withdrawal: No Have you been hit, kicked, punched, or otherwise hurt by someone within the past year? If so, by whom?: No Do you feel safe in your current relationship?: Yes Is there a partner from a previous relationship who is making you feel unsafe now?: No Are you made to feel afraid or neglected: No Advance Directives: Yes Advance Directives on File: Yes Advance Directives Date on File: 08/27/21 Do you have thoughts of harming others: None Do you have a plan to hurt others: No Plan Recently lost weight without trying: Unsure Eating poorly because of decreased appetite: No Nutrition Risks: No Nutritional Risk Patient : No : No Poor oral hygiene: No service: No Current occupational status: unemployed Meds Allergies Allergy/AdvReac Type Severity Reaction Status Date / Time No Known Allergies Allergy Verified 08/09/22 19:29 Active Medications: Current Medications Acetaminophen (Acetaminophen 325 Mg Tablet) 650 mg PO Q6H PRN PRN Reason: Pain, Mild (Pain Scale 1-3) Acetazolamide (Acetazolamide 250 Mg Tablet) 250 mg PO BID [facility] Last Admin: 08/15/22 10:46 Dose: 250 mg Albuterol/Ipratropium (Albuterol/Iprat 2.5/0.5mg 3 Ml Ampul.Neb) 3 ml INHALE RQ4H WHILE AWAKE [facility] Last Admin: 08/15/22 11:19 Dose: 3 ml Albuterol/Ipratropium (Albuterol/Iprat 2.5/0.5mg 3 Ml Ampul.Neb) 3 ml INHALE Q3H PRN PRN Reason: sob Aripiprazole (Aripiprazole 10 Mg Tablet) 10 mg PO DAILY [facility] Last Admin: 08/11/22 09:14 Dose: 10 mg Bupropion HCl (Bupropion Hcl Xl 150 Mg Tab.Er.24h) 150 mg PO DAILY [facility] Last Admin: 08/13/22 09:48 Dose: 150 mg Docusate Sodium (Docusate Sodium 100 Mg Capsule) 100 mg PO BID [facility] Last Admin: 08/15/22 10:46 Dose: 100 mg Fluticasone/Vilanterol (Fluticasone/Vilanterol 200/25 Blst.W.Dev) 1 puff INHALE RDAILY [facility] Last Admin: 08/15/22 07:54 Dose: Not Given Gabapentin (Gabapentin 100 Mg Capsule) 100 mg PO TID [facility] Last Admin: 08/11/22 09:15 Dose: 100 mg Glucose (Glucose Gel 15 Gm Gel..Gram.) 15 gm PO Q15M PRN; Protocol PRN Reason: per Hypoglycemia Standing Ord. Last Admin: 08/10/22 21:13 Dose: 15 gm Glucose (Glucose Gel 15 Gm Gel..Gram.) 15 gm PO Q15M PRN; Protocol PRN Reason: per Hypoglycemia Standing Ord. Heparin Sodium (Porcine) (Heparin Sodium,Porcine 5,000 Unit/Ml Vial) 5,000 unit SUBCUT Q8H [facility] Last Admin: 08/15/22 06:58 Dose: 5,000 unit Dextrose (D10) 250 mls @ 750 mls/hr IV Q15M PRN; Protocol PRN Reason: per Hypoglycemia Standing Ord. Dextrose (D10) 250 mls @ 750 mls/hr IV Q15M PRN; Protocol PRN Reason: per Hypoglycemia Standing Ord. Ceftriaxone Sodium 1 gm/ (Sodium Chloride) 50 mls @ 100 mls/hr IV Q24H [facility] Last Infusion: 08/14/22 16:20 Dose: Infused Insulin Human Lispro (Insulin Lispro 100 Unit/Ml 3 Ml Vial) 0 unit SUBCUT QIDACHS [facility]; Protocol Last Admin: 08/15/22 12:20 Dose: Not Given Omeprazole (Omeprazole 20 Mg Capsule.Dr) 20 mg PO DAILY@0630 [facility] Last Admin: 08/15/22 06:58 Dose: 20 mg Ondansetron HCl (Ondansetron Hcl 4 Mg/2 Ml Vial) 4 mg IV Q6H PRN PRN Reason: nausea Propranolol HCl (Propranolol Hcl 20 Mg Tablet) 60 mg PO DAILY [facility]; Protocol Last Admin: 08/15/22 10:46 Dose: 60 mg Sodium Chloride (0.9 % Sodium Chloride Flush 3 Ml Syringe) 3 ml IVFLUSH QSHIFT [facility] Last Admin: 08/15/22 10:46 Dose: 3 ml Trazodone HCl (Trazodone Hcl 25 Mg Halftab) 25 mg PO BEDTIME [facility] Last Admin: 08/15/22 00:30 Dose: 25 mg Home Medications Medication Instructions Recorded Confirmed Last Taken Type acetaminophen 325 mg tablet 650 mg PO Q6H PRN temp/pain 08/26/21 08/09/22 Unknown History aripiprazole 10 mg tablet 10 mg PO DAILY 08/26/21 08/09/22 08/09/22 History bisacodyl 10 mg rectal suppository 10 mg GA DAILY PRN Constipation 08/26/21 08/09/22 Unknown History budesonide-formoterol HFA 160 1 inh inhalation DAILY 08/26/21 08/09/22 08/09/22 History mcg-4.5 mcg/actuation aerosol inhaler (Symbicort) docusate sodium 100 mg capsule 100 mg PO BID 08/26/21 08/09/22 08/09/22 History enoxaparin 40 mg/0.4 mL 40 mg subcut DAILY 08/26/21 08/09/22 Unknown History subcutaneous syringe (Lovenox) furosemide 40 mg tablet 40 mg PO DAILY 08/26/21 08/09/22 08/09/22 History insulin lispro 100 unit/mL See Protocol subcut QIDACHS 08/26/21 08/09/22 08/09/22 History subcutaneous solution (Humalog U-100 Insulin) magnesium hydroxide 400 mg/5 mL 30 ml PO DAILY PRN Constipation 08/26/21 08/09/22 Unknown History oral suspension (Milk of Magnesia) polyethylene glycol 3350 17 gram 17 g PO DAILY 08/26/21 08/09/22 08/09/22 History oral powder packet sennosides 8.6 mg tablet (senna) 17.2 mg PO BEDTIME 08/26/21 08/09/22 08/08/22 History gabapentin 100 mg capsule 100 mg PO TID 08/09/22 08/09/22 08/09/22 History glimepiride 4 mg tablet 4 mg PO DAILY 08/09/22 08/09/22 08/09/22 History insulin glargine-yfgn 100 unit/mL 20 unit subcut DAILY 08/09/22 08/09/22 08/09/22 History (3 mL) subcutaneous pen (Semglee (insulin glargine-yfgn) Pen) pioglitazone 45 mg tablet (Actos) 45 mg PO DAILY 08/09/22 08/09/22 08/09/22 History propranolol 20 mg tablet 60 mg PO DAILY 08/09/22 08/09/22 08/09/22 History rosuvastatin 10 mg tablet (Crestor) 10 mg PO BEDTIME 08/09/22 08/09/22 08/08/22 History trazodone 50 mg tablet 25 mg PO BEDTIME 08/09/22 08/09/22 08/08/22 History bupropion HCl 150 mg 24 hr tablet, 150 mg PO BID 08/10/22 08/10/22 08/09/22 History extended release Results Labs 08/14/22 08:24 08/12/22 09:24 Labs: Laboratory Results - last 24 hr 08/14/22 08/14/22 08/15/22 16:05 21:06 00:29 POC Glucose 140 H 164 H 147 H 08/15/22 08/15/22 07:34 11:03 POC Glucose 126 H 169 H Assessment and Plan (1) Depressive disorder: Status: Acute (2) UTI (urinary tract infection): Status: Acute (3) Abdominal pain: Status: Acute (4) CHF (congestive heart failure): Status: Acute (5) Memory deficit: Status: Acute Plan The patient is a middle-aged female with several medical comorbidities with a past history of depression admitted for sepsis on IV antibiotics. The 1st consult was done last week regarding her mental status and if she would benefit to continue with these medications while she is with altered mental status. Diagnosis Delirium resolved. UTI and sepsis improving. Plan 1. We discussed the case with the primary team and we agreed to restart her Abilify 10 mg p.o. q.a.m. and Wellbutrin XL 150 mg daily. 2. Reassessment as demand. Time Spent With Patient Time: Total time managing care of this patient today _25___ minutes. Physical Exam Vital Signs: Last Vital Signs Temp 98.6 F 08/15/22 08:00 Pulse 82 08/15/22 11:19 Resp 18 08/15/22 11:19 BP 142/65 H 08/15/22 08:00 Pulse Ox 94 08/15/22 08:00 O2 Del Method Nasal Cannula 08/15/22 08:00 O2 Flow Rate 2 08/15/22 08:00 Oxygen Flow Rate 8 08/09/22 19:31 BMI result Body Mass Index 62.7 Neuro Cranial nerves: Yes CN's II-XII intact bilaterally Psych Other: The patient is on hospital gowns, laying on her bed, cooperative pleasant and awake. The patient has good eye contact. Mood is slightly dysphoric. Affect is mildly constricted but appropriate. Thought process logical and goal-directed. Thought content denies lucent lesions or delusions no suicidal or homicidal ideation. Insight judgment impulse control improved.
[2022-08-15] MEDS: cefTRIAXone sodium 1 GM in 0.9 % Sodium Chloride 50 ML IV (14:40)
[2022-08-15 16:58] LABS: Glucose, Whole Blood 146 mg/dL (60-115)
[2022-08-15 20:51] LABS: Glucose, Whole Blood 138 mg/dL (60-115)
[2022-08-15] MEDS: Acetaminophen 325 MG TABLET 650 MG PO (22:30)
[2022-08-15 22:41] LABS: OBS Int Ctl Valid YES; OBS1 NEGATIVE (NEGATIVE)
[2022-08-16 03:34] VITALS: BP 126/57; PULSE 74; RESP 18; TEMP 36.2; O2SAT 96
[2022-08-16 06:00] VITALS: BMI 62.7
[2022-08-16 06:22] LABS: Hematocrit 31.9 % (37.0-47.0); Hemoglobin 9.1 g/dl (12.0-16.0); Mean Corpuscular HGB Conc 28.5 g/dl (31.0-35.0); Mean Corpuscular Hemoglobin 25.6 pg (27.0-33.0); Mean Corpuscular Volume 89.9 fL (80.0-98.0); Mean Platelet Volume 11.7 fL (9.4-12.3); NRBC Pct Auto 0.8 /100WBC (0.0-0.2); Platelet Count 172 X10*3/uL (160-400); Red Blood Count 3.55 X10*6/uL (4.20-5.50); Red Cell Distribution Width 17.4 % (11.0-16.0); White Blood Count 6.5 X10*3/uL (4.8-10.8)
[2022-08-16 06:29] LABS: Anion Gap 10 (12-20); Blood Urea Nitrogen 8 mg/dL (9-16); Carbon Dioxide 23 mmol/L (22-29); Chloride 115 mmol/L (96-108); Creatinine Clr Calc Pharmacy 112.9; Estimated Glomerular Filt Rate > 60; Glucose Random 130 mg/dL (60-115); Potassium 5.1 mmol/L (3.3-5.1); Sodium 143 mmol/L (135-145)
[2022-08-16] MEDS: Omeprazole 20 MG CAPSULE.DR PO (06:30)
[2022-08-16] MEDS: Heparin Sodium,Porcine 5,000 UNIT/ML VIAL 5000 UNIT SUBCUT (06:30)
[2022-08-16 07:20] VITALS: BP 129/84; PULSE 77; RESP 20; TEMP 36.2; O2SAT 98
[2022-08-16 07:52] LABS: Glucose, Whole Blood 137 mg/dL (60-115)
[2022-08-16] MEDS: Fluticasone/Vilanterol 200/25 BLST.W.DEV 1 PUFF INHALE (08:05)
[2022-08-16] MEDS: Albuterol/Iprat 2.5/0.5MG 3 ML AMPUL.NEB INHALE ×2 (08:05→11:11)
[2022-08-16 08:06] VITALS: PULSE 77; RESP 20; O2SAT 99
--- NOTE | 2022-08-16 09:03 | PM.DS ---
DS: Providers Provider Date of Service: 08/16/22 Date of admission: 08/09/22 22:29 Primary care physician: Carlitos Greer MD Consults: 08/09/22 22:33 Consult to Hospitalist Routine Comment: Consulting Provider: Hospitalist Reason For Exam: UTI, COPD, CHF, CVA, Pneumonia 08/10/22 15:12 Consult to Infectious Diseases Routine Consulting Provider: [facility] Reason for consultation: uti/pneumonia/abd pain Has provider been notified: No 08/11/22 13:50 Consult to Psychiatry Routine Consulting Provider: Psych Covering Reason for consultation: mutliple psych meds?unclear Has provider been notified: No 08/12/22 13:32 Consult to Gastroenterology Routine Consulting Provider: [facility] Reason for consultation: iron def anemia/ abd pain Has provider been notified: No DS: Diagnosis Discharge Diagnosis (1) Depressive disorder: Status: Acute (2) UTI (urinary tract infection): Status: Acute (3) Abdominal pain: Status: Acute (4) CHF (congestive heart failure): Status: Acute (5) Memory deficit: Status: Acute DS: Summary Hospital Course Hospital Course: 66-year-old female with past medical history of COPD, AFib, CHF, dysphagia, essential tremors, HLD, presents the hospital with complaints of abdominal pain.? Patient was seen by surgery, found to have small amount of free air in the abdomen.? Patient is being admitted for evaluation by surgery but we are consulted as patient was also found to have pneumonia as well as acute UTI.? Patient denies any cough, reports chronic shortness of breath that has not worsened, has chronic lower extremity edema.? Denies any chest pain, reports urinary frequency, no dysuria. ? felt feverish, but does not know how high her fever was, has chills, denies any diarrhea constipation. On arrival to the ED patient found to have a temperature of 102 degrees heart rate of 112, respiratory rate of 28, blood pressure 173/60 .? patient was also noted to be hypoxic and is currently on? 4 L of nasal cannula satting 97% Labs are significant for WBC count 9.1, hemoglobin of 10.2, hematocrit 36.3, UA that is positive for moderate leukocyte Estrace, WBC, and bacteria Chest x-ray shows bilateral pulmonary infiltrate, left greater than right, with some? worsening in the right upper lobe ?patient started on IV antibiotics will be admitted for further management by surgery with consult to medicine for? management of? pneumonia and UTI Hospital course: Patient initially presented with abdominal pain and shortness of breath and work up with abdominal CT on 08/09 revealed a Small amount of free air in the left side of the abdomen and so she was admitted to the surgical service, other subsequently developped fever, leukocytosis and met sepsis criteria with UTI diagnosis, her initial CXR also showed bilateral pnemonia. Dequan pneumoperitoneum--she was followed by surgery, repeat CT the next day showed no pneumonia and so there was no indication for surgical invtervention, she has had intermittent pain but presently without pain, her diet has been advanced and is tolerating Sepsis due to pneumonia and UTI--blood cultures have been negative, urine culture grew E coli, She has been treated with Zosyn from 08/09 to 08/13 and Ceftriaxone from 08/13 to 08/16, she is now afebril, WBC has come down to normal, will treat for a total of 10 days of antibitiocs and therefore 2 more days. She was seen by Psych with recommendation continue Abilify and Welbutrin, and to resume all other chronic meds. Time Spent with Patient Time attestation: Total time managing care of this patient today ____ minutes. Discharge coordination time: Greater than 30 minutes Quality: Safe Use of Opioids Does Pt have an Active Cancer Diagnosis on the Problem List?: No Quality: Stroke Does the patient have a stroke diagnosis?: No Physical Exam Vital Signs: Vital Signs: Last Vital Signs Temp 97.2 F 08/16/22 07:20 Pulse 77 08/16/22 08:06 Resp 20 08/16/22 08:06 BP 129/84 08/16/22 07:20 Pulse Ox 98 08/16/22 07:20 O2 Del Method Nasal Cannula 08/16/22 07:20 O2 Flow Rate 3 08/16/22 07:20 Oxygen Flow Rate 8 08/09/22 19:31 BMI result Body Mass Index 62.7 DS: Data Data Completed and Pending Labs on day of discharge: Laboratory Results - last 24 hr 08/15/22 08/15/22 08/15/22 11:03 16:54 20:33 WBC RBC Hgb Hct MCV MCH MCHC RDW Plt Count MPV Absolute Nucleated RBC Nucleated RBC % (auto) Sodium Potassium Chloride Carbon Dioxide Anion Gap BUN Creatinine Estim Creat Clear Calc Estimated GFR POC Glucose 169 H 146 H 138 H Random Glucose Calcium Stool Occult Blood 08/15/22 08/16/22 08/16/22 22:30 06:03 06:03 WBC 6.5 RBC 3.55 L Hgb 9.1 L Hct 31.9 L MCV 89.9 MCH 25.6 L MCHC 28.5 L RDW 17.4 H Plt Count 172 MPV 11.7 Absolute Nucleated RBC 0.050 H Nucleated RBC % (auto) 0.8 H Sodium 143 Potassium 5.1 D Chloride 115 H Carbon Dioxide 23 Anion Gap 10 L BUN 8 L Creatinine 0.76 Estim Creat Clear Calc 112.9 Estimated GFR > 60 POC Glucose Random Glucose 130 H Calcium 9.0 D Stool Occult Blood NEGATIVE 08/16/22 07:24 WBC RBC Hgb Hct MCV MCH MCHC RDW Plt Count MPV Absolute Nucleated RBC Nucleated RBC % (auto) Sodium Potassium Chloride Carbon Dioxide Anion Gap BUN Creatinine Estim Creat Clear Calc Estimated GFR POC Glucose 137 H Random Glucose Calcium Stool Occult Blood Preliminary micro results at discharge 08/11/22 07:06 Blood Culture - Preliminary Blood - Venous No growth after 48 hours. 08/11/22 07:06 Blood Culture - Preliminary Blood - Venous No growth after 48 hours. Discharge Plan Discharge Anticipated Discharge Date/Time: 08/16/22 08:56 Patient Disposition: [facility] Discharge Diagnosis: pneumonia, UTI Referrals: [facility] [Outside] - 1 Week Carlitos Greer MD [Primary Care Provider] - 1 Week Discharge Medications: New cefuroxime axetil 500 mg tablet 500 mg PO BID 3 Days Qty: 6 0RF Continued furosemide 40 mg Tablet 40 mg PO DAILY sennosides [senna] 8.6 mg Tablet 17.2 mg PO BEDTIME acetaminophen 325 mg Tablet 650 mg PO Q6H PRN (Reason: temp/pain) polyethylene glycol 3350 17 gram Powder In Packet 17 g PO DAILY magnesium hydroxide [Milk of Magnesia] 400 mg/5 mL Suspension 30 ml PO DAILY PRN (Reason: Constipation) bisacodyl 10 mg Suppository 10 mg [place] DAILY PRN (Reason: Constipation) docusate sodium 100 mg Capsule 100 mg PO BID insulin lispro [Humalog U-100 Insulin] 100 unit/mL Solution See Protocol [facility] Protocol: Insulin Correction Scale Less than or equal to 110 ---- Give (units): 0 111 to 150 Give (units): 0 151 to 200 Give (units): 2 201 to 250 Give (units): 4 251 to 300 Give (units): 6 301 to 350 Give (units): 8 Greater than 350 Give (units): 10 Call MD if Blood Glucose > : 350 enoxaparin [Lovenox] 40 mg/0.4 mL Syringe 40 mg SUBCUT DAILY aripiprazole 10 mg Tablet 10 mg PO DAILY budesonide-formoterol [Symbicort] 160-4.5 mcg/actuation Hfa Aerosol Inhaler 1 inh INHALATION DAILY trazodone 50 mg Tablet 25 mg PO BEDTIME pioglitazone [Actos] 45 mg Tablet 45 mg PO DAILY glimepiride 4 mg Tablet 4 mg PO DAILY gabapentin 100 mg Capsule 100 mg PO TID propranolol 20 mg Tablet 60 mg PO DAILY rosuvastatin [Crestor] 10 mg Tablet 10 mg PO BEDTIME insulin glargine-yfgn [Semglee(insulin glarg-yfgn)Pen] 100 unit/mL (3 mL) Insulin Pen 20 unit SUBCUT DAILY bupropion HCl 150 mg tablet extended release 24 hr 150 mg PO BID Discharge Orders: Discharge Order (Routine); Ordered 08/16/22 Ordered By: Db Gordon Diet: Advance to usual diet Activity on Discharge: As tolerated Stand Alone Forms: Patient Portal Discharge page Care Plan Goals: Full recovery from pneumonia and UTI Health Concerns: Pneumonia, UTI Plan of Treatment: Take Ceftin (antibiotics) as recommended for treatment of pneumonia and UTI Assessment: as above Discharge Date/Time: 08/16/22 17:25
--- NOTE | 2022-08-16 10:27 | MHC.CM.PN ---
Per ROUNDS discussion, Patient may be able to return to LTC @ [facility] if she is able to tolerate a diet. CM will follow.
[2022-08-16] MEDS: acetaZOLAMIDE 250 MG TABLET PO (10:35)
[2022-08-16] MEDS: ARIPiprazole 10 MG TABLET PO (10:35)
[2022-08-16] MEDS: 0.9 % Sodium Chloride Flush 3 ML SYRINGE IVFLUSH (10:35)
[2022-08-16] MEDS: buPROPion HCl XL 150 MG TAB.ER.24H PO (10:35)
[2022-08-16] MEDS: Propranolol HCL 20 MG TABLET 60 MG PO (10:35)
--- NOTE | 2022-08-16 10:43 | MHC.SL.DTX ---
Dysphagia Diet modifications: Last documented Solid diet consistencies: Clear Liquid Diet Last documented Liquid consistency: Clear Liquids Last documented Medication Administration: Changes made to current diet?: No Liquid Consistency and Strategies: Liquid Intake Recommendation: Thin Compensatory Strategies for Safe Swallow: Small Sips Compensatory Strategies for Safe Swallow(b): Sitting Upright (90 deg) Small Bites and Sips Rate of Ingestion Change Avoid Specific Foods Solid Food Consistency: Dietary Recommendations: Chopped/Advanced (NDD3) Additional Modifications to Solids: Tray set-up Oral Medication Intake: Whole with Puree Strategies and Precautions to be Taken for Safe Swallow: Sitting Upright (90 deg) Small Bites and Sips Rate of Ingestion Change Avoid Specific Foods Supervision While Eating and/Drinking: Total Supervision (1:1) Foods to Avoid: Tough, difficult to chew solids. Swallowing Recommended Treatments: Compens. Strategy Educat. Level of Impact on: Daily activities: Interpersonal interactions: Education: Employment: Community: Prognosis for Improvement: Recommendation for Speech: Inpatient Speech Therapy Comment: Pt upgraded to Chopped/Advanced NDD3 and Thin Liquids prior to discharge. Frequency/Duration: Date Range for Service Req: Timeline to reassess: Additional Comments: Treatment: Pt upgraded to a regular diet per RN. Requesting re-assessment this morning for disposition diet recommendations. Pt resting on arrival but awakens to voice and light touch. Appears startled at first, stating, why didn't they give me my breakfast? . Pt agrees to PO trials with encouragement. Difficulty noted with positioning. Oral examination shows upper dentures with multiple missing teeth on her bottom. Pt tolerated Ice Chips and sips of Thin Liquids via straw. Tolerated Puree and Ground Solids with adequate oral clearance and no overt s/s of aspiration. With regular solid (brianna cracker), she struggled to process this texture at the oral phase taking a small bite and eventually stated, that's enough of that . GROOVER AND STRIPER OPERATOR recommends Dysphagia Advanced (NDD3) Solids and Thin Liquids. Aspiration precautions including repositioning for meals. Pt will likely need assistance with tray set-up and distant supervision to ensure access to her meals. Medications Whole with Liquids is fine. Assessment: Land Inspector Clinican/Clinical Fellow: No Supervisory Statement: I have reviewed and agree with the student/clinical fellow's documentation: N/A Speech Language Pathologist: Alfredo Ravi M.A., [facility]-GROOVER AND STRIPER OPERATOR
[2022-08-16 11:13] VITALS: PULSE 83; RESP 20; O2SAT 96
[2022-08-16 11:13] LABS: Glucose, Whole Blood 150 mg/dL (60-115)
[2022-08-16 11:30] VITALS: BP 130/83; PULSE 61; RESP 20; TEMP 36.3; O2SAT 99
--- NOTE | 2022-08-16 13:25 | MHC.CM.PN ---
Patient has been medically cleared for dc to LTC today. Patient will return to LTC @ [facility] today at 3PM, via [facility]. CM met with Patient at bedside and addressed IMM with her, providing her with the original and placing a copy on the chart. CM attempted to phone Primary Contact//Osorio @ [phone], but the # is no longer in service.
--- NOTE | 2022-08-16 14:00 | PM.PNGS ---
Subjective Subjective Date of Service: 08/16/22 Interval history: no new evets denies abdl pain tolerating diet Physical Exam Vital Signs: Vital Signs: Last Vital Signs Temp 97.3 F 08/16/22 11:30 Pulse 61 08/16/22 11:30 Resp 20 08/16/22 11:30 BP 130/83 08/16/22 11:30 Pulse Ox 99 08/16/22 11:30 O2 Del Method Nasal Cannula 08/16/22 11:30 O2 Flow Rate 3 08/16/22 11:30 Oxygen Flow Rate 8 08/09/22 19:31 BMI result Body Mass Index 62.7 Const: Other: short of breath as baseline Resp: Other: short of breath as baseline GI: Other: obese Palpation (GI): Soft to palpation, not firm and no guarding Objective Data Active Medications Acetaminophen (Acetaminophen 325 Mg Tablet) 650 mg PO Q6H PRN PRN Reason: Pain, Mild (Pain Scale 1-3) Last Admin: 08/15/22 22:30 Dose: 650 mg Documented By: ALISIA Acetazolamide (Acetazolamide 250 Mg Tablet) 250 mg PO BID [facility] Last Admin: 08/16/22 10:35 Dose: 250 mg Documented By: CHELSY Albuterol/Ipratropium (Albuterol/Iprat 2.5/0.5mg 3 Ml Ampul.Neb) 3 ml INHALE RQ4H WHILE AWAKE [facility] Last Admin: 08/16/22 11:11 Dose: 3 ml Documented By: RUTH Albuterol/Ipratropium (Albuterol/Iprat 2.5/0.5mg 3 Ml Ampul.Neb) 3 ml INHALE Q3H PRN PRN Reason: sob Aripiprazole (Aripiprazole 10 Mg Tablet) 10 mg PO DAILY [facility] Last Admin: 08/16/22 10:35 Dose: 10 mg Documented By: CHELSY Bupropion HCl (Bupropion Hcl Xl 150 Mg Tab.Er.24h) 150 mg PO DAILY [facility] [place] Last Admin: 08/16/22 10:35 Dose: 150 mg Documented By: CHELSY Docusate Sodium (Docusate Sodium 100 Mg Capsule) 100 mg PO BID [facility] Last Admin: 08/16/22 10:35 Dose: Not Given Documented By: CHELSY Non-Admin Reason: Patient Condition Contraindication Fluticasone/Vilanterol (Fluticasone/Vilanterol 200/25 Blst.W.Dev) 1 puff INHALE RDAILY [facility] Last Admin: 08/16/22 08:05 Dose: 1 puff Documented By: MAG Gabapentin (Gabapentin 100 Mg Capsule) 100 mg PO TID [facility] Last Admin: 08/11/22 09:15 Dose: 100 mg Documented By: TIMMY Glucose (Glucose Gel 15 Gm Gel..Gram.) 15 gm PO Q15M PRN; Protocol PRN Reason: per Hypoglycemia Standing Ord. Last Admin: 08/10/22 21:13 Dose: 15 gm Documented By: STEVEN-PIERM Glucose (Glucose Gel 15 Gm Gel..Gram.) 15 gm PO Q15M PRN; Protocol PRN Reason: per Hypoglycemia Standing Ord. Heparin Sodium (Porcine) (Heparin Sodium,Porcine 5,000 Unit/Ml Vial) 5,000 unit SUBCUT Q8H [facility] Last Admin: 08/16/22 06:30 Dose: 5,000 unit Documented By: ALISIA Dextrose (D10) 250 mls @ 750 mls/hr IV Q15M PRN; Protocol PRN Reason: per Hypoglycemia Standing Ord. Dextrose (D10) 250 mls @ 750 mls/hr IV Q15M PRN; Protocol PRN Reason: per Hypoglycemia Standing Ord. Ceftriaxone Sodium 1 gm/ (Sodium Chloride) 50 mls @ 100 mls/hr IV Q24H [facility] Last Infusion: 08/15/22 15:39 Dose: 0 mls/hr Documented By: CHELSY Insulin Human Lispro (Insulin Lispro 100 Unit/Ml 3 Ml Vial) 0 unit SUBCUT QIDACHS [facility]; Protocol Last Admin: 08/16/22 11:29 Dose: Not Given Documented By: CHELSY Non-Admin Reason: No Insulin Coverage Omeprazole (Omeprazole 20 Mg Andrei.) 20 mg PO DAILY@30 [facility] Last Admin: 08/16/22 06:30 Dose: 20 mg Documented By: ALISIA Ondansetron HCl (Ondansetron Hcl 4 Mg/2 Ml Vial) 4 mg IV Q6H PRN PRN Reason: nausea Propranolol HCl (Propranolol Hcl 20 Mg Tablet) 60 mg PO DAILY [facility]; Protocol Last Admin: 08/16/22 10:35 Dose: 60 mg Documented By: BROQuirino Sodium Chloride (0.9 % Sodium Chloride Flush 3 Ml Syringe) 3 ml IVFLUSH QSHIFT [facility] [place] Last Admin: 08/16/22 10:35 Dose: 3 ml Documented By: CHELSY Trazodone HCl (Trazodone Hcl 25 Mg Halftab) 25 mg PO BEDTIME [facility] [place] Last Admin: 08/15/22 22:24 Dose: 25 mg Documented By: MOHANTRH Labs 08/16/22 06:03 08/16/22 06:03 Labs: Laboratory Results - last 24 hr 08/15/22 08/15/22 08/15/22 16:54 20:33 22:30 MCV MCH MCHC RDW Plt Count MPV Absolute Nucleated RBC Nucleated RBC % (auto) Anion Gap Estim Creat Clear Calc Estimated GFR POC Glucose 146 H 138 H Random Glucose Calcium Stool Occult Blood NEGATIVE 08/16/22 08/16/22 08/16/22 06:03 06:03 07:24 MCV 89.9 MCH 25.6 L MCHC 28.5 L RDW 17.4 H Plt Count 172 MPV 11.7 Absolute Nucleated RBC 0.050 H Nucleated RBC % (auto) 0.8 H Anion Gap 10 L Estim Creat Clear Calc 112.9 Estimated GFR > 60 POC Glucose 137 H Random Glucose 130 H Calcium 9.0 D Stool Occult Blood 08/16/22 11:06 MCV MCH MCHC RDW Plt Count MPV Absolute Nucleated RBC Nucleated RBC % (auto) Anion Gap Estim Creat Clear Calc Estimated GFR POC Glucose 150 H Random Glucose Calcium Stool Occult Blood Microbiology Microbiology Results: Microbiology 08/11/22 07:06 Blood Culture - Final Blood - Venous No growth after 5 days. 08/11/22 07:06 Blood Culture - Final Blood - Venous No growth after 5 days. Procedures Date of Service Date of Service: 08/16/22 Progress Note: A&P Assessment and plan (1) Pneumoperitoneum: Status: Acute Assessment and Plan: resolved etiol uncertain question of inflammatory changes in a segment of jejunum, also resolved on CT diet as tolerated shortness of breath as baseline has multiple medical comorbidities Time Spent With Patient Time: Total time managing care of this patient today ____ minutes. Quality Stroke Does the patient have a stroke diagnosis?: No VTE Prior VTE?: No VTE Risk Level:: Surgical - high VTE Device Contraindication: N/A - Device Ordered VTE Drug Contraindication: N/A - Med Ordered
== END 2022-08-16 17:25 | DRG 871 ==
LOC: HO.ED 22:26 → HO.EDOVER 22:35 → HO.IMC 08-10 00:55
PROVIDERS: Internal Medicine; Physician Assistant; Admitting Provider Surgery; Emergency Provider Emergency Medicine; PCP Internal Medicine; Visit Provider Internal Medicine
DX: A41.9 Sepsis, unspecified organism (principal); I50.31 Acute diastolic (congestive) heart failure; J96.01 Acute respiratory failure with hypoxia; J96.02 Acute respiratory failure with hypercapnia; N39.0 Urinary tract infection, site not specified; Z68.44 Body mass index [BMI] 60.0-69.9, adult; I11.0 Hypertensive heart disease with heart failure; E11.9 Type 2 diabetes mellitus without complications; E66.01 Morbid (severe) obesity due to excess calories; K66.8 Other specified disorders of peritoneum; D64.9 Anemia, unspecified; F32.A Depression, unspecified; R13.10 Dysphagia, unspecified; R41.3 Other amnesia; B96.20 Unspecified Escherichia coli [E. coli] as the cause of diseases classified elsewhere; J44.9 Chronic obstructive pulmonary disease, unspecified; E78.5 Hyperlipidemia, unspecified; Z20.822 Contact with and (suspected) exposure to COVID-19; Z79.4 Long term (current) use of insulin; Z79.84 Long term (current) use of oral hypoglycemic drugs; Z79.899 Other long term (current) drug therapy
CPT/HCPCS: 36415; 71045; 74176; 74177; 80048; 80076; 81001; 81003; 82272; 82728; 82803; 82947; 83540; 83605; 83690; 83735; 83880; 84484; 85014; 85018; 85025; 85027; 85610; 86850; 86900; 86901; 86923; 87040; 87086; 87088; 87186; 87502; 87633; 87635; 92526; 92610; 93005; 93306; 94640; 97162; 99285; J0696; J1643; J1885; J1940; J2270; J2543; P9016; Q9957; Q9967

== ENCOUNTER → 2022-08-09 22:29 | Outpatient (BNV) | payer MEDICARE, MEDICAID, SELFPAY | PROVIDERS: Admitting Provider Surgery; Emergency Provider Emergency Medicine; PCP Internal Medicine; Visit Provider Internal Medicine Gastroenterology | DX: D64.9 Anemia, unspecified (principal); R10.9 Unspecified abdominal pain | CPT/HCPCS: 99499 ==

== ENCOUNTER 2022-10-17 16:54 | Inpatient (IN) | payer MEDICARE, MEDICAID, SELFPAY ==
[2022-10-17] VITALS (8 sets, daily range): BP systolic 111–150; BP diastolic 47–109; PULSE 70–93; RESP 19–94; TEMP 36.7–37.7; O2SAT 27–98; BMI 56.7
--- NOTE | ~2022-10-17 | CT_ITS ---
EXAMINATION: CT ABDOMEN AND PELVIS WITHOUT CONTRAST CLINICAL INFORMATION: Reassess for enteritis versus small bowel obstruction. COMPARISON: 10/17/2022 and 08/10/2022 as well as 08/26/2021. TECHNIQUE: Multidetector volumetric imaging was performed from the superior aspect of the liver through the pubic symphysis. Sagittal and coronal reformatted images were obtained on the technologist's workstation. This CT examination was performed using dose optimization techniques as appropriate, variously including the following: *Automated exposure control *Adjustment of mA and/or kV according to patient size (this includes techniques or standardized protocols for targeted exams where dose is matched to indication/reason for exam; i.e. extremities or head) *Use of iterative reconstruction technique DLP: 1116 mGy-cm FINDINGS: LUNG BASES: There is again noted to be combination of interstitial airspace disease more prominent dependently within the lower lobes with some bronchial wall thickening present. This is likely related to atelectatic change with possible superimposed infectious process not ruled out. There is a small right pleural effusion. No pericardial effusion. LIVER, GALLBLADDER, AND BILIARY TREE: There is mild hepatomegaly with vertical span of approximately 21 cm. No focal hepatic lesion or biliary ductal dilatation is present. The gallbladder is distended with dependent layering of increased density material which may be related to sludge or small calculi versus possible vicarious excretion of contrast within the gallbladder from previous intravenous contrast and studies. No gallbladder wall thickening or pericholecystic fluid is appreciated. PANCREAS: Unremarkable. No abnormal mass or peripancreatic inflammatory change. SPLEEN: There is mild splenomegaly with vertical span of 14 cm. ADRENAL GLANDS: Unremarkable. KIDNEYS AND URETERS: The kidneys are normal in size, shape, and attenuation. No hydronephrosis, hydroureter, or calculi seen. No perinephric stranding. There appears to be a 1.1 cm exophytic fluid density structure about the lateral lower pole of the right kidney but not definitely seen on prior studies. This may be related to perinephric stranding versus possible small cyst or angiomyolipoma. BLADDER: Unremarkable. GASTROINTESTINAL TRACT: No dilated loops of large or small bowel are evident. No free air is seen. There is again noted to be free fluid within the cul-de-sac similar to prior studies. There remains some mild mesenteric stranding. I cannot definitely say that there is small bowel wall thickening present on today's imaging. The bowel wall thickening with adjacent fat stranding about the right lower quadrant is improved. There are some adjacent loops of small bowel about the mid lower abdomen which are not well evaluated due to lack of oral and IV contrast and lack of intervening fat planes. No significant abnormality identified within the duodenum or proximal small bowel within the left upper quadrant. No colonic wall thickening is identified. No significant pericolonic fat stranding is seen. The appendix appears unremarkable. ABDOMINAL WALL: There is a small fat-containing umbilical hernia. LYMPH NODES: No lymphadenopathy identified. VASCULAR: Unremarkable. Mild arterial calcified plaque. PELVIC VISCERA: Unremarkable. OSSEOUS STRUCTURES: No suspicious destructive bony lesions. There is multilevel degenerative disc disease and facet arthropathy. CT/CT abdomen pelvis wo IV con IMPRESSION: 1. Improvement in appearance of small bowel abnormality with some residual mesenteric fat stranding. 2. No significant change in pelvic free fluid. 3. Hepatosplenomegaly. Fleischner guidelines were followed.
--- NOTE | ~2022-10-17 | CT_ITS ---
EXAMINATION: CT ABDOMEN AND PELVIS WITH CONTRAST CLINICAL INFORMATION: Right-sided abdominal pain, evaluate for colitis. COMPARISON: 08/10/2022. TECHNIQUE: Multidetector volumetric images were obtained from the superior aspect of the liver through the pubic symphysis following administration 100 mL of Omnipaque 350 intravenous contrast. Sagittal and coronal reformatted images were obtained on the technologist's workstation. Oral contrast: No This CT examination was performed using dose optimization techniques as appropriate, variously including the following: *Automated exposure control *Adjustment of mA and/or kV according to patient size (this includes techniques or standardized protocols for targeted exams where dose is matched to indication/reason for exam; i.e. extremities or head) *Use of iterative reconstruction technique DLP: 1585 mGy-cm FINDINGS: LUNG BASES: Stable increased interstitial markings and mosaic attenuation of the lung parenchyma. LIVER, GALLBLADDER, AND BILIARY TREE: The liver is normal in size, shape, and attenuation. No focal hepatic lesion or biliary ductal dilatation is present. The gallbladder is unremarkable with no evidence of radiopaque gallstones, gallbladder wall thickening, or obvious pericholecystic inflammatory changes. PANCREAS: Unremarkable. SPLEEN: Unremarkable. ADRENAL GLANDS: Unremarkable. KIDNEYS AND URETERS: The kidneys are normal in size, shape, and attenuation. No hydronephrosis, hydroureter, or calculi seen. No perinephric stranding. BLADDER: Unremarkable. GASTROINTESTINAL TRACT: Evaluation of the small bowel is limited due to underdistention, however accounting for this limitation, there appears to be moderate to severe wall thickening of several loops of small bowel scattered throughout the abdomen, increased compared to 08/10/2022. There is increased amount of free fluid layering the pelvis as well as in the right lower quadrant measuring simple fluid in attenuation. No evidence of pneumatosis or pneumoperitoneum. The lumen of the small bowel is not well delineated due to underdistention and there are no precontrast images, therefore the examination is essentially nondiagnostic for evaluation of GI bleed. No significant colonic wall thickening or pericolonic fat stranding to suspect colitis/diverticulitis. ABDOMINAL WALL: No significant hernia. LYMPH NODES: Mild mesenteric vasculature congestion with minimal fat stranding. VASCULAR: Normal caliber abdominal aorta. PELVIC VISCERA: Hysterectomy. OSSEOUS STRUCTURES: Degenerative changes of the spine. No acute or aggressive appearing osseous abnormalities. CT/CT abdomen pelvis w IV con IMPRESSION: Abnormal appearance of the small bowel with associated free fluid in the right lower quadrant and pelvis as well as mild mesenteric congestion. Findings are worrisome for an acute enteritis, progressed compared to 08/10/2022. No pneumatosis or pneumoperitoneum. No organized extraluminal collection. No significant disproportional dilatation or transition point to suspect a high-grade small bowel obstruction, although some degree of early partial small bowel obstruction cannot be excluded in view of mild distention of loops of bowel in the right lower quadrant. Evaluation is essentially nondiagnostic for GI bleed as above, clinical correlation should be obtained.
--- NOTE | ~2022-10-17 | US_ITS ---
EXAMINATION: US ABDOMEN LIMITED CLINICAL INFORMATION: Abdominal pain. Evaluate gallbladder. COMPARISON: Abdomen CT from 10/20/2022. TECHNIQUE: Real-time imaging of the right upper quadrant is focused on the gallbladder. FINDINGS: The gallbladder is physiologically distended. Minimal echogenic bile/sludge layers along the dependent wall. There are no discrete gallstones. The gallbladder wall has normal thickness (2-3 mm). There is no visible edema within the gallbladder wall. No pericholecystic fluid. The common bile duct is incompletely visualized. The visible proximal segment of the duct is 6-7 mm diameter. US/US abdomen limited IMPRESSION: No acute findings. No evidence of cholelithiasis, cholecystitis or biliary tract obstruction.
--- NOTE | 2022-10-17 17:17 | ED.ABDPAIN ---
HPI - Abdominal Pain General Chief Complaint: Abdominal Pain Stated Complaint: ABD PAIN Time Seen by Provider: 10/17/22 17:06 Source: patient and EMS Mode of arrival: EMS Limitations: no limitations History of Present Illness HPI narrative: 66-year-old female with history of CVA presents with right-sided abdominal pain. The pain is severe. It is constant. There is no clear relieving or exacerbating features. The pain is described as sharp. It radiates to her back it is not associated with nausea vomiting. She has had no fevers or chills. She denies any diarrhea, constipation, urinary symptoms. She does have history of UTI frequently. No prior treatment. Patient denies a history of abdominal surgeries. Related Data Home Medications Medication Instructions Recorded Confirmed acetaminophen 325 mg tablet 650 mg PO Q6H PRN temp/pain 08/26/21 10/17/22 aripiprazole 10 mg tablet 10 mg PO DAILY 08/26/21 10/17/22 bisacodyl 10 mg rectal suppository 10 mg CO DAILY PRN Constipation 08/26/21 10/17/22 budesonide-formoterol HFA 160 1 inh inhalation DAILY 08/26/21 10/17/22 mcg-4.5 mcg/actuation aerosol inhaler (Symbicort) docusate sodium 100 mg capsule 100 mg PO BID 08/26/21 10/17/22 enoxaparin 40 mg/0.4 mL 40 mg subcut DAILY 08/26/21 10/17/22 subcutaneous syringe (Lovenox) furosemide 40 mg tablet 40 mg PO DAILY 08/26/21 10/17/22 insulin lispro 100 unit/mL See Protocol subcut QIDACHS 08/26/21 10/17/22 subcutaneous solution (Humalog U-100 Insulin) magnesium hydroxide 400 mg/5 mL 30 ml PO DAILY PRN Constipation 08/26/21 10/17/22 oral suspension (Milk of Magnesia) polyethylene glycol 3350 17 gram 17 g PO DAILY 08/26/21 10/17/22 oral powder packet sennosides 8.6 mg tablet (senna) 17.2 mg PO BEDTIME 08/26/21 10/17/22 gabapentin 100 mg capsule 100 mg PO TID@0600,1400,1800 08/09/22 10/17/22 glimepiride 4 mg tablet 4 mg PO DAILY 08/09/22 10/17/22 insulin glargine-yfgn 100 unit/mL 20 unit subcut DAILY 08/09/22 10/17/22 (3 mL) subcutaneous pen (Semglee (insulin glargine-yfgn) Pen) pioglitazone 45 mg tablet (Actos) 45 mg PO DAILY 08/09/22 10/17/22 propranolol 20 mg tablet 60 mg PO DAILY 08/09/22 10/17/22 rosuvastatin 10 mg tablet (Crestor) 10 mg PO BEDTIME 08/09/22 10/17/22 trazodone 50 mg tablet 25 mg PO BEDTIME 08/09/22 10/17/22 bupropion HCl 150 mg 24 hr tablet, 150 mg PO BID 08/10/22 10/17/22 extended release albuterol sulfate 90 mcg/actuation 2 puff inhalation Q4H PRN 10/17/22 10/17/22 aerosol inhaler Shortness Of Breath lidocaine 4 % topical patch 1 patch topical DAILY 10/17/22 10/17/22 (Aspercreme (lidocaine)) Allergies Allergy/AdvReac Type Severity Reaction Status Date / Time No Known Allergies Allergy Verified 10/17/22 17:06 Review of Systems Review of Systems CONSTITUTIONAL: Denies weight loss, fever and chills. HEENT: Denies changes in vision and hearing. RESPIRATORY: Denies SOB and cough. CV: Denies palpitations no CP. GI: + abdominal pain, no nausea, vomiting and diarrhea. : Denies dysuria and urinary frequency. MSK: Denies myalgia and joint pain. SKIN: Denies rash and pruritus. NEUROLOGICAL: Denies headache and syncope. PSYCHIATRIC: Denies recent changes in mood. Denies anxiety and depression. All other ROS are negative unless in HPI PMFSH Past Medical History Medical History Abdominal pain Atrial fibrillation CHF (congestive heart failure) COPD (chronic obstructive pulmonary disease) Depressive disorder Dysphagia Essential tremor Hyperlipidemia Memory deficit Pneumoperitoneum UTI (urinary tract infection) Surgical History No pertinent past surgical history Social History Social History Household Members: Other Housing: [facility] Do you presently have visiting nurse or other home services: No (frp, smf) Alcohol intake: never Patient Tobacco Use Status: Never used Tobacco Smoked in Last 30 Days: No Use of substances other than those prescribed or required for medical reasons: No Advance Directives: Yes Advance Directives on File: Yes Advance Directives Date on File: 08/27/21 service: No Current occupational status: unemployed Physical Exam ED Vital Signs: Vital Signs - 24 hr 10/17/22 16:57 10/17/22 17:07 10/17/22 20:35 Temperature 98.0 F 99.6 F Pulse Rate 70 84 Respiratory Rate 22 H 21 H Blood Pressure 137/69 129/109 H Pulse Oximetry 97 98 95 Oxygen Delivery Method Nasal Cannula Nasal Cannula Nasal Cannula Oxygen Flow Rate 3 2 BMI result Body Mass Index 56.7 GEN: Well developed, no acute distress, alert, oriented HEENT: Normocephalic, atraumatic, normal external ears, nose appears normal, no oropharyngeal edema or exudates Eyes: Normal to appearance Neck: Supple, no lymphadenopathy Respiratory: Talks in complete sentences, no respiratory distress, clear to auscultation bilaterally Cardiovascular: Regular rate and rhythm, no murmurs rubs or gallops Abdomen: Soft, right-sided abdominal tenderness, nondistended, + guarding, no rebound Back: No CVA tenderness Extremities: No clubbing cyanosis or edema Neurologic: No acute focal neurologic deficits, left upper extremity contracture Skin: No rash Course Reevaluation(s) Reevaluation #1: Patient continued to have pain. She would like another dose of pain medication. Time: 20:21 Reevaluation #2: I reviewed the results with the patient. Differential diagnosis included enteritis versus partial or early small bowel obstruction. Patient is still having difficulties with pain management. Will admit the patient per discussion with patient and hospitalist Time: 20:45 Medical Decision Making Medical Decision Making [facility] Narrative: patient presents with acute right-sided abdominal pain. Differential diagnosis includes appendicitis, cholecystitis, UTI, pyelonephritis, nephrolithiasis, colitis, IBD, IBS, obstruction, epiploic appendagitis, gastroenteritis plan: Check labs, check CT scan the abdomen and pelvis, provide patient with analgesia Differential Diagnosis Differential Diagnoses: The differential diagnosis associated with the presentation includes ( see above) Admission/Observation Consideration of admission/observation: Escalation of care including admission/observation considered Lab Data [facility] Lab Attestation statement: I reviewed the patient's lab results. 10/17/22 17:29 10/17/22 17:29 Labs: Lab Results 10/17/22 10/17/22 10/17/22 Range/Units 17:29 17:29 17:29 WBC 5.2 (4.8-10.8) X10*3/uL RBC 4.12 L (4.20-5.50) X10*6/uL Hgb 10.4 L (12.0-16.0) g/dl Hct 36.6 L (37.0-47.0) % MCV 88.8 (80.0-98.0) fL MCH 25.2 L (27.0-33.0) pg MCHC 28.4 L (31.0-35.0) g/dl RDW 16.8 H (11.0-16.0) % Plt Count 238 D (160-400) X10*3/uL MPV 10.9 (9.4-12.3) fL Immature Gran % (Auto) 0.6 H (0.0-0.4) % Neut % (Auto) 73.6 H (45-73) % Lymph % (Auto) 19.7 L (20-40) % Maries % (Auto) 4.4 (2-11) % Eos % (Auto) 1.5 (0-4) % Baso % (Auto) 0.2 (0-2) % Lymph # (Auto) 1.0 L (1.2-4.9) X10*3/uL Maries # (Auto) 0.2 (0.1-1.2) X10*3/uL Eos # (Auto) 0.1 (0.0-0.4) X10*3/uL Baso # (Auto) 0.0 (0.0-0.2) X10*3/uL Abs Immat Gran (auto) 0.03 (0.00-0.03) X10*3/uL Absolute Neuts (auto) 3.9 (2.0-8.3) x10*3/uL Absolute Nucleated RBC 0.000 (0.0-0.012) X10*3/uL Nucleated RBC % (auto) 0.0 (0.0-0.2) /100WBC Sodium 141 (135-145) mmol/L Potassium 4.7 (3.3-5.1) mmol/L Chloride 102 (96-108) mmol/L Carbon Dioxide 33 H (22-29) mmol/L Anion Gap 11 L (12-20) BUN 14 (9-16) mg/dL Creatinine 1.08 (0.5-1.4) mg/dL Estim Creat Clear Calc 74.3 Estimated GFR 51 Random Glucose 109 (60-115) mg/dL Lactic Acid 0.8 (0.5-2.0) mmol/L Calcium 9.7 D (8.4-10.2) mg/dL Total Bilirubin 0.5 (0.0-1.0) mg/dL AST 10 (5-31) U/L ALT 8 (0-31) U/L Alkaline Phosphatase 61 (39-117) U/L Total Protein 8.2 H (6.5-8.0) g/dL Albumin 3.9 (3.5-5.0) g/dL Lipase 12 (8-78) U/L Independent Interpretation I performed an independent interpretation of an: CT Scan ( Abdomen pelvis: No evidence of small-bowel obstruction) Radiology Impression Discussion of test interpretation with radiology: I have reviewed the radiologist's reading. Radiologist Impression: CT/CT abdomen pelvis w IV con IMPRESSION: Abnormal appearance of the small bowel with associated free fluid in the right lower quadrant and pelvis as well as mild mesenteric congestion. Findings are worrisome for an acute enteritis, progressed compared to 08/10/2022. ? No pneumatosis or pneumoperitoneum. No organized extraluminal collection. ? No significant disproportional dilatation or transition point to suspect a high-grade small bowel obstruction, although some degree of early partial small bowel obstruction cannot be excluded in view of mild distention of loops of bowel in the right lower quadrant. ? Evaluation is essentially nondiagnostic for GI bleed as above, clinical correlation should be obtained. ? Dictated By: Cathy Aggarwal Signed By: <Electronically signed by Cathy? Jasen in OV> 10/17/222007 Independent Historian Clinical information obtained from an independent historian. History obtained from or confirmed by: EMS Tests considered The following testing was considered but not selected: ultrasound Prescription Management I considered prescription management with: Pain Medication Medications Administered Discontinued Medications Generic Name Dose Route Start Last Admin Trade Name Rich PRN Reason Stop Dose Admin Iohexol 100 ml 10/17/22 18:48 10/17/22 18:48 Iohexol 350 Mg/Ml 100 Ml Infus..Btl IV 10/17/22 18:49 100 ml ONCE ONE Administration Ketorolac Tromethamine 15 mg 10/17/22 17:11 10/17/22 17:35 Ketorolac Tromethamine 15 Mg/Ml Vial IVPUSH 10/17/22 17:12 15 mg ONCE ONE Administration Morphine Sulfate 4 mg 10/17/22 20:23 10/17/22 20:44 Morphine Sulfate 4 Mg/Ml Cartridge IVPUSH 10/17/22 20:24 4 mg ONCE ONE Administration Protocol Discharge Plan Discharge Clinical Impression: Abdominal pain Patient Disposition: Admitted As Inpatient Prescriptions: No Action furosemide 40 mg Tablet 40 mg PO DAILY sennosides [senna] 8.6 mg Tablet 17.2 mg PO BEDTIME acetaminophen 325 mg Tablet 650 mg PO Q6H PRN (Reason: temp/pain) polyethylene glycol 3350 17 gram Powder In Packet 17 g PO DAILY magnesium hydroxide [Milk of Magnesia] 400 mg/5 mL Suspension 30 ml PO DAILY PRN (Reason: Constipation) bisacodyl 10 mg Suppository 10 mg CO DAILY PRN (Reason: Constipation) docusate sodium 100 mg Capsule 100 mg PO BID insulin lispro [Humalog U-100 Insulin] 100 unit/mL Solution See Protocol SUBCUT QIDACHS Protocol: Insulin Correction Scale Less than or equal to 110 ---- Give (units): 0 111 to 150 Give (units): 0 151 to 200 Give (units): 2 201 to 250 Give (units): 4 251 to 300 Give (units): 6 301 to 350 Give (units): 8 Greater than 350 Give (units): 10 Call MD if Blood Glucose > : 350 enoxaparin [Lovenox] 40 mg/0.4 mL Syringe 40 mg SUBCUT DAILY Rx Instructions: finish 10/27/2022, then switch to eliquis aripiprazole 10 mg Tablet 10 mg PO DAILY budesonide-formoterol [Symbicort] 160-4.5 mcg/actuation Hfa Aerosol Inhaler 1 inh INHALATION DAILY trazodone 50 mg Tablet 25 mg PO BEDTIME pioglitazone [Actos] 45 mg Tablet 45 mg PO DAILY glimepiride 4 mg Tablet 4 mg PO DAILY gabapentin 100 mg Capsule 100 mg PO TID@0600,1400,1800 propranolol 20 mg Tablet 60 mg PO DAILY rosuvastatin [Crestor] 10 mg Tablet 10 mg PO BEDTIME insulin glargine-yfgn [Semglee(insulin glarg-yfgn)Pen] 100 unit/mL (3 mL) Insulin Pen 20 unit SUBCUT DAILY bupropion HCl 150 mg tablet extended release 24 hr 150 mg PO BID lidocaine [Aspercreme (lidocaine)] 4 % Adhesive Patch,Medicated 1 patch TOPICAL DAILY albuterol sulfate 90 mcg/actuation Hfa Aerosol Inhaler 2 puff INHALATION Q4H PRN (Reason: Shortness Of Breath)
[2022-10-17] MEDS: Ketorolac Tromethamine 15 MG/ML VIAL IVPUSH (17:35)
[2022-10-17 17:36] LABS: MANUAL DIFF FLAG NO
[2022-10-17 17:39] LABS: Basophils Percent Auto 0.2 % (0-2); Eosinophils Absolute Auto 0.1 X10*3/uL (0.0-0.4); Eosinophils Percent Auto 1.5 % (0-4); Hematocrit 36.6 % (37.0-47.0); Hemoglobin 10.4 g/dl (12.0-16.0); Imm Gran Abs Auto 0.03 X10*3/uL (0.00-0.03); Imm Gran Pct Auto 0.6 % (0.0-0.4); Lymphocytes Percent Auto 19.7 % (20-40); Mean Corpuscular HGB Conc 28.4 g/dl (31.0-35.0); Mean Corpuscular Hemoglobin 25.2 pg (27.0-33.0); Mean Corpuscular Volume 88.8 fL (80.0-98.0); Mean Platelet Volume 10.9 fL (9.4-12.3); Monocytes Absolute Auto 0.2 X10*3/uL (0.1-1.2); Monocytes Percent Auto 4.4 % (2-11); Neutrophils Absolute Auto 3.9 x10*3/uL (2.0-8.3); Neutrophils Percent Auto 73.6 % (45-73); Platelet Count 238 X10*3/uL (160-400); Red Blood Count 4.12 X10*6/uL (4.20-5.50); Red Cell Distribution Width 16.8 % (11.0-16.0); White Blood Count 5.2 X10*3/uL (4.8-10.8)
--- NOTE | 2022-10-17 17:50 | PHA.MEDREC ---
Pharmacy Consult ? Medication Reconciliation Pharmacy has completed the medication reconciliation. Patient came from [facility] with medication list. Stefania Cardoso, JoslynD
[2022-10-17 17:59] LABS: Lactic Acid 0.8 mmol/L (0.5-2.0)
[2022-10-17 18:01] LABS: Alanine Aminotransferase 8 U/L (0-31); Albumin Level 3.9 g/dL (3.5-5.0); Alkaline Phosphatase 61 U/L (39-117); Anion Gap 11 (12-20); Aspartate Amino Transferase 10 U/L (5-31); Bilirubin Total 0.5 mg/dL (0.0-1.0); Blood Urea Nitrogen 14 mg/dL (9-16); Calcium 9.7 mg/dL (8.4-10.2); Carbon Dioxide 33 mmol/L (22-29); Chloride 102 mmol/L (96-108); Creatinine Clr Calc Pharmacy 74.3; Estimated Glomerular Filt Rate 51; Glucose Random 109 mg/dL (60-115); Lipase 12 U/L (8-78); Potassium 4.7 mmol/L (3.3-5.1); Sodium 141 mmol/L (135-145); Total Protein 8.2 g/dL (6.5-8.0)
[2022-10-17] MEDS: iohexoL 350 MG/ML 100 ML INFUS..BTL IV (18:48)
[2022-10-17] MEDS: Morphine Sulfate 4 MG/ML CARTRIDGE IVPUSH (20:44)
--- NOTE | 2022-10-17 20:52 | PM.IMHP ---
History of Present Illness Date of Service: 10/17/22 Chief Complaint: Abdominal pain 66-year-old female morbidly obese with past medical history of CHF, AFib, history of dysphagia, essential tremors, HLD, recently admitted for pneumoperitoneum presents to the hospital with abdominal pain. Patient reports symptoms started suddenly around 15:00 on day presentation, diffuse worse in the lower quadrants bilaterally stabbing pain, constant, radiating to her back, relieved with pain medications. No fever chills, no nausea vomiting, no diarrhea constipation, last bowel movement was the day before, passing gas today. Other review of system negative On arrival to the ED patient hemodynamically stable no significant abnormal vitals Labs are significant for WBC count 5.2, hemoglobin of 10.4 which is around her baseline, hematocrit 36.6, UA showing nitrites, WBC CT abdomen showing abnormal appearance of the small bowel with associated free fluid in the right lower quadrant and pelvis as well as mildness inter congestion worrisome for acute enteritis which is progress from previous, no pneumatosis or pneumoperitoneum, some degree of early partial small-bowel obstruction cannot be excluded Patient started on IV antibiotics, IV fluids, and will be admitted for further management Review of Systems Review of Systems: Yes all other systems are reviewed and are negative [facility] Medical History Abdominal pain Atrial fibrillation CHF (congestive heart failure) COPD (chronic obstructive pulmonary disease) Depressive disorder Dysphagia Essential tremor Hyperlipidemia Memory deficit Pneumoperitoneum UTI (urinary tract infection) Surgical History No pertinent past surgical history Social History Household Members: Other Housing: [facility] Do you presently have visiting nurse or other home services: No (p, smf) Alcohol intake: never Patient Tobacco Use Status: Never used Tobacco Smoked in Last 30 Days: No Use of substances other than those prescribed or required for medical reasons: No Advance Directives: Yes Advance Directives on File: Yes Advance Directives Date on File: 08/27/21 service: No Current occupational status: unemployed Meds Allergies Allergy/AdvReac Type Severity Reaction Status Date / Time No Known Allergies Allergy Verified 10/17/22 17:06 Home Medications Medication Instructions Recorded Confirmed Last Taken Type acetaminophen 325 mg tablet 650 mg PO Q6H PRN temp/pain 08/26/21 10/17/22 Unknown History aripiprazole 10 mg tablet 10 mg PO DAILY 08/26/21 10/17/22 08/09/22 History bisacodyl 10 mg rectal suppository 10 mg [place] DAILY PRN Constipation 08/26/21 10/17/22 Unknown History budesonide-formoterol HFA 160 1 inh inhalation DAILY 08/26/21 10/17/22 08/09/22 History mcg-4.5 mcg/actuation aerosol inhaler (Symbicort) docusate sodium 100 mg capsule 100 mg PO BID 08/26/21 10/17/22 08/09/22 History enoxaparin 40 mg/0.4 mL 40 mg subcut DAILY 08/26/21 10/17/22 Unknown History subcutaneous syringe (Lovenox) furosemide 40 mg tablet 40 mg PO DAILY 08/26/21 10/17/22 08/09/22 History insulin lispro 100 unit/mL See Protocol subcut QIDACHS 08/26/21 10/17/22 08/09/22 History subcutaneous solution (Humalog U-100 Insulin) magnesium hydroxide 400 mg/5 mL 30 ml PO DAILY PRN Constipation 08/26/21 10/17/22 Unknown History oral suspension (Milk of Magnesia) polyethylene glycol 3350 17 gram 17 g PO DAILY 08/26/21 10/17/22 08/09/22 History oral powder packet sennosides 8.6 mg tablet (senna) 17.2 mg PO BEDTIME 08/26/21 10/17/22 08/08/22 History gabapentin 100 mg capsule 100 mg PO TID@0600,1400,1800 08/09/22 10/17/22 08/09/22 History glimepiride 4 mg tablet 4 mg PO DAILY 08/09/22 10/17/22 08/09/22 History insulin glargine-yfgn 100 unit/mL 20 unit subcut DAILY 08/09/22 10/17/22 08/09/22 History (3 mL) subcutaneous pen (Semglee (insulin glargine-yfgn) Pen) pioglitazone 45 mg tablet (Actos) 45 mg PO DAILY 08/09/22 10/17/22 08/09/22 History propranolol 20 mg tablet 60 mg PO DAILY 08/09/22 10/17/22 08/09/22 History rosuvastatin 10 mg tablet (Crestor) 10 mg PO BEDTIME 08/09/22 10/17/22 08/08/22 History trazodone 50 mg tablet 25 mg PO BEDTIME 08/09/22 10/17/22 08/08/22 History bupropion HCl 150 mg 24 hr tablet, 150 mg PO BID 08/10/22 10/17/22 08/09/22 History extended release albuterol sulfate 90 mcg/actuation 2 puff inhalation Q4H PRN 10/17/22 10/17/22 Unknown History aerosol inhaler Shortness Of Breath lidocaine 4 % topical patch 1 patch topical DAILY 10/17/22 10/17/22 Unknown History (Aspercreme (lidocaine)) Physical Exam Vital Signs and Narrative: Vital Signs: Last Vital Signs Temp 99.6 F 10/17/22 20:35 Pulse 84 10/17/22 20:35 Resp 21 H 10/17/22 20:35 BP 129/109 H 10/17/22 20:35 Pulse Ox 95 10/17/22 20:35 O2 Del Method Nasal Cannula 10/17/22 20:35 O2 Flow Rate 2 10/17/22 20:35 Oxygen Flow Rate 3 10/17/22 16:57 BMI result Body Mass Index 56.7 Const: Other: Obese General: cooperative and no acute distress Orientation/consciousness: patient oriented x3 Eyes: General: appearance normal, both eyes and all related structures Resp: Effort & Inspection: normal respiratory effort Auscultation: clear to auscultation bilaterally Cardio: Rate: regular rate Rhythm: regular rhythm GI: Other: Obese abdomen Abdomen is soft, diffusely tender, no rebound or guarding, slightly hyperactive bowel sounds Palpation (GI): Soft to palpation Skin: General skin exam: no rashes or lesions noted Neuro: General: patient oriented x3 Cognition (Neuro): normal cognition Extrem: General: Yes normal to inspection and Yes no pedal edema Results Labs 10/17/22 17:29 10/17/22 17:29 Labs: Laboratory Results - last 24 hr 10/17/22 10/17/22 10/17/22 17:29 17:29 17:29 MCV 88.8 MCH 25.2 L MCHC 28.4 L RDW 16.8 H Plt Count 238 D MPV 10.9 Immature Gran % (Auto) 0.6 H Neut % (Auto) 73.6 H Lymph % (Auto) 19.7 L [place] % (Auto) 4.4 Eos % (Auto) 1.5 Baso % (Auto) 0.2 Lymph # (Auto) 1.0 L [place] # (Auto) 0.2 Eos # (Auto) 0.1 Baso # (Auto) 0.0 Abs Immat Gran (auto) 0.03 Absolute Neuts (auto) 3.9 Absolute Nucleated RBC 0.000 Nucleated RBC % (auto) 0.0 Anion Gap 11 L Estim Creat Clear Calc 74.3 Estimated GFR 51 Random Glucose 109 Lactic Acid 0.8 Calcium 9.7 D Total Bilirubin 0.5 AST 10 ALT 8 Alkaline Phosphatase 61 Total Protein 8.2 H Albumin 3.9 Lipase 12 Imaging Radiologist's Impressions: Impressions Abdomen/Pelvis CT 10/17/22 18:46 IMPRESSION: Abnormal appearance of the small bowel with associated free fluid in the right lower quadrant and pelvis as well as mild mesenteric congestion. Findings are worrisome for an acute enteritis, progressed compared to 08/10/2022. No pneumatosis or pneumoperitoneum. No organized extraluminal collection. No significant disproportional dilatation or transition point to suspect a high-grade small bowel obstruction, although some degree of early partial small bowel obstruction cannot be excluded in view of mild distention of loops of bowel in the right lower quadrant. Evaluation is essentially nondiagnostic for GI bleed as above, clinical correlation should be obtained. Assessment and Plan (1) Enteritis: Status: Acute (2) Partial small bowel obstruction: Status: Acute (3) Abdominal pain: Status: Acute (4) UTI (urinary tract infection): Status: Acute Plan 66-year-old female past medical history of chronic anemia, COPD, comes into the hospital with complaints of abdominal pain # abdominal pain - secondary to acute enteritis versus partial small-bowel obstruction - treat with Tylenol, p.r.n. IV analgesics if necessary - IV antibiotics for enteritis - bowel rest # acute enteritis - no diarrhea, no nausea or vomiting -will treat with IV antibiotics - follow cultures - bowel rest # partial small-bowel obstruction - last BM the day prior to presentation, but passing gas - hemodynamically stable, no nausea vomiting - bowel rest , n.p.o. - general surgery consulted # history of COPD - not in exacerbation - continue home inhaler # diabetes - hold oral antihyperglycemics - start low-dose sliding scale insulin - continue home insulin -diabetic diet Continue all other home medications DVT prophylaxis: Lovenox Given patient's need for IV antibiotics, and further management of partial small-bowel obstruction patient will require minimum 2 night hospital stay for surgical evaluation Time Spent With Patient Time: Total time managing care of this patient today ____ minutes. Quality Stroke Does the patient have a stroke diagnosis?: No VTE Prior VTE?: No VTE Risk Level:: Medical - moderate - high VTE Device Contraindication: Treatment Not Indicated VTE Drug Contraindication: N/A - Med Ordered
[2022-10-17 21:12] LABS: Appearance Urine Clear; Color Urine Yellow; Glucose Urine UA Negative (Negative); Leukocyte Esterase Urine Negative (Negative); Nitrite Urine Positive (Negative); PH 5.5 (5.0-9.0); Specific Gravity - Urine <= 1.005 (1.005-1.025); UMIC TRIGGER UACC YES; Urine Blood Moderate (2+) (Negative); Urine Ketones Negative (Negative); Urine Protein Negative (Neg-Trace)
[2022-10-17] MEDS: cefTRIAXone sodium 1 GM in 0.9 % Sodium Chloride 50 ML IV (21:25)
[2022-10-17] MEDS: Enoxaparin Sodium 40 MG/0.4 ML SYRINGE SUBCUT (21:25)
[2022-10-17 21:27] LABS: Bacteria Urine 3+ (None Seen); Hyaline Casts Urine 0-2 /LPF (0-2); Squamous Epithelial Cell Urine 0-2 /HPF (0-2); UACC Culture Trigger YES
[2022-10-17] MEDS: metroNIDAZOLE/NS 500 MG/100 ML PIGGYBACK 100 MG IV (22:40)
[2022-10-17] MEDS: Albuterol/Iprat 2.5/0.5MG 3 ML AMPUL.NEB INHALE (22:47)
[2022-10-17] MEDS: Acetaminophen 325 MG TABLET 650 MG PO (23:32)
--- NOTE | 2022-10-17 23:36 | PC.NURSE ---
Pt 14 Fr straight cathed placed, with 200ml immediate output straight cath removed pt tolerated well, pt bed linen changed. Periwick placed Pt requested breathing treatment, Respiratory contacted to admin breathing treatment. oral temp of 99.9 this RN made Doctor Tesfaye aware of temp, pt medicated with PO tylenol.
[2022-10-18] VITALS (7 sets, daily range): BP systolic 96–150; BP diastolic 53–87; PULSE 81–100; RESP 17–20; TEMP 36.6–37.2; O2SAT 90–95
[2022-10-18] MEDS: 0.9 % Sodium Chloride Flush 3 ML SYRINGE IVFLUSH ×3 (00:15→20:12)
[2022-10-18] MEDS: oxyCODONE HCl Immed Release 5 MG TABLET PO ×4 (00:30→22:41)
--- NOTE | 2022-10-18 03:46 | PC.NURSE ---
this rn resumed the care of this pt.
[2022-10-18 05:39] LABS: MANUAL DIFF FLAG NO
[2022-10-18] MEDS: metroNIDAZOLE/NS 500 MG/100 ML PIGGYBACK 100 MG IV ×3 (05:39→21:14)
[2022-10-18 05:40] LABS: Basophils Absolute Auto 0.1 X10*3/uL (0.0-0.2); Basophils Percent Auto 0.5 % (0-2); Eosinophils Percent Auto 0.1 % (0-4); Hematocrit 33.2 % (37.0-47.0); Hemoglobin 9.7 g/dl (12.0-16.0); Imm Gran Abs Auto 0.15 X10*3/uL (0.00-0.03); Imm Gran Pct Auto 0.8 % (0.0-0.4); Mean Corpuscular HGB Conc 29.2 g/dl (31.0-35.0); Mean Corpuscular Hemoglobin 25.7 pg (27.0-33.0); Mean Corpuscular Volume 88.1 fL (80.0-98.0); Mean Platelet Volume 11.2 fL (9.4-12.3); Monocytes Absolute Auto 1.2 X10*3/uL (0.1-1.2); Monocytes Percent Auto 6.3 % (2-11); Neutrophils Absolute Auto 16.8 x10*3/uL (2.0-8.3); Neutrophils Percent Auto 87.3 % (45-73); Platelet Count 245 X10*3/uL (160-400); Red Blood Count 3.77 X10*6/uL (4.20-5.50); Red Cell Distribution Width 17.1 % (11.0-16.0); White Blood Count 19.2 X10*3/uL (4.8-10.8)
[2022-10-18 06:13] LABS: Anion Gap 15 (12-20); Blood Urea Nitrogen 21 mg/dL (9-16); Calcium 9.4 mg/dL (8.4-10.2); Carbon Dioxide 26 mmol/L (22-29); Chloride 102 mmol/L (96-108); Creatinine Clr Calc Pharmacy 70.4; Estimated Glomerular Filt Rate 48; Glucose Random 163 mg/dL (60-115); Potassium 4.7 mmol/L (3.3-5.1); Sodium 138 mmol/L (135-145)
[2022-10-18 07:10] LABS: Glucose, Whole Blood 167 mg/dL (60-115)
[2022-10-18] MEDS: Docusate Sodium 100 MG CAPSULE PO ×2 (09:12→20:16)
[2022-10-18] MEDS: Propranolol HCL 20 MG TABLET 60 MG PO (09:12)
[2022-10-18] MEDS: ARIPiprazole 10 MG TABLET PO (09:12)
[2022-10-18] MEDS: Morphine Sulfate 2 MG/ML CARTRIDGE IVPUSH ×3 (09:12→20:11)
[2022-10-18] MEDS: polyethylene glycoL 3350 17 GM POWD.PACK PO (09:12)
[2022-10-18] MEDS: Furosemide 40 MG TABLET PO (09:12)
[2022-10-18] MEDS: buPROPion HCl XL 150 MG TAB.ER.24H PO ×2 (09:12→20:16)
[2022-10-18] MEDS: Lidocaine 4 % Patch ADH..PATCH 1 PATCH TRANSDERMA (09:13)
--- NOTE | 2022-10-18 09:15 | PC.NURSE ---
pt axox4, respirations even and unlabored, sats 93% o 2L NC, NSR on monitor 73, VSS, afebrile, skin wpd. pt reports 9/10 diffused abd. pain; pt medicated per mar. lung sounds cta. poc 167; insulin lispro and glargine held per provider; pt NPO. awaiting bed assignment; all needs met at this time; call allen within reach.
--- NOTE | 2022-10-18 10:23 | P.PNIM_ITS ---
Subjective Subjective Date of Service: 10/18/22 Review of Systems Follow up abd pain still with pain no nausea or vomiting Physical Exam Vital Signs: Vital Signs: Last Vital Signs Temp 98.8 F 10/18/22 08:00 Pulse 93 10/18/22 07:52 Resp 18 10/18/22 07:52 BP 120/53 L 10/18/22 07:52 Pulse Ox 93 10/18/22 07:52 O2 Del Method Nasal Cannula 10/18/22 07:52 O2 Flow Rate 2 10/18/22 07:52 Oxygen Flow Rate 3 10/17/22 16:57 BMI result Body Mass Index 56.7 Appearing in no acute distress lung sounds are clear to auscultation heart regular rate rhythm, clear S1, S2 positive bowel sounds, abdomen is soft, nontender neuro patient is alert x3, no focal deficits Objective Data Active Medications Acetaminophen (Acetaminophen 325 Mg Tablet) 650 mg PO Q6H PRN PRN Reason: Pain, Mild (Pain Scale 1-3) Last Admin: 10/17/22 23:32 Dose: 650 mg Documented By: WILMA Albuterol Sulfate (Albuterol Sulfate 90 Mcg 8 Gm Inhaler) 2 puff INHALE Q4H PRN PRN Reason: Shortness Of Breath Albuterol/Ipratropium (Albuterol/Iprat 2.5/0.5mg 3 Ml Ampul.Neb) 3 ml INHALE RQ4H PRN PRN Reason: sob,wheezing Last Admin: 10/17/22 22:47 Dose: 3 ml Documented By: MY Aripiprazole (Aripiprazole 10 Mg Tablet) 10 mg PO DAILY [facility] Last Admin: 10/18/22 09:12 Dose: 10 mg Documented By: PEE Atorvastatin Calcium (Atorvastatin Calcium 40 Mg Tablet) 40 mg PO BEDTIME [facility] Bisacodyl (Bisacodyl 10 Mg Supp.Rect) 10 mg [place] DAILY PRN PRN Reason: Constipation Bupropion HCl (Bupropion Hcl Xl 150 Mg Tab.Er.24h) 150 mg PO BID [facility] Last Admin: 10/18/22 09:12 Dose: 150 mg Documented By: PEE Dextrose (Dextrose 50 % 25 Gm/50 Ml Syringe) 25 gm IVPUSH Q15M PRN; Protocol PRN Reason: per Hypoglycemia Standing Ord. Docusate Sodium (Docusate Sodium 100 Mg Capsule) 100 mg PO BID [facility] Last Admin: 10/18/22 09:12 Dose: 100 mg Documented By: PEE Enoxaparin Sodium (Enoxaparin Sodium 40 Mg/0.4 Ml Syringe) 40 mg SUBCUT Q24H [facility] Last Admin: 10/17/22 21:25 Dose: 40 mg Documented By: WILMA Fluticasone/Vilanterol (Fluticasone/Vilanterol 200/25 Blst.W.Dev) 1 puff INHALE RDAILY [facility] Last Admin: 10/18/22 07:53 Dose: Not Given Documented By: JEAN-PIERRE Non-Admin Reason: pharmacy called Furosemide (Furosemide 40 Mg Tablet) 40 mg PO DAILY [facility]; Protocol Last Admin: 10/18/22 09:12 Dose: 40 mg Documented By: PEE Gabapentin (Gabapentin 100 Mg Capsule) 100 mg PO TID@0600,1400,1800 [facility] Glucose (Glucose Gel 15 Gm Gel..Gram.) 15 gm PO Q15M PRN; Protocol PRN Reason: per Hypoglycemia Standing Ord. Ceftriaxone Sodium 1 gm/ (Sodium Chloride) 50 mls @ 100 mls/hr IV Q24H [facility] Last Infusion: 10/17/22 22:39 Dose: 0 mls/hr Documented By: WILMA Metronidazole (Flagyl) 500 mg in 100 mls @ 100 mls/hr IV Q8H [facility] Last Infusion: 10/18/22 07:48 Dose: 0 mls/hr Documented By: PEE Insulin Glargine (Insulin Glargine,Hum.Rec.Anlog 100 Unit/Ml 10 Ml Vial) 20 unit SUBCUT DAILY [facility] Last Admin: 10/18/22 09:03 Dose: Not Given Documented By: PEE Non-Admin Reason: Physician Held Med Insulin Human Lispro (Insulin Lispro 100 Unit/Ml 3 Ml Vial) 0 unit SUBCUT QIDACHS [facility]; Protocol Last Admin: 10/18/22 07:48 Dose: Not Given Documented By: PEE Non-Admin Reason: NPO Lidocaine (Lidocaine 4 % Patch Adh..Patch) 1 patch TRANSDERMA DAILY [facility]; Protocol Last Admin: 10/18/22 09:13 Dose: 1 patch Documented By: PEE Magnesium Hydroxide (Milk Of Magnesia 30 Ml Oral.Susp) 30 ml PO DAILY PRN PRN Reason: Constipation Morphine Sulfate (Morphine Sulfate 2 Mg/Ml Cartridge) 2 mg IVPUSH Q4H PRN; Protocol PRN Reason: Pain, Mild (Pain Scale 1-3) Last Admin: 10/18/22 09:12 Dose: 2 mg Documented By: PEE Ondansetron HCl (Ondansetron Hcl 4 Mg/2 Ml Vial) 4 mg IVPUSH Q8H PRN PRN Reason: Nausea and Vomiting Oxycodone HCl (Oxycodone Hcl Immed Release 5 Mg Tablet) 5 mg PO Q6H PRN PRN Reason: Pain, Severe (Pain Scale 7-10) Last Admin: 10/18/22 05:38 Dose: 5 mg Documented By: YISSEL Polyethylene Glycol (Polyethylene Glycol 3350 17 Gm Powd.Pack) 17 gm PO DAILY [facility] Last Admin: 10/18/22 09:12 Dose: 17 gm Documented By: PEE Propranolol HCl (Propranolol Hcl 20 Mg Tablet) 60 mg PO DAILY [facility]; Protocol Last Admin: 10/18/22 09:12 Dose: 60 mg Documented By: PEE Senna (Sennosides 8.6 Mg Tablet) 17.2 mg PO BEDTIME [facility] Sodium Chloride (0.9 % Sodium Chloride Flush 3 Ml Syringe) 3 ml IVFLUSH QSHIFT [facility] Last Admin: 10/18/22 07:57 Dose: 3 ml Documented By: PEE Trazodone HCl (Trazodone Hcl 25 Mg Halftab) 25 mg PO BEDTIME [facility] Labs 10/18/22 05:27 10/18/22 05:27 Labs: Laboratory Results - last 24 hr 10/17/22 10/17/22 10/17/22 17:29 17:29 17:29 MCV 88.8 MCH 25.2 L MCHC 28.4 L RDW 16.8 H Plt Count 238 D MPV 10.9 Immature Gran % (Auto) 0.6 H Neut % (Auto) 73.6 H Lymph % (Auto) 19.7 L [place] % (Auto) 4.4 Eos % (Auto) 1.5 Baso % (Auto) 0.2 Lymph # (Auto) 1.0 L [place] # (Auto) 0.2 Eos # (Auto) 0.1 Baso # (Auto) 0.0 Abs Immat Gran (auto) 0.03 Absolute Neuts (auto) 3.9 Absolute Nucleated RBC 0.000 Nucleated RBC % (auto) 0.0 Anion Gap 11 L Estim Creat Clear Calc 74.3 Estimated GFR 51 POC Glucose Random Glucose 109 Lactic Acid 0.8 Calcium 9.7 D Total Bilirubin 0.5 AST 10 ALT 8 Alkaline Phosphatase 61 Total Protein 8.2 H Albumin 3.9 Lipase 12 Urine Color Urine Appearance Urine pH Ur Specific [place] Urine Protein Urine Glucose (UA) Urine Ketones Urine Blood Urine Nitrite Ur Leukocyte Esterase Urine RBC Urine WBC Ur Squamous Epith Cells Urine Bacteria Hyaline Casts Urine Yeast 10/17/22 10/18/22 10/18/22 21:04 05:27 05:27 MCV 88.1 MCH 25.7 L MCHC 29.2 L RDW 17.1 H Plt Count 245 MPV 11.2 Immature Gran % (Auto) 0.8 H Neut % (Auto) 87.3 H Lymph % (Auto) 5.0 L [place] % (Auto) 6.3 Eos % (Auto) 0.1 Baso % (Auto) 0.5 Lymph # (Auto) 1.0 L [place] # (Auto) 1.2 Eos # (Auto) 0.0 Baso # (Auto) 0.1 Abs Immat Gran (auto) 0.15 H Absolute Neuts (auto) 16.8 H Absolute Nucleated RBC 0.000 Nucleated RBC % (auto) 0.0 Anion Gap 15 Estim Creat Clear Calc 70.4 Estimated GFR 48 POC Glucose Random Glucose 163 H Lactic Acid Calcium 9.4 Total Bilirubin AST ALT Alkaline Phosphatase Total Protein Albumin Lipase Urine Color Yellow Urine Appearance Clear Urine pH 5.5 Ur Specific [place] <= 1.005 Urine Protein Negative Urine Glucose (UA) Negative Urine Ketones Negative Urine Blood Moderate (2+) H Urine Nitrite Positive H Ur Leukocyte Esterase Negative Urine RBC 11-20 H Urine WBC 11-20 H Ur Squamous Epith Cells 0-2 Urine Bacteria 3+ Hyaline Casts 0-2 Urine Yeast Present 10/18/22 07:02 MCV MCH MCHC RDW Plt Count MPV Immature Gran % (Auto) Neut % (Auto) Lymph % (Auto) [place] % (Auto) Eos % (Auto) Baso % (Auto) Lymph # (Auto) [place] # (Auto) Eos # (Auto) Baso # (Auto) Abs Immat Gran (auto) Absolute Neuts (auto) Absolute Nucleated RBC Nucleated RBC % (auto) Anion Gap Estim Creat Clear Calc Estimated GFR POC Glucose 167 H Random Glucose Lactic Acid Calcium Total Bilirubin AST ALT Alkaline Phosphatase Total Protein Albumin Lipase Urine Color Urine Appearance Urine pH Ur Specific [place] Urine Protein Urine Glucose (UA) Urine Ketones Urine Blood Urine Nitrite Ur Leukocyte Esterase Urine RBC Urine WBC Ur Squamous Epith Cells Urine Bacteria Hyaline Casts Urine Yeast Microbiology Microbiology Results: Microbiology 10/17/22 Unknown Urine Culture - Preliminary Urine Catheterized - Straight Catheter Culture in progress. Assessment and Plan (1) Partial small bowel obstruction: Status: Acute (2) Enteritis: Status: Acute Plan 66-year-old female past medical history of chronic anemia, COPD, comes into the hospital with complaints of abdominal pain Abdominal pain secondary to acute enteritis versus partial small-bowel obstruction treat with Tylenol, p.r.n. IV analgesics if necessary Continue Rocephin and Flagyl bowel rest General surgery and GI consultation UTI Continue Rocephin Follow urine cultures history of COPD not in exacerbation continue home inhaler diabetes mellitus type 2 Sliding scale, ADA diet DVT prophylaxis:? Lovenox Attending Dr. Chawla Full code Continue hospitalization for further management of partial small-bowel obstruction requiring specialty consultation and IV antibiotics Time Spent With Patient Time: Total time managing care of this patient today ____ minutes. Quality Stroke Does the patient have a stroke diagnosis?: No VTE Prior VTE?: No VTE Risk Level:: Medical - moderate - high VTE Device Contraindication: Treatment Not Indicated VTE Drug Contraindication: N/A - Med Ordered
--- NOTE | 2022-10-18 10:36 | PC.NURSE ---
report given to alexa Hansen.
[2022-10-18 11:08] LABS: Glucose, Whole Blood 122 mg/dL (60-115)
[2022-10-18] MEDS: Gabapentin 100 MG CAPSULE PO ×2 (13:27→17:13)
--- NOTE | 2022-10-18 13:58 | MHC.CM.PN ---
pt from [facility] where she will retun when dcd needs bls
--- NOTE | 2022-10-18 15:45 | P.CNGI_ITS ---
History of Present Illness Data of Consult Service Date: 10/18/22 Requesting physician: Wanda Carlin Primary Care Provider: Carlitos Greer MD HPI Reason for consult: enteritis 66-year-old female with past medical history of obesity, CHF, AFib, history of dysphagia, essential tremors, HLD, who I am seeing for enteritis Patient presents with sudden onset diffuse bilateral lower quadrant stabbing pain radiating into her back 8/10 in severity but improved to aorund 4/10 now. No relieving or exacerbating factors. No fever chills, no nausea vomiting, no diarrhea constipation, last bowel movement was the day before, passing gas.? Patient started on IV antibiotics, IV fluids, and kept NPO. She feels this pain is similar to pain she had 08/19 when she was found tp have a pneumoperitoneum of uncertain etiology which was managed medically. LABS: WBC count 19 today, hemoglobin of 10 which is around her baseline, hematocrit 36.6, UA showing nitrites, WBC IMAGING: CT abdomen: abnormal appearance of the small bowel with associated free fluid in the right lower quadrant and pelvis, acute enteritis, pSBO Review of Systems Review of Systems: Constitutional : No Weight loss, No Fever, No Chills ENT/Mouth : No sore throat, No Rhinorrhea Eyes: No Swelling, No Redness Cardiovascular : No Chest Pain, No SOB, No Edema Respiratory : No Cough, No Sputum, No Wheezing Gastrointestinal : see HPI Genitourinary : NO Dysuria, No Urinary Frequency, No Hematuria, No Urgency Musculoskeletal : No joint pain, No Myalgias, No Joint Swelling Skin : No Skin Lesions, No rash Neuro : No Weakness, No Numbness, No Dizziness, No Headache Psych : No Anxiety/Panic, No Depression Heme/Lymph: No Bruising, No Lymphadenopathy Endocrine : No Polyuria, No Polydipsia All other systems reviewed and are negative. [facility] Past Medical History Medical History Abdominal pain Atrial fibrillation CHF (congestive heart failure) COPD (chronic obstructive pulmonary disease) Depressive disorder Dysphagia Essential tremor Hyperlipidemia Memory deficit Pneumoperitoneum UTI (urinary tract infection) Family History Pertinent family history: no FH of IBD Surgical History Surgical History No pertinent past surgical history Social History Social History Household Members: Spouse Housing: House Do you presently have visiting nurse or other home services: Yes Alcohol intake: never Patient Tobacco Use Status: Never used Tobacco Advance Directives Date on File: 08/27/21 service: No Current occupational status: unemployed Meds Allergies Allergy/AdvReac Type Severity Reaction Status Date / Time No Known Allergies Allergy Verified 10/17/22 17:06 Active Medications: Current Medications Acetaminophen (Acetaminophen 325 Mg Tablet) 650 mg PO Q6H PRN PRN Reason: Pain, Mild (Pain Scale 1-3) Last Admin: 10/17/22 23:32 Dose: 650 mg Albuterol Sulfate (Albuterol Sulfate 90 Mcg 8 Gm Inhaler) 2 puff INHALE Q4H PRN PRN Reason: Shortness Of Breath Albuterol/Ipratropium (Albuterol/Iprat 2.5/0.5mg 3 Ml Ampul.Neb) 3 ml INHALE RQ4H PRN PRN Reason: sob,wheezing Last Admin: 10/17/22 22:47 Dose: 3 ml Aripiprazole (Aripiprazole 10 Mg Tablet) 10 mg PO DAILY [facility] Last Admin: 10/18/22 09:12 Dose: 10 mg Atorvastatin Calcium (Atorvastatin Calcium 40 Mg Tablet) 40 mg PO BEDTIME [facility] Bisacodyl (Bisacodyl 10 Mg Supp.Rect) 10 mg [place] DAILY PRN PRN Reason: Constipation Bupropion HCl (Bupropion Hcl Xl 150 Mg Tab.Er.24h) 150 mg PO BID [facility] Last Admin: 10/18/22 09:12 Dose: 150 mg Dextrose (Dextrose 50 % 25 Gm/50 Ml Syringe) 25 gm IVPUSH Q15M PRN; Protocol PRN Reason: per Hypoglycemia Standing Ord. Docusate Sodium (Docusate Sodium 100 Mg Capsule) 100 mg PO BID [facility] Last Admin: 10/18/22 09:12 Dose: 100 mg Enoxaparin Sodium (Enoxaparin Sodium 40 Mg/0.4 Ml Syringe) 40 mg SUBCUT Q24H [facility] Last Admin: 10/17/22 21:25 Dose: 40 mg Fluticasone/Vilanterol (Fluticasone/Vilanterol 200/25 Blst.W.Dev) 1 puff INHALE RDAILY [facility] Last Admin: 10/18/22 07:53 Dose: Not Given Furosemide (Furosemide 40 Mg Tablet) 40 mg PO DAILY [facility]; Protocol Last Admin: 10/18/22 09:12 Dose: 40 mg Gabapentin (Gabapentin 100 Mg Capsule) 100 mg PO TID@0600,1400,1800 [facility] Last Admin: 10/18/22 13:27 Dose: 100 mg Glucose (Glucose Gel 15 Gm Gel..Gram.) 15 gm PO Q15M PRN; Protocol PRN Reason: per Hypoglycemia Standing Ord. Ceftriaxone Sodium 1 gm/ (Sodium Chloride) 50 mls @ 100 mls/hr IV Q24H [facility] Last Infusion: 10/17/22 22:39 Dose: Infused Metronidazole (Flagyl) 500 mg in 100 mls @ 100 mls/hr IV Q8H [facility] Last Infusion: 10/18/22 14:38 Dose: Infused Insulin Glargine (Insulin Glargine,Hum.Rec.Anlog 100 Unit/Ml 10 Ml Vial) 20 unit SUBCUT DAILY [facility] Last Admin: 10/18/22 09:03 Dose: Not Given Insulin Human Lispro (Insulin Lispro 100 Unit/Ml 3 Ml Vial) 0 unit SUBCUT QIDACHS [facility]; Protocol Last Admin: 10/18/22 11:41 Dose: Not Given Lidocaine (Lidocaine 4 % Patch Adh..Patch) 1 patch TRANSDERMA DAILY [facility]; Protocol Last Admin: 10/18/22 09:13 Dose: 1 patch Magnesium Hydroxide (Milk Of Magnesia 30 Ml Oral.Susp) 30 ml PO DAILY PRN PRN Reason: Constipation Morphine Sulfate (Morphine Sulfate 2 Mg/Ml Cartridge) 2 mg IVPUSH Q4H PRN; Protocol PRN Reason: Pain, Mild (Pain Scale 1-3) Last Admin: 10/18/22 09:12 Dose: 2 mg Ondansetron HCl (Ondansetron Hcl 4 Mg/2 Ml Vial) 4 mg IVPUSH Q8H PRN PRN Reason: Nausea and Vomiting Oxycodone HCl (Oxycodone Hcl Immed Release 5 Mg Tablet) 5 mg PO Q6H PRN PRN Reason: Pain, Severe (Pain Scale 7-10) Last Admin: 10/18/22 11:39 Dose: 5 mg Polyethylene Glycol (Polyethylene Glycol 3350 17 Gm Powd.Pack) 17 gm PO DAILY [facility] Last Admin: 10/18/22 09:12 Dose: 17 gm Propranolol HCl (Propranolol Hcl 20 Mg Tablet) 60 mg PO DAILY [facility]; Protocol Last Admin: 10/18/22 09:12 Dose: 60 mg Senna (Sennosides 8.6 Mg Tablet) 17.2 mg PO BEDTIME [facility] Sodium Chloride (0.9 % Sodium Chloride Flush 3 Ml Syringe) 3 ml IVFLUSH QSHIFT [facility] Last Admin: 10/18/22 15:12 Dose: Not Given Trazodone HCl (Trazodone Hcl 25 Mg Halftab) 25 mg PO BEDTIME [facility] Home Medications Medication Instructions Recorded Confirmed Last Taken Type acetaminophen 325 mg tablet 650 mg PO Q6H PRN temp/pain 08/26/21 10/17/22 Unknown History aripiprazole 10 mg tablet 10 mg PO DAILY 08/26/21 10/17/22 08/09/22 History bisacodyl 10 mg rectal suppository 10 mg [place] DAILY PRN Constipation 08/26/21 10/17/22 Unknown History budesonide-formoterol HFA 160 1 inh inhalation DAILY 08/26/21 10/17/22 08/09/22 History mcg-4.5 mcg/actuation aerosol inhaler (Symbicort) docusate sodium 100 mg capsule 100 mg PO BID 08/26/21 10/17/22 08/09/22 History enoxaparin 40 mg/0.4 mL 40 mg subcut DAILY 08/26/21 10/17/22 Unknown History subcutaneous syringe (Lovenox) furosemide 40 mg tablet 40 mg PO DAILY 08/26/21 10/17/22 08/09/22 History insulin lispro 100 unit/mL See Protocol subcut QIDACHS 08/26/21 10/17/22 0 08/09/22 History subcutaneous solution (Humalog U-100 Insulin) magnesium hydroxide 400 mg/5 mL 30 ml PO DAILY PRN Constipation 08/26/21 10/17/22 Unknown History oral suspension (Milk of Magnesia) polyethylene glycol 3350 17 gram 17 g PO DAILY 08/26/21 10/17/22 08/09/22 History oral powder packet sennosides 8.6 mg tablet (senna) 17.2 mg PO BEDTIME 08/26/21 10/17/22 08/08/22 History gabapentin 100 mg capsule 100 mg PO TID@0600,1400,1800 08/09/22 10/17/22 08/09/22 History glimepiride 4 mg tablet 4 mg PO DAILY 08/09/22 10/17/22 08/09/22 History insulin glargine-yfgn 100 unit/mL 20 unit subcut DAILY 08/09/22 10/17/22 08/09/22 History (3 mL) subcutaneous pen (Semglee (insulin glargine-yfgn) Pen) pioglitazone 45 mg tablet (Actos) 45 mg PO DAILY 08/09/22 10/17/22 08/09/22 History propranolol 20 mg tablet 60 mg PO DAILY 08/09/22 10/17/22 08/09/22 History rosuvastatin 10 mg tablet (Crestor) 10 mg PO BEDTIME 08/09/22 10/17/22 08/08/22 History trazodone 50 mg tablet 25 mg PO BEDTIME 08/09/22 10/17/22 08/08/22 History bupropion HCl 150 mg 24 hr tablet, 150 mg PO BID 08/10/22 10/17/22 08/09/22 History extended release albuterol sulfate 90 mcg/actuation 2 puff inhalation Q4H PRN 10/17/22 10/17/22 Unknown History aerosol inhaler Shortness Of Breath lidocaine 4 % topical patch 1 patch topical DAILY 10/17/22 10/17/22 Unknown History (Aspercreme (lidocaine)) Physical Exam Vital Signs: Vital Signs: Last Vital Signs Temp 97.9 F 10/18/22 15:11 Pulse 81 10/18/22 15:11 Resp 20 10/18/22 15:11 BP 114/68 10/18/22 15:11 Pulse Ox 93 10/18/22 15:11 O2 Del Method Nasal Cannula 10/18/22 15:11 O2 Flow Rate 2 10/18/22 15:11 Oxygen Flow Rate 3 10/17/22 16:57 BMI result Body Mass Index 56.7 EXAM: GENERAL: The patient is obese, vacant appearance VITAL SIGNS:see workflow HEENT: Nonicteric sclerae, PERRLA, EOMI. Oropharynx clear. Moist mucous membranes. Conjunctivae appear pale. No thyroid mass. CHEST: Chest wall is nontender. HEART: Regular rate and rhythm without murmurs. LUNGS: Clear to auscultation bilaterally. ABDOMEN: Soft, reduced positive bowel sounds, nontender, no organomegaly.no flank tenderness SKIN: No rash, no excessive bruising, petechiae, or purpura. NEUROLOGIC: Cranial nerves II-XII intact without motor/sensory deficit. Psych- vague hx, loss of attention Results Labs 10/18/22 05:27 10/18/22 05:27 Labs: Short CBC 10/17/22 10/18/22 Range/Units 17:29 05:27 WBC 5.2 19.2 H (4.8-10.8) X10*3/uL Hgb 10.4 L 9.7 L (12.0-16.0) g/dl Hct 36.6 L 33.2 L (37.0-47.0) % Plt Count 238 D 245 (160-400) X10*3/uL BMP 10/17/22 10/18/22 17:29 05:27 Sodium 141 138 Potassium 4.7 4.7 Chloride 102 102 Carbon Dioxide 33 H 26 BUN 14 21 H Creatinine 1.08 1.14 Calcium 9.7 D 9.4 Liver Function 10/17/22 Range/Units 17:29 Total Bilirubin 0.5 (0.0-1.0) mg/dL AST 10 (5-31) U/L ALT 8 (0-31) U/L Alkaline Phosphatase 61 (39-117) U/L Albumin 3.9 (3.5-5.0) g/dL Urine 10/17/22 Range/Units 21:04 Urine Color Yellow Urine Appearance Clear Urine pH 5.5 (5.0-9.0) Ur Specific [place] <= 1.005 (1.005-1.025) Urine Protein Negative (Neg-Trace) mg/dL Urine Glucose (UA) Negative (Negative) mg/dL Microbiology Microbiology Results: Microbiology 10/17/22 Unknown Urine Catheterized - Straight Catheter Urine Culture - Preliminary Culture in progress. Imaging CT scan - abdomen: Attestation: I personally reviewed and interpreted this imaging study as follows: (feee fluid, enteritis ) Assessment and Plan (1) Enteritis: Status: Acute (2) Abdominal pain: Status: Acute (3) Anemia: Status: Acute Plan !/ Enteritis, maybe related to initial insult 08/19, she may have underlying disease in this segmentf of small bowel e.g mass, tumour, small bowel diverticulum, polyp, ulcerative jejunitis or related to infecition, infiltrative disease like lymphoma PLAN: 1/ Cont with ABX for the moment 2/ check Celiac panel, 3/ repeat imaging wit Cte and possible Capsule endo as o/p vs small bowel follow thru as in patient, if not improving 4/ surgical consult in case needs intervention, Time Spent With Patient Time: Total time managing care of this patient today ____ minutes. Procedures Date of Service Date of Service: 10/19/22
--- NOTE | 2022-10-18 15:58 | P.CONGS_ITS ---
History of Present Illness Consult details Consult date: 10/18/22 Narrative: 66-year-old female with multiple medical problems including CHF, atrial fibrillation, tremors, bed-bound, admitted last night because of abdominal pain. She says that this started yesterday describes this diffuse She had a CAT scan showing equivocal findings for small-bowel obstruction. I was therefore consulted She says currently that she still has pain although this is much improved compared to yesterday. She says that she is passing flatus and is ?hungry?. She says she nauseous at this time I had admitted her last July, because of abdominal pain with some locules of free air. She was followed closely at that time and was discharged much improved without any abdominal complaints then. She also had a very benign exam the whole time during her hospital stay Review of Systems Constitutional: Constitutional: Denies chills and Denies fever(s) Cardiovascular: Cardiovascular: Reports dyspnea on exertion and Reports orthopnea Respiratory: Respiratory: Reports dyspnea on exertion Gastrointestinal: Gastrointestinal: Denies hematochezia and Denies diarrhea Neurologic: Reports tremor(s) [facility] Past Medical History Medical History Abdominal pain Atrial fibrillation CHF (congestive heart failure) COPD (chronic obstructive pulmonary disease) Depressive disorder Dysphagia Essential tremor Hyperlipidemia Memory deficit Pneumoperitoneum UTI (urinary tract infection) Surgical History Surgical History No pertinent past surgical history Social History Social History Household Members: Spouse Housing: House Do you presently have visiting nurse or other home services: Yes Alcohol intake: never Patient Tobacco Use Status: Never used Tobacco Advance Directives Date on File: 08/27/21 service: No Current occupational status: unemployed Meds Allergies Allergy/AdvReac Type Severity Reaction Status Date / Time No Known Allergies Allergy Verified 10/17/22 17:06 Active Medications: Current Medications Acetaminophen (Acetaminophen 325 Mg Tablet) 650 mg PO Q6H PRN PRN Reason: Pain, Mild (Pain Scale 1-3) Last Admin: 10/17/22 23:32 Dose: 650 mg Albuterol Sulfate (Albuterol Sulfate 90 Mcg 8 Gm Inhaler) 2 puff INHALE Q4H PRN PRN Reason: Shortness Of Breath Albuterol/Ipratropium (Albuterol/Iprat 2.5/0.5mg 3 Ml Ampul.Neb) 3 ml INHALE RQ4H PRN PRN Reason: sob,wheezing Last Admin: 10/17/22 22:47 Dose: 3 ml Aripiprazole (Aripiprazole 10 Mg Tablet) 10 mg PO DAILY [facility] Last Admin: 10/18/22 09:12 Dose: 10 mg Atorvastatin Calcium (Atorvastatin Calcium 40 Mg Tablet) 40 mg PO BEDTIME [facility] Bisacodyl (Bisacodyl 10 Mg Supp.Rect) 10 mg [place] DAILY PRN PRN Reason: Constipation Bupropion HCl (Bupropion Hcl Xl 150 Mg Tab.Er.24h) 150 mg PO BID [facility] Last Admin: 10/18/22 09:12 Dose: 150 mg Dextrose (Dextrose 50 % 25 Gm/50 Ml Syringe) 25 gm IVPUSH Q15M PRN; Protocol PRN Reason: per Hypoglycemia Standing Ord. Docusate Sodium (Docusate Sodium 100 Mg Capsule) 100 mg PO BID [facility] Last Admin: 10/18/22 09:12 Dose: 100 mg Enoxaparin Sodium (Enoxaparin Sodium 40 Mg/0.4 Ml Syringe) 40 mg SUBCUT Q24H [facility] Last Admin: 10/17/22 21:25 Dose: 40 mg Fluticasone/Vilanterol (Fluticasone/Vilanterol 200/25 Blst.W.Dev) 1 puff INHALE RDAILY [facility] Last Admin: 10/18/22 07:53 Dose: Not Given Furosemide (Furosemide 40 Mg Tablet) 40 mg PO DAILY [facility]; Protocol Last Admin: 10/18/22 09:12 Dose: 40 mg Gabapentin (Gabapentin 100 Mg Capsule) 100 mg PO TID@0600,1400,1800 [facility] Last Admin: 10/18/22 13:27 Dose: 100 mg Glucose (Glucose Gel 15 Gm Gel..Gram.) 15 gm PO Q15M PRN; Protocol PRN Reason: per Hypoglycemia Standing Ord. Ceftriaxone Sodium 1 gm/ (Sodium Chloride) 50 mls @ 100 mls/hr IV Q24H [facility] Last Infusion: 10/17/22 22:39 Dose: Infused Metronidazole (Flagyl) 500 mg in 100 mls @ 100 mls/hr IV Q8H [facility] Last Infusion: 10/18/22 14:38 Dose: Infused Insulin Glargine (Insulin Glargine,Hum.Rec.Anlog 100 Unit/Ml 10 Ml Vial) 20 unit SUBCUT DAILY [facility] Last Admin: 10/18/22 09:03 Dose: Not Given Insulin Human Lispro (Insulin Lispro 100 Unit/Ml 3 Ml Vial) 0 unit SUBCUT QIDACHS [facility]; Protocol Last Admin: 10/18/22 11:41 Dose: Not Given Lidocaine (Lidocaine 4 % Patch Adh..Patch) 1 patch TRANSDERMA DAILY [facility]; Protocol Last Admin: 10/18/22 09:13 Dose: 1 patch Magnesium Hydroxide (Milk Of Magnesia 30 Ml Oral.Susp) 30 ml PO DAILY PRN PRN Reason: Constipation Morphine Sulfate (Morphine Sulfate 2 Mg/Ml Cartridge) 2 mg IVPUSH Q4H PRN; Protocol PRN Reason: Pain, Mild (Pain Scale 1-3) Last Admin: 10/18/22 09:12 Dose: 2 mg Ondansetron HCl (Ondansetron Hcl 4 Mg/2 Ml Vial) 4 mg IVPUSH Q8H PRN PRN Reason: Nausea and Vomiting Oxycodone HCl (Oxycodone Hcl Immed Release 5 Mg Tablet) 5 mg PO Q6H PRN PRN Reason: Pain, Severe (Pain Scale 7-10) Last Admin: 10/18/22 11:39 Dose: 5 mg Polyethylene Glycol (Polyethylene Glycol 3350 17 Gm Powd.Pack) 17 gm PO DAILY [facility] Last Admin: 10/18/22 09:12 Dose: 17 gm Propranolol HCl (Propranolol Hcl 20 Mg Tablet) 60 mg PO DAILY [facility]; Protocol Last Admin: 10/18/22 09:12 Dose: 60 mg Senna (Sennosides 8.6 Mg Tablet) 17.2 mg PO BEDTIME [facility] Sodium Chloride (0.9 % Sodium Chloride Flush 3 Ml Syringe) 3 ml IVFLUSH QSHIFT [facility] Last Admin: 10/18/22 15:12 Dose: Not Given Trazodone HCl (Trazodone Hcl 25 Mg Halftab) 25 mg PO BEDTIME [facility] Home Medications Medication Instructions Recorded Confirmed Last Taken Type acetaminophen 325 mg tablet 650 mg PO Q6H PRN temp/pain 08/26/21 10/17/22 Unknown History aripiprazole 10 mg tablet 10 mg PO DAILY 08/26/21 10/17/22 08/09/22 History bisacodyl 10 mg rectal suppository 10 mg [place] DAILY PRN Constipation 08/26/21 10/17/22 Unknown History budesonide-formoterol HFA 160 1 inh inhalation DAILY 08/26/21 10/17/22 08/09/22 History mcg-4.5 mcg/actuation aerosol inhaler (Symbicort) docusate sodium 100 mg capsule 100 mg PO BID 08/26/21 10/17/22 08/09/22 History enoxaparin 40 mg/0.4 mL 40 mg subcut DAILY 08/26/21 10/17/22 Unknown History subcutaneous syringe (Lovenox) furosemide 40 mg tablet 40 mg PO DAILY 08/26/21 10/17/22 08/09/22 History insulin lispro 100 unit/mL See Protocol subcut QIDACHS 08/26/21 10/17/22 08/09/22 History subcutaneous solution (Humalog U-100 Insulin) magnesium hydroxide 400 mg/5 mL 30 ml PO DAILY PRN Constipation 08/26/21 10/17/22 Unknown History oral suspension (Milk of Magnesia) polyethylene glycol 3350 17 gram 17 g PO DAILY 08/26/21 10/17/22 08/09/22 History oral powder packet sennosides 8.6 mg tablet (senna) 17.2 mg PO BEDTIME 08/26/21 10/17/22 08/08/22 History gabapentin 100 mg capsule 100 mg PO TID@0600,1400,1800 08/09/22 10/17/22 08/09/22 History glimepiride 4 mg tablet 4 mg PO DAILY 08/09/22 10/17/22 08/09/22 History insulin glargine-yfgn 100 unit/mL 20 unit subcut DAILY 08/09/22 10/17/22 08/09/22 History (3 mL) subcutaneous pen (Semglee (insulin glargine-yfgn) Pen) pioglitazone 45 mg tablet (Actos) 45 mg PO DAILY 08/09/22 10/17/22 08/09/22 History propranolol 20 mg tablet 60 mg PO DAILY 08/09/22 10/17/22 08/09/22 History rosuvastatin 10 mg tablet (Crestor) 10 mg PO BEDTIME 08/09/22 10/17/22 08/08/22 History trazodone 50 mg tablet 25 mg PO BEDTIME 08/09/22 10/17/22 08/08/22 History bupropion HCl 150 mg 24 hr tablet, 150 mg PO BID 08/10/22 10/17/22 08/09/22 History extended release albuterol sulfate 90 mcg/actuation 2 puff inhalation Q4H PRN 10/17/22 10/17/22 Unknown History aerosol inhaler Shortness Of Breath lidocaine 4 % topical patch 1 patch topical DAILY 10/17/22 10/17/22 Unknown History (Aspercreme (lidocaine)) Physical Exam Vital Signs: Vital Signs: Last Vital Signs Temp 97.9 F 10/18/22 15:11 Pulse 81 10/18/22 15:11 Resp 20 10/18/22 15:11 BP 114/68 10/18/22 15:11 Pulse Ox 93 10/18/22 15:11 O2 Del Method Nasal Cannula 10/18/22 15:11 O2 Flow Rate 2 10/18/22 15:11 Oxygen Flow Rate 3 10/17/22 16:57 BMI result Body Mass Index 56.7 Const: Other: Morbidly obese, appears a little short of breath which she says is baseline General: no acute distress Resp: Other: Mildly short of breath Cardio: Other: Irregular rhythm GI: Other: Obese, soft, very mild diffuse tenderness, no guarding or rebound Results Labs 10/18/22 05:27 10/18/22 05:27 Labs: Abnormal lab results 10/17/22 10/17/22 10/17/22 Range/Units 17:29 17:29 21:04 WBC (4.8-10.8) X10*3/uL RBC 4.12 L (4.20-5.50) X10*6/uL Hgb 10.4 L (12.0-16.0) g/dl Hct 36.6 L (37.0-47.0) % MCH 25.2 L (27.0-33.0) pg MCHC 28.4 L (31.0-35.0) g/dl RDW 16.8 H (11.0-16.0) % Immature Gran % (Auto) 0.6 H (0.0-0.4) % Neut % (Auto) 73.6 H (45-73) % Lymph % (Auto) 19.7 L (20-40) % Lymph # (Auto) 1.0 L (1.2-4.9) X10*3/uL Abs Immat Gran (auto) (0.00-0.03) X10*3/uL Absolute Neuts (auto) (2.0-8.3) x10*3/uL Carbon Dioxide 33 H (22-29) mmol/L Anion Gap 11 L (12-20) BUN (9-16) mg/dL POC Glucose (60-115) mg/dL Random Glucose (60-115) mg/dL Total Protein 8.2 H (6.5-8.0) g/dL Urine Blood Moderate (2+) H (Negative) Urine Nitrite Positive H (Negative) Urine RBC 11-20 H (0-2) /HPF Urine WBC 11-20 H (0-5) /HPF 10/18/22 10/18/22 10/18/22 Range/Units 05:27 05:27 07:02 WBC 19.2 H (4.8-10.8) X10*3/uL RBC 3.77 L (4.20-5.50) X10*6/uL Hgb 9.7 L (12.0-16.0) g/dl Hct 33.2 L (37.0-47.0) % MCH 25.7 L (27.0-33.0) pg MCHC 29.2 L (31.0-35.0) g/dl RDW 17.1 H (11.0-16.0) % Immature Gran % (Auto) 0.8 H (0.0-0.4) % Neut % (Auto) 87.3 H (45-73) % Lymph % (Auto) 5.0 L (20-40) % Lymph # (Auto) 1.0 L (1.2-4.9) X10*3/uL Abs Immat Gran (auto) 0.15 H (0.00-0.03) X10*3/uL Absolute Neuts (auto) 16.8 H (2.0-8.3) x10*3/uL Carbon Dioxide (22-29) mmol/L Anion Gap (12-20) BUN 21 H (9-16) mg/dL POC Glucose 167 H (60-115) mg/dL Random Glucose 163 H (60-115) mg/dL Total Protein (6.5-8.0) g/dL Urine Blood (Negative) Urine Nitrite (Negative) Urine RBC (0-2) /HPF Urine WBC (0-5) /HPF 10/18/22 Range/Units 11:02 WBC (4.8-10.8) X10*3/uL RBC (4.20-5.50) X10*6/uL Hgb (12.0-16.0) g/dl Hct (37.0-47.0) % MCH (27.0-33.0) pg MCHC (31.0-35.0) g/dl RDW (11.0-16.0) % Immature Gran % (Auto) (0.0-0.4) % Neut % (Auto) (45-73) % Lymph % (Auto) (20-40) % Lymph # (Auto) (1.2-4.9) X10*3/uL Abs Immat Gran (auto) (0.00-0.03) X10*3/uL Absolute Neuts (auto) (2.0-8.3) x10*3/uL Carbon Dioxide (22-29) mmol/L Anion Gap (12-20) BUN (9-16) mg/dL POC Glucose 122 H (60-115) mg/dL Random Glucose (60-115) mg/dL Total Protein (6.5-8.0) g/dL Urine Blood (Negative) Urine Nitrite (Negative) Urine RBC (0-2) /HPF Urine WBC (0-5) /HPF Short CBC 10/17/22 10/18/22 Range/Units 17:29 05:27 WBC 5.2 19.2 H (4.8-10.8) X10*3/uL Hgb 10.4 L 9.7 L (12.0-16.0) g/dl Hct 36.6 L 33.2 L (37.0-47.0) % Plt Count 238 D 245 (160-400) X10*3/uL BMP 10/17/22 10/18/22 17:29 05:27 Sodium 141 138 Potassium 4.7 4.7 Chloride 102 102 Carbon Dioxide 33 H 26 BUN 14 21 H Creatinine 1.08 1.14 Calcium 9.7 D 9.4 Liver Function 10/17/22 Range/Units 17:29 Total Bilirubin 0.5 (0.0-1.0) mg/dL AST 10 (5-31) U/L ALT 8 (0-31) U/L Alkaline Phosphatase 61 (39-117) U/L Albumin 3.9 (3.5-5.0) g/dL Urine 10/17/22 Range/Units 21:04 Urine Color Yellow Urine Appearance Clear Urine pH 5.5 (5.0-9.0) Ur Specific Jackson <= 1.005 (1.005-1.025) Urine Protein Negative (Neg-Trace) mg/dL Urine Glucose (UA) Negative (Negative) mg/dL All other labs normal. Laboratory Results WBC 19.2 X10*3/uL (4.8-10.8) H 10/18/22 05:27 RBC 3.77 X10*6/uL (4.20-5.50) L 10/18/22 05:27 Hgb 9.7 g/dl (12.0-16.0) L 10/18/22 05:27 Hct 33.2 % (37.0-47.0) L 10/18/22 05:27 MCV 88.1 fL (80.0-98.0) 10/18/22 05:27 MCH 25.7 pg (27.0-33.0) L 10/18/22 05:27 MCHC 29.2 g/dl (31.0-35.0) L 10/18/22 05:27 RDW 17.1 % (11.0-16.0) H 10/18/22 05:27 Plt Count 245 X10*3/uL (160-400) 10/18/22 05:27 MPV 11.2 fL (9.4-12.3) 10/18/22 05:27 Immature Gran % (Auto) 0.8 % (0.0-0.4) H 10/18/22 05:27 Neut % (Auto) 87.3 % (45-73) H 10/18/22 05:27 Lymph % (Auto) 5.0 % (20-40) L 10/18/22 05:27 Delta % (Auto) 6.3 % (2-11) 10/18/22 05:27 Eos % (Auto) 0.1 % (0-4) 10/18/22 05:27 Baso % (Auto) 0.5 % (0-2) 10/18/22 05:27 Lymph # (Auto) 1.0 X10*3/uL (1.2-4.9) L 10/18/22 05:27 Delta # (Auto) 1.2 X10*3/uL (0.1-1.2) 10/18/22 05:27 Eos # (Auto) 0.0 X10*3/uL (0.0-0.4) 10/18/22 05:27 Baso # (Auto) 0.1 X10*3/uL (0.0-0.2) 10/18/22 05:27 Abs Immat Gran (auto) 0.15 X10*3/uL (0.00-0.03) H 10/18/22 05:27 Absolute Neuts (auto) 16.8 x10*3/uL (2.0-8.3) H 10/18/22 05:27 Absolute Nucleated RBC 0.000 X10*3/uL (0.0-0.012) 10/18/22 05:27 Nucleated RBC % (auto) 0.0 /100WBC (0.0-0.2) 10/18/22 05:27 Sodium 138 mmol/L (135-145) 10/18/22 05:27 Potassium 4.7 mmol/L (3.3-5.1) 10/18/22 05:27 Chloride 102 mmol/L (96-108) 10/18/22 05:27 Carbon Dioxide 26 mmol/L (22-29) 10/18/22 05:27 Anion Gap 15 (12-20) 10/18/22 05:27 BUN 21 mg/dL (9-16) H 10/18/22 05:27 Creatinine 1.14 mg/dL (0.5-1.4) 10/18/22 05:27 Estim Creat Clear Calc 70.4 10/18/22 05:27 Estimated GFR 48 10/18/22 05:27 POC Glucose 122 mg/dL (60-115) H 10/18/22 11:02 Random Glucose 163 mg/dL (60-115) H 10/18/22 05:27 Lactic Acid 0.8 mmol/L (0.5-2.0) 10/17/22 17:29 Calcium 9.4 mg/dL (8.4-10.2) 10/18/22 05:27 Total Bilirubin 0.5 mg/dL (0.0-1.0) 10/17/22 17:29 AST 10 U/L (5-31) 10/17/22 17:29 ALT 8 U/L (0-31) 10/17/22 17:29 Alkaline Phosphatase 61 U/L (39-117) 10/17/22 17:29 Total Protein 8.2 g/dL (6.5-8.0) H 10/17/22 17: Albumin 3.9 g/dL (3.5-5.0) 10/17/22 17: Lipase 12 U/L (8-78) 10/17/22 17:29 Urine Color Yellow 10/17/22 21:04 Urine Appearance Clear 10/17/22 21:04 Urine pH 5.5 (5.0-9.0) 10/17/22 21:04 Ur Specific Jackson <= 1.005 (1.005-1.025) 10/17/22 21:04 Urine Protein Negative mg/dL (Neg-Trace) 10/17/22 21:04 Urine Glucose (UA) Negative mg/dL (Negative) 10/17/22 21:04 Urine Ketones Negative mg/dL (Negative) 10/17/22 21:04 Urine Blood Moderate (2+) (Negative) H 10/17/22 21:04 Urine Nitrite Positive (Negative) H 10/17/22 21:04 Ur Leukocyte Esterase Negative (Negative) 10/17/22 21:04 Urine RBC 11-20 /HPF (0-2) H 10/17/22 21:04 Urine WBC 11-20 /HPF (0-5) H 10/17/22 21:04 Ur Squamous Epith Cells 0-2 /HPF (0-2) 10/17/22 21:04 Urine Bacteria 3+ (None Seen) 10/17/22 21:04 Hyaline Casts 0-2 /LPF (0-2) 10/17/22 21:04 Urine Yeast Present 10/17/22 21:04 Impressions Abdomen/Pelvis CT 10/17/22 18:46 IMPRESSION: Abnormal appearance of the small bowel with associated free fluid in the right lower quadrant and pelvis as well as mild mesenteric congestion. Findings are worrisome for an acute enteritis, progressed compared to 08/10/2022. No pneumatosis or pneumoperitoneum. No organized extraluminal collection. No significant disproportional dilatation or transition point to suspect a high-grade small bowel obstruction, although some degree of early partial small bowel obstruction cannot be excluded in view of mild distention of loops of bowel in the right lower quadrant. Evaluation is essentially nondiagnostic for GI bleed as above, clinical correlation should be obtained. Assessment and Plan (1) Abdominal pain: Status: Acute I have reviewed her CAT scan and this seems be very equivocal for small bowel obstruction. Enteritis is also a possibility. She has good amount of air distally including the colon. She does have some mild pain and tenderness at this time. I would agree with keeping her NPO for now anterior there is clarity with regards her diagnosis. Her urinalysis seems to be suggestive of a UTI which may present with abdominal pain. She does not have any vomiting nor nausea at this time and says that she is passing flatus I will continue with bowel rest for now and I will follow along while she is in the hospital. I will re-evaluate her tomorrow as she is asking for food. She does have multiple medical problems and has a very poor baseline level of health. Time Spent With Patient Time: Total time managing care of this patient today ____ minutes. Procedures Date of Service Date of Service: 10/20/22
[2022-10-18 16:05] LABS: Glucose, Whole Blood 134 mg/dL (60-115)
[2022-10-18] MEDS: cefTRIAXone sodium 1 GM in 0.9 % Sodium Chloride 50 ML IV (20:13)
[2022-10-18] MEDS: Sennosides 8.6 MG TABLET 17.2 MG PO (20:16)
[2022-10-18] MEDS: Atorvastatin Calcium 40 MG TABLET PO (20:16)
[2022-10-18] MEDS: traZODone HCL 25 MG HALFTAB PO (20:16)
[2022-10-18] MEDS: Enoxaparin Sodium 40 MG/0.4 ML SYRINGE SUBCUT (20:17)
[2022-10-18] MEDS: Acetaminophen 325 MG TABLET 650 MG PO (20:21)
[2022-10-18 20:25] LABS: Glucose, Whole Blood 107 mg/dL (60-115)
[2022-10-19] MEDS: Morphine Sulfate 2 MG/ML CARTRIDGE IVPUSH ×3 (01:30→21:17)
[2022-10-19] MEDS: Acetaminophen 325 MG TABLET 650 MG PO (03:27)
[2022-10-19 03:30] VITALS: BP 145/84; PULSE 97; RESP 19; TEMP 36.2; O2SAT 93
[2022-10-19] MEDS: metroNIDAZOLE/NS 500 MG/100 ML PIGGYBACK 100 MG IV ×2 (06:14→13:19)
[2022-10-19] MEDS: Gabapentin 100 MG CAPSULE PO ×3 (06:15→17:03)
[2022-10-19] MEDS: oxyCODONE HCl Immed Release 5 MG TABLET PO ×2 (06:15→12:01)
[2022-10-19 07:00] VITALS: BP 132/74; PULSE 89; RESP 19; TEMP 36.6; O2SAT 92
[2022-10-19 07:30] LABS: Glucose, Whole Blood 140 mg/dL (60-115)
[2022-10-19] MEDS: ARIPiprazole 10 MG TABLET PO (07:46)
[2022-10-19] MEDS: buPROPion HCl XL 150 MG TAB.ER.24H PO ×2 (07:46→21:22)
[2022-10-19] MEDS: Furosemide 40 MG TABLET PO (07:46)
[2022-10-19] MEDS: Propranolol HCL 20 MG TABLET 60 MG PO (07:46)
[2022-10-19] MEDS: 0.9 % Sodium Chloride Flush 3 ML SYRINGE IVFLUSH ×3 (07:46→21:52)
[2022-10-19] MEDS: Lidocaine 4 % Patch ADH..PATCH 1 PATCH TRANSDERMA (07:47)
[2022-10-19] MEDS: polyethylene glycoL 3350 17 GM POWD.PACK PO (07:47)
[2022-10-19] MEDS: Docusate Sodium 100 MG CAPSULE PO (07:47)
[2022-10-19] MEDS: Fluticasone/Vilanterol 200/25 BLST.W.DEV 1 PUFF INHALE (07:58)
[2022-10-19 08:00] VITALS: PULSE 97; RESP 20; O2SAT 95
--- NOTE | 2022-10-19 08:25 | HO.PM.IMPN ---
Subjective Subjective Date of Service: 10/19/22 Review of Systems Follow up abd pain pain is better no nausea or vomiting Physical Exam Vital Signs: Vital Signs: Last Vital Signs Temp 97.8 F 10/19/22 07:00 Pulse 97 10/19/22 08:00 Resp 20 10/19/22 08:00 BP 132/74 10/19/22 07:00 Pulse Ox 92 10/19/22 07:00 O2 Del Method Nasal Cannula 10/19/22 07:00 O2 Flow Rate 2 10/19/22 07:00 Oxygen Flow Rate 3 10/17/22 16:57 BMI result Body Mass Index 56.7 Appearing in no acute distress lung sounds are clear to auscultation heart regular rate rhythm, clear S1, S2 positive bowel sounds, abdomen is soft, nontender neuro patient is alert x3, no focal deficits Objective Data Active Medications Acetaminophen (Acetaminophen 325 Mg Tablet) 650 mg PO Q6H PRN PRN Reason: Pain, Mild (Pain Scale 1-3) Last Admin: 10/19/22 03:27 Dose: 650 mg Documented By: ANTONIA Albuterol Sulfate (Albuterol Sulfate 90 Mcg 8 Gm Inhaler) 2 puff INHALE Q4H PRN PRN Reason: Shortness Of Breath Albuterol/Ipratropium (Albuterol/Iprat 2.5/0.5mg 3 Ml Ampul.Neb) 3 ml INHALE RQ4H PRN PRN Reason: sob,wheezing Last Admin: 10/17/22 22:47 Dose: 3 ml Documented By: MY Aripiprazole (Aripiprazole 10 Mg Tablet) 10 mg PO DAILY [facility] Last Admin: 10/19/22 07:46 Dose: 10 mg Documented By: SARITHA Atorvastatin Calcium (Atorvastatin Calcium 40 Mg Tablet) 40 mg PO BEDTIME [facility] Last Admin: 10/18/22 20:16 Dose: 40 mg Documented By: ANTONIA Bisacodyl (Bisacodyl 10 Mg Supp.Rect) 10 mg MD DAILY PRN PRN Reason: Constipation Bupropion HCl (Bupropion Hcl Xl 150 Mg Tab.Er.24h) 150 mg PO BID [facility] Last Admin: 10/19/22 07:46 Dose: 150 mg Documented By: SARITHA Dextrose (Dextrose 50 % 25 Gm/50 Ml Syringe) 25 gm IVPUSH Q15M PRN; Protocol PRN Reason: per Hypoglycemia Standing Ord. Docusate Sodium (Docusate Sodium 100 Mg Capsule) 100 mg PO BID [facility] Last Admin: 10/19/22 07:47 Dose: 100 mg Documented By: SARITHA Enoxaparin Sodium (Enoxaparin Sodium 40 Mg/0.4 Ml Syringe) 40 mg SUBCUT Q24H [facility] Last Admin: 10/18/22 20:17 Dose: 40 mg Documented By: ANTONIA Fluticasone/Vilanterol (Fluticasone/Vilanterol 200/25 Blst.W.Dev) 1 puff INHALE RDAILY [facility] Last Admin: 10/19/22 07:58 Dose: 1 puff Documented By: RUTH Furosemide (Furosemide 40 Mg Tablet) 40 mg PO DAILY [facility]; Protocol Last Admin: 10/19/22 07:46 Dose: 40 mg Documented By: SARITHA Gabapentin (Gabapentin 100 Mg Capsule) 100 mg PO TID@0600,1400,1800 [facility] Last Admin: 10/19/22 06:15 Dose: 100 mg Documented By: ANTONIA Glucose (Glucose Gel 15 Gm Gel..Gram.) 15 gm PO Q15M PRN; Protocol PRN Reason: per Hypoglycemia Standing Ord. Ceftriaxone Sodium 1 gm/ (Sodium Chloride) 50 mls @ 100 mls/hr IV Q24H [facility] Last Infusion: 10/18/22 20:55 Dose: 0 mls/hr Documented By: ANTONIA Metronidazole (Flagyl) 500 mg in 100 mls @ 100 mls/hr IV Q8H [facility] Last Infusion: 10/19/22 07:14 Dose: 0 mls/hr Documented By: SARITHA Insulin Glargine (Insulin Glargine,Hum.Rec.Anlog 100 Unit/Ml 10 Ml Vial) 20 unit SUBCUT DAILY [facility] Last Admin: 10/18/22 09:03 Dose: Not Given Documented By: PEE Non-Admin Reason: Physician Held Med Insulin Human Lispro (Insulin Lispro 100 Unit/Ml 3 Ml Vial) 0 unit SUBCUT QIDACHS [facility]; Protocol Last Admin: 10/19/22 07:44 Dose: Not Given Documented By: SARITHA Non-Admin Reason: No Insulin Coverage Lidocaine (Lidocaine 4 % Patch Adh..Patch) 1 patch TRANSDERMA DAILY [facility]; Protocol Last Admin: 10/19/22 07:47 Dose: 1 patch Documented By: SARITHA Magnesium Hydroxide (Milk Of Magnesia 30 Ml Oral.Susp) 30 ml PO DAILY PRN PRN Reason: Constipation Morphine Sulfate (Morphine Sulfate 2 Mg/Ml Cartridge) 2 mg IVPUSH Q4H PRN; Protocol PRN Reason: Pain, Mild (Pain Scale 1-3) Last Admin: 10/19/22 01:30 Dose: 2 mg Documented By: CHAD Ondansetron HCl (Ondansetron Hcl 4 Mg/2 Ml Vial) 4 mg IVPUSH Q8H PRN PRN Reason: Nausea and Vomiting Oxycodone HCl (Oxycodone Hcl Immed Release 5 Mg Tablet) 5 mg PO Q6H PRN PRN Reason: Pain, Severe (Pain Scale 7-10) Last Admin: 10/19/22 06:15 Dose: 5 mg Documented By: ANTONIA Polyethylene Glycol (Polyethylene Glycol 3350 17 Gm Powd.Pack) 17 gm PO DAILY [facility] Last Admin: 10/19/22 07:47 Dose: 17 gm Documented By: SARITHA Propranolol HCl (Propranolol Hcl 20 Mg Tablet) 60 mg PO DAILY [facility]; Protocol Last Admin: 10/19/22 07:46 Dose: 60 mg Documented By: SARITHA Senna (Sennosides 8.6 Mg Tablet) 17.2 mg PO BEDTIME [facility] Last Admin: 10/18/22 20:16 Dose: 17.2 mg Documented By: ANTONIA Sodium Chloride (0.9 % Sodium Chloride Flush 3 Ml Syringe) 3 ml IVFLUSH QSHIFT [facility] Last Admin: 10/19/22 07:46 Dose: 3 ml Documented By: SARITHA Trazodone HCl (Trazodone Hcl 25 Mg Halftab) 25 mg PO BEDTIME [facility] Last Admin: 10/18/22 20:16 Dose: 25 mg Documented By: ANTONIA Labs 10/18/22 05:27 10/18/22 05:27 Labs: Laboratory Results - last 24 hr 10/18/22 10/18/22 10/18/22 11:02 15:55 19:59 POC Glucose 122 H 134 H 107 10/19/22 07:13 POC Glucose 140 H Microbiology Microbiology Results: Microbiology 10/17/22 Unknown Urine Culture - Preliminary Urine Catheterized - Straight Catheter Gram negative triston 10/17/22 21:04 Blood Culture - Preliminary Blood - Venous No growth after 24 hours. 10/17/22 21:04 Blood Culture - Preliminary Blood - Venous No growth after 24 hours. Assessment and Plan (1) Partial small bowel obstruction: Status: Acute (2) Enteritis: Status: Acute Plan 66-year-old female past medical history of chronic anemia, COPD, comes into the hospital with complaints of abdominal pain Abdominal pain secondary to acute enteritis versus partial small-bowel obstruction treat with Tylenol, p.r.n. IV analgesics if necessary Continue Rocephin and Flagyl bowel rest General surgery> continue abx, no surgical intervention at this time GI> check celiac panel, repeat imaging with CTE and possible capsule o/p GNR UTI Continue Rocephin Follow final urine cultures history of COPD not in exacerbation continue home inhaler diabetes mellitus type 2 Sliding scale, ADA diet DVT prophylaxis:? Lovenox Attending Dr. Chawla Full code Continue hospitalization for further management of partial small-bowel obstruction requiring specialty consultation and IV antibiotics Time Spent With Patient Time: Total time managing care of this patient today ____ minutes. Quality Stroke Does the patient have a stroke diagnosis?: No VTE Prior VTE?: No VTE Risk Level:: Medical - moderate - high VTE Device Contraindication: Treatment Not Indicated VTE Drug Contraindication: N/A - Med Ordered
--- NOTE | 2022-10-19 08:26 | P.PNGS_ITS ---
Subjective Subjective Date of Service: 10/20/22 Interval history: hungry, wants to eat regular food however admits to having abdl pain no N/V has flatus Physical Exam Vital Signs: Vital Signs: Last Vital Signs Temp 97.8 F 10/19/22 07:00 Pulse 97 10/19/22 08:00 Resp 20 10/19/22 08:00 BP 132/74 10/19/22 07:00 Pulse Ox 92 10/19/22 07:00 O2 Del Method Nasal Cannula 10/19/22 07:00 O2 Flow Rate 2 10/19/22 07:00 Oxygen Flow Rate 3 10/17/22 16:57 BMI result Body Mass Index 56.7 Const: Other: some SOB as baseline General: no acute distress Resp: Other: some SOB Cardio: Other: irregular GI: Other: mild diffuse tenderness Palpation (GI): Soft to palpation, not firm and no guarding Objective Data Active Medications Acetaminophen (Acetaminophen 325 Mg Tablet) 650 mg PO Q6H PRN PRN Reason: Pain, Mild (Pain Scale 1-3) Last Admin: 10/19/22 03:27 Dose: 650 mg Documented By: ANTONIA Albuterol Sulfate (Albuterol Sulfate 90 Mcg 8 Gm Inhaler) 2 puff INHALE Q4H PRN PRN Reason: Shortness Of Breath Albuterol/Ipratropium (Albuterol/Iprat 2.5/0.5mg 3 Ml Ampul.Neb) 3 ml INHALE RQ4H PRN PRN Reason: sob,wheezing Last Admin: 10/17/22 22:47 Dose: 3 ml Documented By: MY Aripiprazole (Aripiprazole 10 Mg Tablet) 10 mg PO DAILY [facility] Last Admin: 10/19/22 07:46 Dose: 10 mg Documented By: SARITHA Atorvastatin Calcium (Atorvastatin Calcium 40 Mg Tablet) 40 mg PO BEDTIME [facility] Last Admin: 10/18/22 20:16 Dose: 40 mg Documented By: ANTONIA Bisacodyl (Bisacodyl 10 Mg Supp.Rect) 10 mg [place] DAILY PRN PRN Reason: Constipation Bupropion HCl (Bupropion Hcl Xl 150 Mg Tab.Er.24h) 150 mg PO BID [facility] Last Admin: 10/19/22 07:46 Dose: 150 mg Documented By: SARITHA Dextrose (Dextrose 50 % 25 Gm/50 Ml Syringe) 25 gm IVPUSH Q15M PRN; Protocol PRN Reason: per Hypoglycemia Standing Ord. Docusate Sodium (Docusate Sodium 100 Mg Capsule) 100 mg PO BID [facility] Last Admin: 10/19/22 07:47 Dose: 100 mg Documented By: SARITHA Enoxaparin Sodium (Enoxaparin Sodium 40 Mg/0.4 Ml Syringe) 40 mg SUBCUT Q24H [facility] Last Admin: 10/18/22 20:17 Dose: 40 mg Documented By: ANTONIA Fluticasone/Vilanterol (Fluticasone/Vilanterol 200/25 Blst.W.Dev) 1 puff INHALE RDAILY [facility] Last Admin: 10/19/22 07:58 Dose: 1 puff Documented By: RUTH Furosemide (Furosemide 40 Mg Tablet) 40 mg PO DAILY [facility]; Protocol Last Admin: 10/19/22 07:46 Dose: 40 mg Documented By: SARITHA Gabapentin (Gabapentin 100 Mg Capsule) 100 mg PO TID@0600,1400,1800 [facility] Last Admin: 10/19/22 06:15 Dose: 100 mg Documented By: ANTONIA Glucose (Glucose Gel 15 Gm Gel..Gram.) 15 gm PO Q15M PRN; Protocol PRN Reason: per Hypoglycemia Standing Ord. Ceftriaxone Sodium 1 gm/ (Sodium Chloride) 50 mls @ 100 mls/hr IV Q24H [facility] Last Infusion: 10/18/22 20:55 Dose: 0 mls/hr Documented By: ANTONIA Metronidazole (Flagyl) 500 mg in 100 mls @ 100 mls/hr IV Q8H [facility] Last Infusion: 10/19/22 07:14 Dose: 0 mls/hr Documented By: SARITHA Insulin Glargine (Insulin Glargine,Hum.Rec.Anlog 100 Unit/Ml 10 Ml Vial) 20 unit SUBCUT DAILY [facility] Last Admin: 10/18/22 09:03 Dose: Not Given Documented By: PEE Non-Admin Reason: Physician Held Med Insulin Human Lispro (Insulin Lispro 100 Unit/Ml 3 Ml Vial) 0 unit SUBCUT QIDACHS [facility]; Protocol Last Admin: 10/19/22 07:44 Dose: Not Given Documented By: SARITHA Non-Admin Reason: No Insulin Coverage Lidocaine (Lidocaine 4 % Patch Adh..Patch) 1 patch TRANSDERMA DAILY [facility]; Protocol Last Admin: 10/19/22 07:47 Dose: 1 patch Documented By: SARITHA Magnesium Hydroxide (Milk Of Magnesia 30 Ml Oral.Susp) 30 ml PO DAILY PRN PRN Reason: Constipation Morphine Sulfate (Morphine Sulfate 2 Mg/Ml Cartridge) 2 mg IVPUSH Q4H PRN; Protocol PRN Reason: Pain, Mild (Pain Scale 1-3) Last Admin: 10/19/22 01:30 Dose: 2 mg Documented By: CHAD Ondansetron HCl (Ondansetron Hcl 4 Mg/2 Ml Vial) 4 mg IVPUSH Q8H PRN PRN Reason: Nausea and Vomiting Oxycodone HCl (Oxycodone Hcl Immed Release 5 Mg Tablet) 5 mg PO Q6H PRN PRN Reason: Pain, Severe (Pain Scale 7-10) Last Admin: 10/19/22 06:15 Dose: 5 mg Documented By: ANTONIA Polyethylene Glycol (Polyethylene Glycol 3350 17 Gm Powd.Pack) 17 gm PO DAILY [facility] Last Admin: 10/19/22 07:47 Dose: 17 gm Documented By: SARITHA Propranolol HCl (Propranolol Hcl 20 Mg Tablet) 60 mg PO DAILY [facility]; Protocol Last Admin: 10/19/22 07:46 Dose: 60 mg Documented By: SARITHA Senna (Sennosides 8.6 Mg Tablet) 17.2 mg PO BEDTIME [facility] Last Admin: 10/18/22 20:16 Dose: 17.2 mg Documented By: ANTONAI Sodium Chloride (0.9 % Sodium Chloride Flush 3 Ml Syringe) [facility] Last Admin: 10/19/22 07:46 Dose: 3 ml Documented By: SARITHA Trazodone HCl (Trazodone Hcl 25 Mg Halftab) 25 mg PO BEDTIME [facility] Last Admin: 10/18/22 20:16 Dose: 25 mg Documented By: ANTONIA Labs 10/18/22 05:27 10/18/22 05:27 Labs: Laboratory Results - last 24 hr 10/18/22 10/18/22 10/18/22 11:02 15:55 19:59 POC Glucose 122 H 134 H 107 08/23/23 07:13 POC Glucose 140 H Microbiology Microbiology Results: Microbiology 10/17/22 Unknown Urine Culture - Preliminary Urine Catheterized - Straight Catheter Gram negative triston 10/17/22 21:04 Blood Culture - Preliminary Blood - Venous No growth after 24 hours. 10/17/22 21:04 Blood Culture - Preliminary Blood - Venous No growth after 24 hours. Procedures Date of Service Date of Service: 10/20/22 Progress Note: A&P Assessment and plan (1) Abdominal pain: Status: Acute Assessment and Plan: etiology uncertain clinically not obstructed abd soft and benign admitss to pain although better ok to try sips of clears, ice chips today Time Spent With Patient Time: Total time managing care of this patient today ____ minutes. Quality Stroke Does the patient have a stroke diagnosis?: No VTE Prior VTE?: No VTE Risk Level:: Medical - moderate - high VTE Device Contraindication: Treatment Not Indicated VTE Drug Contraindication: N/A - Med Ordered
[2022-10-19 09:09] LABS: Hemoglobin 8.4 g/dl (12.0-16.0); Mean Corpuscular Hemoglobin 25.1 pg (27.0-33.0); Mean Corpuscular Volume 89.6 fL (80.0-98.0); Mean Platelet Volume 11.4 fL (9.4-12.3); Platelet Count 194 X10*3/uL (160-400); Red Blood Count 3.35 X10*6/uL (4.20-5.50); White Blood Count 11.7 X10*3/uL (4.8-10.8)
[2022-10-19 09:28] LABS: Anion Gap 9 (12-20); Blood Urea Nitrogen 26 mg/dL (9-16); Calcium 9.6 mg/dL (8.4-10.2); Carbon Dioxide 30 mmol/L (22-29); Chloride 102 mmol/L (96-108); Creatinine Clr Calc Pharmacy 91.2; Estimated Glomerular Filt Rate > 60; Glucose Random 132 mg/dL (60-115); Potassium 4.2 mmol/L (3.3-5.1); Sodium 137 mmol/L (135-145)
[2022-10-19] MEDS: Doxycycline Hyclate 100 MG in 0.9 % Sodium Chloride 250 ML 166.67 MG IV ×2 (10:39→21:51)
[2022-10-19 11:09] LABS: Glucose, Whole Blood 139 mg/dL (60-115)
[2022-10-19 15:02] VITALS: BP 127/69; PULSE 73; RESP 18; TEMP 36.6; O2SAT 95
--- NOTE | 2022-10-19 15:37 | W.PM.IDCN ---
History of Present Illness Data of Consult Service Date: 10/19/22 Requesting physician: Rochelle Rg Primary Care Provider: Carlitos Greer MD HPI Reason for consult: abdominal pain,possible infection She presents with 7/10 abdominal pain to back. She had symptoms for a day and has no fever or chills. WBC is 15.6. CT abdomen and pelvis shows some jejunal swelling. There was concern over enteritis. Urine shows E coli. She had E coli in past July 2022 and was discharged from hospital with cefuroxime 500 mg bid on 08/16. She has blood culture 1/2 gram positive cocci,pending identification. Review of Systems Review of Systems: Yes all other systems are reviewed and are negative Gastrointestinal: Comments: rlq discomfort PMFSH Past Medical History Medical History Abdominal pain Atrial fibrillation CHF (congestive heart failure) COPD (chronic obstructive pulmonary disease) Depressive disorder Dysphagia Essential tremor Hyperlipidemia Memory deficit Pneumoperitoneum UTI (urinary tract infection) Family History Family history: reviewed and not pertinent Surgical History Surgical History No pertinent past surgical history Social History Social History Household Members: Spouse Housing: House Do you presently have visiting nurse or other home services: Yes Alcohol intake: never Patient Tobacco Use Status: Never used Tobacco Advance Directives Date on File: 08/27/21 service: No Current occupational status: unemployed Meds Allergies Allergy/AdvReac Type Severity Reaction Status Date / Time No Known Allergies Allergy Verified 10/17/22 17:06 Active Medications: Current Medications Acetaminophen (Acetaminophen 325 Mg Tablet) 650 mg PO Q6H PRN PRN Reason: Pain, Mild (Pain Scale 1-3) Last Admin: 10/19/22 03:27 Dose: 650 mg Albuterol Sulfate (Albuterol Sulfate 90 Mcg 8 Gm Inhaler) 2 puff INHALE Q4H PRN PRN Reason: Shortness Of Breath Albuterol/Ipratropium (Albuterol/Iprat 2.5/0.5mg 3 Ml Ampul.Neb) 3 ml INHALE RQ4H PRN PRN Reason: sob,wheezing Last Admin: 10/17/22 22:47 Dose: 3 ml Aripiprazole (Aripiprazole 10 Mg Tablet) 10 mg PO DAILY [facility] Last Admin: 10/19/22 07:46 Dose: 10 mg Atorvastatin Calcium (Atorvastatin Calcium 40 Mg Tablet) 40 mg PO BEDTIME [facility] Last Admin: 10/18/22 20:16 Dose: 40 mg Bisacodyl (Bisacodyl 10 Mg Supp.Rect) 10 mg [place] DAILY PRN PRN Reason: Constipation Bupropion HCl (Bupropion Hcl Xl 150 Mg Tab.Er.24h) 150 mg PO BID [facility] Last Admin: 10/19/22 07:46 Dose: 150 mg Dextrose (Dextrose 50 % 25 Gm/50 Ml Syringe) 25 gm IVPUSH Q15M PRN; Protocol PRN Reason: per Hypoglycemia Standing Ord. Docusate Sodium (Docusate Sodium 100 Mg Capsule) 100 mg PO BID [facility] Last Admin: 10/19/22 07:47 Dose: 100 mg Enoxaparin Sodium (Enoxaparin Sodium 40 Mg/0.4 Ml Syringe) 40 mg SUBCUT Q24H [facility] Last Admin: 10/18/22 20:17 Dose: 40 mg Fluticasone/Vilanterol (Fluticasone/Vilanterol 200/25 Blst.W.Dev) 1 puff INHALE RDAILY [facility] Last Admin: 10/19/22 07:58 Dose: 1 puff Furosemide (Furosemide 40 Mg Tablet) 40 mg PO DAILY [facility]; Protocol Last Admin: 10/19/22 07:46 Dose: 40 mg Gabapentin (Gabapentin 100 Mg Capsule) 100 mg PO TID@0600,1400,1800 [facility] Last Admin: 10/19/22 13:21 Dose: 100 mg Glucose (Glucose Gel 15 Gm Gel..Gram.) 15 gm PO Q15M PRN; Protocol PRN Reason: per Hypoglycemia Standing Ord. Ceftriaxone Sodium 1 gm/ (Sodium Chloride) 50 mls @ 100 mls/hr IV Q24H [facility] Last Infusion: 10/18/22 20:55 Dose: Infused Doxycycline Hyclate 100 mg/ (Sodium Chloride) 250 mls @ 166.67 mls/hr IV Q12H [facility] Last Infusion: 10/19/22 12:12 Dose: Infused Insulin Glargine (Insulin Glargine,Hum.Rec.Anlog 100 Unit/Ml 10 Ml Vial) 20 unit SUBCUT DAILY [facility] Last Admin: 10/19/22 09:27 Dose: Not Given Insulin Human Lispro (Insulin Lispro 100 Unit/Ml 3 Ml Vial) 0 unit SUBCUT QIDACHS [facility]; Protocol Last Admin: 10/19/22 11:22 Dose: Not Given Lidocaine (Lidocaine 4 % Patch Adh..Patch) 1 patch TRANSDERMA DAILY [facility]; Protocol Last Admin: 10/19/22 07:47 Dose: 1 patch Magnesium Hydroxide (Milk Of Magnesia 30 Ml Oral.Susp) 30 ml PO DAILY PRN PRN Reason: Constipation Morphine Sulfate (Morphine Sulfate 2 Mg/Ml Cartridge) 2 mg IVPUSH Q4H PRN; Protocol PRN Reason: Pain, Mild (Pain Scale 1-3) Last Admin: 10/19/22 01:30 Dose: 2 mg Ondansetron HCl (Ondansetron Hcl 4 Mg/2 Ml Vial) 4 mg IVPUSH Q8H PRN PRN Reason: Nausea and Vomiting Oxycodone HCl (Oxycodone Hcl Immed Release 5 Mg Tablet) 5 mg PO Q6H PRN PRN Reason: Pain, Severe (Pain Scale 7-10) Last Admin: 10/19/22 12:01 Dose: 5 mg Polyethylene Glycol (Polyethylene Glycol 3350 17 Gm Powd.Pack) 17 gm PO DAILY [facility] Last Admin: 10/19/22 07:47 Dose: 17 gm Propranolol HCl (Propranolol Hcl 20 Mg Tablet) 60 mg PO DAILY [facility]; Protocol Last Admin: 10/19/22 07:46 Dose: 60 mg Senna (Sennosides 8.6 Mg Tablet) 17.2 mg PO BEDTIME [facility] Last Admin: 10/18/22 20:16 Dose: 17.2 mg Sodium Chloride (0.9 % Sodium Chloride Flush 3 Ml Syringe) [facility] Last Admin: 10/19/22 14:29 Dose: 3 ml Trazodone HCl (Trazodone Hcl 25 Mg Halftab) 25 mg PO BEDTIME [facility] Last Admin: 10/18/22 20:16 Dose: 25 mg Home Medications Medication Instructions Recorded Confirmed Last Taken Type acetaminophen 325 mg tablet 650 mg PO Q6H PRN temp/pain 08/26/21 10/17/22 Unknown History aripiprazole 10 mg tablet 10 mg PO DAILY 08/26/21 10/17/22 08/09/22 History bisacodyl 10 mg rectal suppository 10 mg [place] DAILY PRN Constipation 08/26/21 10/17/22 Unknown History budesonide-formoterol HFA 160 1 inh inhalation DAILY 08/26/21 10/17/22 08/09/22 History mcg-4.5 mcg/actuation aerosol inhaler (Symbicort) docusate sodium 100 mg capsule 100 mg PO BID 08/26/21 10/17/22 08/09/22 History enoxaparin 40 mg/0.4 mL 40 mg subcut DAILY 08/26/21 10/17/22 Unknown History subcutaneous syringe (Lovenox) furosemide 40 mg tablet 40 mg PO DAILY 08/26/21 10/17/22 08/09/22 History insulin lispro 100 unit/mL See Protocol subcut QIDACHS 08/26/21 10/17/22 08/09/22 History subcutaneous solution (Humalog U-100 Insulin) magnesium hydroxide 400 mg/5 mL 30 ml PO DAILY PRN Constipation 08/26/21 10/17/22 Unknown History oral suspension (Milk of Magnesia) polyethylene glycol 3350 17 gram 17 g PO DAILY 08/26/21 10/17/22 08/09/22 History oral powder packet sennosides 8.6 mg tablet (senna) 17.2 mg PO BEDTIME 08/26/21 10/17/22 08/08/22 History gabapentin 100 mg capsule 100 mg PO TID@0600,1400,1800 08/09/22 10/17/22 08/09/22 History glimepiride 4 mg tablet 4 mg PO DAILY 08/09/22 10/17/22 08/09/22 History insulin glargine-yfgn 100 unit/mL 20 unit subcut DAILY 08/09/22 10/17/22 08/09/22 History (3 mL) subcutaneous pen (Semglee (insulin glargine-yfgn) Pen) pioglitazone 45 mg tablet (Actos) 45 mg PO DAILY 08/09/22 10/17/22 08/09/22 History propranolol 20 mg tablet 60 mg PO DAILY 08/09/22 10/17/22 08/09/22 History rosuvastatin 10 mg tablet (Crestor) 10 mg PO BEDTIME 08/09/22 10/17/22 08/08/22 History trazodone 50 mg tablet 25 mg PO BEDTIME 08/09/22 10/17/22 08/08/22 History bupropion HCl 150 mg 24 hr tablet, 150 mg PO BID 08/10/22 10/17/22 08/09/22 History extended release albuterol sulfate 90 mcg/actuation 2 puff inhalation Q4H PRN 10/17/22 10/17/22 Unknown History aerosol inhaler Shortness Of Breath lidocaine 4 % topical patch 1 patch topical DAILY 10/17/22 10/17/22 Unknown History (Aspercreme (lidocaine)) Physical Exam Vital Signs: Vital Signs: Last Vital Signs Temp 97.9 F 10/19/22 15:02 Pulse 73 10/19/22 15:02 Resp 18 10/19/22 15:02 BP 127/69 10/19/22 15:02 Pulse Ox 95 10/19/22 15:02 O2 Del Method Room Air 10/19/22 15:02 O2 Flow Rate 2 10/19/22 07:00 Oxygen Flow Rate 3 10/17/22 16:57 BMI result Body Mass Index 56.7 Const: General: cooperative HEENT: Head: Yes normal to inspection Face and sinus: Yes normal facial exam Mouth: Normal oral and palatal mucosa present Teeth and gingiva: dentition normal Eyes: General: appearance normal, both eyes and all related structures Pupils: Equal, round and reactive pupils present Resp: Effort & Inspection: normal respiratory effort Cardio: Rate: regular rate Rhythm: regular rhythm GI: Other: mild RLQ pain,better Palpation (GI): Soft to palpation and nontender : General: Yes no CVA tenderness Back/Spine/Pelvis: Back: no CVA tenderness Skin: General skin exam: no rashes or lesions noted Neuro: General: moves all extremities Cranial nerves: Yes Equal, round and reactive pupils present Extrem: General: Yes normal to inspection Psych: Appearance: grossly normal Results Labs 10/19/22 08:38 10/19/22 08:39 Labs: Short CBC 10/19/22 Range/Units 08:38 WBC 11.7 H (4.8-10.8) X10*3/uL Hgb 8.4 L (12.0-16.0) g/dl Hct 30.0 L (37.0-47.0) % Plt Count 194 (160-400) X10*3/uL BMP 10/19/22 08:39 Sodium 137 Potassium 4.2 Chloride 102 Carbon Dioxide 30 H BUN 26 H Creatinine 0.88 Calcium 9.6 Microbiology Microbiology Results: Microbiology 10/17/22 21:04 Blood - Venous Blood Culture - Preliminary Prelim: GPC Gram Stain only 10/17/22 Unknown Urine Catheterized - Straight Catheter Urine Culture - Preliminary Gram negative triston 10/17/22 21:04 Blood - Venous Blood Culture - Preliminary No growth after 24 hours. Assessment and Plan (1) Abdominal pain: Status: Acute Apparently patient is improving and thought not to be surgical abdomen or SBO per surgery. Urinary sepsis and inflammation identified with UTI can cause focal ileus or inflammation also. Gram positive 1/2 bacteremia likely contaminant. (2) UTI (urinary tract infection): Status: Acute Plan Continue Ceftriaxone until improved and then po cephalosporin for total 14 d. Await cultures. Stop Metronidazole. Time Spent With Patient Time: Total time managing care of this patient today ____ minutes.
[2022-10-19 16:07] LABS: Glucose, Whole Blood 96 mg/dL (60-115)
[2022-10-19 19:09] VITALS: BP 128/68; PULSE 78; RESP 18; TEMP 36.7; O2SAT 95
[2022-10-19 20:36] LABS: Glucose, Whole Blood 128 mg/dL (60-115)
[2022-10-19] MEDS: diphenhydrAMINE HCL 50 MG/ML VIAL 25 MG IVPUSH (21:18)
[2022-10-19] MEDS: cefTRIAXone sodium 1 GM in 0.9 % Sodium Chloride 50 ML IV (21:18)
[2022-10-19] MEDS: Enoxaparin Sodium 40 MG/0.4 ML SYRINGE SUBCUT (21:18)
[2022-10-19] MEDS: Sennosides 8.6 MG TABLET 17.2 MG PO (21:21)
[2022-10-19] MEDS: traZODone HCL 25 MG HALFTAB PO (21:21)
[2022-10-19] MEDS: Atorvastatin Calcium 40 MG TABLET PO (21:22)
[2022-10-20] MEDS: Morphine Sulfate 2 MG/ML CARTRIDGE IVPUSH ×4 (02:00→18:03)
[2022-10-20 04:00] VITALS: BP 126/60; PULSE 70; RESP 18; TEMP 36.6; O2SAT 97
[2022-10-20] MEDS: Gabapentin 100 MG CAPSULE PO ×3 (06:23→18:03)
[2022-10-20 07:13] VITALS: BP 127/58; PULSE 75; RESP 17; TEMP 36.3; O2SAT 96
[2022-10-20 07:41] LABS: Glucose, Whole Blood 117 mg/dL (60-115)
--- NOTE | 2022-10-20 07:50 | PM.PNGS ---
Subjective Subjective Date of Service: 10/21/22 Interval history: she says she still has abdl pain but better passing flatus no nausea or vomitting no fever Physical Exam Vital Signs: Vital Signs: Last Vital Signs Temp 97.4 F 10/20/22 07:13 Pulse 75 10/20/22 07:13 Resp 17 10/20/22 07:13 BP 127/58 L 10/20/22 07:13 Pulse Ox 96 10/20/22 07:13 O2 Del Method Nasal Cannula 10/20/22 07:13 O2 Flow Rate 3.0 10/20/22 07:13 Oxygen Flow Rate 3 10/17/22 16:57 BMI result Body Mass Index 56.7 Const: Other: some shortness of breath as baseline General: comfortable Resp: Other: shortness of breath Cardio: Rhythm: abnormal rhythm GI: Other: obese, soft, denies tenderness at this time Objective Data Active Medications Acetaminophen (Acetaminophen 325 Mg Tablet) 650 mg PO Q6H PRN PRN Reason: Pain, Mild (Pain Scale 1-3) Last Admin: 10/19/22 03:27 Dose: 650 mg Documented By: ANTONIA Albuterol Sulfate (Albuterol Sulfate 90 Mcg 8 Gm Inhaler) 2 puff INHALE Q4H PRN PRN Reason: Shortness Of Breath Albuterol/Ipratropium (Albuterol/Iprat 2.5/0.5mg 3 Ml Ampul.Neb) 3 ml INHALE RQ4H PRN PRN Reason: sob,wheezing Last Admin: 10/17/22 22:47 Dose: 3 ml Documented By: MY Aripiprazole (Aripiprazole 10 Mg Tablet) 10 mg PO DAILY [facility] Last Admin: 10/19/22 07:46 Dose: 10 mg Documented By: SARITHA Atorvastatin Calcium (Atorvastatin Calcium 40 Mg Tablet) 40 mg PO BEDTIME [facility] Last Admin: 10/19/22 21:22 Dose: 40 mg Documented By: ANTONIA Bisacodyl (Bisacodyl 10 Mg Supp.Rect) 10 mg IN DAILY PRN PRN Reason: Constipation Bupropion HCl (Bupropion Hcl Xl 150 Mg Tab.Er.24h) 150 mg PO BID [facility] Last Admin: 10/19/22 21:22 Dose: 150 mg Documented By: ANTONIA Dextrose (Dextrose 50 % 25 Gm/50 Ml Syringe) 25 gm IVPUSH Q15M PRN; Protocol PRN Reason: per Hypoglycemia Standing Ord. Enoxaparin Sodium (Enoxaparin Sodium 40 Mg/0.4 Ml Syringe) 40 mg SUBCUT Q24H [facility] Last Admin: 10/19/22 21:18 Dose: 40 mg Documented By: ANTONIA Fluticasone/Vilanterol (Fluticasone/Vilanterol 200/25 Blst.W.Dev) 1 puff INHALE RDAILY [facility] Last Admin: 10/19/22 07:58 Dose: 1 puff Documented By: RUTH Furosemide (Furosemide 40 Mg Tablet) 40 mg PO DAILY [facility]; Protocol Last Admin: 10/19/22 07:46 Dose: 40 mg Documented By: SARITHA Gabapentin (Gabapentin 100 Mg Capsule) 100 mg PO TID@0600,1400,1800 [facility] Last Admin: 10/20/22 06:23 Dose: 100 mg Documented By: ANTONIA Glucose (Glucose Gel 15 Gm Gel..Gram.) 15 gm PO Q15M PRN; Protocol PRN Reason: per Hypoglycemia Standing Ord. Ceftriaxone Sodium 1 gm/ (Sodium Chloride) 50 mls @ 100 mls/hr IV Q24H [facility] Last Infusion: 10/19/22 21:54 Dose: 0 mls/hr Documented By: ANTONIA Doxycycline Hyclate 100 mg/ (Sodium Chloride) 250 mls @ 166.67 mls/hr IV Q12H [facility] Last Infusion: 10/19/22 23:25 Dose: 0 mls/hr Documented By: ANTONIA Insulin Glargine (Insulin Glargine,Hum.Rec.Anlog 100 Unit/Ml 10 Ml Vial) 20 unit SUBCUT DAILY [facility] Last Admin: 10/19/22 09:27 Dose: Not Given Documented By: SARITHA Non-Admin Reason: NPO Insulin Human Lispro (Insulin Lispro 100 Unit/Ml 3 Ml Vial) 0 unit SUBCUT QIDACHS [facility]; Protocol Last Admin: 10/20/22 07:42 Dose: Not Given Documented By: EAN Non-Admin Reason: No Insulin Coverage Lidocaine (Lidocaine 4 % Patch Adh..Patch) 1 patch TRANSDERMA DAILY [facility]; Protocol Last Admin: 10/19/22 07:47 Dose: 1 patch Documented By: SARITHA Magnesium Hydroxide (Milk Of Magnesia 30 Ml Oral.Susp) 30 ml PO DAILY PRN PRN Reason: Constipation Morphine Sulfate (Morphine Sulfate 2 Mg/Ml Cartridge) 2 mg IVPUSH Q4H PRN; Protocol PRN Reason: Pain, Mild (Pain Scale 1-3) Last Admin: 10/20/22 06:23 Dose: 2 mg Documented By: ANTONIA Nystatin (Nystatin Cream 15 Gm Tube) 1 appl TOPICAL BID [facility]; Protocol Last Admin: 10/20/22 00:46 Dose: Not Given Documented By: ANTONIA Non-Admin Reason: Med Not Available Ondansetron HCl (Ondansetron Hcl 4 Mg/2 Ml Vial) 4 mg IVPUSH Q8H PRN PRN Reason: Nausea and Vomiting Oxycodone HCl (Oxycodone Hcl Immed Release 5 Mg Tablet) 5 mg PO Q6H PRN PRN Reason: Pain, Severe (Pain Scale 7-10) Last Admin: 10/19/22 12:01 Dose: 5 mg Documented By: SARITHA Polyethylene Glycol (Polyethylene Glycol 3350 17 Gm Powd.Pack) 17 gm PO DAILY [facility] Last Admin: 10/19/22 07:47 Dose: 17 gm Documented By: SARITHA Propranolol HCl (Propranolol Hcl 20 Mg Tablet) 60 mg PO DAILY [facility]; Protocol Last Admin: 10/19/22 07:46 Dose: 60 mg Documented By: SARITHA Senna (Sennosides 8.6 Mg Tablet) 17.2 mg PO BEDTIME [facility] Last Admin: 10/19/22 21:21 Dose: 17.2 mg Documented By: ANTONIA Sodium Chloride (0.9 % Sodium Chloride Flush 3 Ml Syringe) 3 ml IVFLUSH QSHIFT [facility] Last Admin: 10/19/22 21:52 Dose: 3 ml Documented By: ANTONIA Trazodone HCl (Trazodone Hcl 25 Mg Halftab) 25 mg PO BEDTIME [facility] Last Admin: 10/19/22 21:21 Dose: 25 mg Documented By: ANTONIA Labs 10/19/22 08:38 10/19/22 08:39 Labs: Laboratory Results - last 24 hr 10/19/22 10/19/22 10/19/22 08:38 08:39 11:04 MCV 89.6 MCH 25.1 L MCHC 28.0 L RDW 17.0 H Plt Count 194 MPV 11.4 Absolute Nucleated RBC 0.000 Nucleated RBC % (auto) 0.0 Anion Gap 9 L Estim Creat Clear Calc 91.2 Estimated GFR > 60 POC Glucose 139 H Random Glucose 132 H Calcium 9.6 10/19/22 10/19/22 10/20/22 16:02 20:21 07:29 MCV MCH MCHC RDW Plt Count MPV Absolute Nucleated RBC Nucleated RBC % (auto) Anion Gap Estim Creat Clear Calc Estimated GFR POC Glucose 96 128 H 117 H Random Glucose Calcium Microbiology Microbiology Results: Microbiology 10/17/22 21:04 Blood Culture - Preliminary Blood - Venous No growth after 48 hours. 10/17/22 21:04 Blood Culture - Preliminary Blood - Venous Prelim: GPC Gram Stain only 10/17/22 Unknown Urine Culture - Preliminary Urine Catheterized - Straight Catheter Gram negative triston Procedures Date of Service Date of Service: 10/21/22 Progress Note: A&P Assessment and plan (1) Abdominal pain: Status: Acute Assessment and Plan: etiology unclear poss. enteritis, early PSBO abd soft passing flatus says she still has abdl pain but better ok for clear liquids today - would advance slowly anemia likely multifactorial - no evidence of GI bleed Time Spent With Patient Time: Total time managing care of this patient today ____ minutes. Quality Stroke Does the patient have a stroke diagnosis?: No VTE Prior VTE?: No VTE Risk Level:: Medical - moderate - high VTE Device Contraindication: Treatment Not Indicated VTE Drug Contraindication: N/A - Med Ordered
[2022-10-20] MEDS: 0.9 % Sodium Chloride Flush 3 ML SYRINGE IVFLUSH ×3 (08:59→20:22)
[2022-10-20] MEDS: Furosemide 40 MG TABLET PO (09:00)
[2022-10-20] MEDS: buPROPion HCl XL 150 MG TAB.ER.24H PO ×2 (09:00→20:21)
[2022-10-20] MEDS: Lidocaine 4 % Patch ADH..PATCH 1 PATCH TRANSDERMA (09:00)
[2022-10-20] MEDS: Propranolol HCL 20 MG TABLET 60 MG PO (09:00)
[2022-10-20] MEDS: polyethylene glycoL 3350 17 GM POWD.PACK PO (09:00)
[2022-10-20] MEDS: ARIPiprazole 10 MG TABLET PO (09:00)
[2022-10-20] MEDS: Insulin Glargine,Hum.rec.anlog 100 UNIT/ML 10 ML VIAL 20 UNIT SUBCUT (09:01)
[2022-10-20] MEDS: Doxycycline Hyclate 100 MG in 0.9 % Sodium Chloride 250 ML 166.67 MG IV (10:39)
[2022-10-20 11:33] LABS: Glucose, Whole Blood 141 mg/dL (60-115)
[2022-10-20] MEDS: Nystatin Cream 15 GM TUBE 1 APPL TOPICAL ×2 (12:32→20:27)
[2022-10-20] MEDS: Milk of Magnesia 30 ML ORAL.SUSP PO (14:07)
[2022-10-20 15:06] VITALS: BP 122/57; PULSE 61; RESP 18; TEMP 36.2; O2SAT 97
--- NOTE | 2022-10-20 16:21 | HO.PM.IMPN ---
Subjective Subjective Date of Service: 10/20/22 Interval History: seen and examined this morning follow up for abdominal pain still with some abdominal pain, denies N/V/D Review of Systems Review of Systems: Yes all other systems are reviewed and are negative Constitutional Constitutional: Denies chills and Denies fever(s) Cardiovascular Cardiovascular: Denies chest pain and Denies dyspnea Respiratory Respiratory: Denies dyspnea Gastrointestinal Gastrointestinal: Reports abdominal pain Physical Exam Vital Signs: Vital Signs: Last Vital Signs Temp 97.1 F 10/20/22 15:06 Pulse 61 10/20/22 15:06 Resp 18 10/20/22 15:06 BP 122/57 L 10/20/22 15:06 Pulse Ox 97 10/20/22 15:06 O2 Del Method Nasal Cannula 10/20/22 15:06 O2 Flow Rate 3.0 10/20/22 15:06 Oxygen Flow Rate 3 10/17/22 16:57 BMI result Body Mass Index 56.7 Const: General: comfortable, no acute distress, alert and awake Nutritional Appearance: obese Orientation/consciousness: patient oriented x3 Resp: Other: diminished breath sounds Effort & Inspection: normal respiratory effort, able to speak in complete sentences, no respiratory distress and no use of accessory muscles Cardio: Rate: regular rate Heart sounds: S1 normal heart sound present and S2 normal heart sound present GI: Inspection: No distended and Yes obesity Palpation (GI): Soft to palpation Neuro: General: patient oriented x3 Extrem: Other: LUE weakness, chronic General: Yes no pedal edema Objective Data Active Medications Acetaminophen (Acetaminophen 325 Mg Tablet) 650 mg PO Q6H PRN PRN Reason: Pain, Mild (Pain Scale 1-3) Last Admin: 10/19/22 03:27 Dose: 650 mg Documented By: ANTONIA Albuterol Sulfate (Albuterol Sulfate 90 Mcg 8 Gm Inhaler) 2 puff INHALE Q4H PRN PRN Reason: Shortness Of Breath Albuterol/Ipratropium (Albuterol/Iprat 2.5/0.5mg 3 Ml Ampul.Neb) 3 ml INHALE RQ4H PRN PRN Reason: sob,wheezing Last Admin: 10/17/22 22:47 Dose: 3 ml Documented By: MY Aripiprazole (Aripiprazole 10 Mg Tablet) 10 mg PO DAILY [facility] Last Admin: 10/20/22 09:00 Dose: 10 mg Documented By: EAN Atorvastatin Calcium (Atorvastatin Calcium 40 Mg Tablet) 40 mg PO BEDTIME [facility] Last Admin: 10/19/22 21:22 Dose: 40 mg Documented By: ANTONIA Bisacodyl (Bisacodyl 10 Mg Supp.Rect) 10 mg [place] DAILY PRN PRN Reason: Constipation Bupropion HCl (Bupropion Hcl Xl 150 Mg Tab.Er.24h) 150 mg PO BID [facility] Last Admin: 10/20/22 09:00 Dose: 150 mg Documented By: EAN Dextrose (Dextrose 50 % 25 Gm/50 Ml Syringe) 25 gm IVPUSH Q15M PRN; Protocol PRN Reason: per Hypoglycemia Standing Ord. Enoxaparin Sodium (Enoxaparin Sodium 40 Mg/0.4 Ml Syringe) 40 mg SUBCUT Q24H [facility] Last Admin: 10/19/22 21:18 Dose: 40 mg Documented By: ANTONIA Fluticasone/Vilanterol (Fluticasone/Vilanterol 200/25 Blst.W.Dev) 1 puff INHALE RDAILY [facility] Last Admin: 10/20/22 08:29 Dose: Not Given Documented By: RUTH Non-Admin Reason: Off Unit: Surgery Furosemide (Furosemide 40 Mg Tablet) 40 mg PO DAILY [facility]; Protocol Last Admin: 10/20/22 09:00 Dose: 40 mg Documented By: EAN Gabapentin (Gabapentin 100 Mg Capsule) 100 mg PO TID@0600,1400,1800 [facility] Last Admin: 10/20/22 13:44 Dose: 100 mg Documented By: EAN Glucose (Glucose Gel 15 Gm Gel..Gram.) 15 gm PO Q15M PRN; Protocol PRN Reason: per Hypoglycemia Standing Ord. Ceftriaxone Sodium 1 gm/ (Sodium Chloride) 50 mls @ 100 mls/hr IV Q24H [facility] Last Infusion: 10/19/22 21:54 Dose: 0 mls/hr Documented By: ANTONIA Insulin Glargine (Insulin Glargine,Hum.Rec.Anlog 100 Unit/Ml 10 Ml Vial) 20 unit SUBCUT DAILY [facility] Last Admin: 10/20/22 09:01 Dose: 20 unit Documented By: EAN Insulin Human Lispro (Insulin Lispro 100 Unit/Ml 3 Ml Vial) 0 unit SUBCUT QIDACHS [facility]; Protocol Last Admin: 10/20/22 11:36 Dose: Not Given Documented By: EAN Non-Admin Reason: No Insulin Coverage Lidocaine (Lidocaine 4 % Patch Adh..Patch) 1 patch TRANSDERMA DAILY [facility]; Protocol Last Admin: 10/20/22 09:00 Dose: 1 patch Documented By: EAN Magnesium Hydroxide (Milk Of Magnesia 30 Ml Oral.Susp) 30 ml PO DAILY PRN PRN Reason: Constipation Last Admin: 10/20/22 14:07 Dose: 30 ml Documented By: AEN Morphine Sulfate (Morphine Sulfate 2 Mg/Ml Cartridge) 2 mg IVPUSH Q4H PRN; Protocol PRN Reason: Pain, Mild (Pain Scale 1-3) Last Admin: 10/20/22 11:32 Dose: 2 mg Documented By: EAN Nystatin (Nystatin Cream 15 Gm Tube) 1 appl TOPICAL BID [facility]; Protocol Last Admin: 10/20/22 12:32 Dose: 1 appl Documented By: EAN Comments: given late d/t pharmacy having to bring up med Ondansetron HCl (Ondansetron Hcl 4 Mg/2 Ml Vial) 4 mg IVPUSH Q8H PRN PRN Reason: Nausea and Vomiting Oxycodone HCl (Oxycodone Hcl Immed Release 5 Mg Tablet) 5 mg PO Q6H PRN PRN Reason: Pain, Severe (Pain Scale 7-10) Last Admin: 10/19/22 12:01 Dose: 5 mg Documented By: SARITHA Polyethylene Glycol (Polyethylene Glycol 3350 17 Gm Powd.Pack) 17 gm PO DAILY [facility] Last Admin: 10/20/22 09:00 Dose: 17 gm Documented By: EAN Propranolol HCl (Propranolol Hcl 20 Mg Tablet) 60 mg PO DAILY [facility]; Protocol Last Admin: 10/20/22 09:00 Dose: 60 mg Documented By: EAN Senna (Sennosides 8.6 Mg Tablet) 17.2 mg PO BEDTIME [facility] Last Admin: 10/19/22 21:21 Dose: 17.2 mg Documented By: ANTONIA Sodium Chloride (0.9 % Sodium Chloride Flush 3 Ml Syringe) 3 ml IVFLUSH QSHIFT [facility] Last Admin: 10/20/22 16:16 Dose: 3 ml Documented By: EAN Trazodone HCl (Trazodone Hcl 25 Mg Halftab) 25 mg PO BEDTIME [facility] Last Admin: 10/19/22 21:21 Dose: 25 mg Documented By: ANTONIA Labs 10/19/22 08:38 10/19/22 08:39 Labs: Laboratory Results - last 24 hr 10/19/22 10/20/22 10/20/22 20:21 07:29 11:25 POC Glucose 128 H 117 H 141 H Microbiology Microbiology Results: Microbiology 10/17/22 21:04 Blood Culture - Preliminary Blood - Venous Gram positive cocci 10/17/22 Unknown Urine Culture - Final Urine Catheterized - Straight Catheter Citrobacter freundii 10/17/22 21:04 Blood Culture - Preliminary Blood - Venous No growth after 48 hours. Assessment and Plan (1) Abdominal pain: Status: Acute (2) Enteritis: Status: Acute Plan 66-year-old female past medical history of chronic anemia, COPD, comes into the hospital with complaints of abdominal pain Abdominal pain secondary to acute enteritis versus partial small-bowel obstruction treat with Tylenol, p.r.n. IV analgesics if necessary initially treated with Rocephin and Flagyl, flagyl d/c 10/19 per ID rec General surgery> continue abx, no surgical intervention at this time, repeat CT abdomen pending diet advanced to clear liquids GI> check celiac panel, repeat imaging with CTE and possible capsule o/p UTI urine culture growing citrobacter freundii sensitive to ceftriaxone Continue Rocephin ->po cephalosoporin for total 14d upon discharge bacteremia 1/2 blood culture growing GPC- probable contaminant per ID. follow final results chronic anemia multifactorial H/H near baseline, no evidence of acute blood loss no indication for transfusion at this time follow CBC COPD not in exacerbation continue home inhaler diabetes mellitus type 2 continue lantus Sliding scale, ADA diet mood continue home meds chronic respirartory failure continue baseline 3L NC Morbid obesity BMI 56.7 weight loss encouraged non-ambulatory at baseline, has been at [facility] for the past year, plan to return when medically ready DVT prophylaxis:? Lovenox Attending Dr. Chawla Full code Continue hospitalization for further management of partial small-bowel obstruction requiring specialty consultation and IV antibiotics Time Spent With Patient Time: Total time managing care of this patient today ____ minutes. Quality Stroke Does the patient have a stroke diagnosis?: No VTE Prior VTE?: No VTE Risk Level:: Medical - moderate - high VTE Device Contraindication: Treatment Not Indicated VTE Drug Contraindication: N/A - Med Ordered
[2022-10-20 16:26] LABS: Glucose, Whole Blood 132 mg/dL (60-115)
[2022-10-20 19:17] VITALS: BP 137/67; PULSE 66; RESP 18; TEMP 36.3; O2SAT 96
[2022-10-20 20:09] LABS: Glucose, Whole Blood 131 mg/dL (60-115)
[2022-10-20] MEDS: Atorvastatin Calcium 40 MG TABLET PO (20:21)
[2022-10-20] MEDS: traZODone HCL 25 MG HALFTAB PO (20:21)
[2022-10-20] MEDS: Enoxaparin Sodium 40 MG/0.4 ML SYRINGE SUBCUT (20:22)
[2022-10-20] MEDS: Sennosides 8.6 MG TABLET 17.2 MG PO (20:22)
[2022-10-20] MEDS: cefTRIAXone sodium 1 GM in 0.9 % Sodium Chloride 50 ML IV (20:22)
[2022-10-20] MEDS: oxyCODONE HCl Immed Release 5 MG TABLET PO (21:26)
[2022-10-21 03:37] VITALS: BP 147/85; PULSE 71; RESP 20; TEMP 36.2; O2SAT 97
[2022-10-21] MEDS: Gabapentin 100 MG CAPSULE PO ×3 (05:33→17:34)
[2022-10-21] MEDS: oxyCODONE HCl Immed Release 5 MG TABLET PO ×3 (05:35→20:55)
[2022-10-21 05:45] LABS: Hemoglobin 8.2 g/dl (12.0-16.0); Mean Corpuscular HGB Conc 28.3 g/dl (31.0-35.0); Mean Corpuscular Hemoglobin 25.3 pg (27.0-33.0); Mean Corpuscular Volume 89.5 fL (80.0-98.0); Mean Platelet Volume 10.8 fL (9.4-12.3); Platelet Count 188 X10*3/uL (160-400); Red Blood Count 3.24 X10*6/uL (4.20-5.50); Red Cell Distribution Width 16.5 % (11.0-16.0); White Blood Count 6.3 X10*3/uL (4.8-10.8)
[2022-10-21 06:06] LABS: Anion Gap 10 (12-20); Blood Urea Nitrogen 13 mg/dL (9-16); Calcium 9.4 mg/dL (8.4-10.2); Carbon Dioxide 32 mmol/L (22-29); Chloride 100 mmol/L (96-108); Creatinine Clr Calc Pharmacy 104.2; Estimated Glomerular Filt Rate > 60; Glucose Random 122 mg/dL (60-115); Potassium 3.8 mmol/L (3.3-5.1); Sodium 138 mmol/L (135-145)
[2022-10-21 07:37] VITALS: BP 128/60; PULSE 68; RESP 17; TEMP 36; O2SAT 97
[2022-10-21 07:53] LABS: Glucose, Whole Blood 123 mg/dL (60-115)
[2022-10-21] MEDS: Fluticasone/Vilanterol 200/25 BLST.W.DEV 1 PUFF INHALE (08:36)
[2022-10-21 08:37] VITALS: PULSE 68; RESP 17; O2SAT 96
[2022-10-21] MEDS: 0.9 % Sodium Chloride Flush 3 ML SYRINGE IVFLUSH ×3 (09:41→20:25)
[2022-10-21] MEDS: ARIPiprazole 10 MG TABLET PO (09:42)
[2022-10-21] MEDS: Lidocaine 4 % Patch ADH..PATCH 1 PATCH TRANSDERMA (09:42)
[2022-10-21] MEDS: buPROPion HCl XL 150 MG TAB.ER.24H PO ×2 (09:43→20:24)
[2022-10-21] MEDS: Furosemide 40 MG TABLET PO (09:43)
[2022-10-21] MEDS: Insulin Glargine,Hum.rec.anlog 100 UNIT/ML 10 ML VIAL 20 UNIT SUBCUT (09:43)
[2022-10-21] MEDS: Nystatin Cream 15 GM TUBE 1 APPL TOPICAL ×2 (09:43→20:35)
[2022-10-21] MEDS: Propranolol HCL 20 MG TABLET 60 MG PO (09:43)
--- NOTE | 2022-10-21 10:50 | P.PNGS_ITS ---
Subjective Subjective Date of Service: 10/24/22 Interval history: she says she feels ok states she is better admits to pain but less passing flatus no nausea or vomitting Physical Exam Vital Signs: Vital Signs: Last Vital Signs Temp 96.8 F 10/21/22 07:37 Pulse 68 10/21/22 08:37 Resp 17 10/21/22 08:37 BP 128/60 10/21/22 07:37 Pulse Ox 97 10/21/22 07:37 O2 Del Method Nasal Cannula 10/21/22 07:37 O2 Flow Rate 3.0 10/21/22 07:37 Oxygen Flow Rate 3 10/17/22 16:57 BMI result Body Mass Index 56.7 Const: Other: short of breath as baseline General: comfortable and no acute distress Resp: Other: short of breath as baseline GI: Other: denies tenderness to palpation Palpation (GI): Soft to palpation, not firm, nontender and no guarding Objective Data Active Medications Acetaminophen (Acetaminophen 325 Mg Tablet) 650 mg PO Q6H PRN PRN Reason: Pain, Mild (Pain Scale 1-3) Last Admin: 10/19/22 03:27 Dose: 650 mg Documented By: ANTONIA Albuterol Sulfate (Albuterol Sulfate 90 Mcg 8 Gm Inhaler) 2 puff INHALE Q4H PRN PRN Reason: Shortness Of Breath Albuterol/Ipratropium (Albuterol/Iprat 2.5/0.5mg 3 Ml Ampul.Neb) 3 ml INHALE RQ4H PRN PRN Reason: sob,wheezing Last Admin: 10/17/22 22:47 Dose: 3 ml Documented By: MY Aripiprazole (Aripiprazole 10 Mg Tablet) 10 mg PO DAILY [facility] Last Admin: 10/21/22 09:42 Dose: 10 mg Documented By: EAN Atorvastatin Calcium (Atorvastatin Calcium 40 Mg Tablet) 40 mg PO BEDTIME [facility] Last Admin: 10/20/22 20:21 Dose: 40 mg Documented By: CRYSTAL Bisacodyl (Bisacodyl 10 Mg Supp.Rect) 10 mg [place] DAILY PRN PRN Reason: Constipation Bupropion HCl (Bupropion Hcl Xl 150 Mg Tab.Er.24h) 150 mg PO BID [facility] Last Admin: 10/21/22 09:43 Dose: 150 mg Documented By: EAN Dextrose (Dextrose 50 % 25 Gm/50 Ml Syringe) 25 gm IVPUSH Q15M PRN; Protocol PRN Reason: per Hypoglycemia Standing Ord. Enoxaparin Sodium (Enoxaparin Sodium 40 Mg/0.4 Ml Syringe) 40 mg SUBCUT Q24H [facility] Last Admin: 10/20/22 20:22 Dose: 40 mg Documented By: CRYSTAL Fluticasone/Vilanterol (Fluticasone/Vilanterol 200/25 Blst.W.Dev) 1 puff INHALE RDAILY [facility] Last Admin: 10/21/22 08:36 Dose: 1 puff Documented By: CORICARKristian Furosemide (Furosemide 40 Mg Tablet) 40 mg PO DAILY [facility]; Protocol Last Admin: 10/21/22 09:43 Dose: 40 mg Documented By: EAN Gabapentin (Gabapentin 100 Mg Capsule) 100 mg PO TID@0600,1400,1800 [facility] Last Admin: 10/21/22 05:33 Dose: 100 mg Documented By: CRYSTAL Glucose (Glucose Gel 15 Gm Gel..Gram.) 15 gm PO Q15M PRN; Protocol PRN Reason: per Hypoglycemia Standing Ord. Ceftriaxone Sodium 1 gm/ (Sodium Chloride) 50 mls @ 100 mls/hr IV Q24H [facility] Last Infusion: 10/20/22 21:02 Dose: 0 mls/hr Documented By: CRYSTAL Insulin Glargine (Insulin Glargine,Hum.Rec.Anlog 100 Unit/Ml 10 Ml Vial) 20 unit SUBCUT DAILY [facility] Last Admin: 10/21/22 09:43 Dose: 20 unit Documented By: EAN Insulin Human Lispro (Insulin Lispro 100 Unit/Ml 3 Ml Vial) 0 unit SUBCUT QIDACHS [facility]; Protocol Last Admin: 10/21/22 07:54 Dose: Not Given Documented By: EAN Non-Admin Reason: No Insulin Coverage Lidocaine (Lidocaine 4 % Patch Adh..Patch) 1 patch TRANSDERMA DAILY [facility]; Protocol Last Admin: 10/21/22 09:42 Dose: 1 patch Documented By: EAN Magnesium Hydroxide (Milk Of Magnesia 30 Ml Oral.Susp) 30 ml PO DAILY PRN PRN Reason: Constipation Last Admin: 10/20/22 14:07 Dose: 30 ml Documented By: EAN Morphine Sulfate (Morphine Sulfate 2 Mg/Ml Cartridge) 2 mg IVPUSH Q4H PRN; Protocol PRN Reason: Pain, Mild (Pain Scale 1-3) Last Admin: 10/20/22 18:03 Dose: 2 mg Documented By: EAN Nystatin (Nystatin Cream 15 Gm Tube) 1 appl TOPICAL BID [facility]; Protocol Last Admin: 10/21/22 09:43 Dose: 1 appl Documented By: EAN Ondansetron HCl (Ondansetron Hcl 4 Mg/2 Ml Vial) 4 mg IVPUSH Q8H PRN PRN Reason: Nausea and Vomiting Oxycodone HCl (Oxycodone Hcl Immed Release 5 Mg Tablet) 5 mg PO Q6H PRN PRN Reason: Pain, Severe (Pain Scale 7-10) Last Admin: 10/21/22 05:35 Dose: 5 mg Documented By: CRYSTAL Polyethylene Glycol (Polyethylene Glycol 3350 17 Gm Powd.Pack) 17 gm PO DAILY [facility] Last Admin: 10/21/22 09:43 Dose: Not Given Documented By: EAN Non-Admin Reason: pt having BMs Propranolol HCl (Propranolol Hcl 20 Mg Tablet) 60 mg PO DAILY [facility]; Protocol Last Admin: 10/21/22 09:43 Dose: 60 mg Documented By: EAN Senna (Sennosides 8.6 Mg Tablet) 17.2 mg PO BEDTIME [facility] Last Admin: 10/20/22 20:22 Dose: 17.2 mg Documented By: CRYSTAL Sodium Chloride (0.9 % Sodium Chloride Flush 3 Ml Syringe) 3 ml IVFLUSH QSHIFT [facility] Last Admin: 10/21/22 09:41 Dose: 3 ml Documented By: EAN Trazodone HCl (Trazodone Hcl 25 Mg Halftab) 25 mg PO BEDTIME [facility] Last Admin: 10/20/22 20:21 Dose: 25 mg Documented By: CRYSTAL Labs 10/21/22 05:01 10/21/22 05:15 Labs: Laboratory Results - last 24 hr 10/20/22 10/20/22 10/20/22 11:25 16:19 20:03 MCV MCH MCHC RDW Plt Count MPV Absolute Nucleated RBC Nucleated RBC % (auto) Anion Gap Estim Creat Clear Calc Estimated GFR POC Glucose 141 H 132 H 131 H Random Glucose Calcium 10/21/22 10/21/22 10/21/22 05:01 05:15 07:46 MCV 89.5 MCH 25.3 L MCHC 28.3 L RDW 16.5 H Plt Count 188 MPV 10.8 Absolute Nucleated RBC 0.000 Nucleated RBC % (auto) 0.0 Anion Gap 10 L Estim Creat Clear Calc 104.2 Estimated GFR > 60 POC Glucose 123 H Random Glucose 122 H Calcium 9.4 Microbiology Microbiology Results: Microbiology 10/17/22 21:04 Blood Culture - Final Blood - Venous Coag negative Staphylococcus 10/17/22 Unknown Urine Culture - Final Urine Catheterized - Straight Catheter Citrobacter freundii Procedures Date of Service Date of Service: 10/24/22 Progress Note: A&P Assessment and plan (1) Abdominal pain: Status: Acute Assessment and Plan: improving etiology uncertain - CT reviewed, equivocal findings for early PSBO, ?enteritis ok to try full liquids patient asking for regular food advance diet slowly has multiple medical issues Time Spent With Patient Time: Total time managing care of this patient today ____ minutes. Quality Stroke Does the patient have a stroke diagnosis?: No VTE Prior VTE?: No VTE Risk Level:: Medical - moderate - high VTE Device Contraindication: Treatment Not Indicated VTE Drug Contraindication: N/A - Med Ordered
[2022-10-21 11:27] LABS: Glucose, Whole Blood 148 mg/dL (60-115)
--- NOTE | 2022-10-21 11:29 | MHC.CM.PN ---
EMR REVIEWED AND PER MD ROUNDS, PT IS NOT MEDICALLY CLEARED FOR DC . UPDATES SENT TO [facility] WHERE SHE IS A BEDHOLD/LTC PATIENT. CM WILL CONTINUE TO FOLLOW FOR ANY CHANGE IN DC NEEDS/PLAN.
--- NOTE | 2022-10-21 14:24 | P.PNIM_ITS ---
Subjective Subjective Date of Service: 10/21/22 Interval History: seen and examined this morning follow up for abdominal pain reports improvement in abdominal pain had BM yesterday wants to eat Review of Systems Review of Systems: Yes all other systems are reviewed and are negative Constitutional Constitutional: Denies chills and Denies fever(s) Cardiovascular Cardiovascular: Denies chest pain Gastrointestinal Gastrointestinal: Denies nausea and Denies vomiting Physical Exam Vital Signs: Vital Signs: Last Vital Signs Temp 96.8 F 10/21/22 07:37 Pulse 68 10/21/22 08:37 Resp 17 10/21/22 08:37 BP 128/60 10/21/22 07:37 Pulse Ox 97 10/21/22 07:37 O2 Del Method Nasal Cannula 10/21/22 07:37 O2 Flow Rate 3.0 10/21/22 07:37 Oxygen Flow Rate 3 10/17/22 16:57 BMI result Body Mass Index 56.7 Const: General: comfortable, no acute distress, alert and awake Nutritional Appearance: obese Orientation/consciousness: patient oriented x3 Resp: Other: diminished breath sounds Effort & Inspection: normal respiratory effort, able to speak in complete sentences, no respiratory distress and no use of accessory muscles Cardio: Rate: regular rate Heart sounds: S1 normal heart sound present and S2 normal heart sound present GI: Other: softly distended Inspection: Yes obesity Palpation (GI): Soft to palpation and nontender Skin: Other: chronic venous stasis skin changes lower extremitis Neuro: General: patient oriented x3 Extrem: Other: LUE weakness, chronic General: Yes no pedal edema Objective Data Active Medications Acetaminophen (Acetaminophen 325 Mg Tablet) 650 mg PO Q6H PRN PRN Reason: Pain, Mild (Pain Scale 1-3) Last Admin: 10/19/22 03:27 Dose: 650 mg Documented By: ANTONIA Albuterol Sulfate (Albuterol Sulfate 90 Mcg 8 Gm Inhaler) 2 puff INHALE Q4H PRN PRN Reason: Shortness Of Breath Albuterol/Ipratropium (Albuterol/Iprat 2.5/0.5mg 3 Ml Ampul.Neb) 3 ml INHALE RQ4H PRN PRN Reason: sob,wheezing Last Admin: 10/17/22 22:47 Dose: 3 ml Documented By: MY Aripiprazole (Aripiprazole 10 Mg Tablet) 10 mg PO DAILY [facility] Last Admin: 10/21/22 09:42 Dose: 10 mg Documented By: EAN Atorvastatin Calcium (Atorvastatin Calcium 40 Mg Tablet) 40 mg PO BEDTIME [facility] Last Admin: 10/20/22 20:21 Dose: 40 mg Documented By: CRYSTAL Bisacodyl (Bisacodyl 10 Mg Supp.Rect) 10 mg [place] DAILY PRN PRN Reason: Constipation Bupropion HCl (Bupropion Hcl Xl 150 Mg Tab.Er.24h) 150 mg PO BID [facility] Last Admin: 10/21/22 09:43 Dose: 150 mg Documented By: EAN Dextrose (Dextrose 50 % 25 Gm/50 Ml Syringe) 25 gm IVPUSH Q15M PRN; Protocol PRN Reason: per Hypoglycemia Standing Ord. Enoxaparin Sodium (Enoxaparin Sodium 40 Mg/0.4 Ml Syringe) 40 mg SUBCUT Q24H [facility] Last Admin: 10/20/22 20:22 Dose: 40 mg Documented By: CRYSTAL Fluticasone/Vilanterol (Fluticasone/Vilanterol 200/25 Blst.W.Dev) 1 puff INHALE RDAILY [facility] Last Admin: 10/21/22 08:36 Dose: 1 puff Documented By: MAG Furosemide (Furosemide 40 Mg Tablet) 40 mg PO DAILY [facility]; Protocol Last Admin: 10/21/22 09:43 Dose: 40 mg Documented By: EAN Gabapentin (Gabapentin 100 Mg Capsule) 100 mg PO TID@0600,1400,1800 [facility] Last Admin: 10/21/22 13:00 Dose: 100 mg Documented By: EAN Glucose (Glucose Gel 15 Gm Gel..Gram.) 15 gm PO Q15M PRN; Protocol PRN Reason: per Hypoglycemia Standing Ord. Ceftriaxone Sodium 1 gm/ (Sodium Chloride) 50 mls @ 100 mls/hr IV Q24H [facility] Last Infusion: 10/20/22 21:02 Dose: 0 mls/hr Documented By: CRYSTAL Insulin Glargine (Insulin Glargine,Hum.Rec.Anlog 100 Unit/Ml 10 Ml Vial) 20 unit SUBCUT DAILY [facility] Last Admin: 10/21/22 09:43 Dose: 20 unit Documented By: EAN Insulin Human Lispro (Insulin Lispro 100 Unit/Ml 3 Ml Vial) 0 unit SUBCUT QIDACHS [facility]; Protocol Last Admin: 10/21/22 11:24 Dose: Not Given Documented By: EAN Non-Admin Reason: No Insulin Coverage Lidocaine (Lidocaine 4 % Patch Adh..Patch) 1 patch TRANSDERMA DAILY [facility]; Protocol Last Admin: 10/21/22 09:42 Dose: 1 patch Documented By: EAN Magnesium Hydroxide (Milk Of Magnesia 30 Ml Oral.Susp) 30 ml PO DAILY PRN PRN Reason: Constipation Last Admin: 10/20/22 14:07 Dose: 30 ml Documented By: EAN Morphine Sulfate (Morphine Sulfate 2 Mg/Ml Cartridge) 2 mg IVPUSH Q4H PRN; Protocol PRN Reason: Pain, Mild (Pain Scale 1-3) Last Admin: 10/20/22 18:03 Dose: 2 mg Documented By: EAN Nystatin (Nystatin Cream 15 Gm Tube) 1 appl TOPICAL BID [facility]; Protocol Last Admin: 10/21/22 09:43 Dose: 1 appl Documented By: EAN Ondansetron HCl (Ondansetron Hcl 4 Mg/2 Ml Vial) 4 mg IVPUSH Q8H PRN PRN Reason: Nausea and Vomiting Oxycodone HCl (Oxycodone Hcl Immed Release 5 Mg Tablet) 5 mg PO Q6H PRN PRN Reason: Pain, Severe (Pain Scale 7-10) Last Admin: 10/21/22 12:54 Dose: 5 mg Documented By: EAN Polyethylene Glycol (Polyethylene Glycol 3350 17 Gm Powd.Pack) 17 gm PO DAILY [facility] Last Admin: 10/21/22 09:43 Dose: Not Given Documented By: EAN Non-Admin Reason: pt having BMs Propranolol HCl (Propranolol Hcl 20 Mg Tablet) 60 mg PO DAILY [facility]; Protocol Last Admin: 10/21/22 09:43 Dose: 60 mg Documented By: EAN Senna (Sennosides 8.6 Mg Tablet) 17.2 mg PO BEDTIME [facility] Last Admin: 10/20/22 20:22 Dose: 17.2 mg Documented By: CRYSTAL Sodium Chloride (0.9 % Sodium Chloride Flush 3 Ml Syringe) 3 ml IVFLUSH QSHIFT [facility] Last Admin: 10/21/22 09:41 Dose: 3 ml Documented By: EAN Trazodone HCl (Trazodone Hcl 25 Mg Halftab) 25 mg PO BEDTIME [facility] Last Admin: 10/20/22 20:21 Dose: 25 mg Documented By: CRYSTAL Labs 10/21/22 05:01 10/21/22 05:15 Labs: Laboratory Results - last 24 hr 10/20/22 10/20/22 10/21/22 16:19 20:03 05:01 MCV 89.5 MCH 25.3 L MCHC 28.3 L RDW 16.5 H Plt Count 188 MPV 10.8 Absolute Nucleated RBC 0.000 Nucleated RBC % (auto) 0.0 Anion Gap Estim Creat Clear Calc Estimated GFR POC Glucose 132 H 131 H Random Glucose Calcium 10/21/22 10/21/22 10/21/22 05:15 07:46 11:22 MCV MCH MCHC RDW Plt Count MPV Absolute Nucleated RBC Nucleated RBC % (auto) Anion Gap 10 L Estim Creat Clear Calc 104.2 Estimated GFR > 60 POC Glucose 123 H 148 H Random Glucose 122 H Calcium 9.4 Microbiology Microbiology Results: Microbiology 10/17/22 21:04 Blood Culture - Final Blood - Venous Coag negative Staphylococcus Assessment and Plan (1) Abdominal pain: Status: Acute (2) UTI (urinary tract infection): Status: Acute Plan 66-year-old female past medical history of chronic anemia, COPD, comes into the hospital with complaints of abdominal pain Abdominal pain. secondary to acute enteritis versus partial small-bowel obstruction initially treated with Rocephin and Flagyl, flagyl d/c 10/19 per ID rec seen by General surgery> no surgical intervention at this time, repeat CT abdomen shows improvement in appearance of small bowel abnormality diet advanced to full liquids, advance slowly per surgery GI> check celiac panel - pending, repeat imaging with CTE and possible capsule o/p UTI urine culture growing citrobacter freundii sensitive to ceftriaxone Continue Rocephin ->po cephalosoporin for total 14d upon discharge bacteremia 1/2 blood culture growing coag negative staph - contaminant chronic anemia multifactorial H/H near baseline, no evidence of acute blood loss no indication for transfusion at this time follow CBC COPD not in exacerbation continue home inhaler diabetes mellitus type 2 continue lantus Sliding scale, ADA diet mood continue home meds chronic respirartory failure continue baseline 3L [place] Morbid obesity BMI 56.7 weight loss encouraged non-ambulatory at baseline, has been [facility] for the past year, plan to return when medically ready DVT prophylaxis:? Tanisha Attending Dr. Chawla Full code Continue hospitalization for further management of partial small-bowel obstruction requiring specialty consultation and IV antibiotics Time Spent With Patient Time: Total time managing care of this patient today ____ minutes. Quality Stroke Does the patient have a stroke diagnosis?: No VTE Prior VTE?: No VTE Risk Level:: Medical - moderate - high VTE Device Contraindication: Treatment Not Indicated VTE Drug Contraindication: N/A - Med Ordered
[2022-10-21 15:21] VITALS: BP 124/56; PULSE 64; RESP 18; TEMP 36; O2SAT 97
[2022-10-21 16:07] LABS: Glucose, Whole Blood 156 mg/dL (60-115)
[2022-10-21] MEDS: Insulin Lispro 100 UNIT/ML 3 ML VIAL SUBCUT (16:41)
[2022-10-21 19:10] VITALS: BP 125/59; PULSE 59; RESP 18; TEMP 36.3; O2SAT 97
[2022-10-21 20:21] LABS: Glucose, Whole Blood 147 mg/dL (60-115)
[2022-10-21] MEDS: Sennosides 8.6 MG TABLET 17.2 MG PO (20:23)
[2022-10-21] MEDS: cefTRIAXone sodium 1 GM in 0.9 % Sodium Chloride 50 ML IV (20:24)
[2022-10-21] MEDS: Atorvastatin Calcium 40 MG TABLET PO (20:24)
[2022-10-21] MEDS: Enoxaparin Sodium 40 MG/0.4 ML SYRINGE SUBCUT (20:24)
[2022-10-21] MEDS: traZODone HCL 25 MG HALFTAB PO (20:24)
[2022-10-22] VITALS (8 sets, daily range): BP systolic 112–129; BP diastolic 54–61; PULSE 55–70; RESP 16–18; TEMP 36.1–37.2; O2SAT 96–99
[2022-10-22] MEDS: Acetaminophen 325 MG TABLET 650 MG PO ×3 (01:40→14:40)
[2022-10-22] MEDS: Morphine Sulfate 2 MG/ML CARTRIDGE IVPUSH ×4 (01:40→20:40)
[2022-10-22] MEDS: Gabapentin 100 MG CAPSULE PO ×3 (05:59→17:48)
[2022-10-22 06:11] LABS: Hematocrit 28.7 % (37.0-47.0); Hemoglobin 8.1 g/dl (12.0-16.0); Mean Corpuscular HGB Conc 28.2 g/dl (31.0-35.0); Mean Corpuscular Hemoglobin 25.2 pg (27.0-33.0); Mean Corpuscular Volume 89.1 fL (80.0-98.0); Mean Platelet Volume 12.6 fL (9.4-12.3); Platelet Count 126 X10*3/uL (160-400); Red Blood Count 3.22 X10*6/uL (4.20-5.50); Red Cell Distribution Width 16.3 % (11.0-16.0)
[2022-10-22 07:39] LABS: Glucose, Whole Blood 126 mg/dL (60-115)
[2022-10-22] MEDS: Fluticasone/Vilanterol 200/25 BLST.W.DEV 1 PUFF INHALE (08:23)
[2022-10-22] MEDS: Lidocaine 4 % Patch ADH..PATCH 1 PATCH TRANSDERMA (08:25)
[2022-10-22] MEDS: Insulin Glargine,Hum.rec.anlog 100 UNIT/ML 10 ML VIAL 20 UNIT SUBCUT (08:25)
[2022-10-22] MEDS: oxyCODONE HCl Immed Release 5 MG TABLET PO ×2 (08:25→14:40)
[2022-10-22] MEDS: Propranolol HCL 20 MG TABLET 60 MG PO (08:25)
[2022-10-22] MEDS: ARIPiprazole 10 MG TABLET PO (08:26)
[2022-10-22] MEDS: Furosemide 40 MG TABLET PO (08:26)
[2022-10-22] MEDS: buPROPion HCl XL 150 MG TAB.ER.24H PO ×2 (08:26→20:39)
[2022-10-22] MEDS: 0.9 % Sodium Chloride Flush 3 ML SYRINGE IVFLUSH ×3 (08:27→20:40)
[2022-10-22] MEDS: Nystatin Cream 15 GM TUBE 1 APPL TOPICAL ×2 (08:32→20:45)
[2022-10-22] MEDS: Insulin Lispro 100 UNIT/ML 3 ML VIAL SUBCUT ×2 (11:36→17:48)
[2022-10-22 11:37] LABS: Glucose, Whole Blood 160 mg/dL (60-115)
--- NOTE | 2022-10-22 13:03 | HO.PM.IMPN ---
Subjective Subjective Date of Service: 10/22/22 Interval History: seen and examined this morning follow up for abdominal pain, UTI still with intermittent abdominal pain, no vomiting having BMs Review of Systems Review of Systems: Yes all other systems are reviewed and are negative Constitutional Constitutional: Denies chills and Denies fever(s) Gastrointestinal Gastrointestinal: Reports abdominal pain and Denies vomiting Physical Exam Vital Signs: Vital Signs: Last Vital Signs Temp 96.9 F 10/22/22 07:24 Pulse 70 10/22/22 08:24 Resp 18 10/22/22 11:36 BP 129/61 10/22/22 07:24 Pulse Ox 98 10/22/22 07:24 O2 Del Method Nasal Cannula 10/22/22 07:24 O2 Flow Rate 3 10/22/22 07:24 Oxygen Flow Rate 3 10/17/22 16:57 BMI result Body Mass Index 56.7 Const: General: comfortable, no acute distress, alert and awake Nutritional Appearance: obese Orientation/consciousness: patient oriented x3 Resp: Other: diminished breath sounds Effort & Inspection: normal respiratory effort, able to speak in complete sentences, no respiratory distress and no use of accessory muscles Cardio: Rate: regular rate Heart sounds: S1 normal heart sound present and S2 normal heart sound present GI: Other: softly distended Inspection: No distended and Yes obesity Palpation (GI): Soft to palpation and nontender Skin: Other: chronic venous stasis skin changes lower extremitis Neuro: General: patient oriented x3 Extrem: Other: LUE weakness, contracture, chronic Objective Data Active Medications Acetaminophen (Acetaminophen 325 Mg Tablet) 650 mg PO Q6H PRN PRN Reason: Pain, Mild (Pain Scale 1-3) Last Admin: 10/22/22 08:26 Dose: 650 mg Documented By: HOANG Albuterol Sulfate (Albuterol Sulfate 90 Mcg 8 Gm Inhaler) 2 puff INHALE Q4H PRN PRN Reason: Shortness Of Breath Albuterol/Ipratropium (Albuterol/Iprat 2.5/0.5mg 3 Ml Ampul.Neb) 3 ml INHALE RQ4H PRN PRN Reason: sob,wheezing Last Admin: 10/17/22 22:47 Dose: 3 ml Documented By: MY Aripiprazole (Aripiprazole 10 Mg Tablet) 10 mg PO DAILY [facility] Last Admin: 10/22/22 08:26 Dose: 10 mg Documented By: HOANG Atorvastatin Calcium (Atorvastatin Calcium 40 Mg Tablet) 40 mg PO BEDTIME [facility] Last Admin: 10/21/22 20:24 Dose: 40 mg Documented By: YG Bisacodyl (Bisacodyl 10 Mg Supp.Rect) 10 mg [place] DAILY PRN PRN Reason: Constipation Bupropion HCl (Bupropion Hcl Xl 150 Mg Tab.Er.24h) 150 mg PO BID [facility] Last Admin: 10/22/22 08:26 Dose: 150 mg Documented By: HOANG Dextrose (Dextrose 50 % 25 Gm/50 Ml Syringe) 25 gm IVPUSH Q15M PRN; Protocol PRN Reason: per Hypoglycemia Standing Ord. Enoxaparin Sodium (Enoxaparin Sodium 40 Mg/0.4 Ml Syringe) 40 mg SUBCUT Q24H [facility] Last Admin: 10/21/22 20:24 Dose: 40 mg Documented By: YG Fluticasone/Vilanterol (Fluticasone/Vilanterol 200/25 Blst.W.Dev) 1 puff INHALE RDAILY [facility] Last Admin: 10/22/22 08:23 Dose: 1 puff Documented By: DANISH Furosemide (Furosemide 40 Mg Tablet) 40 mg PO DAILY [facility]; Protocol Last Admin: 10/22/22 08:26 Dose: 40 mg Documented By: HOANG Gabapentin (Gabapentin 100 Mg Capsule) 100 mg PO TID@0600,1400,1800 [facility] Last Admin: 10/22/22 05:59 Dose: 100 mg Documented By: YG Glucose (Glucose Gel 15 Gm Gel..Gram.) 15 gm PO Q15M PRN; Protocol PRN Reason: per Hypoglycemia Standing Ord. Ceftriaxone Sodium 1 gm/ (Sodium Chloride) 50 mls @ 100 mls/hr IV Q24H [facility] Last Infusion: 10/21/22 21:12 Dose: 0 mls/hr Documented By: YG Insulin Glargine (Insulin Glargine,Hum.Rec.Anlog 100 Unit/Ml 10 Ml Vial) 20 unit SUBCUT DAILY [facility] Last Admin: 10/22/22 08:25 Dose: 20 unit Documented By: HOANG Insulin Human Lispro (Insulin Lispro 100 Unit/Ml 3 Ml Vial) 0 unit SUBCUT QIDACHS [facility]; Protocol Last Admin: 10/22/22 11:36 Dose: 2 unit Documented By: HOANG Comments: poc 160 Lidocaine (Lidocaine 4 % Patch Adh..Patch) 1 patch TRANSDERMA DAILY [facility]; Protocol Last Admin: 10/22/22 08:25 Dose: 1 patch Documented By: HOANG Magnesium Hydroxide (Milk Of Magnesia 30 Ml Oral.Susp) 30 ml PO DAILY PRN PRN Reason: Constipation Last Admin: 10/20/22 14:07 Dose: 30 ml Documented By: EAN Morphine Sulfate (Morphine Sulfate 2 Mg/Ml Cartridge) 2 mg IVPUSH Q4H PRN; Protocol PRN Reason: Pain, Mild (Pain Scale 1-3) Last Admin: 10/22/22 11:36 Dose: 2 mg Documented By: HOANG Nystatin (Nystatin Cream 15 Gm Tube) 1 appl TOPICAL BID [facility]; Protocol Last Admin: 10/22/22 08:32 Dose: 1 appl Documented By: HOANG Ondansetron HCl (Ondansetron Hcl 4 Mg/2 Ml Vial) 4 mg IVPUSH Q8H PRN PRN Reason: Nausea and Vomiting Oxycodone HCl (Oxycodone Hcl Immed Release 5 Mg Tablet) 5 mg PO Q6H PRN PRN Reason: Pain, Severe (Pain Scale 7-10) Last Admin: 10/22/22 08:25 Dose: 5 mg Documented By: HOANG Polyethylene Glycol (Polyethylene Glycol 3350 17 Gm Powd.Pack) 17 gm PO DAILY [facility] Last Admin: 10/22/22 08:11 Dose: Not Given Documented By: HOANG Non-Admin Reason: diarrhea Propranolol HCl (Propranolol Hcl 20 Mg Tablet) 60 mg PO DAILY [facility]; Protocol Last Admin: 10/22/22 08:25 Dose: 60 mg Documented By: HOANG Senna (Sennosides 8.6 Mg Tablet) 17.2 mg PO BEDTIME [facility] Last Admin: 10/21/22 20:23 Dose: 17.2 mg Documented By: OZORALB Sodium Chloride (0.9 % Sodium Chloride Flush 3 Ml Syringe) 3 ml IVFLUSH QSHIFT [facility] Last Admin: 10/22/22 08:27 Dose: 3 ml Documented By: HO.COTEMA Trazodone HCl (Trazodone Hcl 25 Mg Halftab) 25 mg PO BEDTIME [facility] Last Admin: 10/21/22 20:24 Dose: 25 mg Documented By: YG Labs 10/22/22 05:30 10/21/22 05:15 Labs: Laboratory Results - last 24 hr 10/21/22 10/21/22 10/22/22 16:01 20:15 05:30 MCV 89.1 MCH 25.2 L MCHC 28.2 L RDW 16.3 H Plt Count 126 L D MPV 12.6 H Absolute Nucleated RBC 0.000 Nucleated RBC % (auto) 0.0 POC Glucose 156 H 147 H 10/22/22 10/22/22 07:29 11:30 MCV MCH MCHC RDW Plt Count MPV Absolute Nucleated RBC Nucleated RBC % (auto) POC Glucose 126 H 160 H Assessment and Plan (1) Abdominal pain: Status: Acute Plan 66-year-old female past medical history of chronic anemia, COPD, comes into the hospital with complaints of abdominal pain Abdominal pain. secondary to acute enteritis versus partial small-bowel obstruction initially treated with Rocephin and Flagyl, flagyl d/c 10/19 per ID rec seen by General surgery> no surgical intervention at this time, repeat CT abdomen shows improvement in appearance of small bowel abnormality diet advanced to full liquids, advance slowly per surgery GI> check celiac panel - pending UTI urine culture growing citrobacter freundii sensitive to ceftriaxone Continue Rocephin ->po cephalosoporin for total 14d upon discharge bacteremia 1/2 blood culture growing coag negative staph - contaminant chronic anemia multifactorial no evidence of acute blood loss no indication for transfusion at this time follow CBC COPD not in exacerbation continue home inhaler diabetes mellitus type 2 continue lantus Sliding scale, ADA diet mood continue home meds chronic respirartory failure continue baseline 3L NC Morbid obesity BMI 56.7 weight loss encouraged non-ambulatory at baseline, has been at [facility] for the past year, plan to return when medically ready DVT prophylaxis:? Lovenox Attending Dr. vega Full code Continue hospitalization for further management of partial small-bowel obstruction requiring specialty consultation and IV antibiotics Time Spent With Patient Time: Total time managing care of this patient today ____ minutes. Quality Stroke Does the patient have a stroke diagnosis?: No VTE Prior VTE?: No VTE Risk Level:: Medical - moderate - high VTE Device Contraindication: Treatment Not Indicated VTE Drug Contraindication: N/A - Med Ordered
[2022-10-22 16:42] LABS: Glucose, Whole Blood 165 mg/dL (60-115)
[2022-10-22] MEDS: traZODone HCL 25 MG HALFTAB PO (20:39)
[2022-10-22] MEDS: Enoxaparin Sodium 40 MG/0.4 ML SYRINGE SUBCUT (20:39)
[2022-10-22] MEDS: Atorvastatin Calcium 40 MG TABLET PO (20:39)
[2022-10-22] MEDS: cefTRIAXone sodium 1 GM in 0.9 % Sodium Chloride 50 ML IV (20:39)
[2022-10-22 20:54] LABS: Glucose, Whole Blood 139 mg/dL (60-115)
[2022-10-23] VITALS (7 sets, daily range): BP systolic 116–133; BP diastolic 56–63; PULSE 57–64; RESP 14–20; TEMP 36.1–36.8; O2SAT 94–98
[2022-10-23] MEDS: Acetaminophen 325 MG TABLET 650 MG PO ×3 (01:28→14:20)
[2022-10-23] MEDS: oxyCODONE HCl Immed Release 5 MG TABLET PO ×3 (01:28→14:20)
[2022-10-23] MEDS: Gabapentin 100 MG CAPSULE PO ×3 (04:53→17:09)
[2022-10-23] MEDS: Morphine Sulfate 2 MG/ML CARTRIDGE IVPUSH ×2 (04:53→22:07)
[2022-10-23 05:46] LABS: Hematocrit 29.4 % (37.0-47.0); Hemoglobin 8.2 g/dl (12.0-16.0); Mean Corpuscular Hemoglobin 25.3 pg (27.0-33.0); Mean Corpuscular Volume 90.7 fL (80.0-98.0); Red Blood Count 3.24 X10*6/uL (4.20-5.50); White Blood Count 5.5 X10*3/uL (4.8-10.8)
[2022-10-23 05:47] LABS: Mean Corpuscular HGB Conc 27.9 g/dl (31.0-35.0); Mean Platelet Volume 10.9 fL (9.4-12.3); NRBC Pct Auto 0.7 /100WBC (0.0-0.2); Platelet Count 217 X10*3/uL (160-400); Red Cell Distribution Width 16.1 % (11.0-16.0)
[2022-10-23 06:06] LABS: Anion Gap 11 (12-20)
[2022-10-23 06:08] LABS: Blood Urea Nitrogen 7 mg/dL (9-16); Calcium 9.4 mg/dL (8.4-10.2); Carbon Dioxide 36 mmol/L (22-29); Chloride 97 mmol/L (96-108); Creatinine Clr Calc Pharmacy 113.1; Estimated Glomerular Filt Rate > 60; Glucose Random 122 mg/dL (60-115); Potassium 3.6 mmol/L (3.3-5.1); Sodium 140 mmol/L (135-145)
[2022-10-23 07:31] LABS: Glucose, Whole Blood 125 mg/dL (60-115)
[2022-10-23] MEDS: Fluticasone/Vilanterol 200/25 BLST.W.DEV 1 PUFF INHALE (07:39)
[2022-10-23] MEDS: buPROPion HCl XL 150 MG TAB.ER.24H PO ×2 (08:04→20:54)
[2022-10-23] MEDS: Propranolol HCL 20 MG TABLET 60 MG PO (08:04)
[2022-10-23] MEDS: Furosemide 40 MG TABLET PO (08:04)
[2022-10-23] MEDS: ARIPiprazole 10 MG TABLET PO (08:04)
[2022-10-23] MEDS: Insulin Glargine,Hum.rec.anlog 100 UNIT/ML 10 ML VIAL 20 UNIT SUBCUT (08:05)
[2022-10-23] MEDS: Lidocaine 4 % Patch ADH..PATCH 1 PATCH TRANSDERMA (08:05)
[2022-10-23] MEDS: Nystatin Cream 15 GM TUBE 1 APPL TOPICAL ×2 (08:07→22:12)
[2022-10-23] MEDS: 0.9 % Sodium Chloride Flush 3 ML SYRINGE IVFLUSH ×3 (08:07→20:54)
[2022-10-23 11:27] LABS: Glucose, Whole Blood 181 mg/dL (60-115)
[2022-10-23] MEDS: Insulin Lispro 100 UNIT/ML 3 ML VIAL SUBCUT ×3 (11:58→20:57)
[2022-10-23] MEDS: Omeprazole 20 MG CAPSULE.DR PO (11:58)
--- NOTE | 2022-10-23 12:11 | P.PNIM_ITS ---
Subjective Subjective Date of Service: 10/23/22 Interval History: seen and examined this morning follow up for abdominal pain still with some central pain, sometimes after eating, sometimes not associated with eating having liquid stool no nausea or vomiting Review of Systems Review of Systems: Yes all other systems are reviewed and are negative Constitutional Constitutional: Denies chills and Denies fever(s) Cardiovascular Cardiovascular: Denies chest pain Gastrointestinal Gastrointestinal: Reports abdominal pain Physical Exam Vital Signs: Vital Signs: Last Vital Signs Temp 97.1 F 10/23/22 07:16 Pulse 64 10/23/22 07:41 Resp 16 10/23/22 07:41 BP 125/59 L 10/23/22 07:16 Pulse Ox 98 10/23/22 07:16 O2 Del Method Nasal Cannula 10/23/22 07:16 O2 Flow Rate 3 10/23/22 07:16 Oxygen Flow Rate 3 10/17/22 16:57 BMI result Body Mass Index 56.7 Const: General: comfortable, no acute distress, alert and awake Nutritional Appearance: obese Orientation/consciousness: patient oriented x3 Resp: Other: diminished breath sounds Effort & Inspection: normal respiratory effort, able to speak in complete sentences, no respiratory distress and no use of accessory muscles Cardio: Rate: regular rate Heart sounds: S1 normal heart sound present and S2 normal heart sound present GI: Other: softly distended Inspection: No distended and Yes obesity Palpation (GI): Soft to palpation and nontender Skin: Other: chronic venous stasis skin changes lower extremitis Neuro: General: patient oriented x3 Extrem: Other: LUE weakness, contracture, chronic edema b/l legs General: Yes no pedal edema Objective Data Active Medications Acetaminophen (Acetaminophen 325 Mg Tablet) 650 mg PO Q6H PRN PRN Reason: Pain, Mild (Pain Scale 1-3) Last Admin: 10/23/22 08:04 Dose: 650 mg Documented By: COTEMA Albuterol Sulfate (Albuterol Sulfate 90 Mcg 8 Gm Inhaler) 2 puff INHALE Q4H PRN PRN Reason: Shortness Of Breath Albuterol/Ipratropium (Albuterol/Iprat 2.5/0.5mg 3 Ml Ampul.Neb) 3 ml INHALE RQ4H PRN PRN Reason: sob,wheezing Last Admin: 10/17/22 22:47 Dose: 3 ml Documented By: MY Aripiprazole (Aripiprazole 10 Mg Tablet) 10 mg PO DAILY [facility] Last Admin: 10/23/22 08:04 Dose: 10 mg Documented By: HOANG Atorvastatin Calcium (Atorvastatin Calcium 40 Mg Tablet) 40 mg PO BEDTIME [facility] Last Admin: 10/22/22 20:39 Dose: 40 mg Documented By: YG Bisacodyl (Bisacodyl 10 Mg Supp.Rect) 10 mg [place] DAILY PRN PRN Reason: Constipation Bupropion HCl (Bupropion Hcl Xl 150 Mg Tab.Er.24h) 150 mg PO BID [facility] Last Admin: 10/23/22 08:04 Dose: 150 mg Documented By: HOANG Dextrose (Dextrose 50 % 25 Gm/50 Ml Syringe) 25 gm IVPUSH Q15M PRN; Protocol PRN Reason: per Hypoglycemia Standing Ord. Enoxaparin Sodium (Enoxaparin Sodium 40 Mg/0.4 Ml Syringe) 40 mg SUBCUT Q24H [facility] Last Admin: 10/22/22 20:39 Dose: 40 mg Documented By: YG Fluticasone/Vilanterol (Fluticasone/Vilanterol 200/25 Blst.W.Dev) 1 puff INHALE RDAILY [facility] Last Admin: 10/23/22 07:39 Dose: 1 puff Documented By: DANISH Furosemide (Furosemide 40 Mg Tablet) 40 mg PO DAILY [facility]; Protocol Last Admin: 10/23/22 08:04 Dose: 40 mg Documented By: HOANG Gabapentin (Gabapentin 100 Mg Capsule) 100 mg PO TID@0600,1400,1800 [facility] Last Admin: 10/23/22 04:53 Dose: 100 mg Documented By: YG Glucose (Glucose Gel 15 Gm Gel..Gram.) 15 gm PO Q15M PRN; Protocol PRN Reason: per Hypoglycemia Standing Ord. Ceftriaxone Sodium 1 gm/ (Sodium Chloride) 50 mls @ 100 mls/hr IV Q24H [facility] Last Infusion: 10/22/22 21:49 Dose: 0 mls/hr Documented By: YG Insulin Glargine (Insulin Glargine,Hum.Rec.Anlog 100 Unit/Ml 10 Ml Vial) 20 unit SUBCUT DAILY [facility] Last Admin: 10/23/22 08:05 Dose: 20 unit Documented By: HOANG Insulin Human Lispro (Insulin Lispro 100 Unit/Ml 3 Ml Vial) 0 unit SUBCUT QIDACHS [facility]; Protocol Last Admin: 10/23/22 11:58 Dose: 2 unit Documented By: KARRI Lidocaine (Lidocaine 4 % Patch Adh..Patch) 1 patch TRANSDERMA DAILY [facility]; Protocol Last Admin: 10/23/22 08:05 Dose: 1 patch Documented By: HOANG Magnesium Hydroxide (Milk Of Magnesia 30 Ml Oral.Susp) 30 ml PO DAILY PRN PRN Reason: Constipation Last Admin: 10/20/22 14:07 Dose: 30 ml Documented By: EAN Morphine Sulfate (Morphine Sulfate 2 Mg/Ml Cartridge) 2 mg IVPUSH Q4H PRN; Protocol PRN Reason: Pain, Severe (Pain Scale 7-10) Last Admin: 10/23/22 04:53 Dose: 2 mg Documented By: OZORALB Nystatin (Nystatin Cream 15 Gm Tube) 1 appl TOPICAL BID [facility]; Protocol Last Admin: 10/23/22 08:07 Dose: 1 appl Documented By: HOANG Omeprazole (Omeprazole 20 Mg Capsule.) 20 mg PO DAILY@0630 [facility] Last Admin: 10/23/22 11:58 Dose: 20 mg Documented By: KARRI Ondansetron HCl (Ondansetron Hcl 4 Mg/2 Ml Vial) 4 mg IVPUSH Q8H PRN PRN Reason: Nausea and Vomiting Oxycodone HCl (Oxycodone Hcl Immed Release 5 Mg Tablet) 5 mg PO Q6H PRN PRN Reason: Pain, Moderate(Pain Scale 4-6) Last Admin: 10/23/22 08:05 Dose: 5 mg Documented By: HOANG Polyethylene Glycol (Polyethylene Glycol 3350 17 Gm Powd.Pack) 17 gm PO DAILY [facility] Last Admin: 10/23/22 07:38 Dose: Not Given Documented By: HOANG Non-Admin Reason: diarrhea Propranolol HCl (Propranolol Hcl 20 Mg Tablet) 60 mg PO DAILY [facility]; Protocol Last Admin: 10/23/22 08:04 Dose: 60 mg Documented By: HOANG Senna (Sennosides 8.6 Mg Tablet) 17.2 mg PO BEDTIME [facility] Last Admin: 10/22/22 21:03 Dose: Not Given Documented By: YG Non-Admin Reason: Patient Refused Sodium Chloride (0.9 % Sodium Chloride Flush 3 Ml Syringe) 3 ml IVFLUSH QSHIFT [facility] Last Admin: 10/23/22 08:07 Dose: 3 ml Documented By: COTEMA Trazodone HCl (Trazodone Hcl 25 Mg Halftab) 25 mg PO BEDTIME [facility] Last Admin: 10/22/22 20:39 Dose: 25 mg Documented By: YG Labs 10/23/22 05:15 10/23/22 05:15 Labs: Laboratory Results - last 24 hr 10/22/22 10/22/22 10/23/22 16:34 20:51 05:15 MCV 90.7 MCH 25.3 L MCHC 27.9 L RDW 16.1 H Plt Count 217 D MPV 10.9 Absolute Nucleated RBC 0.040 H Nucleated RBC % (auto) 0.7 H Anion Gap Estim Creat Clear Calc Estimated GFR POC Glucose 165 H 139 H Random Glucose Calcium 10/23/22 10/23/22 10/23/22 05:15 07:20 11:15 MCV MCH MCHC RDW Plt Count MPV Absolute Nucleated RBC Nucleated RBC % (auto) Anion Gap 11 L Estim Creat Clear Calc 113.1 Estimated GFR > 60 POC Glucose 125 H 181 H Random Glucose 122 H Calcium 9.4 Microbiology Microbiology Results: Microbiology 10/17/22 21:04 Blood Culture - Final Blood - Venous No growth after 5 days. Assessment and Plan (1) Abdominal pain: Status: Acute Plan 66-year-old female past medical history of chronic anemia, COPD, comes into the hospital with complaints of abdominal pain Abdominal pain. secondary to acute enteritis versus partial small-bowel obstruction initially treated with Rocephin and Flagyl, flagyl d/c 10/19 per ID rec seen by General surgery> no surgical intervention at this time, repeat CT abdomen shows improvement in appearance of small bowel abnormality diet advanced to full liquids, advance slowly per surgery GI> check celiac panel - pending still with abdominal pain abdominal US negative for acute gallbladder pathology consider upper GI series UTI urine culture growing citrobacter freundii sensitive to ceftriaxone Continue Rocephin ->po cefuroxime for total 14d upon discharge bacteremia 1/2 blood culture growing coag negative staph - contaminant chronic anemia multifactorial no evidence of acute blood loss no indication for transfusion at this time COPD not in exacerbation continue home inhaler diabetes mellitus type 2 continue lantus Sliding scale, ADA diet mood continue home meds chronic respirartory failure continue baseline 3L NC Morbid obesity BMI 56.7 weight loss encouraged non-ambulatory at baseline, has been at [facility] for the past year, plan to return when medically ready DVT prophylaxis:? Lovenox Attending Dr. vega Full code Continue hospitalization for further management of partial small-bowel obstruction requiring specialty consultation and IV antibiotics Time Spent With Patient Time: Total time managing care of this patient today ____ minutes. Quality Stroke Does the patient have a stroke diagnosis?: No VTE Prior VTE?: No VTE Risk Level:: Medical - moderate - high VTE Device Contraindication: Treatment Not Indicated VTE Drug Contraindication: N/A - Med Ordered
[2022-10-23] MEDS: Milk of Magnesia 30 ML ORAL.SUSP PO (14:23)
--- NOTE | 2022-10-23 15:59 | PM.PNGS ---
Subjective Subjective Date of Service: 10/23/22 Interval history: Asked to re-evaluate patient because of nonspecific epigastric/periumbilical discomfort. Patient is tolerating her diet and passing flatus and stool. Her abdominal symptoms are improved this afternoon. Ultrasound was negative for biliary disease. Physical Exam Vital Signs: Vital Signs: Last Vital Signs Temp 97.5 F 10/23/22 15:21 Pulse 60 10/23/22 15:21 Resp 20 10/23/22 15:21 BP 116/57 L 10/23/22 15:21 Pulse Ox 96 10/23/22 15:21 O2 Del Method Nasal Cannula 10/23/22 15:21 O2 Flow Rate 2 10/23/22 15:21 Oxygen Flow Rate 3 10/17/22 16:57 BMI result Body Mass Index 56.7 GI: Other: Abdomen soft, very corpulent, mild periumbilical tenderness but without any guarding, rebound, rigidity. Objective Data Active Medications Acetaminophen (Acetaminophen 325 Mg Tablet) 650 mg PO Q6H PRN PRN Reason: Pain, Mild (Pain Scale 1-3) Last Admin: 10/23/22 14:20 Dose: 650 mg Documented By: HOANG Albuterol Sulfate (Albuterol Sulfate 90 Mcg 8 Gm Inhaler) 2 puff INHALE Q4H PRN PRN Reason: Shortness Of Breath Albuterol/Ipratropium (Albuterol/Iprat 2.5/0.5mg 3 Ml Ampul.Neb) 3 ml INHALE RQ4H PRN PRN Reason: sob,wheezing Last Admin: 10/17/22 22:47 Dose: 3 ml Documented By: MY Aripiprazole (Aripiprazole 10 Mg Tablet) 10 mg PO DAILY [facility] Last Admin: 10/23/22 08:04 Dose: 10 mg Documented By: COTEMA Atorvastatin Calcium (Atorvastatin Calcium 40 Mg Tablet) 40 mg PO BEDTIME [facility] Last Admin: 10/22/22 20:39 Dose: 40 mg Documented By: OZORALB Bisacodyl (Bisacodyl 10 Mg Supp.Rect) 10 mg [place] DAILY PRN PRN Reason: Constipation Bupropion HCl (Bupropion Hcl Xl 150 Mg Tab.Er.24h) 150 mg PO BID [facility] Last Admin: 10/23/22 08:04 Dose: 150 mg Documented By: HO.COTEMA Dextrose (Dextrose 50 % 25 Gm/50 Ml Syringe) 25 gm IVPUSH Q15M PRN; Protocol PRN Reason: per Hypoglycemia Standing Ord. Enoxaparin Sodium (Enoxaparin Sodium 40 Mg/0.4 Ml Syringe) 40 mg SUBCUT Q24H [facility] Last Admin: 10/22/22 20:39 Dose: 40 mg Documented By: YG Fluticasone/Vilanterol (Fluticasone/Vilanterol 200/25 Blst.W.Dev) 1 puff INHALE RDAILY [facility] Last Admin: 10/23/22 07:39 Dose: 1 puff Documented By: DANISH Furosemide (Furosemide 40 Mg Tablet) 40 mg PO DAILY [facility]; Protocol Last Admin: 10/23/22 08:04 Dose: 40 mg Documented By: HOANG Gabapentin (Gabapentin 100 Mg Capsule) 100 mg PO TID@0600,1400,1800 [facility] Last Admin: 10/23/22 14:20 Dose: 100 mg Documented By: HOANG Glucose (Glucose Gel 15 Gm Gel..Gram.) 15 gm PO Q15M PRN; Protocol PRN Reason: per Hypoglycemia Standing Ord. Ceftriaxone Sodium 1 gm/ (Sodium Chloride) 50 mls @ 100 mls/hr IV Q24H [facility] Last Infusion: 10/22/22 21:49 Dose: 0 mls/hr Documented By: YG Insulin Glargine (Insulin Glargine,Hum.Rec.Anlog 100 Unit/Ml 10 Ml Vial) 20 unit SUBCUT DAILY [facility] Last Admin: 10/23/22 08:05 Dose: 20 unit Documented By: HOANG Insulin Human Lispro (Insulin Lispro 100 Unit/Ml 3 Ml Vial) 0 unit SUBCUT QIDACHS [facility]; Protocol Last Admin: 10/23/22 11:58 Dose: 2 unit Documented By: PATITONM Lidocaine (Lidocaine 4 % Patch Adh..Patch) 1 patch TRANSDERMA DAILY [facility]; Protocol Last Admin: 10/23/22 08:05 Dose: 1 patch Documented By: HOANG Magnesium Hydroxide (Milk Of Magnesia 30 Ml Oral.Susp) 30 ml PO DAILY PRN PRN Reason: Constipation Last Admin: 10/23/22 14:23 Dose: 30 ml Documented By: HOANG Morphine Sulfate (Morphine Sulfate 2 Mg/Ml Cartridge) 2 mg IVPUSH Q4H PRN; Protocol PRN Reason: Pain, Severe (Pain Scale 7-10) Last Admin: 10/23/22 04:53 Dose: 2 mg Documented By: YG Nystatin (Nystatin Cream 15 Gm Tube) 1 appl TOPICAL BID [facility]; Protocol Last Admin: 10/23/22 08:07 Dose: 1 appl Documented By: COTCHARLES Omeprazole (Omeprazole 20 Mg Capsule.Dr) 20 mg PO DAILY@0630 [facility] Last Admin: 10/23/22 11:58 Dose: 20 mg Documented By: KARRI Ondansetron HCl (Ondansetron Hcl 4 Mg/2 Ml Vial) 4 mg IVPUSH Q8H PRN PRN Reason: Nausea and Vomiting Oxycodone HCl (Oxycodone Hcl Immed Release 5 Mg Tablet) 5 mg PO Q6H PRN PRN Reason: Pain, Moderate(Pain Scale 4-6) Last Admin: 10/23/22 14:20 Dose: 5 mg Documented By: HOANG Polyethylene Glycol (Polyethylene Glycol 3350 17 Gm Powd.Pack) 17 gm PO DAILY [facility] Last Admin: 10/23/22 07:38 Dose: Not Given Documented By: HOANG Non-Admin Reason: diarrhea Propranolol HCl (Propranolol Hcl 20 Mg Tablet) 60 mg PO DAILY [facility]; Protocol Last Admin: 10/23/22 08:04 Dose: 60 mg Documented By: HOANG Senna (Sennosides 8.6 Mg Tablet) 17.2 mg PO BEDTIME [facility] Last Admin: 10/22/22 21:03 Dose: Not Given Documented By: YG Non-Admin Reason: Patient Refused Sodium Chloride (0.9 % Sodium Chloride Flush 3 Ml Syringe) 3 ml IVFLUSH QSHIFT [facility] Last Admin: 10/23/22 14:21 Dose: 3 ml Documented By: EMILEMA Trazodone HCl (Trazodone Hcl 25 Mg Halftab) 25 mg PO BEDTIME [facility] Last Admin: 10/22/22 20:39 Dose: 25 mg Documented By: YG Labs 10/23/22 05:15 10/23/22 05:15 Labs: Laboratory Results - last 24 hr 10/22/22 10/22/22 10/23/22 16:34 20:51 05:15 MCV 90.7 MCH 25.3 L MCHC 27.9 L RDW 16.1 H Plt Count 217 D MPV 10.9 Absolute Nucleated RBC 0.040 H Nucleated RBC % (auto) 0.7 H Anion Gap Estim Creat Clear Calc Estimated GFR POC Glucose 165 H 139 H Random Glucose Calcium 10/23/22 10/23/22 10/23/22 05:15 07:20 11:15 MCV MCH MCHC RDW Plt Count MPV Absolute Nucleated RBC Nucleated RBC % (auto) Anion Gap 11 L Estim Creat Clear Calc 113.1 Estimated GFR > 60 POC Glucose 125 H 181 H Random Glucose 122 H Calcium 9.4 Microbiology Microbiology Results: Microbiology 10/17/22 21:04 Blood Culture - Final Blood - Venous No growth after 5 days. Procedures Date of Service Date of Service: 10/23/22 Progress Note: A&P Assessment and plan (1) Enteritis: Status: Acute Plan At present, no acute surgical issues. Will follow-up p.r.n.. Time Spent With Patient Time: Total time managing care of this patient today ____ minutes. Quality Stroke Does the patient have a stroke diagnosis?: No VTE Prior VTE?: No VTE Risk Level:: Medical - moderate - high VTE Device Contraindication: Treatment Not Indicated VTE Drug Contraindication: N/A - Med Ordered
[2022-10-23 16:24] LABS: Glucose, Whole Blood 152 mg/dL (60-115)
[2022-10-23 20:13] LABS: Glucose, Whole Blood 151 mg/dL (60-115)
[2022-10-23] MEDS: Atorvastatin Calcium 40 MG TABLET PO (20:53)
[2022-10-23] MEDS: traZODone HCL 25 MG HALFTAB PO (20:53)
[2022-10-23] MEDS: Sennosides 8.6 MG TABLET 17.2 MG PO (20:53)
[2022-10-23] MEDS: Enoxaparin Sodium 40 MG/0.4 ML SYRINGE SUBCUT (20:56)
[2022-10-23] MEDS: cefTRIAXone sodium 1 GM in 0.9 % Sodium Chloride 50 ML IV (22:12)
[2022-10-24] MEDS: Morphine Sulfate 2 MG/ML CARTRIDGE IVPUSH (02:10)
[2022-10-24] MEDS: Gabapentin 100 MG CAPSULE PO ×3 (06:02→17:01)
[2022-10-24] MEDS: Omeprazole 20 MG CAPSULE.DR PO (06:02)
[2022-10-24 07:20] VITALS: BP 128/60; PULSE 66; RESP 18; TEMP 36.2; O2SAT 98
[2022-10-24] MEDS: Fluticasone/Vilanterol 200/25 BLST.W.DEV 1 PUFF INHALE (07:24)
[2022-10-24 07:26] VITALS: PULSE 67; RESP 18; O2SAT 98
[2022-10-24 07:37] LABS: Glucose, Whole Blood 131 mg/dL (60-115)
[2022-10-24] MEDS: 0.9 % Sodium Chloride Flush 3 ML SYRINGE IVFLUSH ×3 (08:04→21:16)
[2022-10-24] MEDS: Propranolol HCL 20 MG TABLET 60 MG PO (08:04)
[2022-10-24] MEDS: Lidocaine 4 % Patch ADH..PATCH 1 PATCH TRANSDERMA (08:05)
[2022-10-24] MEDS: Furosemide 40 MG TABLET PO (08:06)
[2022-10-24] MEDS: buPROPion HCl XL 150 MG TAB.ER.24H PO ×2 (08:06→20:55)
[2022-10-24] MEDS: Insulin Glargine,Hum.rec.anlog 100 UNIT/ML 10 ML VIAL 20 UNIT SUBCUT (08:06)
[2022-10-24] MEDS: ARIPiprazole 10 MG TABLET PO (08:06)
[2022-10-24] MEDS: Nystatin Cream 15 GM TUBE 1 APPL TOPICAL ×2 (08:06→21:15)
[2022-10-24 11:33] LABS: Glucose, Whole Blood 172 mg/dL (60-115)
--- NOTE | 2022-10-24 11:44 | HO.PM.IMPN ---
Subjective Subjective Date of Service: 10/24/22 Interval History: seen and examined this morning follow up for abdominal pain less liquid stools no nausea or vomiting Review of Systems Review of Systems: Yes all other systems are reviewed and are negative Constitutional Constitutional: Denies chills and Denies fever(s) Cardiovascular Cardiovascular: Denies chest pain Gastrointestinal Gastrointestinal: Reports abdominal pain Physical Exam Vital Signs: Vital Signs: Last Vital Signs Temp 97.1 F 10/24/22 07:20 Pulse 67 10/24/22 07:26 Resp 18 10/24/22 07:26 BP 128/60 10/24/22 07:20 Pulse Ox 98 10/24/22 07:20 O2 Del Method Nasal Cannula 10/24/22 07:20 O2 Flow Rate 3 10/24/22 07:20 Oxygen Flow Rate 3 10/17/22 16:57 BMI result Body Mass Index 56.7 Appearing in no acute distress lung sounds are clear to auscultation heart regular rate rhythm, clear S1, S2 positive bowel sounds, abdomen is soft, nontender neuro patient is alert x3, no focal deficits Objective Data Active Medications Acetaminophen (Acetaminophen 325 Mg Tablet) 650 mg PO Q6H PRN PRN Reason: Pain, Mild (Pain Scale 1-3) Last Admin: 10/23/22 14:20 Dose: 650 mg Documented By: HOANG Albuterol Sulfate (Albuterol Sulfate 90 Mcg 8 Gm Inhaler) 2 puff INHALE Q4H PRN PRN Reason: Shortness Of Breath Albuterol/Ipratropium (Albuterol/Iprat 2.5/0.5mg 3 Ml Ampul.Neb) 3 ml INHALE RQ4H PRN PRN Reason: sob,wheezing Last Admin: 10/17/22 22:47 Dose: 3 ml Documented By: MY Aripiprazole (Aripiprazole 10 Mg Tablet) 10 mg PO DAILY [facility] Last Admin: 10/24/22 08:06 Dose: 10 mg Documented By: MARISSA Atorvastatin Calcium (Atorvastatin Calcium 40 Mg Tablet) 40 mg PO BEDTIME [facility] Last Admin: 10/23/22 20:53 Dose: 40 mg Documented By: PANTERA Bisacodyl (Bisacodyl 10 Mg Supp.Rect) 10 mg NJ DAILY PRN PRN Reason: Constipation Bupropion HCl (Bupropion Hcl Xl 150 Mg Tab.Er.24h) 150 mg PO BID [facility] Last Admin: 10/24/22 08:06 Dose: 150 mg Documented By: MARISSA Dextrose (Dextrose 50 % 25 Gm/50 Ml Syringe) 25 gm IVPUSH Q15M PRN; Protocol PRN Reason: per Hypoglycemia Standing Ord. Enoxaparin Sodium (Enoxaparin Sodium 40 Mg/0.4 Ml Syringe) 40 mg SUBCUT Q24H [facility] Last Admin: 10/23/22 20:56 Dose: 40 mg Documented By: PANTERA Fluticasone/Vilanterol (Fluticasone/Vilanterol 200/25 Blst.W.Dev) 1 puff INHALE RDAILY [facility] Last Admin: 10/24/22 07:24 Dose: 1 puff Documented By: DANISH Furosemide (Furosemide 40 Mg Tablet) 40 mg PO DAILY [facility]; Protocol Last Admin: 10/24/22 08:06 Dose: 40 mg Documented By: MARISSA Gabapentin (Gabapentin 100 Mg Capsule) 100 mg PO TID@0600,1400,1800 [facility] Last Admin: 10/24/22 06:02 Dose: 100 mg Documented By: PANTERA Glucose (Glucose Gel 15 Gm Gel..Gram.) 15 gm PO Q15M PRN; Protocol PRN Reason: per Hypoglycemia Standing Ord. Ceftriaxone Sodium 1 gm/ (Sodium Chloride) 50 mls @ 100 mls/hr IV Q24H [facility] Last Infusion: 10/23/22 22:47 Dose: 0 mls/hr Documented By: PANTERA Insulin Glargine (Insulin Glargine,Hum.Rec.Anlog 100 Unit/Ml 10 Ml Vial) 20 unit SUBCUT DAILY [facility] Last Admin: 10/24/22 08:06 Dose: 20 unit Documented By: MARISSA Insulin Human Lispro (Insulin Lispro 100 Unit/Ml 3 Ml Vial) 0 unit SUBCUT QIDACHS [facility]; Protocol Last Admin: 10/24/22 07:59 Dose: Not Given Documented By: MARISSA Non-Admin Reason: No Insulin Coverage Lidocaine (Lidocaine 4 % Patch Adh..Patch) 1 patch TRANSDERMA DAILY [facility]; Protocol Last Admin: 10/24/22 08:05 Dose: 1 patch Documented By: MARISSA Magnesium Hydroxide (Milk Of Magnesia 30 Ml Oral.Susp) 30 ml PO DAILY PRN PRN Reason: Constipation Last Admin: 10/23/22 14:23 Dose: 30 ml Documented By: COTEMA Morphine Sulfate (Morphine Sulfate 2 Mg/Ml Cartridge) 2 mg IVPUSH Q4H PRN; Protocol PRN Reason: Pain, Severe (Pain Scale 7-10) Last Admin: 10/24/22 02:10 Dose: 2 mg Documented By: PANTERA Nystatin (Nystatin Cream 15 Gm Tube) 1 appl TOPICAL BID [facility]; Protocol Last Admin: 10/24/22 08:06 Dose: 1 appl Documented By: MARISSA Omeprazole (Omeprazole 20 Mg Capsule.Dr) 20 mg PO DAILY@0630 [facility] Last Admin: 10/24/22 06:02 Dose: 20 mg Documented By: PANTERA Ondansetron HCl (Ondansetron Hcl 4 Mg/2 Ml Vial) 4 mg IVPUSH Q8H PRN PRN Reason: Nausea and Vomiting Oxycodone HCl (Oxycodone Hcl Immed Release 5 Mg Tablet) 5 mg PO Q6H PRN PRN Reason: Pain, Moderate(Pain Scale 4-6) Last Admin: 10/23/22 14:20 Dose: 5 mg Documented By: COTCHARLES Polyethylene Glycol (Polyethylene Glycol 3350 17 Gm Powd.Pack) 17 gm PO DAILY [facility] Last Admin: 10/24/22 08:08 Dose: Not Given Documented By: MARISSA Non-Admin Reason: loose stool Propranolol HCl (Propranolol Hcl 20 Mg Tablet) 60 mg PO DAILY [facility]; Protocol Last Admin: 10/24/22 08:04 Dose: 60 mg Documented By: MARISSA Senna (Sennosides 8.6 Mg Tablet) 17.2 mg PO BEDTIME [facility] Last Admin: 10/23/22 20:53 Dose: 17.2 mg Documented By: PANTERA Sodium Chloride (0.9 % Sodium Chloride Flush 3 Ml Syringe) [facility] Last Admin: 10/24/22 08:04 Dose: 3 ml Documented By: MARISSA Trazodone HCl (Trazodone Hcl 25 Mg Halftab) 25 mg PO BEDTIME [facility] Last Admin: 10/23/22 20:53 Dose: 25 mg Documented By: PANTERA Labs 10/23/22 05:15 10/23/22 05:15 Labs: Laboratory Results - last 24 hr 10/23/22 10/23/22 10/24/22 16:14 19:57 07:26 POC Glucose 152 H 151 H 131 H 10/24/22 11:24 POC Glucose 172 H Assessment and Plan (1) Abdominal pain: Status: Acute Plan 66-year-old female past medical history of chronic anemia, COPD, comes into the hospital with complaints of abdominal pain Abdominal pain. secondary to acute enteritis initially treated with Rocephin and Flagyl, flagyl d/c 10/19 per ID rec seen by General surgery> no surgical intervention at this time, repeat CT abdomen shows improvement in appearance of small bowel abnormality GI> check celiac panel - pending abdominal US negative for acute gallbladder pathology advance diet to regular UTI urine culture growing citrobacter freundii sensitive to ceftriaxone Continue Rocephin ->po cefuroxime for total 14d upon discharge bacteremia 1/2 blood culture growing coag negative staph - contaminant chronic anemia multifactorial no evidence of acute blood loss no indication for transfusion at this time COPD not in exacerbation continue home inhaler diabetes mellitus type 2 continue lantus Sliding scale, ADA diet mood continue home meds chronic respiratory failure continue baseline 3L NC Morbid obesity BMI 56.7 weight loss encouraged non-ambulatory at baseline, has been at [facility] for the past year, plan to return when medically ready DVT prophylaxis:? [employer] Attending Dr. Chawla Full code Continue hospitalization for further management of partial small-bowel obstruction requiring specialty consultation and IV antibiotics Time Spent With Patient Time: Total time managing care of this patient today ____ minutes. Quality Stroke Does the patient have a stroke diagnosis?: No VTE Prior VTE?: No VTE Risk Level:: Medical - moderate - high VTE Device Contraindication: Treatment Not Indicated VTE Drug Contraindication: N/A - Med Ordered
[2022-10-24] MEDS: Insulin Lispro 100 UNIT/ML 3 ML VIAL SUBCUT ×2 (11:54→20:56)
--- NOTE | 2022-10-24 14:36 | MHC.CM.PN ---
per rounds pt not medically ready for dc plan remains return to [facility]
[2022-10-24 15:10] VITALS: BP 143/66; PULSE 62; RESP 18; TEMP 36.3; O2SAT 95
[2022-10-24 16:14] LABS: Glucose, Whole Blood 139 mg/dL (60-115)
--- NOTE | 2022-10-24 18:32 | PC.NURSE ---
Patient tolerating diet, no n/v noted, meds as ordered, possible d/c to [facility] tomorrow.
[2022-10-24 19:02] VITALS: BP 149/69; PULSE 68; RESP 18; TEMP 36.2; O2SAT 98
[2022-10-24 20:14] LABS: Glucose, Whole Blood 171 mg/dL (60-115)
[2022-10-24] MEDS: traZODone HCL 25 MG HALFTAB PO (20:54)
[2022-10-24] MEDS: Sennosides 8.6 MG TABLET 17.2 MG PO (20:55)
[2022-10-24] MEDS: Atorvastatin Calcium 40 MG TABLET PO (20:55)
[2022-10-24] MEDS: Enoxaparin Sodium 40 MG/0.4 ML SYRINGE SUBCUT (20:57)
[2022-10-24] MEDS: cefTRIAXone sodium 1 GM in 0.9 % Sodium Chloride 50 ML IV (21:16)
[2022-10-25 00:18] VITALS: BP 138/65; PULSE 61; RESP 19; TEMP 36.2; O2SAT 97
[2022-10-25] MEDS: Omeprazole 20 MG CAPSULE.DR PO (05:36)
[2022-10-25] MEDS: Gabapentin 100 MG CAPSULE PO (05:36)
[2022-10-25 07:24] VITALS: BP 132/61; PULSE 73; RESP 20; TEMP 36.9; O2SAT 98
[2022-10-25 07:46] LABS: Glucose, Whole Blood 146 mg/dL (60-115)
[2022-10-25] MEDS: Fluticasone/Vilanterol 200/25 BLST.W.DEV 1 PUFF INHALE (08:30)
[2022-10-25 08:31] VITALS: PULSE 73; RESP 20; O2SAT 98
[2022-10-25] MEDS: buPROPion HCl XL 150 MG TAB.ER.24H PO (09:48)
[2022-10-25] MEDS: Furosemide 40 MG TABLET PO (09:48)
[2022-10-25] MEDS: Lidocaine 4 % Patch ADH..PATCH 1 PATCH TRANSDERMA (09:48)
[2022-10-25] MEDS: Propranolol HCL 20 MG TABLET 60 MG PO (09:48)
[2022-10-25] MEDS: ARIPiprazole 10 MG TABLET PO (09:48)
[2022-10-25] MEDS: Insulin Glargine,Hum.rec.anlog 100 UNIT/ML 10 ML VIAL 20 UNIT SUBCUT (09:48)
[2022-10-25] MEDS: 0.9 % Sodium Chloride Flush 3 ML SYRINGE IVFLUSH (09:49)
[2022-10-25] MEDS: Nystatin Cream 15 GM TUBE 1 APPL TOPICAL (09:53)
--- NOTE | 2022-10-25 10:12 | PM.DS ---
DS: Providers Provider Date of Service: 10/25/22 Date of admission: 10/17/22 20:47 Primary care physician: Carlitos Greer MD Consults: 10/18/22 06:50 Consult to General Surgery Routine Consulting Provider: [facility] General Surgeons Reason for consultation: partial small bowel Has provider been notified: No 10/18/22 15:12 Consult to Gastroenterology Routine Consulting Provider: Eduardo Adorno Reason for consultation: ? enteritis 10/19/22 10:25 Consult to Infectious Diseases Routine Consulting Provider: [facility] Infectious Disease Reason for consultation: GPC bacteremia DS: Diagnosis Discharge Diagnosis (1) Abdominal pain: Status: Acute DS: Summary Hospital Course Hospital Course: history and physical as per admitting provider. 66-year-old female morbidly obese with past medical history of CHF, AFib, history of dysphagia, essential tremors, HLD, recently admitted for pneumoperitoneum presents to the hospital with abdominal pain.? Patient reports symptoms started suddenly around 15:00 on day presentation, diffuse worse in the lower quadrants bilaterally stabbing pain, constant, radiating to her back, relieved with pain medications. No fever chills, no nausea vomiting, no diarrhea constipation, last bowel movement was the day before, passing gas today.? Other review of system negative On arrival to the ED patient hemodynamically stable no significant abnormal vitals Labs are significant for WBC count 5.2, hemoglobin of 10.4 which is around her baseline, hematocrit 36.6, UA showing nitrites, WBC CT abdomen showing abnormal appearance of the small bowel with associated free fluid in the right lower quadrant and pelvis as well as mildness inter congestion worrisome for acute enteritis which is progress from previous, no pneumatosis or pneumoperitoneum, some degree of early partial small-bowel obstruction cannot be excluded Patient started on IV antibiotics, IV fluids, and will be admitted for further management 66-year-old woman treated for enteritis. abdominal CT initially showed a question of small-bowel obstruction versus enteritis. She was seen evaluated by General surgery who did not feel like this was related to a bowel obstruction. Seen examined by Gastroenterology for enteritis. Treated with Rocephin and Flagyl. Flagyl DC 10/19/2022 as per ID recommendations. Abdominal ultrasound negative for cholecystitis, diet advanced to regular. Abdominal pain completely resolved. patient is [facility]. if symptoms return may consider capsule endoscopy as per GI. UTI growing Citrobacter freundii treated with Rocephin. Will continue Ceftin for total 14 day treatment. chronic anemia no evidence of acute blood loss.no indication for transfusion COPD not in exacerbation continue home inhaler diabetes mellitus type 2 Continue medications mood continue home meds chronic respiratory failure continue baseline 3L NC Morbid obesity BMI 56.7 weight loss encouraged Time Spent with Patient Time attestation: Total time managing care of this patient today ____ minutes. Discharge coordination time: Greater than 30 minutes Quality: Safe Use of Opioids Does Pt have an Active Cancer Diagnosis on the Problem List?: No Quality: Stroke Does the patient have a stroke diagnosis?: No Physical Exam Vital Signs: Vital Signs: Last Vital Signs Temp 98.4 F 10/25/22 07:24 Pulse 73 10/25/22 08:31 Resp 20 10/25/22 08:31 BP 132/61 10/25/22 07:24 Pulse Ox 98 10/25/22 07:24 O2 Del Method Nasal Cannula 10/25/22 07:24 O2 Flow Rate 2 10/25/22 07:24 Oxygen Flow Rate 3 10/17/22 16:57 BMI result Body Mass Index 56.7 Appearing in no acute distress head is normocephalic atraumatic eyes pupils are PERRLA sclera is anicteric mouth throat mucous membranes are intact and moist neck is supple no lymphadenopathy, no JVD noted lung sounds are clear to auscultation heart regular rate rhythm, clear S1, S2 positive bowel sounds, abdomen is soft, nontender, obese neuro patient is alert x3, no focal deficits Chair/bed bound DS: Data Data Completed and Pending Completed studies during hospitalization [Text1]: Procedures Transfusion of Nonautologous Red Blood Cells into Peripheral Vein, Percutaneous Approach (08/09/22) Labs on day of discharge: Laboratory Results - last 24 hr 10/23/22 10/24/22 10/24/22 05:15 11:24 16:08 Smear Path Review SEE NOTE POC Glucose 172 H 139 H 10/24/22 10/25/22 20:06 07:29 Smear Path Review POC Glucose 171 H 146 H Discharge Plan Discharge Anticipated Discharge Date/Time: 10/25/22 07:53 Patient Disposition: er [facility] Discharge Diagnosis: Enteritis UTI Referrals: Carlitos Greer MD [Primary Care Provider] - 1 Week Discharge Medications: New cefuroxime axetil 500 mg tablet 500 mg PO BID Qty: 12 0RF Continued furosemide 40 mg Tablet 40 mg PO DAILY sennosides [senna] 8.6 mg Tablet 17.2 mg PO BEDTIME acetaminophen 325 mg Tablet 650 mg PO Q6H PRN (Reason: temp/pain) polyethylene glycol 3350 17 gram Powder In Packet 17 g PO DAILY magnesium hydroxide [Milk of Magnesia] 400 mg/5 mL Suspension 30 ml PO DAILY PRN (Reason: Constipation) bisacodyl 10 mg Suppository 10 mg NJ DAILY PRN (Reason: Constipation) docusate sodium 100 mg Capsule 100 mg PO BID insulin lispro [Humalog U-100 Insulin] 100 unit/mL Solution See Protocol SUBCUT QIDACHS Protocol: Insulin Correction Scale Less than or equal to 110 ---- Give (units): 0 111 to 150 Give (units): 0 151 to 200 Give (units): 2 201 to 250 Give (units): 4 251 to 300 Give (units): 6 301 to 350 Give (units): 8 Greater than 350 Give (units): 10 Call if Blood Glucose > : 350 enoxaparin [Lovenox] 40 mg/0.4 mL Syringe 40 mg SUBCUT DAILY Rx Instructions: finish 10/27/2022, then switch to eliquis aripiprazole 10 mg Tablet 10 mg PO DAILY budesonide-formoterol [Symbicort] 160-4.5 mcg/actuation Hfa Aerosol Inhaler 1 inh INHALATION DAILY trazodone 50 mg Tablet 25 mg PO BEDTIME pioglitazone [Actos] 45 mg Tablet 45 mg PO DAILY glimepiride 4 mg Tablet 4 mg PO DAILY gabapentin 100 mg Capsule 100 mg PO TID@0600,1400,1800 propranolol 20 mg Tablet 60 mg PO DAILY rosuvastatin [Crestor] 10 mg Tablet 10 mg PO BEDTIME insulin glargine-yfgn [Semglee(insulin glarg-yfgn)Pen] 100 unit/mL (3 mL) Insulin Pen 20 unit SUBCUT DAILY bupropion HCl 150 mg tablet extended release 24 hr 150 mg PO BID lidocaine [Aspercreme (lidocaine)] 4 % Adhesive Patch,Medicated 1 patch TOPICAL DAILY albuterol sulfate 90 mcg/actuation Hfa Aerosol Inhaler 2 puff INHALATION Q4H PRN (Reason: Shortness Of Breath) Discharge Orders: Discharge Order (Routine); Ordered 10/25/22 Ordered By: Rochelle Rg Diet: Advance to usual diet Activity on Discharge: As tolerated Stand Alone Forms: Patient Portal Discharge page Care Plan Goals: complete resolution of symptoms Health Concerns: Enteritis UTI Plan of Treatment: take all medications as prescribed Follow-up with primary care provider as needed Assessment: see discharge summary
[2022-10-25 11:17] LABS: Glucose, Whole Blood 183 mg/dL (60-115)
[2022-10-25] MEDS: Insulin Lispro 100 UNIT/ML 3 ML VIAL SUBCUT (11:34)
[2022-10-25 11:58] LABS: Transglutaminase IgA <1.0 U/mL
[2022-10-25 12:08] LABS: Endomysial IgA Antibody Negative (Negative)
[2022-10-26 05:38] LABS: Gliadin Deamidated IgA Ab 2.6 U/mL; Gliadin Deamidated IgG Ab <1.0 U/mL
== END 2022-10-25 13:41 | DRG 392 ==
LOC: HO.ED 20:45 → HO.EDOVER 20:57 → HO.S3 10-18 09:55
PROVIDERS: Physician Assistant Medical; Admitting Provider Internal Medicine; Emergency Provider Emergency Medicine; PCP Internal Medicine; Visit Provider Nurse Practitioner Acute Care
DX: K52.9 Noninfective gastroenteritis and colitis, unspecified (principal); N39.0 Urinary tract infection, site not specified; Z68.43 Body mass index [BMI] 50.0-59.9, adult; F32.A Depression, unspecified; E66.01 Morbid (severe) obesity due to excess calories; G25.0 Essential tremor; D64.9 Anemia, unspecified; J44.9 Chronic obstructive pulmonary disease, unspecified; Z99.81 Dependence on supplemental oxygen; Z79.4 Long term (current) use of insulin; Z79.84 Long term (current) use of oral hypoglycemic drugs; Z79.899 Other long term (current) drug therapy
CPT/HCPCS: 36415; 74176; 74177; 76705; 80048; 80053; 81001; 82947; 83605; 83690; 85025; 85027; 86231; 86258; 86364; 87040; 87086; 87088; 87147; 87186; 87205; 94640; 99285; J0696; J1200; J1650; J1885; J2270; Q9967

== ENCOUNTER → 2022-10-17 20:47 | Outpatient (BNV) | payer MEDICARE, MEDICAID, SELFPAY | PROVIDERS: Admitting Provider Internal Medicine; Emergency Provider Emergency Medicine; PCP Internal Medicine; Visit Provider Surgery | DX: K52.9 Noninfective gastroenteritis and colitis, unspecified (principal) | CPT/HCPCS: 99223; 99232 ==

== ENCOUNTER → 2022-10-17 20:47 | Outpatient (BNV) | payer MEDICARE, MEDICAID, SELFPAY | PROVIDERS: Admitting Provider Internal Medicine; Emergency Provider Emergency Medicine; PCP Internal Medicine; Visit Provider Internal Medicine | DX: R10.9 Unspecified abdominal pain (principal); N39.0 Urinary tract infection, site not specified | CPT/HCPCS: 99222 ==

== ENCOUNTER → 2022-10-17 20:47 | Outpatient (BNV) | payer MEDICARE, MEDICAID, SELFPAY | PROVIDERS: Admitting Provider Internal Medicine; Emergency Provider Emergency Medicine; PCP Internal Medicine; Visit Provider Internal Medicine | DX: R10.9 Unspecified abdominal pain (principal) | CPT/HCPCS: 99223; 99232; 99233; 99239 ==

== ENCOUNTER → 2022-10-17 20:47 | Outpatient (BNV) | payer MEDICARE, MEDICAID, SELFPAY | PROVIDERS: Admitting Provider Internal Medicine; Emergency Provider Emergency Medicine; PCP Internal Medicine; Visit Provider Internal Medicine Gastroenterology | DX: K52.9 Noninfective gastroenteritis and colitis, unspecified (principal); R10.9 Unspecified abdominal pain; D64.9 Anemia, unspecified | CPT/HCPCS: 99232 ==

== ENCOUNTER 2023-03-31 11:05 | Outpatient (AMB) | payer MEDICARE, MEDICAID, SELFPAY ==
--- NOTE | 2023-03-31 11:10 | MHC.OFFVIS ---
Intake Vital Signs 03/31/23 11:17 BMI Reason not done Patient refused/unable BP 140/67 H Blood Pressure Location Rt radial Position Sitting Pulse 70 Intake Visit Reasons: GI Follow up R/S Intake Note: Irlanda presents in the office as a GI follow up. CC: She states that she is still having pains in her stomach when she eats. She denies any irregular bowel movements. Box Toe Stitcher Required: No Allergies No Known Allergies Allergy (Verified 03/31/23 11:13) HPI GI Follow up R/S HPI Details 67-year-old female with past medical history of obesity, CHF, AFib, history of dysphagia, essential tremors, HLD, who I am seeing for f/u for enteritis RECAP: I initially saw patient as in patient Patient presents with sudden onset diffuse bilateral lower quadrant stabbing pain radiating into her back 10/06 in severity but improved to aorund 06/06 now. No relieving or exacerbating factors. No fever chills, no nausea vomiting, no diarrhea constipation, last bowel movement was the day before, passing gas.? Patient was started on IV antibiotics, IV fluids, and kept NPO. She feels this pain is similar to pain she had 08/19 when she was found tp have a pneumoperitoneum of uncertain etiology which was managed medically. LABS: WBC count 19 today, hemoglobin of 10 which is around her baseline, hematocrit 36.6, UA showing nitrites, WBC IMAGING: CT abdomen: abnormal appearance of the small bowel with associated free fluid in the right lower quadrant and pelvis, acute enteritis, pSBO INTERIM: She has satiety and can feel full when eating she denies nausea or vomiting she has epigastric pain she is wheelchair dependent, unable to walk she denies constipation or diarrhea no blood in stools denies dysphagia denies heratburn EXAM: GENERAL: The patient is obese, on O2, wheelchair bound VITAL SIGNS:see workflow HEENT: Nonicteric sclerae, PERRLA, EOMI. Oropharynx clear. Moist mucous membranes. Conjunctivae appear well perfused. No thyroid mass. CHEST: Chest wall is nontender. HEART: Regular rate and rhythm without murmurs. LUNGS: Clear to auscultation bilaterally. ABDOMEN: Soft, positive bowel sounds, nontender, no organomegaly.no flank tenderness SKIN: No rash, no excessive bruising, petechiae, or purpura. NEUROLOGIC: Cranial nerves II-XII intact without motor/sensory deficit. deaf , pill rolling and head nodding A/P: 1/ Suspect she may have gastroparesis 2/2 DM and medications, she is O2 dependent and obese with v high risk for anesthesia PLAN: 1/ Ba swallow with follow thru 2/ if neg then can consider GES vs empirical gastroparesis diet and clincial assessment 3/ would empirically start Low dose PPi to see if helps her sx in case of gastritis e.g pantoprazole 20 mg daily PFSH Medical History Anemia Pneumoperitoneum Depressive disorder UTI (urinary tract infection) Abdominal pain Memory deficit Dysphagia COPD (chronic obstructive pulmonary disease) Hyperlipidemia Essential tremor CHF (congestive heart failure) Atrial fibrillation Surgical History No pertinent past surgical history Social History Household Members: Spouse Housing: House Do you presently have visiting nurse or other home services: Yes Alcohol intake: never Patient Tobacco Use Status: Never used Tobacco Advance Directives Date on File: 08/27/21 service: No Current occupational status: unemployed Physical Exam Vital Signs: Last Vital Signs Pulse 70 03/31/23 11:17 BP 140/67 H 03/31/23 11:17 Assessment & Plan Assessment & Plan (1) Gastroparesis: Code(s): K31.84 - Gastroparesis Plan: A/P: 1/ Suspect she may have gastroparesis 2/2 DM and medications, she is O2 dependent and obese with v high risk for anesthesia PLAN: 1/ Ba swallow with follow thru 2/ if neg then can consider GES vs empirical gastroparesis diet and clincial assessment 3/ would empirically start Low dose PPi to see if helps her sx in case of gastritis e.g pantoprazole 20 mg daily Coding Level of Care Code Est Pt Level 4 (67205) Diagnoses Gastroparesis K31.84
[2023-03-31 11:17] VITALS: BP 140/67; PULSE 70
== END 2023-03-31 11:57 | disposition home or self-care (01) ==
PROVIDERS: PCP Internal Medicine; Visit Provider Internal Medicine Gastroenterology
DX: K31.84 Gastroparesis (principal)
CPT/HCPCS: 99214

== ENCOUNTER → 2023-03-31 11:05 | Outpatient (BNVA) | payer MEDICARE, MEDICAID, SELFPAY | PROVIDERS: PCP Internal Medicine; Visit Provider Internal Medicine Gastroenterology | DX: K31.84 Gastroparesis (principal) | CPT/HCPCS: 99212 ==

== ENCOUNTER 2023-06-01 08:30 | Outpatient (REF) | payer MEDICARE, MEDICAID, SELFPAY ==
--- NOTE | ~2023-06-01 | FL_ITS ---
EXAMINATION: XR FLUOROSCOPY UPPER GI WITH AIR CLINICAL INFORMATION: Epigastric pain and satiety. Concern for gastric outlet obstruction. Morbid obesity and bed bound. COMPARISON: None TECHNIQUE: Fluoroscopic single contrast upper GI examination was performed utilizing standard techniques with thin barium. Numerous spot images were obtained. FINDINGS: Single contrast images of the esophagus demonstrate normal caliber, contour, and mucosal pattern. No evidence of stricture, mass, or ulcerations identified. Esophageal peristalsis was moderately disorganized. No evidence of hiatus hernia identified. No significant gastroesophageal reflux was seen during the course of the examination and on reflux views. Single contrast images of the stomach demonstrated a normal contour. Evaluation of the gastric mucosa is limited due to inability to distend the stomach due to poor tolerance of the effervescent granules. No masses are present. Contrast freely passed into the gastric antrum and duodenal bulb without delay. There is no obstruction. Single contrast images of the duodenal bulb demonstrate no abnormality. The duodenal sweep has a normal appearance, course, and mucosal fold appearance. No evidence of malrotation. FLUOROSCOPY TIME: 4 minutes 30 sec Number of Spot Images: 6 Number of Cine: 9 DOSE AREA PRODUCT: 4701 uGy-m2 (microgray-meter squared) FL/FL upper GI w air IMPRESSION: Inherently limited exam. 1. Moderately disorganized esophageal peristalsis 2. Limited exam of stomach due to patient's inability to tolerate effervescent granules to distend the stomach and inability to be positioned appropriately. Contrast was observed entering the duodenum and proximal jejunum occulta. There is no gastric outlet obstruction. This procedure was performed by Manoj Gusman PA-C, and supervised by Dr. Mendez
== END 2023-06-01 08:31 | disposition home or self-care (01) ==
LOC: HO.XRAY 08:30
PROVIDERS: Visit Provider Internal Medicine Gastroenterology
DX: K31.84 Gastroparesis (principal)
CPT/HCPCS: 74246

== ENCOUNTER → 2023-06-01 08:35 | Outpatient (BNV) | payer MEDICARE, MEDICAID, SELFPAY | PROVIDERS: Visit Provider Physician Assistant Surgical | DX: R10.13 Epigastric pain (principal) | CPT/HCPCS: 74246 ==

== ENCOUNTER 2023-10-06 10:34 | Outpatient (AMB) | payer MEDICARE, MEDICAID, SELFPAY ==
--- NOTE | 2023-10-06 10:43 | A.OFFVIS_ITS ---
Vital Signs 10/06/23 10:48 BP 147/113 H Blood Pressure Location Rt radial Position Sitting Pulse 71 Intake Visit Reasons: 6 month follow up Intake Note: Irlanda presents in the office as a 6 month follow up. CC: She states that she is not having any concerns at this time. [employer] Required: No Allergies No Known Allergies Allergy (Verified 10/06/23 10:43) HPI HPI 6 month follow up: Details: 67-year-old female with past medical history of obesity, CHF, AFib, history of dysphagia, essential tremors, HLD, who I am seeing for f/u for enteritis RECAP: I initially saw patient as in patient Patient presents with sudden onset diffuse bilateral lower quadrant stabbing pain radiating into her back 10/06 in severity but improved to aorund 06/06 now. No relieving or exacerbating factors. No fever chills, no nausea vomiting, no diarrhea constipation, last bowel movement was the day before, passing gas. Patient was started on IV antibiotics, IV fluids, and kept NPO. She feels this pain is similar to pain she had 08/19 when she was found tp have a pneumoperitoneum of uncertain etiology which was managed medically. LABS: WBC count 19 today, hemoglobin of 10 which is around her baseline, hematocrit 36.6, UA showing nitrites, WBC IMAGING: CT abdomen: abnormal appearance of the small bowel with associated free fluid in the right lower quadrant and pelvis, acute enteritis, pSBO Upper GI series 05/2023-- no obstruction, mildly disorganized esophgeal peristalsis, no reflux INTERIM: she no longer has satiety or fullness she has no epigastric pain now she denies nausea or vomiting she is still wheelchair dependent, unable to walk except short distances she denies constipation or diarrhea no blood in stools denies dysphagia denies heratburn EXAM: GENERAL: The patient is obese, on O2, wheelchair bound VITAL SIGNS:see workflow HEENT: Nonicteric sclerae, PERRLA, EOMI. Oropharynx clear. Moist mucous membranes. Conjunctivae appear well perfused. No thyroid mass. CHEST: Chest wall is nontender. HEART: Regular rate and rhythm without murmurs. LUNGS: Clear to auscultation bilaterally. ABDOMEN: Soft, positive bowel sounds, nontender, no organomegaly.no flank tender ness SKIN: No rash, no excessive bruising, petechiae, or purpura. NEUROLOGIC: Cranial nerves II-XII intact without motor/sensory deficit. deaf , pill rolling and head nodding A/P: 1/ She feels back to normal, no concerning symptoms, ?PPI has helped PLAN: 1/ cont with pantoprazole 20 mg and add multivitamin and D3 supplement f/u prn PFSH Medical History Anemia Pneumoperitoneum Depressive disorder UTI (urinary tract infection) Abdominal pain Memory deficit Dysphagia COPD (chronic obstructive pulmonary disease) Hyperlipidemia Essential tremor CHF (congestive heart failure) Atrial fibrillation Surgical History No pertinent past surgical history Social History Household Members: Spouse Housing: House Do you presently have visiting nurse or other home services: Yes Alcohol intake: never Patient Tobacco Use Status: Never used Tobacco Advance Directives Date on File: 08/27/21 service: No Current occupational status: unemployed Assessment & Plan Assessment & Plan (1) Epigastric abdominal pain: Code(s): R10.13 - Epigastric pain Category: Medical Plan: resolved Coding Level of Care Code Est Pt Level 3 (57610) Diagnoses Epigastric abdominal pain R10.13
[2023-10-06 10:48] VITALS: BP 147/113; PULSE 71
== END 2023-10-06 10:59 | disposition home or self-care (01) ==
PROVIDERS: PCP Internal Medicine; Visit Provider Internal Medicine Gastroenterology
DX: R10.13 Epigastric pain (principal)
CPT/HCPCS: 99213

== ENCOUNTER → 2023-10-06 10:34 | Outpatient (BNVA) | payer MEDICARE, MEDICAID, SELFPAY | PROVIDERS: PCP Internal Medicine; Visit Provider Internal Medicine Gastroenterology | DX: R10.13 Epigastric pain (principal); E66.9 Obesity, unspecified; Z99.3 Dependence on wheelchair | CPT/HCPCS: 99212 ==

== ENCOUNTER 2024-01-27 12:55 | Emergency (ER) | payer MEDICARE, MEDICAID, SELFPAY ==
--- NOTE | ~2024-01-27 | CT_ITS ---
EXAMINATION: CT HEAD WITHOUT CONTRAST CT CERVICAL SPINE WITHOUT CONTRAST CLINICAL INFORMATION: Fall. Head strike. COMPARISON: CT head dated 10/26/2021. CT cervical spine dated 08/26/2021. TECHNIQUE: Contiguous axial imaging was performed from the skull base to vertex without intravenous administration of contrast. Contiguous axial CT images of the cervical spine were obtained without contrast. Sagittal and coronal reformats were provided and reviewed. This CT examination was performed using dose optimization techniques as appropriate, variously including the following: *Automated exposure control. *Adjustment of mA and/or kV according to patient size (this includes techniques or standardized protocols for targeted exams where dose is matched to indication/reason for exam; i.e. extremities or head). *Use of iterative reconstruction technique. DLP: 1643 mGy-cm FINDINGS: HEAD: There is no evidence of acute intracranial hemorrhage or territorial infarction. No abnormal mass effect or midline shift is seen. Lui to white matter differentiation is well preserved. No extra-axial fluid collections are identified. Prominence of the ventricles and sulci as well as hypoattenuation of the periventricular white matter is unchanged. The osseous structures and soft tissues are normal. The mastoid air cells and visualized portions of the paranasal sinuses are well aerated. CERVICAL SPINE: Normal vertebral body alignment. The normal cervical lordosis is maintained. No acute fracture or subluxation. No loss of vertebral body height. Multilevel loss of intervertebral disc height with endplate osteophytes, unchanged. Multilevel bilateral facet arthropathy is redemonstrated. No lytic or blastic osseous lesion. Unremarkable prevertebral soft tissues. No abnormal soft tissue mass or fluid collection. Thyroid within normal limits. Mild interstitial prominence within the right lung apex without a focal consolidation. [id number] multilevel bilateral neural foraminal stenosis, not significantly changed. CT/CT cervical spine wo IV con IMPRESSION: HEAD: No acute intracranial hemorrhage or mass effect. Mild diffuse atrophy and chronic microvascular ischemic disease, unchanged. CERVICAL SPINE: No acute fracture or subluxation. Multilevel degenerative disc disease and bilateral neural foraminal stenosis, unchanged. Electronically signed by: Froilan To MD 01/27/2024 01:52 PM [facility] [place]
--- NOTE | ~2024-01-27 | CT_ITS ---
EXAMINATION: CT HEAD WITHOUT CONTRAST CT CERVICAL SPINE WITHOUT CONTRAST CLINICAL INFORMATION: Fall. Head strike. COMPARISON: CT head dated 10/26/2021. CT cervical spine dated 08/26/2021. TECHNIQUE: Contiguous axial imaging was performed from the skull base to vertex without intravenous administration of contrast. Contiguous axial CT images of the cervical spine were obtained without contrast. Sagittal and coronal reformats were provided and reviewed. This CT examination was performed using dose optimization techniques as appropriate, variously including the following: *Automated exposure control. *Adjustment of mA and/or kV according to patient size (this includes techniques or standardized protocols for targeted exams where dose is matched to indication/reason for exam; i.e. extremities or head). *Use of iterative reconstruction technique. DLP: 1643 mGy-cm FINDINGS: HEAD: There is no evidence of acute intracranial hemorrhage or territorial infarction. No abnormal mass effect or midline shift is seen. Lui to white matter differentiation is well preserved. No extra-axial fluid collections are identified. Prominence of the ventricles and sulci as well as hypoattenuation of the periventricular white matter is unchanged. The osseous structures and soft tissues are normal. The mastoid air cells and visualized portions of the paranasal sinuses are well aerated. CERVICAL SPINE: Normal vertebral body alignment. The normal cervical lordosis is maintained. No acute fracture or subluxation. No loss of vertebral body height. Multilevel loss of intervertebral disc height with endplate osteophytes, unchanged. Multilevel bilateral facet arthropathy is redemonstrated. No lytic or blastic osseous lesion. Unremarkable prevertebral soft tissues. No abnormal soft tissue mass or fluid collection. Thyroid within normal limits. Mild interstitial prominence within the right lung apex without a focal consolidation. [id number] multilevel bilateral neural foraminal stenosis, not significantly changed. CT/CT head/brain wo IV con IMPRESSION: HEAD: No acute intracranial hemorrhage or mass effect. Mild diffuse atrophy and chronic microvascular ischemic disease, unchanged. CERVICAL SPINE: No acute fracture or subluxation. Multilevel degenerative disc disease and bilateral neural foraminal stenosis, unchanged. Electronically signed by: Froilan To MD 01/27/2024 01:52 PM [facility] [place]
[2024-01-27 12:40] VITALS: BP 102/55; PULSE 66; O2SAT 98
--- NOTE | 2024-01-27 12:42 | ED.GENADULT ---
HPI - General Adult General Chief complaint: Fall Stated complaint: WIT FALL OUT OF W/C,HIT HEAD,-THIN,FROM SNF PER EM Source: patient, EMS and RN notes reviewed Mode of arrival: EMS History of Present Illness ED Provider: Ney HPI narrative: Patient is a 68-year-old female with history of afib, anemia, memory deficit, dysphagia, COPD on 2lpm via NC at baseline, HLD, essential tremor, CHF presenting to the ED from nursing facility after reported fall out of wheelchair with head strike. Patient states that she was attempting to answer her cell phone when she slid out of her wheelchair onto the floor. Denies any dizziness or lightheadedness prior to fall. Unsure if she hit her head on the floor or her wheelchair. Denies loss of consciousness. She is not anticoagulated. Reports mild headache. Denies blurred vision, double vision or other visual changes, neck or back pain. Denies any other complaints. MD complaint: head injury Onset (ago): minute(s) Location: head Severity: mild Quality: aching Associated symptoms: denies other symptoms Treatments prior to arrival: none Related Data Home Medications ?Medication ?Instructions ?Recorded ?Confirmed acetaminophen 325 mg tablet 650 mg PO Q6H PRN temp/pain 08/26/21 10/17/22 aripiprazole 10 mg tablet 10 mg PO DAILY 08/26/21 10/17/22 bisacodyl 10 mg rectal suppository 10 mg [place] DAILY PRN Constipation 08/26/21 10/17/22 budesonide-formoterol HFA 160 1 inh inhalation DAILY 08/26/21 10/17/22 mcg-4.5 mcg/actuation aerosol inhaler (Symbicort) docusate sodium 100 mg capsule 100 mg PO BID 08/26/21 10/17/22 enoxaparin 40 mg/0.4 mL 40 mg subcut DAILY 08/26/21 10/17/22 subcutaneous syringe (Lovenox) furosemide 40 mg tablet 40 mg PO DAILY 08/26/21 10/17/22 insulin lispro 100 unit/mL See Protocol subcut QIDACHS 08/26/21 10/17/22 subcutaneous solution (Humalog U-100 Insulin) magnesium hydroxide 400 mg/5 mL 30 ml PO DAILY PRN Constipation 08/26/21 10/17/22 oral suspension (Milk of Magnesia) polyethylene glycol 3350 17 gram 17 g PO DAILY 08/26/21 10/17/22 oral powder packet sennosides 8.6 mg tablet (senna) 17.2 mg PO BEDTIME 08/26/21 10/17/22 gabapentin 100 mg capsule 100 mg PO TID@0600,1400,1800 08/09/22 10/17/22 glimepiride 4 mg tablet 4 mg PO DAILY 08/09/22 10/17/22 insulin glargine-yfgn 100 unit/mL 20 unit subcut DAILY 08/09/22 10/17/22 (3 mL) subcutaneous pen (Semglee (insulin glargine-yfgn) Pen) pioglitazone 45 mg tablet (Actos) 45 mg PO DAILY 08/09/22 10/17/22 rosuvastatin 10 mg tablet (Crestor) 10 mg PO BEDTIME 08/09/22 10/17/22 trazodone 50 mg tablet 25 mg PO BEDTIME 08/09/22 10/17/22 bupropion HCl 150 mg 24 hr tablet, 150 mg PO BID 08/10/22 10/17/22 extended release albuterol sulfate 90 mcg/actuation 2 puff inhalation Q4H PRN 10/17/22 10/17/22 aerosol inhaler Shortness Of Breath lidocaine 4 % topical patch 1 patch topical DAILY 10/17/22 10/17/22 (Aspercreme (lidocaine)) ascorbate calcium (vitamin C) 500 250 mg PO DAILY 03/31/23 mg tablet ferrous sulfate 325 mg (65 mg 325 mg PO DAILY 03/31/23 iron) tablet (Feosol) metformin 500 mg tablet,extended 500 mg PO DAILY 03/31/23 release 24 hr nystatin 100,000 unit/gram topical 1 appl topical DAILY 03/31/23 powder propranolol 60 mg tablet 60 mg PO DAILY 03/31/23 Previous Rx's ?Medication ?Instructions ?Recorded cefuroxime axetil 500 mg tablet 500 mg PO BID #12 tabs 10/25/22 Allergies Allergy/AdvReac Type Severity Reaction Status Date / Time No Known Allergies Allergy Verified 01/27/24 13:02 Review of Systems Review of Systems: As per HPI. Yes all other systems are reviewed and are negative Constitutional: Constitutional: Reports as per HPI [facility] Past Medical History Medical History Anemia Pneumoperitoneum Depressive disorder UTI (urinary tract infection) Abdominal pain Memory deficit Dysphagia COPD (chronic obstructive pulmonary disease) Hyperlipidemia Essential tremor CHF (congestive heart failure) Atrial fibrillation Surgical History No pertinent past surgical history Social History Social History Household Members: Spouse Housing: House Do you presently have visiting nurse or other home services: Yes Alcohol intake: never Patient Tobacco Use Status: Never used Tobacco Smoked in Last 30 Days: No Use of substances other than those prescribed or required for medical reasons: No Advance Directives: Yes Advance Directives on File: Yes Advance Directives Date on File: 08/27/21 Do you have a plan to hurt others: No Plan service: No Current occupational status: unemployed Physical Exam ED Vital Signs: Vital Signs - 24 hr 01/27/24 13:01 Temperature 97.9 F Pulse Rate 69 Respiratory Rate 18 Blood Pressure 106/56 L Pulse Oximetry 97 Oxygen Delivery Method Nasal Cannula BMI result Body Mass Index 49.6 Vital signs have been reviewed and appear to be correct. Blood pressure normal. Heart rate normal. Respiratory rate normal. Temperature normal. Oxygen saturation normal. Const General: cooperative and no acute distress Orientation/consciousness: oriented to person, oriented to place, oriented to time and patient oriented x3 HENMT Head: Yes normocephalic, Yes contusion (occipital area) and Yes scalp tenderness (occipital) Ears: external ears normal General nose exam: Normal external nose present Face and sinus: Yes face symmetric Mouth: oropharynx normal and moist mucous membranes Throat: Yes uvula midline Eyes Pupils: Equal, round and reactive pupils present Neck Neck: Yes normal visual inspection and Yes supple Resp Effort & Inspection: normal respiratory effort and able to speak in complete sentences Auscultation: clear to auscultation bilaterally Cardio Rate: regular rate Rhythm: regular rhythm Heart sounds: S1 normal heart sound present and S2 normal heart sound present GI Palpation (GI): Soft to palpation and nontender Auscultation: normoactive bowel sounds General: Yes no CVA tenderness Back/Spine/Pelvis Back: no CVA tenderness Skin General skin exam: elasticity normal and turgor normal Neuro General: oriented to person, oriented to place, oriented to time and patient oriented x3 Cranial nerves: Yes Equal, round and reactive pupils present Cognition (Neuro): normal cognition Extrem General: Yes no pedal edema and Yes no calf tenderness Psych Mental Status: mental status grossly normal Affect: normal affect Thought process: Normal thought process present Medical Decision Making Medical Decision Making [facility] Narrative: Patient is a 68-year-old female with history of afib, anemia, memory deficit, dysphagia, COPD on 2lpm via NC at baseline, HLD, essential tremor, CHF presenting to the ED from nursing facility after reported fall out of wheelchair with head strike. On exam patient is awake, A+Ox3, VS WNL, afebrile, no acute neuro deficits, physical exam findings as above. Given reported symptoms and physical exam findings, initial differential includes head contusion, ICH, skull or cervical vertebral fracture or subluxation. CT notable for no evidence of ICH, skull or cervical vertebral fracture or subluxation. My interpretation is in agreement with the radiologist's interpretation. Results discussed with patient and all questions answered. Patient stable for discharge back to [facility]. Differential Diagnosis Differential Diagnoses: The differential diagnosis associated with the presentation includes As per [facility] Admission/Observation Consideration of admission/observation: Escalation of care including admission/observation considered Patient would have been admitted to the hospital had their work up had any findings where hospital admission was appropriate and their clinical presentation warranted hospital admission. Independent Interpretation I performed an independent interpretation of an: CT Scan Interpretation: CT notable for no evidence of ICH, skull or cervical vertebral fracture or subluxation. Radiology Impression Discussion of test interpretation with radiology: I have reviewed the radiologist's reading. Radiologist Impression: CT/CT head/brain wo IV con IMPRESSION: HEAD: No acute intracranial hemorrhage or mass effect. Mild diffuse atrophy and chronic microvascular ischemic disease, unchanged. CERVICAL SPINE: No acute fracture or subluxation. Multilevel degenerative disc disease and bilateral neural foraminal stenosis, unchanged. External Record Review External record reviewed: Inpatient record, Office record and Outpatient record Discharge Plan Discharge Clinical Impression: Contusion of head Patient Disposition: er [facility] Transfer Details: back to [facility] Instructions: Contusion in Adults (ED), Ice Pack Application (ED) Additional Instructions: You were evaluated in the emergency department today for a head injury after a fall. The CT scans of your head and neck were normal. We recommend 650mg Tylenol every 6 hours as needed for pain. Apply ice for 10 minutes at a time several times daily as needed, using caution not to apply ice directly to scalp. Return with new or concerning symptoms. Prescriptions: No Action furosemide 40 mg Tablet 40 mg PO DAILY sennosides [senna] 8.6 mg Tablet 17.2 mg PO BEDTIME acetaminophen 325 mg Tablet 650 mg PO Q6H PRN (Reason: temp/pain) polyethylene glycol 3350 17 gram Powder In Packet 17 g PO DAILY magnesium hydroxide [Milk of Magnesia] 400 mg/5 mL Suspension 30 ml PO DAILY PRN (Reason: Constipation) bisacodyl 10 mg Suppository 10 mg [place] DAILY PRN (Reason: Constipation) docusate sodium 100 mg Capsule 100 mg PO BID insulin lispro [Humalog U-100 Insulin] 100 unit/mL Solution See Protocol SUBCUT QIDACHS Protocol: Insulin Correction Scale Less than or equal to 110 ---- Give (units): 0 111 to 150 Give (units): 0 151 to 200 Give (units): 2 201 to 250 Give (units): 4 251 to 300 Give (units): 6 301 to 350 Give (units): 8 Greater than 350 Give (units): 10 Call MD if Blood Glucose > : 350 enoxaparin [Lovenox] 40 mg/0.4 mL Syringe 40 mg SUBCUT DAILY Rx Instructions: finish 10/27/2022, then switch to eliquis aripiprazole 10 mg Tablet 10 mg PO DAILY budesonide-formoterol [Symbicort] 160-4.5 mcg/actuation Hfa Aerosol Inhaler 1 inh INHALATION DAILY trazodone 50 mg Tablet 25 mg PO BEDTIME pioglitazone [Actos] 45 mg Tablet 45 mg PO DAILY glimepiride 4 mg Tablet 4 mg PO DAILY gabapentin 100 mg Capsule 100 mg PO TID@0600,1400,1800 rosuvastatin [Crestor] 10 mg Tablet 10 mg PO BEDTIME insulin glargine-yfgn [Semglee(insulin glarg-yfgn)Pen] 100 unit/mL (3 mL) Insulin Pen 20 unit SUBCUT DAILY bupropion HCl 150 mg tablet extended release 24 hr 150 mg PO BID lidocaine [Aspercreme (lidocaine)] 4 % Adhesive Patch,Medicated 1 patch TOPICAL DAILY albuterol sulfate 90 mcg/actuation Hfa Aerosol Inhaler 2 puff INHALATION Q4H PRN (Reason: Shortness Of Breath) cefuroxime axetil 500 mg tablet 500 mg PO BID Qty: 12 0RF propranolol 60 mg tablet 60 mg PO DAILY metformin 500 mg tablet extended release 24 hr 500 mg PO DAILY nystatin 100,000 unit/gram powder 1 appl topical DAILY ferrous sulfate [Feosol] 325 mg (65 mg iron) tablet 325 mg PO DAILY ascorbate calcium (vitamin C) 500 mg tablet 250 mg PO DAILY Print Language: Colombian
[2024-01-27 13:01] VITALS: BP 106/56; PULSE 69; RESP 18; TEMP 36.6; O2SAT 97; BMI 49.6
[2024-01-27 14:29] VITALS: BP 110/72; PULSE 71; RESP 16; TEMP 36.6; O2SAT 97
[2024-01-27 14:58] VITALS: BP 110/72; PULSE 71; RESP 16; TEMP 36.6; O2SAT 97
[2024-01-27] MEDS: Acetaminophen 325 MG TABLET 650 MG PO (14:58)
== END 2024-01-27 14:59 | disposition skilled nursing facility (03) ==
PROVIDERS: Emergency Provider Emergency Medicine; PCP Internal Medicine
DX: S00.83XA Contusion of other part of head, initial encounter (principal); W05.0XXA Fall from non-moving wheelchair, initial encounter; E11.9 Type 2 diabetes mellitus without complications; I11.0 Hypertensive heart disease with heart failure; I50.9 Heart failure, unspecified; E78.5 Hyperlipidemia, unspecified; I48.91 Unspecified atrial fibrillation; J44.9 Chronic obstructive pulmonary disease, unspecified; Z99.81 Dependence on supplemental oxygen; Y93.89 Activity, other specified; Y92.129 Unspecified place in nursing home as the place of occurrence of the external cause; Y99.9 Unspecified external cause status; Z79.4 Long term (current) use of insulin; Z79.01 Long term (current) use of anticoagulants; Z79.02 Long term (current) use of antithrombotics/antiplatelets; Z79.899 Other long term (current) drug therapy; Z79.84 Long term (current) use of oral hypoglycemic drugs
CPT/HCPCS: 70450; 72125; 99284